=== PATIENT | female | born 1965 | race Caucasian/White ===

== ENCOUNTER 2022-08-14 14:26 | Inpatient (IN) | payer OTHER ==
[2022-08-14] MEDS ORDERED: IPRATROPIUM-ALBUTEROL 3 ML NEB INHALATION STA (15:05)
--- NOTE | 2022-08-14 15:07 | ED ---
General Adult HPI - General Chief complaint: Shortness of Breath Stated complaint: Dyspnea Time Seen by Provider: 08/14/22 14:54 Source: patient, family, RN notes reviewed Mode of arrival: wheelchair Limitations: no limitations - History of Present Illness Initial comments: Patient is a pleasant 57-year-old female presenting to the emergency department with concerns with shortness of breath. Onset of symptoms was a couple of days ago. Patient does have history of both COPD and CHF. Patient has mild cough. No fever. Dyspnea does worsen with exertion as well as lying flat. No leg pain or leg swelling. Patient has some mild discomfort of her chest and back. - Related Data Home Medications Medication Instructions Recorded Confirmed Acetaminophen-Codeine 300-30mg 1 tab PO TID PRN 08/14/22 08/14/22 [Tylenol w/codeine #3] Albuterol Sulfate [Ventolin HFA] 2 puff INHALATION RT-Q6H PRN 08/14/22 08/14/22 Apixaban [Eliquis] 2.5 mg PO BID 08/14/22 08/14/22 Ascorbic Acid [Vitamin C] 500 mg PO DAILY 08/14/22 08/14/22 Atorvastatin [Lipitor] 20 mg PO HS 08/14/22 08/14/22 Bumetanide [Bumex] 1 mg PO BID 08/14/22 08/14/22 Cholecalciferol (Vitamin D3) 125 mcg PO DAILY 08/14/22 08/14/22 [Vitamin D3 (125 MCG = 5,000 IU)] Citalopram Hydrobromide [CeleXA] 40 mg PO DAILY 08/14/22 08/14/22 Diclofenac Sodium Gel [Voltaren 2 - 4 gm TOPICAL TID PRN 08/14/22 08/14/22 Gel] Diltiazem Cd [Cardizem CD] 180 mg PO DAILY 08/14/22 08/14/22 Ferrous Sulfate [Feosol] 325 mg PO DAILY 08/14/22 08/14/22 Ipratropium-Albuterol Nebulize 3 ml INHALATION RT-QID PRN 08/14/22 08/14/22 [Duoneb 0.5 mg-3 mg/3 ml Soln] Montelukast [Singulair] 10 mg PO DAILY 08/14/22 08/14/22 Multivitamins, Thera [Multivitamin 1 tab PO DAILY 08/14/22 08/14/22 (formulary)] [place]-3/Dha/Epa/Fish Oil [Fish Oil 1 cap PO DAILY 08/14/22 08/14/22 1,000 mg Softgel] Pantoprazole [Protonix] 40 mg PO DAILY 08/14/22 08/14/22 Potassium Chloride ER [K-Dur 20] 20 meq PO DAILY 08/14/22 08/14/22 Sildenafil [Revatio] 20 mg PO TID 08/14/22 08/14/22 Spironolactone [Aldactone] 25 mg PO DAILY 08/14/22 08/14/22 Tiotropium Br/Olodaterol HCl 1 puff INHALATION RT-DAILY 08/14/22 08/14/22 [Stiolto Respimat Inhal [place]] carvediloL [Coreg] 12.5 mg PO BID 08/14/22 08/14/22 diphenhydrAMINE HCL [Benadryl] 50 mg PO HS 08/14/22 08/14/22 predniSONE [Deltasone] 20 mg PO DAILY 08/14/22 08/14/22 Allergies Allergy/AdvReac Type Severity Reaction Status Date / Time doxycycline Allergy Unknown Verified 08/14/22 16:41 lorazepam [From Ativan] AdvReac Hallucinati Verified 08/14/22 16:41 ons venlafaxine [From Effexor] AdvReac Hallucinati Verified 08/14/22 16:41 ons Review of Systems ROS Statement: Those systems with pertinent positive or pertinent negative responses have been documented in the HPI. ROS Other: All systems not noted in ROS Statement are negative. Constitutional: Denies: fever Eyes: Denies: eye pain ENT: Denies: ear pain Respiratory: Reports: as per HPI, dyspnea Cardiovascular: Reports: as per HPI Endocrine: Denies: fatigue Gastrointestinal: Denies: abdominal pain Genitourinary: Denies: dysuria Musculoskeletal: Denies: arthralgia Skin: Denies: rash Neurological: Denies: weakness Past Medical History Past Medical History: Atrial Fibrillation, Heart Failure, COPD, Hyperlipidemia, Hypertension History of Any Multi-Drug Resistant Organisms: None Reported Past Surgical History: Bowel Resection, Hysterectomy Additional Past Surgical History / Comment(s): gastric sleve. Smoking Status: Former smoker Past Alcohol Use History: None Reported Past Drug Use History: None Reported General Exam Limitations: no limitations General appearance: alert, in no apparent distress Head exam: Present: normocephalic Eye exam: Present: normal appearance Neck exam: Present: normal inspection Respiratory exam: Present: decreased breath sounds Cardiovascular Exam: Present: regular rate, irregular rhythm Expanded Peripheral pulses: 2+: Radial (R), Radial (L), Dorsalis Pedis (R), Dorsalis Pedis (L) GI/Abdominal exam: Present: soft. Absent: tenderness Extremities exam: Present: normal inspection. Absent: pedal edema, calf tenderness Neurological exam: Present: alert Psychiatric exam: Present: normal affect, normal mood Skin exam: Present: normal color Course Vital Signs 08/14/22 08/14/22 08/14/22 14:42 15:19 15:21 Temperature 98.9 F Pulse Rate 70 Respiratory 16 24 20 Rate Blood Pressure 128/64 101/67 O2 Sat by Pulse 90 L 90 L Oximetry 08/14/22 08/14/22 15:35 15:45 Temperature Pulse Rate 62 64 Respiratory Rate Blood Pressure O2 Sat by Pulse Oximetry EKG Findings - EKG Results: EKG: interpreted by ERMD (Right axis. Septal Q waves.), normal ST/T EKG shows: atrial fibrillation Medical Decision Making - Medical Decision Making Was pt. sent in by a medical professional or institution ([facility] Jimenez, ENVIRONMENTAL PROTECTION INSPECTOR, urgent care, hospital, or skilled nursing...) When possible be specific @ -[No] Did you speak to anyone other than the patient for history (EMS, parent, family, police, friend...)? What history was obtained from this source @ -[No] Did you review nursing and triage notes (agree or disagree)? Why? @ -[I reviewed and agree with nursing and triage notes] Were old charts reviewed (outside hosp., previous admission, EMS record, old EKG, old radiological studies, urgent care reports/EKG's, skilled nursing records)? Report findings @ -[No old charts were reviewed] Differential Diagnosis (chest pain, altered mental status, abdominal pain women, abdominal pain men, vaginal bleeding, weakness, fever, dyspnea, syncope, headache, dizziness, GI bleed, back pain, seizure, CVA, palpatations, mental health)? @ -[Differential Dyspnea: Coronary syndrome, arrhythmia, tamponade, asthma, COPD, pulmonary embolism, pneumonia, pneumothorax, pulmonary effusion, anaphylaxis, diabetic ketoacidosis, flailed chest, pulmonary contusion, diaphragmatic rupture, anemia, neuromuscular, this is not meant to be an all-inclusive list. ] EKG interpreted by me (3pts min.). @ -[As above] X-rays interpreted by me (1pt min.). @ -[Chest x-ray shows cardiomegaly and CHF] CT interpreted by me (1pt min.). @ -[None done] U/S interpreted by me (1pt. min.). @ -[None done] What testing was considered but not performed or refused? (CT, X-rays, U/S, labs)? Why? @ -[None] What meds were considered but not given or refused? Why? @ -[None] Did you discuss the management of the patient with other professionals (professionals i.e. DrDominick, PA, ENVIRONMENTAL PROTECTION INSPECTOR, lab, RT, psych nurse, sexual assault social worker, contract technical writer, teacher, youth officer, employment evaluator/case manager)? Give summary @ -[Case was discussed with practitioner Jen palacios, who will admit covering Dr. Carbone, who will admit for hospital call] Was smoking cessation discussed for >3mins.? @ -[No] Was critical care preformed (if so, how long)? @ -[No] Were there social determinants of health that impacted care today? How? (Homelessness, low income, unemployed, alcoholism, drug addiction, transportation, low edu. Level, literacy, decrease access to med. care, care home, rehab)? @ -[No] Was there de-escalation of care discussed even if they declined (Discuss DNR or withdrawal of care, Hospice)? DNR status @ -[No] What co-morbidities impacted this encounter? (DM, HTN, Smoking, COPD, CAD, Cancer, CVA, ARF, Chemo, Hep., AIDS, mental health diagnosis, sleep apnea, morbid obesity)? @ -[None] Was patient admitted / discharged? Hospital course, mention meds given and route, prescriptions, significant lab abnormalities, going to OR and other perti nent info. @ -[Patient reevaluated and updated. Patient likely has combined CHF and COPD.] Undiagnosed new problem with uncertain prognosis? @ -[No] Drug Therapy requiring intensive monitoring for toxicity (Heparin, Nitro, Insulin, Cardizem)? @ -[No] Were any procedures done? @ -[No] Diagnosis/symptom? @ -[CHF, COPD] Acute, or Chronic, or Acute on Chronic? @ -Acute on chronic, acute on chronic Uncomplicated (without systemic symptoms) or Complicated (systemic symptoms)? @ -[default] Side effects of treatment? @ -[No] Exacerbation, Progression, or Severe Exacerbation? @ -[No] Poses a threat to life or bodily function? How? (Chest pain, USA, MS, pneumonia, PE, COPD, DKA, ARF, appy, cholecystitis, CVA, Diverticulitis, Homicidal, Suicidal, threat to staff... and all critical care pts) @ -[No] - Lab Data Result diagrams: 08/14/22 15:24 08/14/22 15:24 Lab Results 08/14/22 08/14/22 08/14/22 Range/Units 15:24 15:24 15:24 WBC 7.2 (3.8-10.6) k/uL RBC 4.25 (3.80-5.40) m/uL Hgb 12.9 (11.4-16.0) gm/dL Hct 40.8 (34.0-46.0) % MCV 95.8 (80.0-100.0) fL MCH 30.3 (25.0-35.0) pg MCHC 31.6 (31.0-37.0) g/dL RDW 14.7 (11.5-15.5) % Plt Count 141 L (150-450) k/uL MPV 8.5 Neutrophils % 89 % Lymphocytes % 5 % Monocytes % 4 % Eosinophils % 1 % Basophils % 0 % Neutrophils # 6.4 (1.3-7.7) k/uL Lymphocytes # 0.4 L (1.0-4.8) k/uL Monocytes # 0.3 (0-1.0) k/uL Eosinophils # 0.1 (0-0.7) k/uL Basophils # 0.0 (0-0.2) k/uL PT 11.2 (9.0-12.0) sec INR 1.1 (<1.2) APTT 24.2 (22.0-30.0) sec D-Dimer 0.25 (<0.60) mg/L FEU Sodium 140 (137-145) mmol/L Potassium 4.5 (3.5-5.1) mmol/L Chloride 101 (98-107) mmol/L Carbon Dioxide 32 H (22-30) mmol/L Anion Gap 7 mmol/L BUN 35 H (7-17) mg/dL Creatinine 1.47 H (0.52-1.04) mg/dL Est GFR (CKD-EPI)AfAm 45 (>60 ml/min/1.73 sqM) Est GFR (CKD-EPI)NonAf 39 (>60 ml/min/1.73 sqM) Glucose 187 H (74-99) mg/dL Plasma Lactic Acid Leoncio (0.7-2.0) mmol/L Calcium 8.7 (8.4-10.2) mg/dL Magnesium 2.2 (1.6-2.3) mg/dL Total Bilirubin 0.7 (0.2-1.3) mg/dL AST 20 (14-36) U/L ALT 28 (4-34) U/L Alkaline Phosphatase 64 (38-126) U/L Troponin I (0.000-0.034) ng/mL NT-Pro-B Natriuret Pep pg/mL Total Protein 6.3 (6.3-8.2) g/dL Albumin 3.9 (3.5-5.0) g/dL Influenza Type A (PCR) (Not Detectd) Influenza Type B (PCR) (Not Detectd) RSV (PCR) (Not Detectd) SARS-CoV-2 (PCR) (Not Detectd) 08/14/22 08/14/22 08/14/22 Range/Units 15:24 15:24 15:24 WBC (3.8-10.6) k/uL RBC (3.80-5.40) m/uL Hgb (11.4-16.0) gm/dL Hct (34.0-46.0) % MCV (80.0-100.0) fL MCH (25.0-35.0) pg MCHC (31.0-37.0) g/dL RDW (11.5-15.5) % Plt Count (150-450) k/uL MPV Neutrophils % % Lymphocytes % % Monocytes % % Eosinophils % % Basophils % % Neutrophils # (1.3-7.7) k/uL Lymphocytes # (1.0-4.8) k/uL Monocytes # (0-1.0) k/uL Eosinophils # (0-0.7) k/uL Basophils # (0-0.2) k/uL PT (9.0-12.0) sec INR (<1.2) APTT (22.0-30.0) sec D-Dimer (<0.60) mg/L FEU Sodium (137-145) mmol/L Potassium (3.5-5.1) mmol/L Chloride (98-107) mmol/L Carbon Dioxide (22-30) mmol/L Anion Gap mmol/L BUN (7-17) mg/dL Creatinine (0.52-1.04) mg/dL Est GFR (CKD-EPI)AfAm (>60 ml/min/1.73 sqM) Est GFR (CKD-EPI)NonAf (>60 ml/min/1.73 sqM) Glucose (74-99) mg/dL Plasma Lactic Acid Leoncio 1.2 (0.7-2.0) mmol/L Calcium (8.4-10.2) mg/dL Magnesium (1.6-2.3) mg/dL Total Bilirubin (0.2-1.3) mg/dL AST (14-36) U/L ALT (4-34) U/L Alkaline Phosphatase (38-126) U/L Troponin I <0.012 (0.000-0.034) ng/mL NT-Pro-B Natriuret Pep 1970 pg/mL Total Protein (6.3-8.2) g/dL Albumin (3.5-5.0) g/dL Influenza Type A (PCR) (Not Detectd) Influenza Type B (PCR) (Not Detectd) RSV (PCR) (Not Detectd) SARS-CoV-2 (PCR) (Not Detectd) 08/14/22 Range/Units 15:24 WBC (3.8-10.6) k/uL RBC (3.80-5.40) m/uL Hgb (11.4-16.0) gm/dL Hct (34.0-46.0) % MCV (80.0-100.0) fL MCH (25.0-35.0) pg MCHC (31.0-37.0) g/dL RDW (11.5-15.5) % Plt Count (150-450) k/uL MPV Neutrophils % % Lymphocytes % % Monocytes % % Eosinophils % % Basophils % % Neutrophils # (1.3-7.7) k/uL Lymphocytes # (1.0-4.8) k/uL Monocytes # (0-1.0) k/uL Eosinophils # (0-0.7) k/uL Basophils # (0-0.2) k/uL PT (9.0-12.0) sec INR (<1.2) APTT (22.0-30.0) sec D-Dimer (<0.60) mg/L FEU Sodium (137-145) mmol/L Potassium (3.5-5.1) mmol/L Chloride (98-107) mmol/L Carbon Dioxide (22-30) mmol/L Anion Gap mmol/L BUN (7-17) mg/dL Creatinine (0.52-1.04) mg/dL Est GFR (CKD-EPI)AfAm (>60 ml/min/1.73 sqM) Est GFR (CKD-EPI)NonAf (>60 ml/min/1.73 sqM) Glucose (74-99) mg/dL Plasma Lactic Acid Leoncio (0.7-2.0) mmol/L Calcium (8.4-10.2) mg/dL Magnesium (1.6-2.3) mg/dL Total Bilirubin (0.2-1.3) mg/dL AST (14-36) U/L ALT (4-34) U/L Alkaline Phosphatase (38-126) U/L Troponin I (0.000-0.034) ng/mL NT-Pro-B Natriuret Pep pg/mL Total Protein (6.3-8.2) g/dL Albumin (3.5-5.0) g/dL Influenza Type A (PCR) Not Detected (Not Detectd) Influenza Type B (PCR) Not Detected (Not Detectd) RSV (PCR) Not Detected (Not Detectd) SARS-CoV-2 (PCR) Not Detected (Not Detectd) Disposition Clinical Impression: Congestive heart failure, Acute exacerbation of chronic obstructive pulmonary disease Disposition: ADMITTED IP TO THIS HOSP Is patient prescribed a controlled substance at d/c from ED?: No Referrals: Nonstaff,Physician [REFERRING] - 1-2 days Time of Disposition: 17:58
--- NOTE | 2022-08-14 15:46 | XR ---
EXAMINATION TYPE: XR chest 2V DATE OF EXAM: 08/14/2022 3:33 PM COMPARISON: None TECHNIQUE: XR chest 2V Frontal and lateral views of the chest. CLINICAL INDICATION:Female, 57 years old with history of difficulty breathing; FINDINGS: Lungs/Pleura: Trace right pleural effusion. No focal consolidation or pneumothorax. Pulmonary vascularity: Pulmonary vascular congestion. Heart/mediastinum: Cardiomediastinal silhouette is enlarged. Musculoskeletal: No acute osseous pathology. IMPRESSION: Cardiomegaly, pulmonary vascular congestion and trace right pleural effusion. Correlate with BNP for congestive heart failure.
[2022-08-14 15:49] LABS: Basophils % (A) 0 %; Eosinophils # (A) 0.1 k/uL (0-0.7); Eosinophils % (A) 1 %; HCT 40.8 % (34.0-46.0); HGB 12.9 gm/dL (11.4-16.0); Lymphocytes # (A) 0.4 k/uL (1.0-4.8); Lymphocytes % (A) 5 %; MCH 30.3 pg (25.0-35.0); MCHC 31.6 g/dL (31.0-37.0); MCV 95.8 fL (80.0-100.0); Mean Platelet Volume 8.5; Monocytes # (A) 0.3 k/uL (0-1.0); Monocytes % (A) 4 %; Neutrophils # (A) 6.4 k/uL (1.3-7.7); Neutrophils % (A) 89 %; Platelet Count 141 k/uL (150-450); RBC 4.25 m/uL (3.80-5.40); RDW 14.7 % (11.5-15.5); WBC 7.2 k/uL (3.8-10.6)
[2022-08-14 16:01] LABS: Albumin 3.9 g/dL (3.5-5.0); Calcium 8.7 mg/dL (8.4-10.2); Magnesium 2.2 mg/dL (1.6-2.3); Potassium 4.5 mmol/L (3.5-5.1); Total Bilirubin 0.7 mg/dL (0.2-1.3); Total Protein 6.3 g/dL (6.3-8.2)
[2022-08-14 16:06] LABS: INR 1.1 (<1.2); Partial Thromboplastin Time 24.2 sec (22.0-30.0); Prothrombin Time 11.2 sec (9.0-12.0)
[2022-08-14] MEDS ORDERED: ASPIRIN 325 MG TAB PO STA (17:58)
[2022-08-14] MEDS ORDERED: IPRATROPIUM-ALBUTEROL 3 ML NEB INHALATION PRN (17:58)
[2022-08-14] MEDS ORDERED: methylPREDNISolone SOD SUCCI 125 MG/2 ML VIAL IV STA (17:58)
[2022-08-14] MEDS ORDERED: NALOXONE 0.4 MG/ML 1 ML VIAL IVP PRN (17:58)
[2022-08-14] MEDS: methylPREDNISolone SOD SUCCI 125 MG/2 ML VIAL IV SCH ×2 (18:06→23:23)
[2022-08-14] MEDS ORDERED: HYDROcodone/APAP 5-325MG 1 EACH TAB PO STA ×2 (18:07→23:49)
[2022-08-14] MEDS: NITROGLYCERIN OINT 1 INCH/GM PACKET TOPICAL SCH ×2 (18:13→23:23)
[2022-08-14] MEDS ORDERED: ALBUTEROL HFA INHALER INHALATION PRN (18:15)
[2022-08-14] MEDS: FUROSEMIDE 10 MG/ML 4 ML VIAL IV SCH ×2 (19:54→23:23)
[2022-08-14] MEDS ORDERED: IPRATROPIUM-ALBUTEROL 3 ML NEB INHALATION SCH (20:00)
[2022-08-14] MEDS: ALBUTEROL HFA INHALER INHALATION SCH (21:41)
[2022-08-14] MEDS: DOCUSATE 100 MG CAP PO SCH (23:58)
[2022-08-15] MEDS: carvediloL 12.5 MG TAB PO SCH ×2 (06:11→17:19)
[2022-08-15] MEDS: methylPREDNISolone SOD SUCCI 125 MG/2 ML VIAL IV SCH ×3 (06:11→17:18)
[2022-08-15 07:15] LABS: Calcium 9.1 mg/dL (8.4-10.2)
[2022-08-15] MEDS: ALBUTEROL HFA INHALER INHALATION SCH ×4 (08:23→19:58)
[2022-08-15] MEDS: TIOTROPIUM 2.5 MCG INHALER INHALATION SCH (08:24)
[2022-08-15] MEDS ORDERED: APIXABAN 2.5 MG TABLET PO SCH (09:00)
[2022-08-15] MEDS ORDERED: ASPIRIN 325 MG TAB PO SCH (09:00)
[2022-08-15] MEDS ORDERED: DEXTROSE 50% SYRINGE 50 ML IVP PRN ×2 (09:43)
[2022-08-15] MEDS: MULTIVITAMINS, THERA 1 EACH TAB PO SCH (10:15)
[2022-08-15] MEDS: PANTOPRAZOLE 40 MG TABLET PO SCH (10:15)
[2022-08-15] MEDS: MONTELUKAST 10 MG TAB PO SCH (10:15)
[2022-08-15] MEDS: SILDENAFIL 20 MG TAB PO SCH ×3 (10:15→20:52)
[2022-08-15] MEDS: ASCORBIC ACID 500 MG TAB PO SCH (10:16)
[2022-08-15] MEDS: FERROUS SULFATE 325 MG TAB PO SCH (10:16)
[2022-08-15] MEDS: CITALOPRAM HYDROBROMIDE 20 MG TAB PO SCH (10:16)
[2022-08-15] MEDS: DOCUSATE 100 MG CAP PO SCH ×2 (10:16→20:47)
[2022-08-15] MEDS: CHOLECALCIFEROL 125 MCG (5000 IU) TABLET PO SCH (10:16)
[2022-08-15] MEDS: DILTIAZEM CD 180 MG CAP.ER.24H PO SCH (10:17)
[2022-08-15] MEDS: Acetaminophen-Codeine 300-30mg TAB PO PRN ×2 (10:17→18:26)
[2022-08-15] MEDS: NITROGLYCERIN OINT 1 INCH/GM PACKET TOPICAL SCH ×4 (10:18→20:52)
[2022-08-15] MEDS: POTASSIUM CHLORIDE ER 20 MEQ TAB.ER PO SCH (10:19)
[2022-08-15] MEDS: APIXABAN 5 MG TAB PO SCH ×2 (10:19→20:48)
[2022-08-15 10:46] VITALS: BMI 42.3
[2022-08-15] MEDS: FUROSEMIDE 10 MG/ML 4 ML VIAL IV SCH (11:14)
[2022-08-15 12:29] LABS: Glucose,Whole Blood 154 mg/dL (70-110)
[2022-08-15] MEDS: INSULIN ASPART (NovoLOG) 100 UNIT/ML VIAL SQ SCH ×3 (12:39→20:48)
--- NOTE | 2022-08-15 14:12 | P.CNPUL ---
History of Present Illness Consult date: 08/15/22 Requesting physician: Amira Carbone Reason for consult: dyspnea, COPD Chief complaint: Shortness of breath History of present illness: This is a 57-year-old female, known history of COPD, chronic hypoxic respiratory failure maintained on oxygen for many years, patient had at least a [id number] smoking history and she is to follow-up with a federal judicial law clerk in [facility]. Patient moved recently to the area, and for the last few days the patient has been complaining of increased shortness of breath, occasional mild cough, cough is productive with whitish phlegm, no fever no chills no hemoptysis no chest pain. Patient does describe symptoms of dyspnea upon lying flat. Hugo fragoso also describes some discomfort in the back. Chest x-ray on this admission showed evidence of interstitial edema patient is maintained on multiple medications for her lungs and for her history of congestive heart failure. Patient is also maintained on sildenafil, prescribed to her a while back by her pulp and paper tester in [place]. I assume the patient is known to have history of pulmonary hypertension. At any rate patient was admitted, and this consult was initiated. Labs on this admission showed relatively normal CBC , Normal basic metabolic profile except for elevated creatinine of 1.47, elevated BNP level of 1970, normal troponins and she had negative final screening for influ remington A and B and RSV as well as COVID-19 infection. Patient was placed on bronchodilators she was also placed on Lasix 40 mg twice a day, and on methylprednisolone.. Her usual home meds were also resumed. Review of Systems Constitutional: Generalized weakness, vague aches and pains in the back, no fever no chills. HEENT: Negative. Cardiac: As noted in HPI Pulmonary: As noted in HPI GI: Negative Genitourinary: Negative Musculoskeletal: Negative Hematologic: Negative Endocrine: Negative Neurologic: Negative Skin: Negative Psychiatric: Negative Past Medical History Past Medical History: Atrial Fibrillation, Heart Failure, COPD, Hyperlipidemia, Hypertension History of Any Multi-Drug Resistant Organisms: None Reported Past Surgical History: Bariatric Surgery, Bowel Resection, Hysterectomy Additional Past Surgical History / Comment(s): gastric sleve. Past Anesthesia/Blood Transfusion Reactions: No Reported Reaction Past Psychological History: No Psychological Hx Reported Smoking Status: Former smoker Past Alcohol Use History: None Reported Past Drug Use History: None Reported - Past Family History Mother Family Medical History: COPD, Coronary Artery Disease (CAD), CVA/TIA, Hypertension Father Family Medical History: COPD, CVA/TIA, Hypertension, Prostate Disorder Medications and Allergies Home Medications Medication Instructions Recorded Confirmed Type Acetaminophen-Codeine 300-30mg 1 tab PO TID PRN 08/14/22 08/14/22 History [Tylenol w/codeine #3] Albuterol Sulfate [Ventolin HFA] 2 puff INHALATION RT-Q6H PRN 08/14/22 08/14/22 History Apixaban [Eliquis] 2.5 mg PO BID 08/14/22 08/14/22 History Ascorbic Acid [Vitamin C] 500 mg PO DAILY 08/14/22 08/14/22 History Atorvastatin [Lipitor] 20 mg PO HS 08/14/22 08/14/22 History Bumetanide [Bumex] 1 mg PO BID 08/14/22 08/14/22 History Cholecalciferol (Vitamin D3) 125 mcg PO DAILY 08/14/22 08/14/22 History [Vitamin D3 (125 MCG = 5,000 IU)] Citalopram Hydrobromide [CeleXA] 40 mg PO DAILY 08/14/22 08/14/22 History Diclofenac Sodium Gel [Voltaren 2 - 4 gm TOPICAL TID PRN 08/14/22 08/14/22 History Gel] Diltiazem Cd [Cardizem CD] 180 mg PO DAILY 08/14/22 08/14/22 History Ferrous Sulfate [Feosol] 325 mg PO DAILY 08/14/22 08/14/22 History Ipratropium-Albuterol Nebulize 3 ml INHALATION RT-QID PRN 08/14/22 08/14/22 History [Duoneb 0.5 mg-3 mg/3 ml Soln] Montelukast [Singulair] 10 mg PO DAILY 08/14/22 08/14/22 History Multivitamins, Thera [Multivitamin 1 tab PO DAILY 08/14/22 08/14/22 History (formulary)] [place]-3/Dha/Epa/Fish Oil [Fish Oil 1 cap PO DAILY 08/14/22 08/14/22 History 1,000 mg Softgel] Pantoprazole [Protonix] 40 mg PO DAILY 08/14/22 08/14/22 History Potassium Chloride ER [K-Dur 20] 20 meq PO DAILY 08/14/22 08/14/22 History Sildenafil [Revatio] 20 mg PO TID 08/14/22 08/14/22 History Spironolactone [Aldactone] 25 mg PO DAILY 08/14/22 08/14/22 History Tiotropium Br/Olodaterol HCl 1 puff INHALATION RT-DAILY 08/14/22 08/14/22 History [Stiolto Respimat Inhal [place]] carvediloL [Coreg] 12.5 mg PO BID 08/14/22 08/14/22 History diphenhydrAMINE HCL [Benadryl] 50 mg PO HS 08/14/22 08/14/22 History predniSONE [Deltasone] 20 mg PO DAILY 08/14/22 08/14/22 History Allergies Allergy/AdvReac Type Severity Reaction Status Date / Time doxycycline Allergy Unknown Verified 08/14/22 16:41 lorazepam [From Ativan] AdvReac Hallucinati Verified 08/14/22 16:41 ons venlafaxine [From Effexor] AdvReac Hallucinati Verified 08/14/22 16:41 ons Physical Exam Vitals: Vital Signs Temp Pulse Pulse Resp BP BP BP 08/15/22 12:00 98.0 F 92 18 137/81 08/15/22 08:00 98.5 F 97 20 108/73 08/15/22 04:00 98.2 F 92 17 125/75 08/14/22 23:34 98.0 F 76 18 122/81 08/14/22 21:41 08/14/22 20:00 98.2 F 73 19 126/79 08/14/22 18:40 73 18 117/75 08/14/22 18:14 24 122/90 08/14/22 15:45 64 08/14/22 15:35 62 08/14/22 15:21 20 101/67 08/14/22 15:19 24 08/14/22 14:42 98.9 F 70 16 128/64 Pulse Ox 08/15/22 12:00 93 L 08/15/22 08:00 93 L 08/15/22 04:00 94 L 08/14/22 23:34 92 L 08/14/22 21:41 94 L 08/14/22 20:00 92 L 08/14/22 18:40 91 L 08/14/22 18:14 94 L 08/14/22 15:45 08/14/22 15:35 08/14/22 15:21 90 L 08/14/22 15:19 08/14/22 14:42 90 L Intake and Output 08/14/22 08/15/22 08/15/22 22:59 06:59 14:59 Intake Total 560 240 Output Total 1000 1999 450 Balance -1000 -1440 -210 Intake: Oral 560 240 Output: Urine 999 Other: Voiding Method Toilet Toilet Toilet # Voids 1 Weight 120.202 kg 118.8 kg 118.8 kg Physical Exam: Revealed a 57-year-old female pleasant in no distress, on 4 L nasal cannula with O2 sat shows 93% Head: Atraumatic, normocephalic. HEENT:[Neck is supple.] [No neck masses.] [No thyromegaly.] [No JVD.] Chest: [Symmetrical chest expansion, diminished breath sound bilaterally no rhonchi no wheezes Cardiac Exam: [Normal S1 and S2, no S3 gallop, no murmur.] Abdomen: [Soft, nontender, no megaly, no rebound, no guarding, normal bowel sounds.] Extremities: [No clubbing, no edema, no cyanosis.] Neurological Exam: [No focal neurologic deficit.] Alert and oriented 3. Psychiatric: Normal mood, affect and normal mental status examination. Skin: No rashes. Results - Laboratory Findings CBC and BMP: 08/14/22 15:24 08/15/22 06:26 PT/INR, D-dimer PT 11.2 sec (9.0-12.0) 08/14/22 15:24 INR 1.1 (<1.2) 08/14/22 15:24 D-Dimer 0.25 mg/L FEU (<0.60) 08/14/22 15:24 Abnormal lab findings: Abnormal Labs 08/14/22 08/14/22 08/15/22 15:24 15:24 06:26 Plt Count 141 L Lymphocytes # 0.4 L Carbon Dioxide 32 H 36 H BUN 35 H 32 H Creatinine 1.47 H 1.22 H Glucose 187 H 166 H POC Glucose (mg/dL) 08/15/22 12:27 Plt Count Lymphocytes # Carbon Dioxide BUN Creatinine Glucose POC Glucose (mg/dL) 154 H - Diagnostic Findings Chest x-ray: image reviewed (Chest x-ray is consistent with interstitial edema) Assessment and Plan Assessment: Impression: Acute congestive heart failure, unknown ejection fraction couldn't be systolic or diastolic in nature. Acute exacerbation of COPD Chronic hypoxic respiratory failure Chronic atrial fibrillation Secondary pulmonary hypertension Ex-smoker Recommendation: Continue diuretics Continue bronchodilators, albuterol, Pulmicort, Perforomist, Continue oxygen and titrate accordingly, patient has her own home O2. Repeat chest x-ray after good course of diuresis continue methylprednisolone however cut down the dose to 40 mg IV push every 8 hours, and eventually transition to prednisone burst and taper Resume her cardiac meds for atrial fibrillation/chronic We'll continue to follow. Time with Patient: Greater than 30
--- NOTE | 2022-08-15 14:49 | P.HPIM ---
History of Present Illness H&P Date: 08/15/22 This is a pleasant 57 year old female with medical history significant for COPD and chronic hypoxic respiratory failure maintained on 3L of oxygen outpatient, history of atrial fibrillation, heart failure, hypertension, hyperlipidemia, former smoker, prior history of bariatric surgery. Patient presents to the hospital with complaints with 2 day history of shortness of breath and mild cough. She denies fever/chills, no recent illness or sick contact. Shortness of breath is worth with exertion and unable to lay flat. Initial work up reveals negative serial troponins, proBNP of 1970, BUN of 35, creatinine 1.47. Viral panel is negative for influenza, RSV, or COVID. Unclear what baseline creatinine is. Patient had chest xray done showing pulmonary vascular congestion and trace right pleural effusion and received dose of IV lasix in the EC. Patient does admit to improved symptoms after lasix dose. Patient also received a 125 mg dose of IV solu-medrol. Pulmonary and cardiology services have been consulted for further evaluation. Echocardiogram is currently ordered and pending. Patient is resumed on anticoagulation and home medications. REVIEW OF SYSTEMS: CONSTITUTIONAL: No fever, no malaise, no fatigue. HEENT: No recent visual problems or hearing problems. Denied any sore throat. CARDIOVASCULAR: No chest pain, orthopnea, PND, no palpitations, no syncope. PULMONARY: Reports shortness of breath and productive cough, no hemoptysis. GASTROINTESTINAL: No diarrhea, no nausea, no vomiting, no abdominal pain. NEUROLOGICAL: No headaches, no weakness, no numbness. HEMATOLOGICAL: Denies any bleeding or petechiae. GENITOURINARY: Denies any burning micturition, frequency, or urgency. MUSCULOSKELETAL/RHEUMATOLOGICAL: Denies any joint pain, swelling, or any muscle pain. ENDOCRINE: Denies any polyuria or polydipsia. The rest of the 14-point review of systems is negative. PHYSICAL EXAMINATION: GENERAL: The patient is alert and oriented x3, not in any acute distress. Well d eveloped, well nourished. HEENT: Pupils are round and equally reacting to light. EOMI. No scleral icterus. No conjunctival pallor. Normocephalic, atraumatic. No pharyngeal erythema. No thyromegaly. CARDIOVASCULAR: S1 and S2 present. No murmurs, rubs, or gallops. PULMONARY: Lungs sounds are diminished no wheezing or crackles noted ABDOMEN: Soft, nontender, nondistended, normoactive bowel sounds. No palpable organomegaly. MUSCULOSKELETAL: No joint swelling or deformity. EXTREMITIES: No cyanosis, clubbing, or pedal edema. NEUROLOGICAL: Gross neurological examination did not reveal any focal deficits. SKIN: No rashes. Assessment and Plan Assessment Exertional dyspnea Acute congestive heart failure exacerbation unclear whether systolic or diastolic echocardiogram is pending Acute on chronic hypoxic respiratory failure maintained on 3L of oxygen outpatient currently on 4L of oxygen and likely from CHF exacerbation and mild acute COPD exacerbation Acute kidney injury improved with lasix Hyperglycemia check an A1C History of persisent atrial fibrillation anticoagulated with eliquis Hypertension Hyperlipidemia Former Smoker Obesity GI prophylaxis DVT prophylaxis patient is resumed on eliquis Plan Echocardiogram taken and pending Resume appopriate home medications Cardiology and pulmonary consultation Patient is continued on home inhalers and started on IV steroids Sliding scale insulin to continue and check an A1C The impression and plan of care has been dictated by Shantel Reveles, Nurse Practitioner as directed. Dr. Lyle MD I have performed a history and physical examination and medical decision making of this patient, discussed the same with the dictator, and agree with the dictators assessment and plan as written, documented as a scribe. Based on total visit time, I have performed more than 50% of this visit. Past Medical History Past Medical History: Atrial Fibrillation, Heart Failure, COPD, Hyperlipidemia, Hypertension History of Any Multi-Drug Resistant Organisms: None Reported Past Surgical History: Bariatric Surgery, Bowel Resection, Hysterectomy Additional Past Surgical History / Comment(s): gastric sleve. Past Anesthesia/Blood Transfusion Reactions: No Reported Reaction Past Psychological History: No Psychological Hx Reported Smoking Status: Former smoker Past Alcohol Use History: None Reported Past Drug Use History: None Reported - Past Family History Mother Family Medical History: COPD, Coronary Artery Disease (CAD), CVA/TIA, Hypertension Father Family Medical History: COPD, CVA/TIA, Hypertension, Prostate Disorder Medications and Allergies Home Medications Medication Instructions Recorded Confirmed Type Acetaminophen-Codeine 300-30mg 1 tab PO TID PRN 08/14/22 08/14/22 History [Tylenol w/codeine #3] Albuterol Sulfate [Ventolin HFA] 2 puff INHALATION RT-Q6H PRN 08/14/22 08/14/22 History Apixaban [Eliquis] 2.5 mg PO BID 08/14/22 08/14/22 History Ascorbic Acid [Vitamin C] 500 mg PO DAILY 08/14/22 08/14/22 History Atorvastatin [Lipitor] 20 mg PO HS 08/14/22 08/14/22 History Bumetanide [Bumex] 1 mg PO BID 08/14/22 08/14/22 History Cholecalciferol (Vitamin D3) 125 mcg PO DAILY 08/14/22 08/14/22 History [Vitamin D3 (125 MCG = 5,000 IU)] Citalopram Hydrobromide [CeleXA] 40 mg PO DAILY 08/14/22 08/14/22 History Diclofenac Sodium Gel [Voltaren 2 - 4 gm TOPICAL TID PRN 08/14/22 08/14/22 History Gel] Diltiazem Cd [Cardizem CD] 180 mg PO DAILY 08/14/22 08/14/22 History Ferrous Sulfate [Feosol] 325 mg PO DAILY 08/14/22 08/14/22 History Ipratropium-Albuterol Nebulize 3 ml INHALATION RT-QID PRN 08/14/22 08/14/22 History [Duoneb 0.5 mg-3 mg/3 ml Soln] Montelukast [Singulair] 10 mg PO DAILY 08/14/22 08/14/22 History Multivitamins, Thera [Multivitamin 1 tab PO DAILY 08/14/22 08/14/22 History (formulary)] [place]-3/Dha/Epa/Fish Oil [Fish Oil 1 cap PO DAILY 08/14/22 08/14/22 History 1,000 mg Softgel] Pantoprazole [Protonix] 40 mg PO DAILY 08/14/22 08/14/22 History Potassium Chloride ER [K-Dur 20] 20 meq PO DAILY 08/14/22 08/14/22 History Sildenafil [Revatio] 20 mg PO TID 08/14/22 08/14/22 History Spironolactone [Aldactone] 25 mg PO DAILY 08/14/22 08/14/22 History Tiotropium Br/Olodaterol HCl 1 puff INHALATION RT-DAILY 08/14/22 08/14/22 History [Stiolto Respimat Inhal [place]] carvediloL [Coreg] 12.5 mg PO BID 08/14/22 08/14/22 History diphenhydrAMINE HCL [Benadryl] 50 mg PO HS 08/14/22 08/14/22 History predniSONE [Deltasone] 20 mg PO DAILY 08/14/22 08/14/22 History Allergies Allergy/AdvReac Type Severity Reaction Status Date / Time doxycycline Allergy Unknown Verified 08/14/22 16:41 lorazepam [From Ativan] AdvReac Hallucinati Verified 08/14/22 16:41 ons venlafaxine [From Effexor] AdvReac Hallucinati Verified 08/14/22 16:41 ons Physical Exam Vitals: Vital Signs Temp Pulse Pulse Resp BP BP BP 08/15/22 08:00 98.5 F 97 20 108/73 08/15/22 04:00 98.2 F 92 17 125/75 08/14/22 23:34 98.0 F 76 18 122/81 08/14/22 21:41 08/14/22 20:00 98.2 F 73 19 126/79 08/14/22 18:40 73 18 117/75 08/14/22 18:14 24 122/90 08/14/22 15:45 64 08/14/22 15:35 62 08/14/22 15:21 20 101/67 08/14/22 15:19 24 08/14/22 14:42 98.9 F 70 16 128/64 Pulse Ox 08/15/22 08:00 93 L 08/15/22 04:00 94 L 08/14/22 23:34 92 L 08/14/22 21:41 94 L 08/14/22 20:00 92 L 08/14/22 18:40 91 L 08/14/22 18:14 94 L 08/14/22 15:45 08/14/22 15:35 08/14/22 15:21 90 L 08/14/22 15:19 08/14/22 14:42 90 L Intake and Output 08/14/22 08/15/22 08/15/22 22:59 06:59 14:59 Intake Total 560 240 Output Total 1000 2000 450 Balance -1000 -6620 -210 Intake: Oral 560 240 Output: Urine 1000 1999 450 Other: Voiding Method Toilet Toilet # Voids 1 Weight 120.202 kg 118.8 kg Results CBC & Chem 7: 08/14/22 15:24 08/15/22 06:26 Labs: Abnormal Lab Results - Last 24 Hours (Table) 08/14/22 08/14/22 08/15/22 Range/Units 15:24 15:24 06:26 Plt Count 141 L (150-450) k/uL Lymphocytes # 0.4 L (1.0-4.8) k/uL Carbon Dioxide 32 H 36 H (22-30) mmol/L BUN 35 H 32 H (7-17) mg/dL Creatinine 1.47 H 1.22 H (0.52-1.04) mg/dL Glucose 187 H 166 H (74-99) mg/dL Thrombosis Risk Factor Assmnt - Choose All That Apply Any of the Below Risk Factors Present?: Yes Each Factor Represents 1 point: Abnormal pulmonary function (COPD), Age 41-60 years, Obesity (BMI >25) Thrombosis Risk Factor Assessment Total Risk Factor Score: 3 Thrombosis Risk Factor Assessment Level: Moderate Risk Assessment and Plan Time with Patient: Less than 30
--- NOTE | 2022-08-15 15:33 | CONS ---
CONSULTATION HISTORY OF PRESENT ILLNESS: This is a lady with a history of COPD, past history of smoking, also carries a diagnosis of CHF and has persistent atrial fibrillation that has actually been quite chronic. She takes Eliquis 2.5 mg b.i.d. She used to take 5 mg, but 2 years ago had GI bleed, and the dose was decreased. She came in mostly with increasing shortness of breath. She is also found to have normal troponins. Her oxygen saturation usually runs about 95% or so on 3 L but started dropping down, and even with increased oxygen, her saturations were down. She was more short of breath. After arrival, she feels better. She is breathing easier. She did receive some IV Lasix. This morning, all 3 sets of troponins are normal. There is modest elevation of about 1900 of her BNP. She is resting comfortably without symptoms. PAST MEDICAL HISTORY: 1. Past history of smoking and COPD. 2. History of hypertension. 3. Obesity. 4. History of chronic atrial fibrillation with decent rate control. MEDICATIONS AT HOME: Include: 1. Aldactone 25 mg daily. 2. She takes Singulair 10 mg daily. 3. Diltiazem 180 mg daily. 4. She takes carvedilol 12.5 mg b.i.d. 5. Apixaban 2.5 mg b.i.d. 6. Vitamin supplements. ALLERGIES: She is allergic to doxycycline and lorazepam. PHYSICAL EXAMINATION: VITAL SIGNS: Blood pressure is 110/70. Pulse rate is about 70, irregular. HEENT: Unremarkable. Fundus was not examined by me. NECK: Supple. No JVD. I do not hear a carotid bruit. HEART: Reveals S1 and S2 with irregularity in rhythm. LUNGS: Reveal bilateral diminished air entry. ABDOMEN: Soft and nontender. EXTREMITIES: Lower extremities reveal diminished pulses. CENTRAL NERVOUS SYSTEM: Normal. LABORATORY DATA: EKG revealed atrial fibrillation with controlled ventricular rate, mild IVCD. IMPRESSION: 1. Exacerbation of chronic obstructive pulmonary disease. 2. Mild exacerbation of congestive heart failure. 3. History of chronic atrial fibrillation. 4. Obesity. 5. Past history of smoking. RECOMMENDATIONS: I am suggesting we will check echocardiogram, increase Eliquis to 5 mg b.i.d., discontinue aspirin, switch her from IV to p.o. Lasix, and based on clinical course, we will make further recommendations. Thank you very much for the consult. NITA / RITAN: [id number] /
[2022-08-15 16:29] LABS: Glucose,Whole Blood 212 mg/dL (70-110)
[2022-08-15] MEDS: FUROSEMIDE 40 MG TAB PO SCH (17:19)
[2022-08-15] MEDS: BUDESONIDE 1 MG/2 ML NEBU INHALATION SCH (19:58)
[2022-08-15 20:32] LABS: Glucose,Whole Blood 173 mg/dL (70-110)
[2022-08-15] MEDS: ATORVASTATIN 20 MG TAB PO SCH (20:47)
[2022-08-15] MEDS: diphenhydrAMINE 25 MG CAP PO SCH (20:47)
[2022-08-15] MEDS: DICLOFENAC SODIUM GEL 100 GM TUBE TOPICAL SCH (20:48)
[2022-08-16] MEDS: methylPREDNISolone SOD SUCCI 125 MG/2 ML VIAL IV SCH ×4 (00:39→23:11)
[2022-08-16 06:09] LABS: Glucose,Whole Blood 166 mg/dL (70-110)
[2022-08-16] MEDS: carvediloL 12.5 MG TAB PO SCH ×2 (06:40→16:52)
[2022-08-16] MEDS: DICLOFENAC SODIUM GEL 100 GM TUBE TOPICAL SCH ×4 (06:40→20:57)
[2022-08-16] MEDS: INSULIN ASPART (NovoLOG) 100 UNIT/ML VIAL SQ SCH ×4 (06:40→20:56)
[2022-08-16 07:39] LABS: Glucose,Whole Blood 179 mg/dL (70-110)
[2022-08-16] MEDS ORDERED: IPRATROPIUM 0.5 MG/2.5 ML NEBU INHALATION SCH (08:00)
[2022-08-16] MEDS: APIXABAN 5 MG TAB PO SCH ×2 (08:10→20:56)
[2022-08-16] MEDS: SPIRONOLACTONE 25 MG TAB PO SCH (08:10)
[2022-08-16] MEDS: CHOLECALCIFEROL 125 MCG (5000 IU) TABLET PO SCH (08:10)
[2022-08-16] MEDS: PANTOPRAZOLE 40 MG TABLET PO SCH (08:10)
[2022-08-16] MEDS: FUROSEMIDE 40 MG TAB PO SCH ×2 (08:10→16:52)
[2022-08-16] MEDS: NITROGLYCERIN OINT 1 INCH/GM PACKET TOPICAL SCH ×4 (08:10→20:56)
[2022-08-16] MEDS: FERROUS SULFATE 325 MG TAB PO SCH (08:11)
[2022-08-16] MEDS: Acetaminophen-Codeine 300-30mg TAB PO PRN ×2 (08:11→14:09)
[2022-08-16] MEDS: DOCUSATE 100 MG CAP PO SCH ×2 (08:11→20:56)
[2022-08-16] MEDS: DILTIAZEM CD 180 MG CAP.ER.24H PO SCH (08:11)
[2022-08-16] MEDS: MONTELUKAST 10 MG TAB PO SCH (08:11)
[2022-08-16] MEDS: CITALOPRAM HYDROBROMIDE 20 MG TAB PO SCH (08:11)
[2022-08-16] MEDS: POTASSIUM CHLORIDE ER 20 MEQ TAB.ER PO SCH (08:11)
[2022-08-16] MEDS: ASCORBIC ACID 500 MG TAB PO SCH (08:11)
[2022-08-16] MEDS: SILDENAFIL 20 MG TAB PO SCH ×3 (08:11→20:56)
[2022-08-16] MEDS: MULTIVITAMINS, THERA 1 EACH TAB PO SCH (08:11)
[2022-08-16] MEDS: TIOTROPIUM 2.5 MCG INHALER INHALATION SCH (08:39)
[2022-08-16] MEDS: ALBUTEROL HFA INHALER INHALATION SCH ×4 (08:39→20:16)
[2022-08-16] MEDS: BUDESONIDE 1 MG/2 ML NEBU INHALATION SCH ×2 (08:39→20:16)
[2022-08-16] MEDS: FORMOTEROL FUMARATE 20 MCG/2 ML NEBU INHALATION SCH ×2 (08:40→20:16)
[2022-08-16] MEDS ORDERED: EPA PO SCH (09:00)
[2022-08-16] MEDS ORDERED: FISH OIL PO SCH (09:00)
[2022-08-16] MEDS ORDERED: OMEGA PO SCH (09:00)
[2022-08-16] MEDS ORDERED: DHA PO SCH (09:00)
--- NOTE | 2022-08-16 10:15 | PN ---
PROGRESS NOTE SUBJECTIVE: Mrs. Castellano is in atrial fib, rate is controlled. She is doing better. Echo results are still pending. She has history of diabetes, hypertension, hyperlipidemia, probable pulmonary hypertension. She also has obstructive sleep apnea; wears a CPAP. She is in atrial fib, rate is controlled. Troponins are normal. COPD exacerbation seems to have improved. We will switch her to oral Lasix, increase activity and hopefully discharge her in the next 24 hours after we review the echocardiogram. OBJECTIVE: VITAL SIGNS: Stable. HEART: S1, S2 heard normally. Short systolic murmur. LUNGS: Revealed improved air entry. ABDOMEN: Unchanged. LOWER EXTREMITIES: Unchanged. MMODL / IJN: [id number] /
--- NOTE | 2022-08-16 10:23 | CA ---
Transthoracic Echo Report Name: Amy Castellano Age: 57 Gender: F : 1965 Exam Date: 08/15/2022 10:17 Exam Location: [facility] Ht (in): 66 Wt (lb): 261 Ordering Physician: Reta Cao MD ([id number]) Attending/Referring Phys: Lead Ingot Molder Izabel Perez RDCS Procedure CPT: Indications: chf Cardiac Hx: Technical Quality: Technically difficult study Contrast 1: Total Dose (mL): Contrast 2: Total Dose (mL): MEASUREMENTS (Male / Female) Normal Values DOPPLER AV Peak Velocity 156.3 cm/s AV Peak Gradient 9.8 mmHg LVOT Peak Velocity 109.1 cm/s LVOT Peak Gradient 4.8 mmHg MV Area PHT 4.2 cm??? MR Peak Velocity 554.9 cm/s MR Peak Gradient 123.2 mmHg Mitral E Point Velocity 175.4 cm/s Mitral A Point Velocity 45.9 cm/s Mitral E to A Ratio 3.8 MV Deceleration Time 107.3 ms TR Peak Velocity 345.2 cm/s TR Peak Gradient 47.7 mmHg Right Atrial Pressure 8.0 mmHg Pulmonary Artery Systolic Pressu 55.7 mmHg Right Ventricular Systolic Press 55.7 mmHg FINDINGS Left Ventricle Asymmetric left ventricular hypertrophy. Severe diastolic dysfunction. Left ventricular cavity size normal. Left ventricular ejection fraction is estimated at 65%. Right Ventricle Right ventricular dilatation. Reduced right ventricular global systolic function. Severe pulmonary hypertension. Right Atrium Severe right atrial dilatation. Left Atrium Severe left atrial dilatation. Mitral Valve Moderate mitral bilateral annular calcification. Aortic Valve Trileaflet aortic valve. No aortic regurgitation. No aortic stenosis. Tricuspid Valve Moderate to severe tricuspid regurgitation. Pulmonic Valve Mild pulmonic regurgitation. Pericardium Echo free space anterior to the right ventricle likely represents a fat pad. No pericardial or pleural effusion. Aorta Normal size aortic root and proximal ascending aorta. CONCLUSIONS Normal left ventricular systolic function was EF between 60-65% Severe mitral annular calcification with [id number] mitral regurgitation. An echo density was identified on the anterior mitral valve leaflet/LVOT junction Severe pulmonary hypertension Dilated right ventricle with decreased function Moderate to severe tricuspid regurgitation Severe biatrial enlargement Previewed by: Dr. Vel Saez MD (Electronically Signed) Final Date: 16 August 2022 10:22
[2022-08-16 11:17] LABS: Glucose,Whole Blood 149 mg/dL (70-110)
--- NOTE | 2022-08-16 11:48 | P.PN ---
Subjective Progress Note Date: 08/16/22 Hospital Course: 57 year old female with medical history significant for COPD and chronic hypoxic respiratory failure maintained on 3L of oxygen outpatient, history of atrial fibrillation, heart failure, hypertension, hyperlipidemia, former smoker, prior history of bariatric surgery presenting with acute on chronic dyspnea and mild cough. Initial work up reveals negative serial troponins, proBNP of 1970, BUN of 35, creatinine 1.47. Viral panel is negative for influenza, RSV, or COVID. Patient had chest xray done showing pulmonary vascular congestion and trace right pleural effusion. Patient admitted for CHF and COPD exacerbation. Cardiology and pulmonology following. Subjective: Patient seen and examined at bedside. No acute events overnight. She claims that her breathing has improved. She denies any significant cough, chest pain, abdominal pain, nausea, vomiting, diarrhea, constipation, or urinary complaints. Pertinent positives and negatives as discussed above, a complete review of systems was performed and all other systems are negative. Vitals Signs Reviewed. General: nontoxic, no distress, appears at stated age Derm: warm, dry Head: atraumatic, normocephalic, symmetric Eyes: EOMI, no lid lag, anicteric sclera Mouth: no lip lesion, mucus membranes moist Cardiovascular: S1S2 reg, no murmur Lungs: Bilateral rales up to mid lungs , no accessory muscle use Abdominal: soft, nontender to palpation, no guarding, no appreciable organomegaly Ext: no gross muscle atrophy, no edema, no contractures Neuro: CN II-XI grossly intact, no focal neuro deficits Psych: Alert, oriented, appropriate affect Data review today: Lab data: Glucose ranged between 149-179, A1c 6.1, BMP and magnesium pending Echocardiogram report reviewed: Normal LV systolic function, EF 60-65%, mild to moderate MR, and echodensity on the anterior mitral valve leaflet/LVOT junction, severe pulmonary hypertension, moderate to severe TR, severe biatrial enlargement Assessment and Plan: Active: Acute on chronic diastolic CHF exacerbation Acute COPD exacerbation Anterior mitral valve echodensity Severe pulmonary hypertension Moderate to severe TR Hyperglycemia, prediabetes A1c 6.1 -Cardiology note reviewed: Patient switched to oral Lasix 40 mg twice a day, possible discharge in the next 24 hours -Cardiology recommendations with regards to the echodensity seen on echocar diogram -BMP and magnesium ordered at this morning -Pulmonology following, patient on bronchodilators, Solu-Medrol 40 mg IV every 8 hours -Severe pulmonary hypertension likely in the setting of chronic's lung disease -Currently on low sliding scale insulin, no changes Chronic: Chronic atrial fibrillation Hypertension Dyslipidemia Former smoker Obesity -Home medications reviewed and reconciled DVT ppx: Eliquis Code status: Full code Anticipated discharge place: Home Anticipated discharge time: Likely tomorrow Objective - Vital Signs Vital signs: Vital Signs Temp 98.3 F 08/16/22 07:59 Pulse 76 08/16/22 08:54 Resp 18 08/16/22 07:59 BP 117/73 08/16/22 07:59 Pulse Ox 95 08/16/22 07:59 FiO2 Intake & Output 08/15/22 08/16/22 08/16/22 18:59 06:59 18:59 Intake Total 720 236 Output Total 850 850 275 Balance -130 -850 -39 Weight 118.8 kg 119.6 kg Intake: Oral 720 236 Output: Urine 850 850 275 Other: Voiding Method Toilet Toilet Toilet # Bowel Movements 1 - Labs CBC & Chem 7: 08/14/22 15:24 08/15/22 06:26 Labs: Abnormal Lab Results - Last 24 Hours (Table) 08/14/22 08/15/22 08/15/22 Range/Units 15:24 12:27 16:27 POC Glucose (mg/dL) 154 H 212 H (70-110) mg/dL Hemoglobin A1c 6.1 H (0.0-6.0) % 08/15/22 08/16/22 08/16/22 Range/Units 20:29 06:07 07:37 POC Glucose (mg/dL) 173 H 166 H 179 H (70-110) mg/dL Hemoglobin A1c (0.0-6.0) % 08/16/22 Range/Units 11:16 POC Glucose (mg/dL) 149 H (70-110) mg/dL Hemoglobin A1c (0.0-6.0) %
--- NOTE | 2022-08-16 13:54 | P.PN ---
Subjective Progress Note Date: 08/16/22 Principal diagnosis: Chronic hypoxic respiratory failure, multifactorial and severe pulmonary hypertension This is a 57-year-old female, known history of COPD, chronic hypoxic respiratory failure maintained on oxygen for many years, patient had at least a [id number] smoking history and she is to follow-up with a auto service instructor in [facility]. Patient moved recently to the area, and for the last few days the patient has been complaining of increased shortness of breath, occasional mild cough, cough is productive with whitish phlegm, no fever no chills no hemoptysis no chest pain. Patient does describe symptoms of dyspnea upon lying flat. Patient also describes some discomfort in the back. Chest x-ray on this admission showed evidence of interstitial edema patient is maintained on multiple medications for her lungs and for her history of congestive heart failure. Patient is also maintained on sildenafil, prescribed to her a while back by her coater hand in [place]. I assume the patient is known to have history of pulmonary hypertension. At any rate patient was admitted, and this consult was initiated. Labs on this admission showed relatively normal CBC , Normal basic metabolic profile except for elevated creatinine of 1.47, elevat ed BNP level of 1970, normal troponins and she had negative final screening for influenza A and B and RSV as well as COVID-19 infection. Patient was placed on bronchodilators she was also placed on Lasix 40 mg twice a day, and on methylprednisolone.. Her usual home meds were also resumed. Reevaluated today on 08/16/2022, patient is feeling better, breathing easier, less shortness of breath, hardly any cough, no wheezing, her echocardiogram shows significant abnormality showing severe pulmonary hypertension, significant valvular heart disease, involving the mitral valve, and tricuspid valve, it also showed a density on the anterior mitral valve leaflet, etiology is not clear, would like to have comments from cardiology regarding this abnormality and whether the patient would require BEBE for further evaluation of the density in that location. She was seen by cardiology today. However the echocardiogram has not been reviewed by the consulting coater hand yet. In the meantime clinically the patient is feeling better, breathing easier. She has been apparently evaluated in the past for her pulmonary hypertension and she was placed on sildenafil. Objective - Vital Signs Vital signs: Vital Signs Temp 97.6 F 08/16/22 12:00 Pulse 87 08/16/22 12:00 Resp 18 08/16/22 12:00 BP 122/77 08/16/22 12:00 Pulse Ox 96 08/16/22 12:00 FiO2 Intake & Output 08/15/22 08/16/22 08/16/22 18:59 06:59 18:59 Intake Total 720 236 Output Total 850 850 275 Balance -130 -850 -39 Weight 118.8 kg 119.6 kg Intake: Oral 720 236 Output: Urine 850 850 275 Other: Voiding Method Toilet Toilet Toilet # Bowel Movements 1 - Exam Physical Exam: Revealed a 57-year-old female pleasant in no distress, on 3 L nasal cannula with O2 saturation ranging between 92 up to 96% Head: Atraumatic, normocephalic. HEENT:[Neck is supple.] [No neck masses.] [No thyromegaly.] [No JVD.] Chest: [Symmetrical chest expansion, diminished breath sound bilaterally no rhonchi no wheezes Cardiac Exam: [Normal S1 and S2, no S3 gallop, no murmur.] Abdomen: [Soft, nontender, no megaly, no rebound, no guarding, normal bowel sounds.] Extremities: [No clubbing, no edema, no cyanosis.] Neurological Exam: [No focal neurologic deficit.] Alert and oriented 3. Psychiatric: Normal mood, affect and normal mental status examination. Skin: No rashes. - Labs CBC & Chem 7: 08/14/22 15:24 08/15/22 06:26 Labs: Abnormal Lab Results - Last 24 Hours (Table) 08/14/22 08/15/22 08/15/22 Range/Units 15:24 16:27 20:29 POC Glucose (mg/dL) 212 H 173 H (70-110) mg/dL Hemoglobin A1c 6.1 H (0.0-6.0) % 08/16/22 08/16/22 08/16/22 Range/Units 06:07 07:37 11:16 POC Glucose (mg/dL) 166 H 179 H 149 H (70-110) mg/dL Hemoglobin A1c (0.0-6.0) % Assessment and Plan Assessment: Impression: Acute congestive heart failure, unknown ejection fraction couldn't be systolic or diastolic in nature. Acute exacerbation of COPD Chronic hypoxic respiratory failure, multifactorial Chronic atrial fibrillation Secondary pulmonary hypertension Ex-smoker Abnormal echocardiogram showing a density on the mitral valve leaflets/anterior leaflet, being addressed by cardiology Recommendation: Continue diuretics Continue bronchodilators, albuterol, Pulmicort, Perforomist, Continue oxygen and titrate accordingly, patient has her own home O2. Repeat chest x-ray today. Cardiology to address her abnormal echocardiogram Continue sildenafil Resume her cardiac meds for atrial fibrillation/chronic We'll continue to follow. Time with Patient: Less than 30
--- NOTE | 2022-08-16 14:30 | XR ---
EXAMINATION TYPE: XR chest 1V portable DATE OF EXAM: 08/16/2022 COMPARISON: 08/14/2022 HISTORY: Shortness of breath TECHNIQUE: Single frontal view of the chest is obtained. FINDINGS: A cardiomegaly and persistent interstitial pattern and subsegmental changes at both lung b ases. Tiny pleural effusions with no pneumothorax. Appearance is stable. Atherosclerotic changes of a brandi. Hyperinflation of the lungs suggest COPD. IMPRESSION: 1. Suspect COPD and chronic interstitial lung disease. Superimposed venous congestion with tiny effus ions or pneumonitis in the differential diagnosis and stable.
[2022-08-16 16:38] LABS: Glucose,Whole Blood 189 mg/dL (70-110)
[2022-08-16 20:33] LABS: Glucose,Whole Blood 220 mg/dL (70-110)
[2022-08-16] MEDS: ATORVASTATIN 20 MG TAB PO SCH (20:56)
[2022-08-16] MEDS: diphenhydrAMINE 25 MG CAP PO SCH (20:56)
[2022-08-16] MEDS: HYDROcodone/APAP 5-325MG 1 EACH TAB PO PRN (20:58)
[2022-08-17 06:14] LABS: Glucose,Whole Blood 180 mg/dL (70-110)
[2022-08-17] MEDS: INSULIN ASPART (NovoLOG) 100 UNIT/ML VIAL SQ SCH ×2 (06:16→11:57)
[2022-08-17] MEDS: carvediloL 12.5 MG TAB PO SCH (06:16)
[2022-08-17] MEDS: BUDESONIDE 1 MG/2 ML NEBU INHALATION SCH (07:57)
[2022-08-17] MEDS: FORMOTEROL FUMARATE 20 MCG/2 ML NEBU INHALATION SCH (07:57)
[2022-08-17] MEDS: ALBUTEROL HFA INHALER INHALATION SCH ×2 (07:57→11:20)
[2022-08-17] MEDS: TIOTROPIUM 2.5 MCG INHALER INHALATION SCH (07:58)
[2022-08-17 08:04] VITALS: RESP 18
[2022-08-17] MEDS ORDERED: LIDOCAINE 5% PATCH TOPICAL SCH (09:00)
[2022-08-17] MEDS: SPIRONOLACTONE 25 MG TAB PO SCH (09:06)
[2022-08-17] MEDS: MULTIVITAMINS, THERA 1 EACH TAB PO SCH (09:06)
[2022-08-17] MEDS: APIXABAN 5 MG TAB PO SCH (09:06)
[2022-08-17] MEDS: DOCUSATE 100 MG CAP PO SCH (09:06)
[2022-08-17] MEDS: ASCORBIC ACID 500 MG TAB PO SCH (09:06)
[2022-08-17] MEDS: DILTIAZEM CD 180 MG CAP.ER.24H PO SCH (09:07)
[2022-08-17] MEDS: PANTOPRAZOLE 40 MG TABLET PO SCH (09:07)
[2022-08-17] MEDS: POTASSIUM CHLORIDE ER 20 MEQ TAB.ER PO SCH (09:07)
[2022-08-17] MEDS: MONTELUKAST 10 MG TAB PO SCH (09:07)
[2022-08-17] MEDS: FERROUS SULFATE 325 MG TAB PO SCH (09:07)
[2022-08-17] MEDS: methylPREDNISolone SOD SUCCI 125 MG/2 ML VIAL IV SCH (09:07)
[2022-08-17] MEDS: FUROSEMIDE 40 MG TAB PO SCH (09:08)
[2022-08-17] MEDS: CITALOPRAM HYDROBROMIDE 20 MG TAB PO SCH (09:08)
[2022-08-17] MEDS: NITROGLYCERIN OINT 1 INCH/GM PACKET TOPICAL SCH ×2 (09:08→12:21)
[2022-08-17] MEDS: CHOLECALCIFEROL 125 MCG (5000 IU) TABLET PO SCH (09:08)
[2022-08-17] MEDS: DICLOFENAC SODIUM GEL 100 GM TUBE TOPICAL SCH ×2 (09:10→12:40)
[2022-08-17] MEDS: SILDENAFIL 20 MG TAB PO SCH (09:20)
[2022-08-17] MEDS: HYDROcodone/APAP 5-325MG 1 EACH TAB PO PRN (09:25)
[2022-08-17 09:50] LABS: Calcium 9.5 mg/dL (8.4-10.2); Magnesium 2.4 mg/dL (1.6-2.3)
[2022-08-17 11:56] LABS: Glucose,Whole Blood 141 mg/dL (70-110)
[2022-08-17 12:30] VITALS: BP 117/66; PULSE 77; TEMP 98.2
--- NOTE | 2022-08-17 12:33 | P.PN ---
Subjective HISTORY OF PRESENTING ILLNESS Recent pleasant 57-year-old female with history of diastolic heart failure, persistent atrial fibrillation, COPD, prior history of tobacco abuse, obesity. She presented with increased shortness breath and was found to be in heart failure. She was started on IV Lasix. Echocardiogram performed which shows ejection fraction 60-65% with severe mitral calcification with an echo density noted of the anterior mitral leaflet as well as severe pulmonary hypertension and moderate to severe tricuspid regurgitation with severe biatrial enlargement. She does admit to uncontrolled high blood pressure in her 30s in the 200 range and her LVH may be related to uncontrolled hypertension. Other considerations such as infiltrative disease/amyloidosis 08/17 Overall she feels better. Still has some shortness breath however predominantly improved. Denies any lower extremity edema. Denies any chest pain or pressure. PHYSICAL EXAMINATION Vital signs reviewed. CONSTITUTIONAL: No apparent distress. HEENT: Head is normocephalic. Pupils are equal, round. Sclerae anicteric. Mucous membranes of the mouth are moist. No JVD. No carotid bruit. CHEST EXAMINATION: Lungs are clear to auscultation. No chest wall tenderness is noted on palpation or with deep breathing. HEART EXAMINATION: Regular rate and rhythm. S1, S2 heard. No murmurs, gallops or rub. ABDOMEN: Soft, nontender. Positive bowel sounds. EXTREMITIES: 2+ peripheral pulses, no lower extremity edema and no calf tenderness. NEUROLOGIC EXAMINATION: Patient is awake, alert and oriented x3. ASSESSMENT 1. Acute on chronic diastolic heart failure 2. Hypertension 3. Echo density of the anterior mitral leaflet, appears mainly related to mitral annular calcification and do not suspect mass 4. Persistent atrial fibrillation with controlled ventricular rates 5. Obesity 6. Acute on chronic respiratory failure PLAN Echocardiogram personally reviewed and does have severe biatrial enlargement with significant left ventricular hypertrophy. Additionally has moderate to severe mitral annular calcification and echo density appears mainly related to mitral leaflet calcifications. No history of any rheumatic fever and does not have any significant mitral stenosis. Continue medical therapy and patient appears stable for discharge home today. For completeness sake we will obtain lyte chains and consider further workup for amyloidosis as an outpatient. Objective - Vital Signs Vital signs: Vital Signs Temp 98.2 F 08/17/22 12:00 Pulse 77 08/17/22 12:00 Resp 18 08/17/22 12:00 BP 117/66 08/17/22 12:00 Pulse Ox 92 L 08/17/22 12:00 FiO2 Intake & Output 08/16/22 08/17/22 08/17/22 18:59 06:59 18:59 Intake Total 236 240 Output Total 275 1475 Balance -39 -1475 240 Weight 119.6 kg 119 kg Intake: Oral 236 240 Output: Urine 275 1475 Other: Voiding Method Toilet Toilet Toilet # Bowel Movements 1 - Labs CBC & Chem 7: 08/14/22 15:24 08/17/22 08:57 Labs: Abnormal Lab Results - Last 24 Hours (Table) 08/16/22 08/16/22 08/17/22 Range/Units 16:36 20:32 06:12 Chloride (98-107) mmol/L Carbon Dioxide (22-30) mmol/L BUN (7-17) mg/dL Creatinine (0.52-1.04) mg/dL Glucose (74-99) mg/dL POC Glucose (mg/dL) 189 H 220 H 180 H (70-110) mg/dL Magnesium (1.6-2.3) mg/dL 08/17/22 08/17/22 Range/Units 08:57 11:55 Chloride 97 L (98-107) mmol/L Carbon Dioxide 34 H (22-30) mmol/L BUN 51 H (7-17) mg/dL Creatinine 1.32 H (0.52-1.04) mg/dL Glucose 301 H (74-99) mg/dL POC Glucose (mg/dL) 141 H (70-110) mg/dL Magnesium 2.4 H (1.6-2.3) mg/dL
--- NOTE | 2022-08-17 13:41 | P.PN ---
Subjective Progress Note Date: 08/17/22 This is a 57-year-old female, known history of COPD, chronic hypoxic respiratory failure maintained on oxygen for many years, patient had at least a [id number] smoking history and she is to follow-up with a gospel singer in [facility]. Patient moved recently to the area, and for the last few days the patient has been complaining of increased shortness of breath, occasional mild cough, cough is productive with whitish phlegm, no fever no chills no hemoptysis no chest pain. Patient does describe symptoms of dyspnea upon lying flat. Patient also describes some discomfort in the back. Chest x-ray on this admission showed evidence of interstitial edema patient is maintained on multi ple medications for her lungs and for her history of congestive heart failure. Patient is also maintained on sildenafil, prescribed to her a while back by her technical translator in [place]. I assume the patient is known to have history of pulmonary hypertension. At any rate patient was admitted, and this consult was initiated. Labs on this admission showed relatively normal CBC , Normal basic metabolic profile except for elevated creatinine of 1.47, elevated BNP level of 1970, normal troponins and she had negative final screening for influenza A and B and RSV as well as COVID-19 infection. Patient was placed on bronchodilators she was also placed on Lasix 40 mg twice a day, and on met hylprednisolone.. Her usual home meds were also resumed. Reevaluated today on 08/16/2022, patient is feeling better, breathing easier, less shortness of breath, hardly any cough, no wheezing, her echocardiogram shows significant abnormality showing severe pulmonary hypertension, significant valvular heart disease, involving the mitral valve, and tricuspid valve, it also showed a density on the anterior mitral valve leaflet, etiology is not clear, would like to have comments from cardiology regarding this abnormality and whether the patient would require BEBE for further evaluation of the density in that location. She was seen by cardiology today. However the echocardiogram has not been reviewed by the consulting technical translator yet. In the meantime clinically the patient is feeling better, breathing easier. She has been apparently evaluated in the past for her pulmonary hypertension and she was placed on sildenafil. The patient is seen today 08/17/2022 in follow-up on the selective care unit. She is currently sitting up in a chair at the bedside. Awake and alert in no acute distress. Denies any worsening shortness of breath, cough or congestion. Maintaining good O2 saturations in the 90s on 3.5 L/m per nasal cannula. Afebrile. Hemodynamically stable. Chest x-ray reveals chronic obstructive pulmonary disease with chronic interstitial lung disease. Sodium 139. Potassiu m 4.0. Bicarb 34. BUN 51. Creatinine 1.32. Glucose 141. She is continued on Pulmicort and Perforomist inhalations, albuterol and Spiriva inhalations, IV Solu-Medrol. Oral diuretics. Anticoagulated with Eliquis. Objective - Vital Signs Vital signs: Vital Signs Temp 98.2 F 08/17/22 12:00 Pulse 77 08/17/22 12:00 Resp 18 08/17/22 12:00 BP 117/66 08/17/22 12:00 Pulse Ox 92 L 08/17/22 12:00 FiO2 Intake & Output 08/16/22 08/17/22 08/17/22 18:59 06:59 18:59 Intake Total 236 600 Output Total 275 1475 400 Balance -39 -1475 200 Weight 119.6 kg 119 kg Intake: Oral 236 600 Output: Urine 275 1475 400 Other: Voiding Method Toilet Toilet Toilet # Voids 4 # Bowel Movements 1 2 - Exam GENERAL EXAM: Alert, pleasant 57-year-old female, on 3-1/2 L nasal cannula comfortable in no apparent distress. HEAD: Normocephalic. EYES: Normal reaction of pupils, equal size. NOSE: Clear with pink turbinates. THROAT: No erythema or exudates. NECK: No masses, no JVD. CHEST: No chest wall deformity. LUNGS: Equal air entry with no crackles, wheeze, rhonchi or dullness. Diminished. CVS: S1 and S2 normal with no audible murmur, regular rhythm. ABDOMEN: No hepatosplenomegaly, normal bowel sounds, no guarding or rigidity. SPINE: No scoliosis or deformity SKIN: No rashes CENTRAL NERVOUS SYSTEM: No focal deficits, tone is normal in all 4 extremities. EXTREMITIES: There is no peripheral edema. No clubbing, no cyanosis. Pe ripheral pulses are intact. - Labs CBC & Chem 7: 08/14/22 15:24 08/17/22 08:57 Labs: Abnormal Lab Results - Last 24 Hours (Table) 08/16/22 08/16/22 08/17/22 Range/Units 16:36 20:32 06:12 Chloride (98-107) mmol/L Carbon Dioxide (22-30) mmol/L BUN (7-17) mg/dL Creatinine (0.52-1.04) mg/dL Glucose (74-99) mg/dL POC Glucose (mg/dL) 189 H 220 H 180 H (70-110) mg/dL Magnesium (1.6-2.3) mg/dL 08/17/22 08/17/22 Range/Units 08:57 11:55 Chloride 97 L (98-107) mmol/L Carbon Dioxide 34 H (22-30) mmol/L BUN 51 H (7-17) mg/dL Creatinine 1.32 H (0.52-1.04) mg/dL Glucose 301 H (74-99) mg/dL POC Glucose (mg/dL) 141 H (70-110) mg/dL Magnesium 2.4 H (1.6-2.3) mg/dL Assessment and Plan Assessment: Acute exacerbation of chronic diastolic congestive heart failure with secondary pulmonary hypertension Acute exacerbation of chronic obstructive pulmonary disease Acute on chronic hypoxemic respiratory failure secondary to COPD and diastolic congestive heart failure Atrial fibrillation, anticoagulated with Eliquis Hypertension Obesity Former smoker Plan: The patient was seen and evaluated Labs and medications reviewed Stable for discharge from the pulmonary standpoint Cleared for discharge by cardiology Echo density on the mitral leaflet suspected to be calcification versus mass Continue her home pulmonary medications, home oxygen Complete a redness on taper starting at 40 mg daily for 4 days Follow up in our office in 1 week I have personally seen and examined the patient, performed the documentation and the assessment and plan as written. Number of minutes spent on the visit: 10.
--- NOTE | 2022-08-17 14:49 | P.DS ---
Providers Date of admission: 08/14/22 18:00 Expected date of discharge: 08/17/22 Attending physician: Carrie Graham MD Consults: 08/14/22 17:58 Consult Physician Routine Consulting Provider: Lizzette Hitchcock Consult Reason/Comments: copd Do you want consulting provider notified?: Yes Consult Physician Routine Consulting Provider: Vel Saez Consult Reason/Comments: chf Do you want consulting provider notified?: Yes Primary care physician: Abimael Mcgregor MD Hospital Course: Discharge Diagnosis: Acute on chronic diastolic CHF exacerbation Acute COPD exacerbation Anterior mitral valve echodensity Severe pulmonary hypertension Moderate to severe TR Acute on chronic back pain Hyperglycemia, prediabetes A1c 6.1 Chronic atrial fibrillation Hypertension Dyslipidemia Former smoker Obesity Hospital Course: 57 year old female with medical history significant for COPD and chronic hypoxic respiratory failure maintained on 3L of oxygen outpatient, history of atrial fibrillation, heart failure, hypertension, hyperlipidemia, former smoker, prior history of bariatric surgery presenting with acute on chronic dyspnea and mild cough. Initial work up reveals negative serial troponins, proBNP of 1970, BUN of 35, creatinine 1.47. Viral panel is negative for influenza, RSV, or COVID. Patient had chest xray done showing pulmonary vascular congestion and trace right pleural effusion. Patient admitted for CHF and COPD exacerbation. Cardiology and pulmonology were consulted. Echocardiogram report reviewed: Normal LV systolic function, EF 60-65%, mild to moderate MR, and echodensity on the anterior mitral valve leaflet/LVOT junction, severe pulmonary hypertension, moderate to severe TR, severe biatrial enlargement. Echodensity likely related to mitral leaflet calcifications. Patient was initially on IV diuretics, switched to oral diuretics at discharge. She will follow up outpatient with cardiology and have amyloidosis workup as an outpatient. Patient will continue prednisone at discharge, taper per primary and follow up with pulmonology in one week. For back pain, being discharge with lidocaine patches, continue diclofenac gel. Patient seen and examined at bedside. Vital signs reviewed and stable. General: nontoxic, no distress, appears at stated age Derm: warm, dry Head: atraumatic, normocephalic, symmetric Eyes: EOMI, no lid lag, anicteric sclera Mouth: no lip lesion, mucus membranes moist Cardiovascular: S1S2 reg, no murmur Lungs: Bilateral rales up to mid lungs , no accessory muscle use Abdominal: soft, nontender to palpation, no guarding, no appreciable organomegaly Ext: no gross muscle atrophy, no edema, no contractures Neuro: CN II-XI grossly intact, no focal neuro deficits Psych: Alert, oriented, appropriate affect A total of 36 minutes of time were spent preparing this complex discharge summary. Patient was discharged on 08/17/22 at 13:24. Plan - Discharge Summary Discharge Rx Participant: No New Discharge Prescriptions: New Apixaban [Eliquis] 5 mg PO BID #90 tab Furosemide [Lasix] 40 mg PO BID@0900,1600 #60 tab Lidocaine 5% Patch [Lidoderm 5% Patch] 1 patch TOPICAL DAILY #30 patch Continue Sildenafil [Revatio] 20 mg PO TID Multivitamins, Thera [Multivitamin (formulary)] 1 tab PO DAILY Montelukast [Singulair] 10 mg PO DAILY carvediloL [Coreg] 12.5 mg PO BID Atorvastatin [Lipitor] 20 mg PO HS Ascorbic Acid [Vitamin C] 500 mg PO DAILY Acetaminophen-Codeine 300-30mg [Tylenol w/codeine #3] 1 tab PO TID PRN PRN Reason: Pain predniSONE [Deltasone] 20 mg PO DAILY Tiotropium Br/Olodaterol HCl [Stiolto Respimat Inhal [place]] 1 puff INHALATION RT-DAILY Spironolactone [Aldactone] 25 mg PO DAILY Potassium Chloride ER [K-Dur 20] 20 meq PO DAILY Pantoprazole [Protonix] 40 mg PO DAILY Ipratropium-Albuterol Nebulize [Duoneb 0.5 mg-3 mg/3 ml Soln] 3 ml INHALATION RT-QID PRN PRN Reason: Shortness Of Breath Ferrous Sulfate [Iron (65 MG Elemental)] 325 mg PO DAILY diphenhydrAMINE HCL [Benadryl] 50 mg PO HS Diltiazem Cd [Cardizem CD] 180 mg PO DAILY Diclofenac Sodium Gel [Voltaren Gel] 2 - 4 gm TOPICAL TID PRN PRN Reason: Pain Citalopram Hydrobromide [CeleXA] 40 mg PO DAILY Albuterol Sulfate [Ventolin HFA] 2 puff INHALATION RT-Q6H PRN PRN Reason: Shortness Of Breath Cholecalciferol (Vitamin D3) [Vitamin D3 (125 MCG = 5,000 IU)] 125 mcg PO DAILY [place]-3/Dha/Epa/Fish Oil [Fish Oil 1,000 mg Softgel] 1 cap PO DAILY Discontinued Bumetanide [Bumex] 1 mg PO BID Apixaban [Eliquis] 2.5 mg PO BID Discharge Medication List Acetaminophen-Codeine 300-30mg [Tylenol w/codeine #3] 1 tab PO TID PRN 08/14/22 [History] Albuterol Sulfate [Ventolin HFA] 2 puff INHALATION RT-Q6H PRN 08/14/22 [History] Ascorbic Acid [Vitamin C] 500 mg PO DAILY 08/14/22 [History] Atorvastatin [Lipitor] 20 mg PO HS 08/14/22 [History] Cholecalciferol (Vitamin D3) [Vitamin D3 (125 MCG = 5,000 IU)] 125 mcg PO DAILY 08/14/22 [History] Citalopram Hydrobromide [CeleXA] 40 mg PO DAILY 08/14/22 [History] Diclofenac Sodium Gel [Voltaren Gel] 2 - 4 gm TOPICAL TID PRN 08/14/22 [History] Diltiazem Cd [Cardizem CD] 180 mg PO DAILY 08/14/22 [History] Ferrous Sulfate [Iron (65 MG Elemental)] 325 mg PO DAILY 08/14/22 [History] Ipratropium-Albuterol Nebulize [Duoneb 0.5 mg-3 mg/3 ml Soln] 3 ml INHALATION RT-QID PRN 08/14/22 [History] Montelukast [Singulair] 10 mg PO DAILY 08/14/22 [History] Multivitamins, Thera [Multivitamin (formulary)] 1 tab PO DAILY 08/14/22 [History] [place]-3/Dha/Epa/Fish Oil [Fish Oil 1,000 mg Softgel] 1 cap PO DAILY 08/14/22 [History] Pantoprazole [Protonix] 40 mg PO DAILY 08/14/22 [History] Potassium Chloride ER [K-Dur 20] 20 meq PO DAILY 08/14/22 [History] Sildenafil [Revatio] 20 mg PO TID 08/14/22 [History] Spironolactone [Aldactone] 25 mg PO DAILY 08/14/22 [History] Tiotropium Br/Olodaterol HCl [Stiolto Respimat Inhal [place]] 1 puff INHALATION RT-DAILY 08/14/22 [History] carvediloL [Coreg] 12.5 mg PO BID 08/14/22 [History] diphenhydrAMINE HCL [Benadryl] 50 mg PO HS 08/14/22 [History] predniSONE [Deltasone] 20 mg PO DAILY 08/14/22 [History] Apixaban [Eliquis] 5 mg PO BID #90 tab 08/17/22 [Rx] Furosemide [Lasix] 40 mg PO BID@0900,1600 #60 tab 08/17/22 [Rx] Lidocaine 5% Patch [Lidoderm 5% Patch] 1 patch TOPICAL DAILY #30 patch 08/17/22 [Rx] Follow up Appointment(s)/Referral(s): Lizzette Hitchcock MD [STAFF PHYSICIAN] - 2 Weeks Nonstaff,Physician [REFERRING] - 1-2 days Patient Instructions/Handouts: Heart Failure (DC), COPD (Chronic Obstructive Pulmonary Disease) (DC), Low Back Strain (DC) Activity/Diet/Wound Care/Special Instructions: Please your PCP as soon as possible. Discharge Disposition: HOME SELF-CARE
[2022-08-18 12:27] LABS: Free Kappa Lt Chain Qnt, Serum 1.8 mg/dL (0.33-1.94); Free Lambda Lt Chain Qnt, Seru 1.32 mg/dL (0.57-2.63)
== END 2022-08-17 14:15 | disposition home or self-care (01) | DRG 291 ==
LOC: EC 14:26 → 3SCARD 18:00
PROVIDERS: ADMIT Internal Medicine; ATTEND Internal Medicine
DX: I11.0 Hypertensive heart disease with heart failure (principal); I50.33 Acute on chronic diastolic (congestive) heart failure; J96.21 Acute and chronic respiratory failure with hypoxia; J44.1 Chronic obstructive pulmonary disease with (acute) exacerbation; N17.9 Acute kidney failure, unspecified; J84.9 Interstitial pulmonary disease, unspecified; Z68.41 Body mass index [BMI] 40.0-44.9, adult; I48.19 Other persistent atrial fibrillation; R73.03 Prediabetes; Z20.822 Contact with and (suspected) exposure to COVID-19; E66.9 Obesity, unspecified; I27.29 Other secondary pulmonary hypertension; I08.1 Rheumatic disorders of both mitral and tricuspid valves; G89.29 Other chronic pain; R73.9 Hyperglycemia, unspecified; M54.9 Dorsalgia, unspecified; E78.5 Hyperlipidemia, unspecified; Z88.8 Allergy status to other drugs, medicaments and biological substances; Z88.1 Allergy status to other antibiotic agents; Z79.899 Other long term (current) drug therapy; Z98.84 Bariatric surgery status; Z79.01 Long term (current) use of anticoagulants; Z87.891 Personal history of nicotine dependence; Z99.81 Dependence on supplemental oxygen
CPT/HCPCS: 36415; 71045; 71046; 80048; 80053; 83036; 83605; 83735; 83880; 83883; 84484; 85025; 85379; 85610; 85730; 87636; 93005; 93306; 94640; 94760; 96374; 99285

== ENCOUNTER 2022-10-20 12:12 | Inpatient (IN) | payer OTHER ==
[2022-10-20] MEDS ORDERED: IPRATROPIUM 0.5 MG/2.5 ML NEBU INHALATION STA (13:13)
[2022-10-20] MEDS ORDERED: methylPREDNISolone SOD SUCCI 125 MG/2 ML VIAL IV STA (13:13)
[2022-10-20] MEDS ORDERED: ALBUTEROL NEBULIZED 2.5 MG/3 ML INHALATION STA (13:13)
[2022-10-20 13:32] LABS: Basophils % (A) 0 %; Eosinophils # (A) 0.1 k/uL (0-0.7); Eosinophils % (A) 1 %; HCT 41.3 % (34.0-46.0); HGB 13.7 gm/dL (11.4-16.0); Lymphocytes # (A) 0.6 k/uL (1.0-4.8); Lymphocytes % (A) 8 %; MCHC 33.1 g/dL (31.0-37.0); MCV 96.7 fL (80.0-100.0); Monocytes # (A) 0.3 k/uL (0-1.0); Monocytes % (A) 4 %; Neutrophils # (A) 6.2 k/uL (1.3-7.7); Neutrophils % (A) 86 %; Platelet Count 171 k/uL (150-450); RBC 4.27 m/uL (3.80-5.40); RDW 14.5 % (11.5-15.5); WBC 7.2 k/uL (3.8-10.6)
--- NOTE | 2022-10-20 13:36 | ED ---
General Adult HPI - General Chief complaint: Shortness of Breath Stated complaint: SOB/ right leg injury Time Seen by Provider: 10/20/22 12:30 Source: patient, family, RN notes reviewed, old records reviewed Mode of arrival: wheelchair Limitations: no limitations - History of Present Illness Initial comments: This is a 57-year-old female presents emergency Department with the complaint of difficulty breathing. Patient states she has a history of COPD and congestive heart failure. Patient states last few days been progressively worse especially with exertion. Patient states if she sits and states that her 3 L of oxygen her O2 sats in the lower 90s but she gets up and moves around at all it drops into the 80s. Patient denies chest pain or palpitations. Patient states she does have a cough but denies any fever or chills. Patient denies abdominal pain patient denies any back pain. - Related Data Home Medications Medication Instructions Recorded Confirmed Acetaminophen-Codeine 300-30mg 1 tab PO TID PRN 08/14/22 08/14/22 [Tylenol w/codeine #3] Albuterol Sulfate [Ventolin HFA] 2 puff INHALATION RT-Q6H PRN 08/14/22 08/14/22 Ascorbic Acid [Vitamin C] 500 mg PO DAILY 08/14/22 08/14/22 Atorvastatin [Lipitor] 20 mg PO HS 08/14/22 08/14/22 Cholecalciferol (Vitamin D3) 125 mcg PO DAILY 08/14/22 08/14/22 [Vitamin D3 (125 MCG = 5,000 IU)] Citalopram Hydrobromide [CeleXA] 40 mg PO DAILY 08/14/22 08/14/22 Diclofenac Sodium Gel [Voltaren 2 - 4 gm TOPICAL TID PRN 08/14/22 08/14/22 Gel] Diltiazem Cd [Cardizem CD] 180 mg PO DAILY 08/14/22 08/14/22 Ferrous Sulfate [Iron (65 MG 325 mg PO DAILY 08/14/22 08/14/22 Elemental)] Ipratropium-Albuterol Nebulize 3 ml INHALATION RT-QID PRN 08/14/22 08/14/22 [Duoneb 0.5 mg-3 mg/3 ml Soln] Montelukast [Singulair] 10 mg PO DAILY 08/14/22 08/14/22 Multivitamins, Thera [Multivitamin 1 tab PO DAILY 08/14/22 08/14/22 (formulary)] [place]-3/Dha/Epa/Fish Oil [Fish Oil 1 cap PO DAILY 08/14/22 08/14/22 1,000 mg Softgel] Pantoprazole [Protonix] 40 mg PO DAILY 08/14/22 08/14/22 Potassium Chloride ER [K-Dur 20] 20 meq PO DAILY 08/14/22 08/14/22 Sildenafil [Revatio] 20 mg PO TID 08/14/22 08/14/22 Spironolactone [Aldactone] 25 mg PO DAILY 08/14/22 08/14/22 Tiotropium Br/Olodaterol HCl 1 puff INHALATION RT-DAILY 08/14/22 08/14/22 [Stiolto Respimat Inhal [place]] carvediloL [Coreg] 12.5 mg PO BID 08/14/22 08/14/22 diphenhydrAMINE HCL [Benadryl] 50 mg PO HS 08/14/22 08/14/22 predniSONE [Deltasone] 20 mg PO DAILY 08/14/22 08/14/22 Previous Rx's Medication Instructions Recorded Apixaban [Eliquis] 5 mg PO BID #90 tab 08/17/22 Furosemide [Lasix] 40 mg PO BID@0900,1600 #60 tab 08/17/22 Lidocaine 5% Patch [Lidoderm 5% 1 patch TOPICAL DAILY #30 patch 08/17/22 Patch] Allergies Allergy/AdvReac Type Severity Reaction Status Date / Time doxycycline Allergy Unknown Verified 10/20/22 12:18 lorazepam [From Ativan] AdvReac Hallucinati Verified 10/20/22 12:18 ons venlafaxine [From Effexor] AdvReac Hallucinati Verified 10/20/22 12:18 ons Review of Systems ROS Statement: Those systems with pertinent positive or pertinent negative responses have been documented in the HPI. ROS Other: All systems not noted in ROS Statement are negative. Past Medical History Past Medical History: Atrial Fibrillation, Heart Failure, COPD, Hyperlipidemia, Hypertension History of Any Multi-Drug Resistant Organisms: None Reported Past Surgical History: Bariatric Surgery, Bowel Resection, Hysterectomy Additional Past Surgical History / Comment(s): gastric sleve. Past Anesthesia/Blood Transfusion Reactions: No Reported Reaction Past Psychological History: No Psychological Hx Reported Smoking Status: Former smoker Past Alcohol Use History: None Reported Past Drug Use History: None Reported - Past Family History Mother Family Medical History: COPD, Coronary Artery Disease (CAD), CVA/TIA, Hypertension Father Family Medical History: COPD, CVA/TIA, Hypertension, Prostate Disorder General Exam - General Exam Comments Initial Comments: GENERAL: Patient is well-developed and well-nourished. Patient is nontoxic and well- hydrated and is in mild distress. ENT: Neck is soft and supple. No significant lymphadenopathy is noted. Oropharynx is clear. Moist mucous membranes. Neck has full range of motion without eliciting any pain. EYES: The sclera were anicteric and conjunctiva were pink and moist. Extraocular movements were intact and pupils were equal round and reactive to light. Eyelids were unremarkable. PULMONARY: Patient is having respiratory wheezing. CARDIOVASCULAR: Patient is tachycardic in the 110 beats a minute is a regular rate and rhythm without any murmurs gallops or rubs. ABDOMEN: Soft and nontender with normal bowel sounds. SKIN: Skin is clear with no lesions or rashes and otherwise unremarkable. NEUROLOGIC: Patient is alert and oriented x3. Cranial nerves II through XII are grossly intact. Motor and sensory are also intact. Normal speech, volume and content. Symmetrical smile. MUSCULOSKELETAL: Normal extremities with adequate strength and full range of motion. LYMPHATICS: No significant lymphadenopathy is noted PSYCHIATRIC: Normal psychiatric evaluation. Limitations: no limitations Course Vital Signs 10/20/22 10/20/22 12:14 13:35 Temperature 98.5 F Pulse Rate 99 120 H Respiratory 26 H 24 Rate Blood Pressure 135/60 135/75 O2 Sat by Pulse 92 L 93 L Oximetry Medical Decision Making - Medical Decision Making EKG shows atrial fibrillation at 82 bpm QRS is 97 QT interval 418 QTC is 458. Patient's EKG shows no ST segment elevation or depression patient has Q waves in leads II, III, and F aVF Was pt. sent in by a medical professional or institution (, PA, SENIOR RD ENGINEER, urgent care, hospital, or usp...) When possible be specific @ -[No] Did you speak to anyone other than the patient for history (EMS, parent, family, police, friend...)? What history was obtained from this source @ -[No] Did you review nursing and triage notes (agree or disagree)? Why? @ -[I reviewed and agree with nursing and triage notes] Were old charts reviewed (outside hosp., previous admission, EMS record, old EKG, old radiological studies, urgent care reports/EKG's, usp records)? Report findings @ -I reviewed patient's prior lab work prior x-rays Differential Diagnosis (chest pain, altered mental status, abdominal pain women, abdominal pain men, vaginal bleeding, weakness, fever, dyspnea, syncope, headache, dizziness, GI bleed, back pain, seizure, CVA, palpatations, mental health, musculoskeletal)? @ -Differential Dyspnea: Coronary syndrome, arrhythmia, tamponade, asthma, COPD, pulmonary embolism, pneumonia, pneumothorax, pulmonary effusion, anaphylaxis, diabetic ketoacidosis, flailed chest, pulmonary contusion, diaphragmatic rupture, anemia, neuromuscu lar, this is not meant to be an all-inclusive list. EKG interpreted by me (3pts min.). @ -[As above] X-rays interpreted by me (1pt min.). @ -Chest x-ray was interpreted by myself there is an early infiltrate CT interpreted by me (1pt min.). @ -[None done] U/S interpreted by me (1pt. min.). @ -[None done] What testing was considered but not performed or refused? (CT, X-rays, U/S, labs)? Why? @ -[None] What meds were considered but not given or refused? Why? @ -[None] Did you discuss the management of the patient with other professionals (professionals i.e. , PA, SENIOR RD ENGINEER, lab, RT, psych nurse, social work lecturer, archival studies professor, teacher, mortgage loan officer, case fitter)? Give summary @ -I spoke with sounds physician's and they agreed to admit the patient Was smoking cessation discussed for >3mins.? @ -[No] Was critical care preformed (if so, how long)? @ -[No] Were there social determinants of health that impacted care today? How? (Homelessness, low income, unemployed, alcoholism, drug addiction, transportation, low edu. Level, literacy, decrease access to med. care, skilled nursing, rehab)? @ -[No] Was there de-escalation of care discussed even if they declined (Discuss DNR or withdrawal of care, Hospice)? DNR status @ -[No] What co-morbidities impacted this encounter? (DM, HTN, Smoking, COPD, CAD, Cancer, CVA, ARF, Chemo, Hep., AIDS, mental health diagnosis, sleep apnea, morbid obesity)? @ -[None] Was patient admitted / discharged? Hospital course, mention meds given and route, prescriptions, significant lab abnormalities, going to OR and other pertinent info. @ -Patient received a breathing treatment 2 and steroids and a chest x-ray done which showed pneumonia and patient was given 2 g of Rocephin. Undiagnosed new problem with uncertain prognosis? @ -[No] Drug Therapy requiring intensive monitoring for toxicity (Heparin, Nitro, Insulin, Cardizem)? @ -[No] Were any procedures done? @ -[No] Diagnosis/symptom? @ -Pneumonia Acute, or Chronic, or Acute on Chronic? @ -Acute Uncomplicated (without systemic symptoms) or Complicated (systemic symptoms)? @ -Uncomplicated Side effects of treatment? @ -[No] Exacerbation, Progression, or Severe Exacerbation? @ -[No] Poses a threat to life or bodily function? How? (Chest pain, [place], [place], pneumonia, PE, COPD, DKA, ARF, appy, cholecystitis, CVA, Diverticulitis, Homicidal, Suicidal, threat to staff... and all critical care pts) @ -[No] Diagnosis/symptom? @ -COPD exacerbation Acute, or Chronic, or Acute on Chronic? @ -Acute Uncomplicated (without systemic symptoms) or Complicated (systemic symptoms)? @ -Complicated Side effects of treatment? @ -[none] Exacerbation, Progression, or Severe Exacerbation] @ -Severe exacerbation Poses a threat to life or bodily function? @ -Yes this could lead to hypoxia and then end organ dysfunction - Lab Data Result diagrams: 10/20/22 13:17 10/20/22 13:17 Lab Results 10/20/22 10/20/22 10/20/22 Range/Units 13:17 13:17 13:17 WBC 7.2 (3.8-10.6) k/uL RBC 4.27 (3.80-5.40) m/uL Hgb 13.7 (11.4-16.0) gm/dL Hct 41.3 (34.0-46.0) % MCV 96.7 (80.0-100.0) fL MCH 32.0 (25.0-35.0) pg MCHC 33.1 (31.0-37.0) g/dL RDW 14.5 (11.5-15.5) % Plt Count 171 (150-450) k/uL MPV 8.0 Neutrophils % 86 % Lymphocytes % 8 % Monocytes % 4 % Eosinophils % 1 % Basophils % 0 % Neutrophils # 6.2 (1.3-7.7) k/uL Lymphocytes # 0.6 L (1.0-4.8) k/uL Monocytes # 0.3 (0-1.0) k/uL Eosinophils # 0.1 (0-0.7) k/uL Basophils # 0.0 (0-0.2) k/uL Sodium 139 (137-145) mmol/L Potassium 4.0 (3.5-5.1) mmol/L Chloride 98 (98-107) mmol/L Carbon Dioxide 37 H (22-30) mmol/L Anion Gap 4 mmol/L BUN 20 H (7-17) mg/dL Creatinine 0.90 (0.52-1.04) mg/dL Est GFR (CKD-EPI)AfAm 82 (>60 ml/min/1.73 sqM) Est GFR (CKD-EPI)NonAf 71 (>60 ml/min/1.73 sqM) Glucose 151 H (74-99) mg/dL Plasma Lactic Acid Leoncio 1.4 (0.7-2.0) mmol/L Calcium 8.7 (8.4-10.2) mg/dL Magnesium 2.0 (1.6-2.3) mg/dL Total Bilirubin 0.6 (0.2-1.3) mg/dL AST 19 (14-36) U/L ALT 24 (4-34) U/L Alkaline Phosphatase 70 (38-126) U/L Troponin I (0.000-0.034) ng/mL NT-Pro-B Natriuret Pep pg/mL Total Protein 6.2 L (6.3-8.2) g/dL Albumin 3.7 (3.5-5.0) g/dL 10/20/22 10/20/22 Range/Units 13:17 13:17 WBC (3.8-10.6) k/uL RBC (3.80-5.40) m/uL Hgb (11.4-16.0) gm/dL Hct (34.0-46.0) % MCV (80.0-100.0) fL MCH (25.0-35.0) pg MCHC (31.0-37.0) g/dL RDW (11.5-15.5) % Plt Count (150-450) k/uL MPV Neutrophils % % Lymphocytes % % Monocytes % % Eosinophils % % Basophils % % Neutrophils # (1.3-7.7) k/uL Lymphocytes # (1.0-4.8) k/uL Monocytes # (0-1.0) k/uL Eosinophils # (0-0.7) k/uL Basophils # (0-0.2) k/uL Sodium (137-145) mmol/L Potassium (3.5-5.1) mmol/L Chloride (98-107) mmol/L Carbon Dioxide (22-30) mmol/L Anion Gap mmol/L BUN (7-17) mg/dL Creatinine (0.52-1.04) mg/dL Est GFR (CKD-EPI)AfAm (>60 ml/min/1.73 sqM) Est GFR (CKD-EPI)NonAf (>60 ml/min/1.73 sqM) Glucose (74-99) mg/dL Plasma Lactic Acid Leoncio (0.7-2.0) mmol/L Calcium (8.4-10.2) mg/dL Magnesium (1.6-2.3) mg/dL Total Bilirubin (0.2-1.3) mg/dL AST (14-36) U/L ALT (4-34) U/L Alkaline Phosphatase (38-126) U/L Troponin I <0.012 (0.000-0.034) ng/mL NT-Pro-B Natriuret Pep 1580 pg/mL Total Protein (6.3-8.2) g/dL Albumin (3.5-5.0) g/dL Disposition Clinical Impression: Acute exacerbation of chronic obstructive pulmonary disease, Pneumonia Disposition: ADMITTED IP TO THIS HOSP Referrals: Abimael Mcgregor MD [Primary Care Provider] - 1-2 days Time of Disposition: 14:22
[2022-10-20 13:42] LABS: Albumin 3.7 g/dL (3.5-5.0); Calcium 8.7 mg/dL (8.4-10.2); Total Bilirubin 0.6 mg/dL (0.2-1.3); Total Protein 6.2 g/dL (6.3-8.2)
--- NOTE | 2022-10-20 14:12 | XR ---
EXAMINATION TYPE: XR chest 2V DATE OF EXAM: 10/20/2022 COMPARISON: 08/16/2022 TECHNIQUE: PA and lateral views submitted. HISTORY: Shortness of breath FINDINGS: The heart is enlarged as atherosclerotic change aorta. Coarsened interstitium with prominent pulmonar y arteries. Hypertrophic and degenerative change of the spine. There is a metallic clip seen posterio rly overlying the heart border on the frontal view stable from prior. Correlate for prior procedure. Coarsened interstitium stable. Hyperinflation suggests COPD. IMPRESSION: 1. Cardiomegaly correlate for chronic interstitial lung disease such as pulmonary fibrosis. Right per ihilar area consolidation is suspected correlate for early infiltrate.
[2022-10-20] MEDS ORDERED: cefTRIAXone IN SWFI 1,000 MG/10 ML SYRINGE IVP STA (14:16)
[2022-10-20] MEDS ORDERED: NALOXONE 0.4 MG/ML 1 ML VIAL IVP PRN (14:23)
[2022-10-20] MEDS ORDERED: AZITHROMYCIN 500 MG in SODIUM CHLORIDE 0.9% 250 ML IVPB STA (14:25)
[2022-10-20] MEDS ORDERED: PNEUMONIA PROTOCOL UTILIZED 1 EACH MISC PO PRN (14:25)
[2022-10-20 14:35] LABS: Prothrombin Time 10.6 sec (9.0-12.0)
[2022-10-20] MEDS ORDERED: ALBUTEROL NEBULIZED 2.5 MG/3 ML INHALATION PRN (15:31)
--- NOTE | 2022-10-20 15:35 | P.HPIM ---
History of Present Illness H&P Date: 10/20/22 Patient is a 57-year-old female with history of COPD, chronic hypoxic respiratory failure on 3 L, atrial fibrillation, diastolic heart failure, hypertension, dyslipidemia, former smoker, prior history of bariatric surgery presenting with acute on chronic dyspnea. She claims that she felt ill last Sunday, and since then has been having increased shortness of breath and cough. Minimal sputum production. She denies any fevers or chills. She has been using her rescue inhaler more frequently. She denies any chest pain, palpitations, lower extremity edema, orthopnea, PND. She also has dyspnea with exertion. She denies any recent travel history or sick contacts. She denies any smoking, alcohol use, or illicit drug use. Few months ago she had her right leg, and since then she has had a scab that she picked at and finally came off. She denies any purulence from her right leg, but did notice an ulcer formation. She denies any worsening erythema her pain. In the ED, temperature was 98.5, pulse up to 120, respiratory rate 26, blood pressure 135/60, saturating at 92% on 4 L. WBC 7.2, hemoglobin 13.7, bicarb 37, BUN 20, creatinine 0.9, glucose 151, troponin negative, proBNP 1500. Chest x- ray independently reviewed, shows likely new right-sided consolidation, also interstitial disease. EKG independently reviewed and shows atrial fibrillation. Patient being admitted for acute on chronic hypoxic respiratory failure likely secondary to pneumonia as well as COPD exacerbation. Pertinent positives and negatives as discussed in HPI, a complete review of systems was performed and all other systems are negative. Patient seen and examined at bedside. [] Vital signs reviewed General: nontoxic, no distress, appears at stated age, morbidly Pees Derm: warm, dry, right lower extremity ulcer, slight erythema, no purulence Head: atraumatic, normocephalic, symmetric Eyes: EOMI, no lid lag, anicteric sclera, pupils equal round reactive to light ENT: Nose and ears atraumatic Neck: No thyromegaly, supple Mouth: no lip lesion, mucus membranes moist Cardiovascular: S1S2 reg, no murmur, no edema Lungs: Bilateral crackles at the bases, scattered wheezing no accessory muscle use, supplemental oxygen Abdominal: soft, nontender to palpation, no guarding, no appreciable organomegaly Ext: no gross muscle atrophy, muscle strength muscle strength 5 out of 5 in all 4 extremities, no contractures Neuro: CN II-XII grossly intact Psych: Alert, oriented, appropriate affect Assessment/Plan: [Active:] Acute on chronic hypoxic respiratory failure COPD exacerbation Community-acquired pneumonia Possible right lower extremity cellulitis -Chest x-ray independently interpreted, shows new right-sided consolidation, and interstitial disease -EKG independently interpreted, shows atrial fibrillation -Continue to wean oxygen -Started on bronchodilators, IV steroids, ceftriaxone, azithromycin -Sputum cultures and blood cultures, urine Legionella -Pro calcitonin pending -Wound care consult [Chronic:] Diastolic heart failure Atrial fibrillation Hypertension Dyslipidemia Former smoker History of bariatric surgery The patient is admitted with an anticipated [greater] than 2 midnight stay as inpatient status for evaluation of hypoxic respiratory failure. Surrogate decision-maker: spouse CODE STATUS: full code DVT prophylaxis: Eliquis Anticipated discharge date: Pending clinical course Anticipated discharge place: Pending clinical course A total of 55 minutes was spent on the care of this complex patient more than 50% of the time was spent in counseling and care coordination. Past Medical History Past Medical History: Atrial Fibrillation, Heart Failure, COPD, Hyperlipidemia, Hypertension History of Any Multi-Drug Resistant Organisms: None Reported Past Surgical History: Bariatric Surgery, Bowel Resection, Hysterectomy Additional Past Surgical History / Comment(s): gastric sleve. Past Anesthesia/Blood Transfusion Reactions: No Reported Reaction Past Psychological History: No Psychological Hx Reported Smoking Status: Former smoker Past Alcohol Use History: None Reported Past Drug Use History: None Reported - Past Family History Mother Family Medical History: COPD, Coronary Artery Disease (CAD), CVA/TIA, Hypertension Father Family Medical History: COPD, CVA/TIA, Hypertension, Prostate Disorder Medications and Allergies Home Medications Medication Instructions Recorded Confirmed Type Albuterol Sulfate [Ventolin HFA] 2 puff INHALATION RT-Q4H PRN 08/14/22 10/20/22 History Ascorbic Acid [Vitamin C] 500 mg PO DAILY 08/14/22 10/20/22 History Cholecalciferol (Vitamin D3) 125 mcg PO DAILY 08/14/22 10/20/22 History [Vitamin D3 (125 MCG = 5,000 IU)] Citalopram Hydrobromide [CeleXA] 40 mg PO DAILY 08/14/22 10/20/22 History Ferrous Sulfate [Iron (65 MG 325 mg PO DAILY 08/14/22 10/20/22 History Elemental)] Montelukast [Singulair] 10 mg PO DAILY 08/14/22 10/20/22 History [place]-3/Dha/Epa/Fish Oil [Fish Oil 1 cap PO DAILY 08/14/22 10/20/22 History 1,000 mg Softgel] Pantoprazole [Protonix] 40 mg PO DAILY 08/14/22 10/20/22 History Spironolactone [Aldactone] 25 mg PO DAILY 08/14/22 10/20/22 History Tiotropium Br/Olodaterol HCl 2 puff INHALATION RT-DAILY 08/14/22 10/20/22 History [Stiolto Respimat Inhal [place]] carvediloL [Coreg] 12.5 mg PO BID 08/14/22 10/20/22 History diphenhydrAMINE HCL [Benadryl] 50 mg PO HS 08/14/22 10/20/22 History predniSONE [Deltasone] 20 mg PO DAILY 08/14/22 10/20/22 History Apixaban [Eliquis] 5 mg PO BID #90 tab 08/17/22 10/20/22 Rx Furosemide [Lasix] 40 mg PO BID@0900,1600 #60 tab 08/17/22 10/20/22 Rx Atorvastatin [Lipitor] 40 mg PO HS 10/20/22 10/20/22 History Calcium Carbonate [Calcium] 1,200 mg PO DAILY 10/20/22 10/20/22 History Famotidine [Pepcid] 40 mg PO DAILY 10/20/22 10/20/22 History Potassium Chloride [Klor-Con 10 ER] 20 meq PO DAILY 10/20/22 10/20/22 History Sildenafil Citrate 50 mg PO TID 10/20/22 10/20/22 History Super B-Complex 1 tab PO DAILY 10/20/22 10/20/22 History Allergies Allergy/AdvReac Type Severity Reaction Status Date / Time doxycycline Allergy Unknown Verified 10/20/22 14:51 lorazepam [From Ativan] AdvReac Hallucinati Verified 10/20/22 14:51 ons venlafaxine [From Effexor] AdvReac Hallucinati Verified 10/20/22 14:51 ons Physical Exam Vitals: Vital Signs Temp Pulse Resp BP Pulse Ox 10/20/22 14:32 85 20 10/20/22 14:19 101 H 20 10/20/22 13:35 120 H 24 135/75 93 L 10/20/22 12:14 98.5 F 99 26 H 135/60 92 L Intake and Output 10/20/22 10/20/22 10/20/22 06:59 14:59 22:59 Other: Weight 120.202 kg Results CBC & Chem 7: 10/20/22 13:17 10/20/22 13:17 Labs: Abnormal Lab Results - Last 24 Hours (Table) 10/20/22 10/20/22 Range/Units 13:17 13:17 Lymphocytes # 0.6 L (1.0-4.8) k/uL Carbon Dioxide 37 H (22-30) mmol/L BUN 20 H (7-17) mg/dL Glucose 151 H (74-99) mg/dL Total Protein 6.2 L (6.3-8.2) g/dL
[2022-10-20] MEDS: FUROSEMIDE 40 MG TAB PO SCH (16:05)
[2022-10-20 16:12] LABS: VBG PH 7.41 (7.31-7.41)
[2022-10-20] MEDS: SILDENAFIL 20 MG TAB PO SCH ×2 (16:36→20:54)
[2022-10-20] MEDS: carvediloL 12.5 MG TAB PO SCH (16:36)
[2022-10-20] MEDS: IPRATROPIUM-ALBUTEROL 3 ML NEB INHALATION SCH ×3 (17:07→21:31)
[2022-10-20] MEDS: methylPREDNISolone SOD SUCCI 125 MG/2 ML VIAL IV SCH ×2 (18:53→23:25)
[2022-10-20] MEDS: FORMOTEROL FUMARATE 20 MCG/2 ML NEBU INHALATION SCH (19:42)
[2022-10-20] MEDS ORDERED: SODIUM CHLORIDE 0.65% NASAL SPRAY 44 ML BTL NASAL PRN (19:45)
[2022-10-20] MEDS: APIXABAN 5 MG TAB PO SCH (20:54)
[2022-10-20] MEDS: ATORVASTATIN 40 MG TAB PO SCH (20:54)
[2022-10-20] MEDS ORDERED: diphenhydrAMINE 50 MG CAP PO SCH (21:00)
[2022-10-21] MEDS: methylPREDNISolone SOD SUCCI 125 MG/2 ML VIAL IV SCH ×3 (05:30→17:21)
[2022-10-21] MEDS: carvediloL 12.5 MG TAB PO SCH ×2 (05:30→17:19)
[2022-10-21] MEDS ORDERED: NON FORMULARY DRUG (Tiotropium Br/Olodaterol Hcl [Stiolto Respimat Inhal Spray] 4 GM Each) INHALATION SCH (08:00)
[2022-10-21] MEDS: CITALOPRAM HYDROBROMIDE 20 MG TAB PO SCH (08:29)
[2022-10-21] MEDS: CHOLECALCIFEROL 125 MCG (5000 IU) TABLET PO SCH (08:29)
[2022-10-21] MEDS: APIXABAN 5 MG TAB PO SCH ×2 (08:29→21:26)
[2022-10-21] MEDS: FERROUS SULFATE 325 MG TAB PO SCH (08:30)
[2022-10-21] MEDS: FUROSEMIDE 40 MG TAB PO SCH ×2 (08:30→17:19)
[2022-10-21] MEDS: FAMOTIDINE 20 MG TAB PO SCH (08:30)
[2022-10-21] MEDS: MONTELUKAST 10 MG TAB PO SCH (08:30)
[2022-10-21] MEDS: ASCORBIC ACID 500 MG TAB PO SCH (08:30)
[2022-10-21] MEDS: SPIRONOLACTONE 25 MG TAB PO SCH (08:30)
[2022-10-21] MEDS: PANTOPRAZOLE 40 MG TABLET PO SCH (08:30)
[2022-10-21] MEDS: CALCIUM CARBONATE 500 MG CHEWABLE PO SCH (08:30)
[2022-10-21] MEDS: SILDENAFIL 20 MG TAB PO SCH ×3 (08:31→21:27)
[2022-10-21] MEDS: FORMOTEROL FUMARATE 20 MCG/2 ML NEBU INHALATION SCH ×2 (08:34→19:28)
[2022-10-21] MEDS: IPRATROPIUM-ALBUTEROL 3 ML NEB INHALATION SCH ×4 (08:34→19:28)
[2022-10-21] MEDS ORDERED: NON FORMULARY DRUG (Omega-3/Dha/Epa/Fish Oil [Fish Oil 1,000 Mg Softgel] 1 EACH Capsule) PO SCH (09:00)
[2022-10-21] MEDS ORDERED: SUPER B COMPLEX PO SCH (09:00)
[2022-10-21] MEDS: AZITHROMYCIN 500 MG TAB PO SCH (09:58)
[2022-10-21] MEDS ORDERED: guaiFENesin 600 MG TABLET.ER PO PRN (11:34)
--- NOTE | 2022-10-21 11:34 | P.PN ---
Subjective Progress Note Date: 10/21/22 Hospital Course: 57-year-old female with history of COPD, chronic hypoxic respiratory failure on 3 L, atrial fibrillation, diastolic heart failure, hypertension, dyslipidemia, former smoker, prior history of bariatric surgery presenting with acute on chronic dyspnea. In the ED, temperature was 98.5, pulse up to 120, respiratory rate 26, blood pressure 135/60, saturating at 92% on 4 L. WBC 7.2, hemoglobin 13.7, bicarb 37, BUN 20, creatinine 0.9, glucose 151, troponin negative, proBNP 1500. Chest x-ray independently reviewed, shows likely new right-sided consolidation, also interstitial disease. EKG independently reviewed and shows atrial fibrillation. Patient being admitted for acute on chronic hypoxic respiratory failure likely secondary to pneumonia as well as COPD exacerbation. Subjective: Seen and examined at bedside. No acute events overnight. Claims that her br eathing is better. Still continues to have cough with minimal sputum production. Able to ambulate, but dyspneic with exertion. Pertinent positives and negatives as discussed above, a complete review of systems was performed and all other systems are negative. Vitals Signs Reviewed. General: nontoxic, no distress, appears at stated age, morbidly Pees Derm: warm, dry, right lower extremity ulcer, slight erythema, no purulence Head: atraumatic, normocephalic, symmetric Eyes: EOMI, no lid lag, anicteric sclera, pupils equal round reactive to light ENT: Nose and ears atraumatic Neck: No thyromegaly, supple Mouth: no lip lesion, mucus membranes moist Cardiovascular: S1S2 reg, no murmur, no edema Lungs: Bilateral crackles at the bases, scattered wheezing no accessory muscle use, supplemental oxygen Abdominal: soft, nontender to palpation, no guarding, no appreciable organomegaly Ext: no gross muscle atrophy, muscle strength muscle strength 5 out of 5 in all 4 extremities, no contractures Neuro: CN II-XII grossly intact Psych: Alert, oriented, appropriate affect Data Reviewed Today: Pertinent Labs: CBC and BMP pending from this morning, will be reviewed when available, pro-calcitonin 0.13 Imaging: No new imaging today Assessment and Plan: Acute on chronic hypoxic respiratory failure COPD exacerbation Community-acquired pneumonia Possible right lower extremity cellulitis -Continue to wean oxygen -on bronchodilators, IV steroids, ceftriaxone, azithromycin -Sputum cultures and blood cultures, urine Legionella -Pro calcitonin slightly elevated -Mucinex -Wound care consult Chronic: Diastolic heart failure Atrial fibrillation Hypertension Dyslipidemia Former smoker History of bariatric surgery DVT ppx: Eliquis Code status: Full code Anticipated discharge place: Pending clinical course Anticipated discharge time: Pending clinical course Objective - Vital Signs Vital signs: Vital Signs Temp 98.5 F 10/21/22 08:00 Pulse 92 10/21/22 08:56 Resp 18 10/21/22 08:00 BP 118/71 10/21/22 08:00 Pulse Ox 92 L 10/21/22 08:00 FiO2 Intake & Output 10/20/22 10/21/22 10/21/22 18:59 06:59 18:59 Weight 120.202 kg Other: # Voids 1 4 # Bowel Movements 1 - Labs CBC & Chem 7: 10/20/22 13:17 10/20/22 13:17 Labs: Abnormal Lab Results - Last 24 Hours (Table) 10/20/22 10/20/22 10/20/22 Range/Units 13:17 13:17 13:17 Lymphocytes # 0.6 L (1.0-4.8) k/uL VBG pCO2 (37-51) mmHg VBG HCO3 (24-28) mmol/L Carbon Dioxide 37 H (22-30) mmol/L BUN 20 H (7-17) mg/dL Glucose 151 H (74-99) mg/dL Total Protein 6.2 L (6.3-8.2) g/dL Procalcitonin 0.13 H (0.02-0.09) ng/mL 10/20/22 Range/Units 16:08 Lymphocytes # (1.0-4.8) k/uL VBG pCO2 55 H (37-51) mmHg VBG HCO3 34 H (24-28) mmol/L Carbon Dioxide (22-30) mmol/L BUN (7-17) mg/dL Glucose (74-99) mg/dL Total Protein (6.3-8.2) g/dL Procalcitonin (0.02-0.09) ng/mL
[2022-10-21 13:16] LABS: Basophils # (A) 0.1 k/uL (0-0.2); Basophils % (A) 1 %; Eosinophils % (A) 0 %; HGB 14.2 gm/dL (11.4-16.0); Lymphocytes # (A) 0.4 k/uL (1.0-4.8); Lymphocytes % (A) 5 %; MCH 32.2 pg (25.0-35.0); MCV 97.5 fL (80.0-100.0); Monocytes # (A) 0.2 k/uL (0-1.0); Monocytes % (A) 2 %; Neutrophils # (A) 7.8 k/uL (1.3-7.7); Neutrophils % (A) 91 %; Platelet Count 167 k/uL (150-450); RBC 4.41 m/uL (3.80-5.40); RDW 14.3 % (11.5-15.5); WBC 8.6 k/uL (3.8-10.6)
[2022-10-21 13:32] LABS: ALT 24 U/L (4-34); AST 19 U/L (14-36); African American GFR (CKD) 75 (>60 ml/min/1.73 sqM); Albumin 3.9 g/dL (3.5-5.0); Albumin/Globulin Ratio 1.5; Alkaline Phosphatase 75 U/L (38-126); Anion Gap 5 mmol/L; Blood Urea Nitrogen 24 mg/dL (7-17); Calcium 9.4 mg/dL (8.4-10.2); Carbon Dioxide 36 mmol/L (22-30); Chloride 98 mmol/L (98-107); Globulin 2.6 g/dL; Glucose 190 mg/dL (74-99); Non-African American GFR(CKD) 65 (>60 ml/min/1.73 sqM); Potassium 3.9 mmol/L (3.5-5.1); Sodium 139 mmol/L (137-145); Total Bilirubin 0.5 mg/dL (0.2-1.3); Total Protein 6.5 g/dL (6.3-8.2)
[2022-10-21] MEDS: ATORVASTATIN 40 MG TAB PO SCH (21:26)
[2022-10-21] MEDS ORDERED: diphenhydrAMINE 25 MG CAP PO SCH (21:30)
[2022-10-22] MEDS: methylPREDNISolone SOD SUCCI 125 MG/2 ML VIAL IV SCH ×2 (00:13→06:06)
[2022-10-22] MEDS: carvediloL 12.5 MG TAB PO SCH (06:06)
[2022-10-22 07:23] VITALS: BP 132/84; RESP 20; TEMP 98.1
[2022-10-22] MEDS: IPRATROPIUM-ALBUTEROL 3 ML NEB INHALATION SCH (07:28)
[2022-10-22] MEDS: FORMOTEROL FUMARATE 20 MCG/2 ML NEBU INHALATION SCH (07:28)
[2022-10-22 07:52] VITALS: PULSE 100
[2022-10-22] MEDS: CALCIUM CARBONATE 500 MG CHEWABLE PO SCH (08:13)
[2022-10-22] MEDS: FUROSEMIDE 40 MG TAB PO SCH (08:13)
[2022-10-22] MEDS: ASCORBIC ACID 500 MG TAB PO SCH (08:13)
[2022-10-22] MEDS: MONTELUKAST 10 MG TAB PO SCH (08:14)
[2022-10-22] MEDS: CHOLECALCIFEROL 125 MCG (5000 IU) TABLET PO SCH (08:14)
[2022-10-22] MEDS: FERROUS SULFATE 325 MG TAB PO SCH (08:14)
[2022-10-22] MEDS: FAMOTIDINE 20 MG TAB PO SCH (08:14)
[2022-10-22] MEDS: APIXABAN 5 MG TAB PO SCH (08:14)
[2022-10-22] MEDS: SPIRONOLACTONE 25 MG TAB PO SCH (08:14)
[2022-10-22] MEDS: CITALOPRAM HYDROBROMIDE 20 MG TAB PO SCH (08:14)
[2022-10-22] MEDS: PANTOPRAZOLE 40 MG TABLET PO SCH (08:14)
[2022-10-22] MEDS: SILDENAFIL 20 MG TAB PO SCH (08:15)
[2022-10-22] MEDS: AZITHROMYCIN 500 MG TAB PO SCH (08:15)
--- NOTE | 2022-10-22 10:51 | P.DS ---
Providers Date of admission: 10/20/22 14:23 Expected date of discharge: 10/22/22 Attending physician: Pricila White DO Primary care physician: Abimael Mcgregor MD Hospital Course: Discharge Diagnosis: Acute on chronic hypoxic respiratory failure COPD exacerbation Community-acquired pneumonia Right lower extremity cellulitis Hospital Course: 57-year-old female with history of COPD, chronic hypoxic respiratory failure on 3 L, atrial fibrillation, diastolic heart failure, hypertension, dyslipidemia, former smoker, prior history of bariatric surgery presenting with acute on chronic dyspnea. In the ED, temperature was 98.5, pulse up to 120, respiratory rate 26, blood pressure 135/60, saturating at 92% on 4 L. WBC 7.2, hemoglobin 13.7, bicarb 37, BUN 20, creatinine 0.9, glucose 151, troponin negative, proBNP 1500. Chest x-ray independently reviewed, shows likely new right-sided consolidation, also interstitial disease. EKG independently reviewed and shows atrial fibrillation. Patient being admitted for acute on chronic hypoxic respiratory failure likely secondary to pneumonia as well as COPD exacerbation. Patient was started on bronchodilators, steroids, IV antibiotics. Respiratory function improved. She is back to her baseline respiratory status. Patient being discharged on oral antibiotics for community-acquired pneumonia and oral steroids, and oral antibiotics for cellulitis. Follow-up with pulmonology. Patient seen and examined at bedside. Vital signs reviewed and stable. General: nontoxic, no distress, appears at stated age, morbidly Pees Derm: warm, dry, right lower extremity ulcer, slight erythema, no purulence Head: atraumatic, normocephalic, symmetric Eyes: EOMI, no lid lag, anicteric sclera, pupils equal round reactive to light ENT: Nose and ears atraumatic Neck: No thyromegaly, supple Mouth: no lip lesion, mucus membranes moist Cardiovascular: S1S2 reg, no murmur, no edema Lungs: Bilateral crackles at the bases, scattered wheezing no accessory muscle use, supplemental oxygen Abdominal: soft, nontender to palpation, no guarding, no appreciable organomegaly Ext: no gross muscle atrophy, muscle strength muscle strength 5 out of 5 in all 4 extremities, no contractures Neuro: CN II-XII grossly intact Psych: Alert, oriented, appropriate affect A total of 33 minutes of time were spent preparing this complex discharge summary. Patient was discharged on 5/21/23 at 10:07. Patient Condition at Discharge: Stable Plan - Discharge Summary Discharge Rx Participant: No New Discharge Prescriptions: New Clindamycin [Cleocin] 300 mg PO Q12H #14 cap predniSONE 40 mg PO DAILY #2 tab Fluconazole [Diflucan] 150 mg PO ONCE #1 tab Cefdinir 300 mg PO Q12HR #4 cap Continue Montelukast [Singulair] 10 mg PO DAILY carvediloL [Coreg] 12.5 mg PO BID Ascorbic Acid [Vitamin C] 500 mg PO DAILY Apixaban [Eliquis] 5 mg PO BID #90 tab Furosemide [Lasix] 40 mg PO BID@0900,1600 #60 tab Super B-Complex 1 tab PO DAILY Potassium Chloride [Klor-Con 10 ER] 20 meq PO DAILY Famotidine [Pepcid] 40 mg PO DAILY Tiotropium Br/Olodaterol HCl [Stiolto Respimat Inhal [place]] 2 puff INHALATION RT-DAILY Spironolactone [Aldactone] 25 mg PO DAILY Pantoprazole [Protonix] 40 mg PO DAILY Ferrous Sulfate [Iron (65 MG Elemental)] 325 mg PO DAILY diphenhydrAMINE HCL [Benadryl] 50 mg PO HS Citalopram Hydrobromide [CeleXA] 40 mg PO DAILY Albuterol Sulfate [Ventolin HFA] 2 puff INHALATION RT-Q4H PRN PRN Reason: Shortness Of Breath Cholecalciferol (Vitamin D3) [Vitamin D3 (125 MCG = 5,000 IU)] 125 mcg PO DAILY [place]-3/Dha/Epa/Fish Oil [Fish Oil 1,000 mg Softgel] 1 cap PO DAILY Sildenafil Citrate 50 mg PO TID Atorvastatin [Lipitor] 40 mg PO HS Calcium Carbonate [Calcium] 1,200 mg PO DAILY Discontinued predniSONE [Deltasone] 20 mg PO DAILY Discharge Medication List Albuterol Sulfate [Ventolin HFA] 2 puff INHALATION RT-Q4H PRN 08/14/22 [History] Ascorbic Acid [Vitamin C] 500 mg PO DAILY 08/14/22 [History] Cholecalciferol (Vitamin D3) [Vitamin D3 (125 MCG = 5,000 IU)] 125 mcg PO DAILY 08/14/22 [History] Citalopram Hydrobromide [CeleXA] 40 mg PO DAILY 08/14/22 [History] Ferrous Sulfate [Iron (65 MG Elemental)] 325 mg PO DAILY 08/14/22 [History] Montelukast [Singulair] 10 mg PO DAILY 08/14/22 [History] [place]-3/Dha/Epa/Fish Oil [Fish Oil 1,000 mg Softgel] 1 cap PO DAILY 08/14/22 [History] Pantoprazole [Protonix] 40 mg PO DAILY 08/14/22 [History] Spironolactone [Aldactone] 25 mg PO DAILY 08/14/22 [History] Tiotropium Br/Olodaterol HCl [Stiolto Respimat Inhal [place]] 2 puff INHALATION RT-DAILY 08/14/22 [History] carvediloL [Coreg] 12.5 mg PO BID 08/14/22 [History] diphenhydrAMINE HCL [Benadryl] 50 mg PO HS 08/14/22 [History] Apixaban [Eliquis] 5 mg PO BID #90 tab 08/17/22 [Rx] Furosemide [Lasix] 40 mg PO BID@0900,1600 #60 tab 08/17/22 [Rx] Atorvastatin [Lipitor] 40 mg PO HS 10/20/22 [History] Calcium Carbonate [Calcium] 1,200 mg PO DAILY 10/20/22 [History] Famotidine [Pepcid] 40 mg PO DAILY 10/20/22 [History] Potassium Chloride [Klor-Con 10 ER] 20 meq PO DAILY 10/20/22 [History] Sildenafil Citrate 50 mg PO TID 10/20/22 [History] Super B-Complex 1 tab PO DAILY 10/20/22 [History] Cefdinir 300 mg PO Q12HR #4 cap 10/22/22 [Rx] Clindamycin [Cleocin] 300 mg PO Q12H #14 cap 10/22/22 [Rx] Fluconazole [Diflucan] 150 mg PO ONCE #1 tab 10/22/22 [Rx] predniSONE 40 mg PO DAILY #2 tab 10/22/22 [Rx] Follow up Appointment(s)/Referral(s): Abimael Mcgregor MD [Primary Care Provider] - 1-2 days (Office is closed at time of discharge. Please call for appointment.) Patient Instructions/Handouts: COPD (Chronic Obstructive Pulmonary Disease) (DC), Bacterial Pneumonia (DC) Activity/Diet/Wound Care/Special Instructions: Please see your PCP and pulmonology. Discharge Disposition: HOME SELF-CARE
== END 2022-10-22 11:15 | disposition home or self-care (01) | DRG 193 ==
LOC: EC 12:12 → SUPCPDRO 12:12 → 4SSUR 14:23
PROVIDERS: ADMIT Internal Medicine; ATTEND Internal Medicine
DX: J18.9 Pneumonia, unspecified organism (principal); J96.21 Acute and chronic respiratory failure with hypoxia; J44.0 Chronic obstructive pulmonary disease with (acute) lower respiratory infection; J44.1 Chronic obstructive pulmonary disease with (acute) exacerbation; I50.32 Chronic diastolic (congestive) heart failure; L03.115 Cellulitis of right lower limb; L97.919 Non-pressure chronic ulcer of unspecified part of right lower leg with unspecified severity; I48.91 Unspecified atrial fibrillation; E78.5 Hyperlipidemia, unspecified; Z87.891 Personal history of nicotine dependence; Z98.84 Bariatric surgery status; Z99.81 Dependence on supplemental oxygen; Z88.1 Allergy status to other antibiotic agents; Z88.8 Allergy status to other drugs, medicaments and biological substances; Z79.01 Long term (current) use of anticoagulants; Z79.899 Other long term (current) drug therapy; Z82.49 Family history of ischemic heart disease and other diseases of the circulatory system; Z82.5 Family history of asthma and other chronic lower respiratory diseases
CPT/HCPCS: 36415; 71046; 80053; 82803; 83605; 83735; 83880; 84145; 84484; 85025; 85610; 85730; 87040; 87449; 93005; 94640; 94760; 96365; 96375; 99285

== ENCOUNTER → 2022-11-17 | Outpatient (CLI) | payer OTHER ==
--- NOTE | 2022-11-17 13:34 | CT ---
EXAMINATION TYPE: CT chest w con DATE OF EXAM: 11/17/2022 COMPARISON: None HISTORY: 57-year-old female I27.20, pulmonary HTN TECHNIQUE: Contiguous axial scanning of the chest after the administration of 100 mL of Isovue 300. Coronal/sagittal reconstructions performed. CT DLP: 574.1mGycm. Automatic exposure control utilized for a dose reduction. FINDINGS: Heart is mild to moderately enlarged. Dense mitral annular calcifications. Extensive three-vessel cor onary artery calcifications are present. Small pericardial effusion along the right lateral aspect. Aorta normal caliber with mild atherosclerotic arch calcifications and conventional arch vessel branc natali anatomy. Large caliber to the main right and left pulmonary arteries measuring up to 2.0 cm suggesting underly ing pulmonary arterial hypertension. No thoracic lymphadenopathy by CT size criteria. Mild emphysematous changes noted. Strandy atelectasis in the mid and lower lungs. Focal patchy subple ural opacity posterior left base and medial right middle lobe. 6 mm right lower lobe pulmonary nodule, axial image 34. Some additional strandy atelectasis in the lower lungs. There is a small hiatal hernia. Postsurgical change of sleeve gastrectomy noted. There is low-density nodular thickening of the left adrenal gland measuring up to 3.8 cm.. Possible severe atherosclerotic narrowing at the origin of left renal artery. Bones: [facility] throughout the mid and lower thoracic spine. Mild inferior endplate deformity of T5 and superior endplate deformity of T8. Both likely chronic given the lack of any significant paravertebra l soft tissue swelling. IMPRESSION: 1. COPD with mild emphysema. Pulmonary arterial hypertension. 2. Cardiomegaly. CAD with extensive three-vessel coronary artery calcifications. 3. Focal subpleural patchy opacity at the posterior left base could represent confluent scarring or a n area of pneumonia. Reassess with a 3 month follow-up. 4. A 6 mm right lower lobe pulmonary nodule can also be reassessed at that time. 5. Probable 3.8 cm left adrenal adenoma 6. DISH mid and lower thoracic spine. Mild inferior endplate deformity of T5 and mild superior endpla te deformity of T8 both have a somewhat chronic appearance but further clinical correlation is recomm ended to fully determine chronicity.
== END | disposition home or self-care (01) ==
LOC: RADCTMAIN 11:58
PROVIDERS: ATTEND Internal Medicine
DX: J43.9 Emphysema, unspecified (principal); I27.21 Secondary pulmonary arterial hypertension; I25.10 Atherosclerotic heart disease of native coronary artery without angina pectoris; R91.1 Solitary pulmonary nodule; I51.7 Cardiomegaly; M48.14 Ankylosing hyperostosis [Forestier], thoracic region; M43.8X4 Other specified deforming dorsopathies, thoracic region; J94.8 Other specified pleural conditions
CPT/HCPCS: 71260; Q9967

== ENCOUNTER 2022-12-27 12:00 | Inpatient (IN) | payer OTHER ==
--- NOTE | 2022-12-27 12:55 | ED ---
General Adult HPI - General Chief complaint: Shortness of Breath Stated complaint: SOB Time Seen by Provider: 12/27/22 12:15 Source: patient, EMS, RN notes reviewed, old records reviewed Mode of arrival: EMS Limitations: no limitations - History of Present Illness Initial comments: This is a 57-year-old female who presents emergency Department complaining of difficulty breathing and particularly with exertion. Patient states she was just discharged home after she was admitted to the hospital for congestive heart. Patient states at home her pulse ox would drop down into the 70s any temperature and light. Patient states she believes her legs are a little more edematous than normal. Patient denies any recent fever chills or cough per patient denies any chest pain palpitations difficulty breathing first breath per patient's abdominal pain patient denies nausea vomiting diarrhea. Patient denies any recent fever chills or cough. - Related Data Home Medications Medication Instructions Recorded Confirmed Ascorbic Acid [Vitamin C] 500 mg PO DAILY@79908/14/22 12/27/22 Cholecalciferol (Vitamin D3) 125 mcg PO DAILY@79908/14/22 12/27/22 [Vitamin D3 (125 MCG = 5,000 IU)] Citalopram Hydrobromide [CeleXA] 40 mg PO DAILY@79908/14/22 12/27/22 Ferrous Sulfate [Iron (65 MG 325 mg PO DAILY@79908/14/22 12/27/22 Elemental)] Montelukast [Singulair] 10 mg PO DAILY@79908/14/22 12/27/22 [place]-3/Dha/Epa/Fish Oil [Fish Oil 1 cap PO DAILY@79908/14/22 12/27/22 1,000 mg Softgel] Pantoprazole [Protonix] 40 mg PO DAILY@79908/14/22 12/27/22 Spironolactone [Aldactone] 25 mg PO DAILY@79908/14/22 12/27/22 Tiotropium Br/Olodaterol HCl 2 puff INHALATION RT-DAILY@79908/14/22 12/27/22 [Stiolto Respimat Inhal [place]] diphenhydrAMINE HCL [Benadryl] 50 mg PO HS@199908/14/22 12/27/22 Atorvastatin [Lipitor] 40 mg PO HS@199910/20/22 12/27/22 Calcium Carbonate [Calcium] 1,200 mg PO DAILY@0800 10/20/22 12/27/22 Famotidine [Pepcid] 40 mg PO DAILY@0800 10/20/22 12/27/22 Sildenafil Citrate 50 mg PO TID@0800,1700,199910/20/22 12/27/22 Super B-Complex 1 tab PO DAILY@0800 10/20/22 12/27/22 Acetaminophen-Codeine 300-30mg 1 tab PO TID PRN 12/21/22 12/27/22 [Tylenol w/codeine #3] Apixaban [Eliquis] 5 mg PO BID@0800,199912/21/22 12/27/22 Diclofenac Sodium Gel [Voltaren 2 - 4 gm TOPICAL TID@0800,1400,199912/21/22 12/27/22 Gel] Furosemide [Lasix] 40 mg PO BID@0800,1700 12/21/22 12/27/22 Ipratropium-Albuterol Nebulize 3 ml INHALATION RT-QID 12/21/22 12/27/22 [Duoneb 0.5 mg-3 mg/3 ml Soln] Medihoney Gel 1 applic TOPICAL MOWEFR@0800 12/21/22 12/27/22 Multivitamins, Thera [Multivitamin 1 tab PO DAILY@0800 12/21/22 12/27/22 (formulary)] Semaglutide [Wegovy] 0.25 mg SQ DIRECTED 12/21/22 12/27/22 predniSONE [Deltasone] 20 mg PO DAILY@0812/21/22 12/27/22 Lidocaine 5% Cream 1 applic TOPICAL BID@0800,199912/27/22 12/27/22 Previous Rx's Medication Instructions Recorded Metoprolol Tartrate [Lopressor] 25 mg PO BID #60 tab 12/24/22 Potassium Chloride 10 meq PO DAILY@0800 #0 12/24/22 Allergies Allergy/AdvReac Type Severity Reaction Status Date / Time doxycycline Allergy Unknown Verified 12/27/22 13:14 lorazepam [From Ativan] AdvReac Hallucinati Verified 12/27/22 13:14 ons venlafaxine [From Effexor] AdvReac Hallucinati Verified 12/27/22 13:14 ons Review of Systems ROS Statement: Those systems with pertinent positive or pertinent negative responses have been documented in the HPI. ROS Other: All systems not noted in ROS Statement are negative. Past Medical History Past Medical History: Atrial Fibrillation, Heart Failure, COPD, Hyperlipidemia, Hypertension Additional Past Medical History / Comment(s): pulmonary HTN History of Any Multi-Drug Resistant Organisms: None Reported Past Surgical History: Bariatric Surgery, Bowel Resection, Hysterectomy Additional Past Surgical History / Comment(s): gastric sleeve Past Anesthesia/Blood Transfusion Reactions: No Reported Reaction Past Psychological History: Depression Smoking Status: Former smoker Past Alcohol Use History: None Reported Past Drug Use History: None Reported - Past Family History Mother Family Medical History: COPD, Coronary Artery Disease (CAD), CVA/TIA, Hypertension Father Family Medical History: COPD, CVA/TIA, Hypertension, Prostate Disorder General Exam - General Exam Comments Initial Comments: GENERAL: Patient is well-developed and well-nourished. Patient is nontoxic and well- hydrated and is in mild distress. ENT: Neck is soft and supple. No significant lymphadenopathy is noted. Oropharynx is clear. Moist mucous membranes. Neck has full range of motion without eliciting any pain. EYES: The sclera were anicteric and conjunctiva were pink and moist. Extraocular movements were intact and pupils were equal round and reactive to light. Eyelids were unremarkable. PULMONARY: Diminished breath sounds in the bases CARDIOVASCULAR: There is a regular rate and rhythm without any murmurs gallops or rubs. ABDOMEN: Soft and nontender with normal bowel sounds. SKIN: Skin is clear with no lesions or rashes and otherwise unremarkable. NEUROLOGIC: Patient is alert and oriented x3. Cranial nerves II through XII are grossly intact. Motor and sensory are also intact. Normal speech, volume and content. Symmetrical smile. MUSCULOSKELETAL: Normal extremities with adequate strength and full range of motion. LYMPHATICS: No significant lymphadenopathy is noted PSYCHIATRIC: Normal psychiatric evaluation. Limitations: no limitations Course Vital Signs 12/27/22 12/27/22 12/27/22 12:13 12:18 15:24 Temperature 99.0 F Pulse Rate 97 102 H Respiratory 18 20 Rate Blood Pressure 140/85 O2 Sat by Pulse 32 L 97 Oximetry Medical Decision Making - Medical Decision Making EKG is interpreted by myself shows atrial fibrillation at 93 bpm QRS is 97 Q-T intervals 375 QTC is 426 per patient's EKG shows no ST segment elevation or depression Was pt. sent in by a medical professional or institution ([facility], [facility], urgent care, hospital, or snf...) When possible be specific @ -[No] Did you speak to anyone other than the patient for history (EMS, parent, family, police, friend...)? What history was obtained from this source @ -[No] Did you review nursing and triage notes (agree or disagree)? Why? @ -[I reviewed and agree with nursing and triage notes] Were old charts reviewed (outside hosp., previous admission, EMS record, old EKG, old radiological studies, urgent care reports/EKG's, snf records)? Report findings @ -I reviewed prior charts in prior laboratory per x-rays on this patient. Differential Diagnosis (chest pain, altered mental status, abdominal pain women, abdominal pain men, vaginal bleeding, weakness, fever, dyspnea, syncope, headache, dizziness, GI bleed, back pain, seizure, CVA, palpatations, mental health, musculoskeletal)? @ -Differential Dyspnea: Coronary syndrome, arrhythmia, tamponade, asthma, COPD, pulmonary embolism, pneumonia, pneumothorax, pulmonary effusion, anaphylaxis, diabetic ketoacidosis, flailed chest, pulmonary contusion, diaphragmatic rupture, anemia, neuromuscular, this is not meant to be an all-inclusive list. EKG interpreted by me (3pts min.). @ -[As above] X-rays interpreted by me (1pt min.). @ -The chest x-ray showed pulmonary edema CT interpreted by me (1pt min.). @ -I considered a CAT scan of this patient however with the lab work in the x- ray I think at this point time was unnecessary U/S interpreted by me (1pt. min.). @ -[None done] What testing was considered but not performed or refused? (CT, X-rays, U/S, labs)? Why? @ -[None] What meds were considered but not given or refused? Why? @ -[None] Did you discuss the management of the patient with other professionals (professionals i.e. [facility], [facility], lab, RT, psych nurse, licensed clinical social worker, return to service inspector, teacher, information officer, case management coordinator)? Give summary @ -I spoke with some physicians and they agreed to admit the patient admitted the patient I wrote admitting orders Was smoking cessation discussed for >3mins.? @ -[No] Was critical care preformed (if so, how long)? @ -[No] Were there social determinants of health that impacted care today? How? (Homelessness, low income, unemployed, alcoholism, drug addiction, transportation, low edu. Level, literacy, decrease access to med. care, intermediate, rehab)? @ -[No] Was there de-escalation of care discussed even if they declined (Discuss DNR or withdrawal of care, Hospice)? DNR status @ -[No] What co-morbidities impacted this encounter? (DM, HTN, Smoking, COPD, CAD, Cancer, CVA, ARF, Chemo, Hep., AIDS, mental health diagnosis, sleep apnea, morbid obesity)? @ -[None] Was patient admitted / discharged? Hospital course, mention meds given and ro karly, prescriptions, significant lab abnormalities, going to OR and other pertinent info. @ -Patient had pulmonary edema on x-ray was confirmed by a BNP. I spoke with some physicians he agreed to admit the patient to the patient remaining orders I gave the patient Gisselle in the emergency department I will continue her on the floor. Undiagnosed new problem with uncertain prognosis? @ -[No] Drug Therapy requiring intensive monitoring for toxicity (Heparin, Nitro, Insulin, Cardizem)? @ -[No] Were any procedures done? @ -[No] Diagnosis/symptom? @ -Pulmonary edema Acute, or Chronic, or Acute on Chronic? @ -Acute Uncomplicated (without systemic symptoms) or Complicated (systemic symptoms)? @ -Complicated Side effects of treatment? @ -[No] Exacerbation, Progression, or Severe Exacerbation? @ -[No] Poses a threat to life or bodily function? How? (Chest pain, [place], NC, pneumonia, PE, COPD, DKA, ARF, appy, cholecystitis, CVA, Diverticulitis, Homicidal, Day icidal, threat to staff... and all critical care pts) @ -Yes this can lead to hypoxia and end organ dysfunction - Lab Data Result diagrams: 12/27/22 12:46 12/27/22 12:46 Lab Results 12/27/22 12/27/22 12/27/22 Range/Units 12:46 12:46 12:46 WBC 7.0 (3.8-10.6) k/uL RBC 3.65 L (3.80-5.40) m/uL Hgb 11.8 (11.4-16.0) gm/dL Hct 37.3 (34.0-46.0) % MCV 102.1 H (80.0-100.0) fL MCH 32.3 (25.0-35.0) pg MCHC 31.6 (31.0-37.0) g/dL RDW 16.4 H (11.5-15.5) % Plt Count 142 L (150-450) k/uL MPV 8.9 Neutrophils % 74 % Lymphocytes % 12 % Monocytes % 8 % Eosinophils % 3 % Basophils % 0 % Neutrophils # 5.2 (1.3-7.7) k/uL Lymphocytes # 0.8 L (1.0-4.8) k/uL Monocytes # 0.6 (0-1.0) k/uL Eosinophils # 0.2 (0-0.7) k/uL Basophils # 0.0 (0-0.2) k/uL Hypochromasia Slight Poikilocytosis Slight Anisocytosis Slight Macrocytosis Moderate PT 11.3 (9.0-12.0) sec INR 1.1 (<1.2) APTT 25.2 (22.0-30.0) sec Sodium 140 (137-145) mmol/L Potassium 3.6 (3.5-5.1) mmol/L Chloride 95 L (98-107) mmol/L Carbon Dioxide 35 H (22-30) mmol/L Anion Gap 10 mmol/L BUN 18 H (7-17) mg/dL Creatinine 1.20 H (0.52-1.04) mg/dL Est GFR (CKD-EPI)AfAm 58 (>60 ml/min/1.73 sqM) Est GFR (CKD-EPI)NonAf 50 (>60 ml/min/1.73 sqM) Glucose 152 H (74-99) mg/dL Plasma Lactic Acid Leoncio (0.7-2.0) mmol/L Calcium 9.6 (8.4-10.2) mg/dL Magnesium 1.7 (1.6-2.3) mg/dL Total Bilirubin 0.6 (0.2-1.3) mg/dL AST 23 (14-36) U/L ALT 28 (4-34) U/L Alkaline Phosphatase 72 (38-126) U/L Troponin I (0.000-0.034) ng/mL NT-Pro-B Natriuret Pep 3210 pg/mL Total Protein 6.0 L (6.3-8.2) g/dL Albumin 3.6 (3.5-5.0) g/dL 12/27/22 12/27/22 Range/Units 12:46 12:46 WBC (3.8-10.6) k/uL RBC (3.80-5.40) m/uL Hgb (11.4-16.0) gm/dL Hct (34.0-46.0) % MCV (80.0-100.0) fL MCH (25.0-35.0) pg MCHC (31.0-37.0) g/dL RDW (11.5-15.5) % Plt Count (150-450) k/uL MPV Neutrophils % % Lymphocytes % % Monocytes % % Eosinophils % % Basophils % % Neutrophils # (1.3-7.7) k/uL Lymphocytes # (1.0-4.8) k/uL Monocytes # (0-1.0) k/uL Eosinophils # (0-0.7) k/uL Basophils # (0-0.2) k/uL Hypochromasia Poikilocytosis Anisocytosis Macrocytosis PT (9.0-12.0) sec INR (<1.2) APTT (22.0-30.0) sec Sodium (137-145) mmol/L Potassium (3.5-5.1) mmol/L Chloride (98-107) mmol/L Carbon Dioxide (22-30) mmol/L Anion Gap mmol/L BUN (7-17) mg/dL Creatinine (0.52-1.04) mg/dL Est GFR (CKD-EPI)AfAm (>60 ml/min/1.73 sqM) Est GFR (CKD-EPI)NonAf (>60 ml/min/1.73 sqM) Glucose (74-99) mg/dL Plasma Lactic Acid Leoncio 0.9 (0.7-2.0) mmol/L Calcium (8.4-10.2) mg/dL Magnesium (1.6-2.3) mg/dL Total Bilirubin (0.2-1.3) mg/dL AST (14-36) U/L ALT (4-34) U/L Alkaline Phosphatase (38-126) U/L Troponin I 0.025 (0.000-0.034) ng/mL NT-Pro-B Natriuret Pep pg/mL Total Protein (6.3-8.2) g/dL Albumin (3.5-5.0) g/dL Disposition Clinical Impression: Acute pulmonary edema Disposition: ADMITTED IP TO THIS HOSP Referrals: Abimael Mcgregor MD [Primary Care Provider] - 1-2 days Time of Disposition: 15:50
[2022-12-27 13:15] LABS: Anisocytosis Slight; Basophils % (A) 0 %; Eosinophils # (A) 0.2 k/uL (0-0.7); Eosinophils % (A) 3 %; HCT 37.3 % (34.0-46.0); HGB 11.8 gm/dL (11.4-16.0); Hypochromasia Slight; Lymphocytes # (A) 0.8 k/uL (1.0-4.8); Lymphocytes % (A) 12 %; MCH 32.3 pg (25.0-35.0); MCHC 31.6 g/dL (31.0-37.0); MCV 102.1 fL (80.0-100.0); Macrocytosis Moderate; Mean Platelet Volume 8.9; Monocytes # (A) 0.6 k/uL (0-1.0); Monocytes % (A) 8 %; Neutrophils # (A) 5.2 k/uL (1.3-7.7); Neutrophils % (A) 74 %; Platelet Count 142 k/uL (150-450); Poikilocytosis Slight; RBC 3.65 m/uL (3.80-5.40); RDW 16.4 % (11.5-15.5)
[2022-12-27 13:25] LABS: INR 1.1 (<1.2); Partial Thromboplastin Time 25.2 sec (22.0-30.0); Prothrombin Time 11.3 sec (9.0-12.0)
--- NOTE | 2022-12-27 13:34 | XR ---
EXAMINATION TYPE: XR chest 2V DATE OF EXAM: 12/27/2022 1:19 PM COMPARISON: Chest radiographs from 12/21/2022, CT chest 11/17/2022 TECHNIQUE: XR chest 2V Frontal and lateral views of the chest. CLINICAL INDICATION:Female, 57 years old with history of difficulty breathing; FINDINGS: Lungs/Pleura: There is no evidence of pleural effusion, focal consolidation, or pneumothorax. Pulmonary vascularity: Pulmonary vascular congestion. Heart/mediastinum: Cardiomediastinal silhouette is enlarged and stable. Atherosclerotic calcificatio ns are seen in the aorta. Musculoskeletal: No acute osseous pathology. IMPRESSION: Cardiomegaly and mild pulmonary vascular congestion. Correlate with BNP for congestive heart failure. Superimposed infectious process not excluded.
[2022-12-27 13:42] LABS: NT-Pro-B-Type Natriuretic Pept 3210 pg/mL
[2022-12-27 13:45] LABS: ALT 28 U/L (4-34); AST 23 U/L (14-36); African American GFR (CKD) 58 (>60 ml/min/1.73 sqM); Albumin 3.6 g/dL (3.5-5.0); Alkaline Phosphatase 72 U/L (38-126); Blood Urea Nitrogen 18 mg/dL (7-17); Calcium 9.6 mg/dL (8.4-10.2); Chloride 95 mmol/L (98-107); Glucose 152 mg/dL (74-99); Magnesium 1.7 mg/dL (1.6-2.3); Non-African American GFR(CKD) 50 (>60 ml/min/1.73 sqM); Potassium 3.6 mmol/L (3.5-5.1); Sodium 140 mmol/L (137-145); Total Bilirubin 0.6 mg/dL (0.2-1.3)
[2022-12-27 14:18] LABS: Anion Gap 10 mmol/L
[2022-12-27 14:19] LABS: Carbon Dioxide 35 mmol/L (22-30)
[2022-12-27] MEDS: FUROSEMIDE 10 MG/ML 4 ML VIAL IV SCH (16:29)
[2022-12-27] MEDS ORDERED: DEXTROSE 50% SYRINGE 50 ML IVP PRN ×2 (16:36)
--- NOTE | 2022-12-27 16:39 | P.HPIM ---
History of Present Illness H&P Date: 12/27/22 Patient is a 57-year-old female with history of diastolic CHF, COPD on 3 L, atrial fibrillation, dyslipidemia presenting with worsening shortness of breath. She claims that she was just discharged from the hospital, and started to develop worsening shortness of breath with exertion. She has orthopnea, denies any PND. Denies any significant cough or sputum production, denies any fevers, chills, wheezing. Has been compliant with her medications. She is able to ambulate only a few steps before getting short of breath. Denies any smoking, alcohol use, illicit drug use. In the ED, temperature was 99, pulse 97, respiratory rate 18, blood pressure 140/85, saturating well on 5 L. WBC 7, hemoglobin 11.8, sodium 140, bicarb 35, creatinine 1.2, on baseline, proBNP 3000 up from previous, troponin 0.025. EKG independently interpreted shows atrial fibrillation , Q waves in anterolateral leads. Chest x-ray independently interpreted shows pulmonary vascular congestion or prominent on the right Patient being admitted for CHF exacerbation. Pertinent positives and negatives as discussed in HPI, a complete review of systems was performed and all other systems are negative. Patient seen and examined at bedside. Vital signs reviewed General: nontoxic, no distress, appears at stated age Derm: warm, dry Head: atraumatic, normocephalic, symmetric Eyes: EOMI, no lid lag, anicteric sclera, pupils equal round reactive to light ENT: Nose and ears atraumatic Neck: No thyromegaly, supple Mouth: no lip lesion, mucus membranes moist Cardiovascular: S1S2 reg, no murmur, no edema Lungs: clear to auscultation bilateral, no rhonchi, no rales, no wheeze, no accessory muscle use Abdominal: soft, nontender to palpation, no guarding, no appreciable organomegaly Ext: no gross muscle atrophy, muscle strength muscle strength 5 out of 5 in all 4 extremities, no contractures Neuro: CN II-XII grossly intact Psych: Alert, oriented, appropriate affect Assessment/Plan: Active: Acute diastolic CHF exacerbation Diabetes mellitus -Lasix 40 mg IV every 8 hours, also nitroglycerin topical -Monitor renal function and electrolytes, BMP tomorrow -Monitor I's and O's -Telemetry -Echocardiogram done 1 week ago shows pulmonary hypertension, LVEF 55% -Cardiology consulted -Hold home antidiabetic medications, started on sliding scale insulin Chronic: COPD not in exacerbation, on chronic steroids Dyslipidemia Atrial fibrillation Depression Iron deficiency anemia GERD The patient is admitted with an anticipated greater than 2 midnight stay as inpatient status for evaluation of CHF exacerbation. Surrogate decision-maker: Spouse CODE STATUS: Full code DVT prophylaxis: Yoselinbrenden Anticipated discharge date: Pending clinical course Anticipated discharge place: Pending clinical course A total of 55 minutes was spent on the care of this complex patient more than 50% of the time was spent in counseling and care coordination. Past Medical History Past Medical History: Atrial Fibrillation, Heart Failure, COPD, Hyperlipidemia, Hypertension Additional Past Medical History / Comment(s): pulmonary HTN History of Any Multi-Drug Resistant Organisms: None Reported Past Surgical History: Bariatric Surgery, Bowel Resection, Hysterectomy Additional Past Surgical History / Comment(s): gastric sleeve Past Anesthesia/Blood Transfusion Reactions: No Reported Reaction Past Psychological History: Depression Smoking Status: Former smoker Past Alcohol Use History: None Reported Past Drug Use History: None Reported - Past Family History Mother Family Medical History: COPD, Coronary Artery Disease (CAD), CVA/TIA, Hypertension Father Family Medical History: COPD, CVA/TIA, Hypertension, Prostate Disorder Medications and Allergies Home Medications Medication Instructions Recorded Confirmed Type Ascorbic Acid [Vitamin C] 500 mg PO DAILY@79908/14/22 12/27/22 History Cholecalciferol (Vitamin D3) 125 mcg PO DAILY@79908/14/22 12/27/22 History [Vitamin D3 (125 MCG = 5,000 IU)] Citalopram Hydrobromide [CeleXA] 40 mg PO DAILY@79908/14/22 12/27/22 History Ferrous Sulfate [Iron (65 MG 325 mg PO DAILY@79908/14/22 12/27/22 History Elemental)] Montelukast [Singulair] 10 mg PO DAILY@79908/14/22 12/27/22 History [place]-3/Dha/Epa/Fish Oil [Fish Oil 1 cap PO DAILY@79908/14/22 12/27/22 History 1,000 mg Softgel] Pantoprazole [Protonix] 40 mg PO DAILY@79908/14/22 12/27/22 History Spironolactone [Aldactone] 25 mg PO DAILY@79908/14/2223 History Tiotropium Br/Olodaterol HCl 2 puff INHALATION RT-DAILY@0808/14/22 12/27/22 History [Stiolto Respimat Inhal [place]] diphenhydrAMINE HCL [Benadryl] 50 mg PO HS@199908/14/22 12/27/22 History Atorvastatin [Lipitor] 40 mg PO HS@199910/20/22 12/27/22 History Calcium Carbonate [Calcium] 1,200 mg PO DAILY@0810/20/22 12/27/22 History Famotidine [Pepcid] 40 mg PO DAILY@0800 10/20/22 12/27/22 History Sildenafil Citrate 50 mg PO TID@0800,170,199910/20/22 12/27/22 History Super B-Complex 1 tab PO DAILY@0800 10/20/22 12/27/22 History Acetaminophen-Codeine 300-30mg 1 tab PO TID PRN 12/21/22 12/27/22 History [Tylenol w/codeine #3] Apixaban [Eliquis] 5 mg PO BID@0800,199912/21/22 12/27/22 History Diclofenac Sodium Gel [Voltaren 2 - 4 gm TOPICAL TID@0800,1400,199912/21/22 12/27/22 History Gel] Furosemide [Lasix] 40 mg PO BID@0800,1700 12/21/22 12/27/22 History Ipratropium-Albuterol Nebulize 3 ml INHALATION RT-QID 12/21/22 12/27/22 History [Duoneb 0.5 mg-3 mg/3 ml Soln] Medihoney Gel 1 applic TOPICAL MOWEFR@0812/21/22 12/27/22 History Multivitamins, Thera [Multivitamin 1 tab PO DAILY@0812/21/22 12/27/22 History (formulary)] Semaglutide [Wegovy] 0.25 mg SQ DIRECTED 12/21/22 12/27/22 History predniSONE [Deltasone] 20 mg PO DAILY@0800 12/21/22 12/27/22 History Metoprolol Tartrate [Lopressor] 25 mg PO BID #60 tab 12/24/22 12/27/22 Rx Potassium Chloride 10 meq PO DAILY@0800 #0 12/24/22 12/27/22 Rx Lidocaine 5% Cream 1 applic TOPICAL BID@799,199912/27/22 12/27/22 History Allergies Allergy/AdvReac Type Severity Reaction Status Date / Time doxycycline Allergy Unknown Verified 12/27/22 13:14 lorazepam [From Ativan] AdvReac Hallucinati Verified 12/27/22 13:14 ons venlafaxine [From Effexor] AdvReac Hallucinati Verified 12/27/22 13:14 ons Physical Exam Vitals: Vital Signs Temp Pulse Resp BP Pulse Ox 12/27/22 15:24 97 12/27/22 12:18 102 H 20 32 L 12/27/22 12:13 99.0 F 97 18 140/85 Intake and Output 12/27/22 12/27/22 12/27/22 06:59 14:59 22:59 Other: Weight 117.934 kg Results CBC & Chem 7: 12/27/22 12:46 12/27/22 12:46 Labs: Abnormal Lab Results - Last 24 Hours (Table) 12/27/22 12/27/22 Range/Units 12:46 12:46 RBC 3.65 L (3.80-5.40) m/uL MCV 102.1 H (80.0-100.0) fL RDW 16.4 H (11.5-15.5) % Plt Count 142 L (150-450) k/uL Lymphocytes # 0.8 L (1.0-4.8) k/uL Chloride 95 L (98-107) mmol/L Carbon Dioxide 35 H (22-30) mmol/L BUN 18 H (7-17) mg/dL Creatinine 1.20 H (0.52-1.04) mg/dL Glucose 152 H (74-99) mg/dL Total Protein 6.0 L (6.3-8.2) g/dL
[2022-12-27] MEDS: SILDENAFIL 20 MG TAB PO SCH ×2 (18:31→20:31)
[2022-12-27 18:37] LABS: Glucose,Whole Blood 126 mg/dL (70-110)
[2022-12-27] MEDS: INSULIN ASPART (NovoLOG) 100 UNIT/ML VIAL SQ SCH ×2 (18:37→21:32)
[2022-12-27] MEDS: APIXABAN 5 MG TAB PO SCH (19:52)
[2022-12-27] MEDS: ATORVASTATIN 40 MG TAB PO SCH (19:52)
[2022-12-27] MEDS: NITROGLYCERIN OINT 1 INCH/GM PACKET TOPICAL SCH (19:53)
[2022-12-27] MEDS: IPRATROPIUM-ALBUTEROL 3 ML NEB INHALATION SCH (20:19)
[2022-12-27] MEDS: diphenhydrAMINE 25 MG CAP PO SCH (20:31)
[2022-12-27] MEDS: METOPROLOL TARTRATE 25 MG TAB PO SCH (21:32)
[2022-12-27 21:33] LABS: Glucose,Whole Blood 109 mg/dL (70-110)
[2022-12-27] MEDS: LIDOCAINE 5% OINTMENT 50 GM JAR TOPICAL SCH (22:04)
[2022-12-28] MEDS: NITROGLYCERIN OINT 1 INCH/GM PACKET TOPICAL SCH ×2 (00:16→05:36)
[2022-12-28] MEDS: FUROSEMIDE 10 MG/ML 4 ML VIAL IV SCH ×3 (01:29→17:27)
[2022-12-28] MEDS: Acetaminophen-Codeine 300-30mg TAB PO PRN ×2 (02:19→08:41)
[2022-12-28] MEDS ORDERED: MORPHINE SULFATE 4 MG/ML SYRINGE IVP STA (05:31)
[2022-12-28 05:51] LABS: Glucose,Whole Blood 124 mg/dL (70-110)
[2022-12-28] MEDS: INSULIN ASPART (NovoLOG) 100 UNIT/ML VIAL SQ SCH ×4 (06:09→20:29)
[2022-12-28] MEDS ORDERED: NON FORMULARY DRUG (Omega-3/Dha/Epa/Fish Oil [Fish Oil 1,000 Mg Softgel] 1 EACH Capsule) PO SCH (08:00)
[2022-12-28] MEDS ORDERED: IPRATROPIUM 0.5 MG/2.5 ML NEBU INHALATION SCH (08:00)
[2022-12-28] MEDS ORDERED: SUPER B COMPLEX PO SCH (08:00)
[2022-12-28] MEDS: FORMOTEROL FUMARATE 20 MCG/2 ML NEBU INHALATION SCH ×2 (08:12→20:03)
[2022-12-28] MEDS: IPRATROPIUM-ALBUTEROL 3 ML NEB INHALATION SCH ×4 (08:12→20:03)
[2022-12-28 09:02] LABS: BUN/Creat Ratio 11.77 Ratio (12.00-20.00); Blood Urea Nitrogen 15.3 mg/dL (9.0-27.0); Calcium 9.9 mg/dL (8.7-10.3); Carbon Dioxide 38.3 mmol/L (21.6-31.8); Chloride 98 mmol/L (96-109); Glucose 98 mg/dL (70-110); Magnesium 1.7 mg/dL (1.5-2.4); Potassium 3.6 mmol/L (3.5-5.5); Sodium 146 mmol/L (135-145)
[2022-12-28] MEDS: SILDENAFIL 20 MG TAB PO SCH ×3 (09:10→20:03)
[2022-12-28] MEDS: CALCIUM CARBONATE 500 MG CHEWABLE PO SCH (09:10)
[2022-12-28] MEDS: FAMOTIDINE 20 MG TAB PO SCH (09:11)
[2022-12-28] MEDS: ASCORBIC ACID 500 MG TAB PO SCH (09:12)
[2022-12-28] MEDS: POTASSIUM CHLORIDE ER 10 MEQ TAB.ER.PRT PO SCH (09:12)
[2022-12-28] MEDS: MULTIVITAMINS, THERA 1 EACH TAB PO SCH (09:12)
[2022-12-28] MEDS: SPIRONOLACTONE 25 MG TAB PO SCH (09:12)
[2022-12-28] MEDS: CITALOPRAM HYDROBROMIDE 20 MG TAB PO SCH (09:12)
[2022-12-28] MEDS: PANTOPRAZOLE 40 MG TABLET PO SCH (09:12)
[2022-12-28] MEDS: MONTELUKAST 10 MG TAB PO SCH (09:12)
[2022-12-28] MEDS: APIXABAN 5 MG TAB PO SCH ×2 (09:13→20:03)
[2022-12-28] MEDS: CHOLECALCIFEROL 125 MCG (5000 IU) TABLET PO SCH (09:13)
[2022-12-28] MEDS: predniSONE 20 MG TAB PO SCH (09:13)
[2022-12-28] MEDS: METOPROLOL TARTRATE 25 MG TAB PO SCH ×2 (09:13→20:03)
[2022-12-28] MEDS: FERROUS SULFATE 325 MG TAB PO SCH (09:13)
[2022-12-28] MEDS: LIDOCAINE 5% OINTMENT 50 GM JAR TOPICAL SCH ×2 (09:14→20:04)
--- NOTE | 2022-12-28 10:22 | P.CRDCN ---
History of Present Illness Consult date: 12/28/22 Requesting physician: Don Hobbs Reason for Consult (text): Pulmonary Edema Chief complaint: shortness of breath History of present illness: This is a pleasant 57-year-old female who follows in the office with Dr. Cao. She has a past medical history of COPD, smoking for which she quit 10 years ago, heart failure with preserved ejection fraction, chronic persistent atrial fibrillation, chronic hypoxic respiratory failure and home O2, morbid obesity, pulmonary hypertension. Was recently admitted to the hospital on the of this month with acute pulmonary edema. She was diuresed but says she never felt quite back to her baseline. She presented this admission with continued w orsening shortness of breath and lower extremity edema. NT proBNP is elevated at 3210 was previously 2900 on last admission. Prior to previous admission she had been consuming a lot of soups but since last admission has cut back on her sodium intake. She is currently on Aldactone, metoprolol. Chest x-ray showed cardiomegaly and mild pulmonary vascular congestion, correlate with BMP for congestive heart failure, superimposed infectious process is not excluded. She has been initiated on Lasix 40 mg IV push every 8 hours. EKG shows atrial fibrillation with controlled ventricular response. Blood pressure stable this morning but somewhat on the low side last night. She continues to complain of shortness of breath. She uses a CPAP at home which she has not been using because she is having an issue with the seal. She follows regularly with Dr. Mathew. Most recent echocardiogram done last admission showed normal LV systolic function with mild MR, moderate TR and a PA pressure of 58 mmHg. He complains of lower extremity edema she has significant discomfort in her left foot and has not been able to ambulate well. She has a wound to her right lower leg from a scratch from a dog and this is being treated with medical honey. She's had no complaints of chest discomfort. She denies any palpitations, syncope or near syncope. Past Medical History Past Medical History: Atrial Fibrillation, Heart Failure, COPD, Hyperlipidemia, Hypertension Additional Past Medical History / Comment(s): pulmonary HTN History of Any Multi-Drug Resistant Organisms: None Reported Past Surgical History: Bariatric Surgery, Bowel Resection, Hysterectomy Additional Past Surgical History / Comment(s): gastric sleeve Past Anesthesia/Blood Transfusion Reactions: No Reported Reaction Past Psychological History: Depression Smoking Status: Former smoker Past Alcohol Use History: None Reported Past Drug Use History: None Reported - Past Family History Mother Family Medical History: COPD, Coronary Artery Disease (CAD), CVA/TIA, Hypertension Father Family Medical History: COPD, CVA/TIA, Hypertension, Prostate Disorder Medications and Allergies Home Medications Medication Instructions Recorded Confirmed Type Ascorbic Acid [Vitamin C] 500 mg PO DAILY@0800 08/14/22 12/27/22 History Cholecalciferol (Vitamin D3) 125 mcg PO DAILY@79908/14/22 12/27/22 History [Vitamin D3 (125 MCG = 5,000 IU)] Citalopram Hydrobromide [CeleXA] 40 mg PO DAILY@79908/14/22 12/27/22 History Ferrous Sulfate [Iron (65 MG 325 mg PO DAILY@79908/14/22 12/27/22 History Elemental)] Montelukast [Singulair] 10 mg PO DAILY@79908/14/22 12/27/22 History [place]-3/Dha/Epa/Fish Oil [Fish Oil 1 cap PO DAILY@79908/14/22 12/27/22 History 1,000 mg Softgel] Pantoprazole [Protonix] 40 mg PO DAILY@79908/14/22 12/27/22 History Spironolactone [Aldactone] 25 mg PO DAILY@79908/14/22 12/27/22 History Tiotropium Br/Olodaterol HCl 2 puff INHALATION RT-DAILY@79908/14/22 12/27/22 History [Stiolto Respimat Inhal [place]] diphenhydrAMINE HCL [Benadryl] 50 mg PO HS@199908/14/22 12/27/22 History Atorvastatin [Lipitor] 40 mg PO HS@199910/20/22 12/27/22 History Calcium Carbonate [Calcium] 1,200 mg PO DAILY@79910/20/22 12/27/22 History Famotidine [Pepcid] 40 mg PO DAILY@79910/20/22 12/27/22 History Sildenafil Citrate 50 mg PO TID@0800,1700,199910/20/22 12/27/22 History Super B-Complex 1 tab PO DAILY@79910/20/22 12/27/22 History Acetaminophen-Codeine 300-30mg 1 tab PO TID PRN 12/21/22 12/27/22 History [Tylenol w/codeine #3] Apixaban [Eliquis] 5 mg PO BID@0800,199912/21/22 12/27/22 History Diclofenac Sodium Gel [Voltaren 2 - 4 gm TOPICAL TID@0800,1400,199912/21/22 12/27/22 History Gel] Furosemide [Lasix] 40 mg PO BID@0800,1700 12/21/22 12/27/22 History Ipratropium-Albuterol Nebulize 3 ml INHALATION RT-QID 12/21/22 12/27/22 History [Duoneb 0.5 mg-3 mg/3 ml Soln] Medihoney Gel 1 applic TOPICAL MOWEFR@0800 12/21/22 12/27/22 History Multivitamins, Thera [Multivitamin 1 tab PO DAILY@0800 12/21/22 12/27/22 History (formulary)] Semaglutide [Wegovy] 0.25 mg SQ DIRECTED 12/21/22 12/27/22 History predniSONE [Deltasone] 20 mg PO DAILY@0800 12/21/22 12/27/22 History Metoprolol Tartrate [Lopressor] 25 mg PO BID #60 tab 12/24/22 12/27/22 Rx Potassium Chloride 10 meq PO DAILY@0800 #0 12/24/22 12/27/22 Rx Lidocaine 5% Cream 1 applic TOPICAL BID@0800,199912/27/22 12/27/22 History Allergies Allergy/AdvReac Type Severity Reaction Status Date / Time doxycycline Allergy Unknown Verified 12/27/22 13:14 lorazepam [From Ativan] AdvReac Hallucinati Verified 12/27/22 13:14 ons venlafaxine [From Effexor] AdvReac Hallucinati Verified 12/27/22 13:14 ons Physical Exam Vitals: Vital Signs Temp Pulse Pulse Resp BP BP Pulse Ox 12/28/22 08:33 90 12/28/22 08:23 88 12/28/22 08:22 88 12/28/22 08:12 88 93 L 12/28/22 08:00 108 H 19 12/28/22 07:00 98.7 F 108 H 19 109/67 91 L 12/28/22 05:40 126/81 12/28/22 02:13 19 12/28/22 01:26 99.1 F 99 19 85/51 92 L 12/27/22 21:16 98.7 F 89 16 100/46 94 L 12/27/22 20:27 95 93 L 12/27/22 20:20 95 12/27/22 20:00 100 19 110/61 92 L 12/27/22 18:30 98.9 F 90 19 106/90 90 L 12/27/22 16:00 19 98 12/27/22 15:24 97 12/27/22 12:30 22 12/27/22 12:18 102 H 20 92 L 12/27/22 12:13 99.0 F 97 18 140/85 Intake and Output 12/27/22 12/28/22 12/28/22 22:59 06:59 14:59 Other: Voiding Method Toilet Toilet # Voids 0 1 Weight 117.934 kg PHYSICAL EXAMINATION: This is a 57-year-old female in no apparent distress at the time of my examination. HEENT: Head is atraumatic, normocephalic. Pupils are equal, round. Sclerae anicteric. Conjunctivae are clear. Mucous membranes of the mouth are moist. Neck is supple. There is no elevated jugular venous pressure. No carotid bruit is heard. CHEST EXAMINATION: Lungs reveal diminished air entry bilaterally. No wheezes rales or rhonchi. Respirations even and nonlabored. HEART EXAMINATION: Heart irregular rate and rhythm, positive S1 and S2. No S3. No S4. No clicks, rubs or murmurs. ABDOMEN: Soft, nontender. Bowel sounds are heard. No organomegaly noted. EXTREMITIES: 2+ peripheral pulses with evidence of mild peripheral edema and no calf tenderness noted. Dressing noted to right lower leg. NEUROLOGIC EXAMINATION: Patient is awake, alert and oriented x3. Results 12/27/22 12:46 12/28/22 04:18 Cardiac Enzymes 12/27/22 12/27/22 Range/Units 12:46 12:46 AST 23 (14-36) U/L Troponin I 0.025 (0.000-0.034) ng/mL Coagulation 12/27/22 Range/Units 12:46 PT 11.3 (9.0-12.0) sec APTT 25.2 (22.0-30.0) sec CBC 12/27/22 Range/Units 12:46 WBC 7.0 (3.8-10.6) k/uL RBC 3.65 L (3.80-5.40) m/uL Hgb 11.8 (11.4-16.0) gm/dL Hct 37.3 (34.0-46.0) % Plt Count 142 L (150-450) k/uL Comprehensive Metabolic Panel 12/27/22 12/28/22 Range/Units 12:46 04:18 Sodium 140 146 H (137-145) mmol/L Potassium 3.6 3.6 (3.5-5.1) mmol/L Chloride 95 L 98 (98-107) mmol/L Carbon Dioxide 35 H 38.3 H (22-30) mmol/L BUN 18 H 15.3 (7-17) mg/dL Creatinine 1.20 H 1.3 (0.52-1.04) mg/dL Glucose 152 H 98 (74-99) mg/dL Calcium 9.6 9.9 (8.4-10.2) mg/dL AST 23 (14-36) U/L ALT 28 (4-34) U/L Alkaline Phosphatase 72 (38-126) U/L Total Protein 6.0 L (6.3-8.2) g/dL Albumin 3.6 (3.5-5.0) g/dL Current Medications Generic Name Dose Route Start Last Admin Trade Name Freq PRN Reason Stop Dose Admin Acetaminophen/Codeine Phosphate 1 each 12/27/22 16:33 12/28/22 08:41 Acetaminophen-Codeine 300-30mg Tab PO 1 each TID PRN Administration Pain Albuterol/Ipratropium 3 ml 12/27/22 20:00 12/28/22 08:12 Ipratropium-Albuterol 3 Ml Neb INHALATION 3 ml RT-QID EHSAN Administration Apixaban 5 mg 12/27/22 20:00 12/28/22 09:13 Apixaban 5 Mg Tab PO 5 mg BID@0800,2000 EHSAN Administration Protocol Ascorbic Acid 500 mg 12/28/22 08:00 12/28/22 09:12 Ascorbic Acid 500 Mg Tab PO 500 mg DAILY@0800 EHSAN Administration Atorvastatin Calcium 40 mg 12/27/22 20:00 12/27/22 19:52 Atorvastatin 40 Mg Tab PO 40 mg HS@1999 EHSAN Administration Calcium Carbonate/Glycine 1,000 mg 12/28/22 08:00 12/28/22 09:10 Calcium Carbonate 500 Mg Chewable PO 1,000 mg DAILY@799 EHSAN Administration Cholecalciferol 125 mcg 12/28/22 08:00 12/28/22 09:13 Cholecalciferol 125 Mcg (5000 Iu) Tablet PO 125 mcg DAILY@799 EHSAN Administration Citalopram Hydrobromide 40 mg 12/28/22 08:00 12/28/22 09:12 Citalopram Hydrobromide 20 Mg Tab PO 40 mg DAILY@799 EHSAN Administration Dapagliflozin 10 mg 12/28/22 09:00 Dapagliflozin Propanediol 10 Mg Tablet PO DAILY [facility] Dextrose/Water 25 ml 12/27/22 16:36 Dextrose 50% Syringe 50 Ml IVP PER PROTOCOL PRN Hypoglycemia Protocol Dextrose/Water 50 ml 12/27/22 16:36 Dextrose 50% Syringe 50 Ml IVP PER PROTOCOL PRN Hypoglycemia Protocol Diphenhydramine HCl 50 mg 12/27/22 20:00 12/27/22 20:31 Diphenhydramine 25 Mg Cap PO 50 mg HS@1999 EHSAN Administration Famotidine 40 mg 12/28/22 08:00 12/28/22 09:11 Famotidine 20 Mg Tab PO 40 mg DAILY@799 [facility] Administration Ferrous Sulfate 325 mg 12/28/22 08:00 12/28/22 09:13 Ferrous Sulfate 325 Mg Tab PO 325 mg DAILY@799 [facility] Administration Formoterol Fumarate 20 mcg 12/28/22 08:00 12/28/22 08:12 Formoterol Fumarate 20 Mcg/2 Ml Nebu INHALATION 20 mcg RT-BID EHSAN Administration Furosemide 40 mg 12/27/22 16:00 12/28/22 09:36 Furosemide 10 Mg/Ml 4 Ml Vial IV 40 mg Q8H EHSAN Administration Insulin Aspart 0 unit 12/27/22 17:30 12/28/22 06:09 Insulin Aspart (Novolog) 100 Unit/Ml Vial SQ Not Given ACHS EHSAN Protocol Lidocaine 1 applic 12/27/22 20:00 12/28/22 09:14 Lidocaine 5% Ointment 50 Gm Jar TOPICAL 1 applic BID@ [facility] Administration Metoprolol Tartrate 25 mg 12/27/22 21:00 12/28/22 09:13 Metoprolol Tartrate 25 Mg Tab PO 25 mg BID EHSAN Administration Montelukast Sodium 10 mg 12/28/22 08:00 12/28/22 09:12 Montelukast 10 Mg Tab PO 10 mg DAILY@0800 EHSAN Administration Multivitamins 1 each 12/28/22 08:00 12/28/22 09:12 Multivitamins, Thera 1 Each Tab PO 1 each DAILY@0800 [facility] Administration Nystatin 1 applic 12/28/22 21:00 Nystatin 100,000 Unit/Gm Powd 15 Gm TOPICAL BID [facility] Protocol Pantoprazole Sodium 40 mg 12/28/22 08:00 12/28/22 09:12 Pantoprazole 40 Mg Tablet PO 40 mg DAILY@0800 [facility] Administration Potassium Chloride 10 meq 12/28/22 08:00 12/28/22 09:12 Potassium Chloride Er 10 Meq Tab.Er.Prt PO 10 meq DAILY@0800 [facility] Administration Prednisone 20 mg 12/28/22 08:00 12/28/22 09:13 Prednisone 20 Mg Tab PO 20 mg DAILY@0800 [facility] Administration Sildenafil Citrate 50 mg 12/27/22 17:30 12/28/22 09:10 Sildenafil 20 Mg Tab PO 50 mg TID@0800, [facility] Administration Spironolactone 25 mg 12/28/22 08:00 12/28/22 09:12 Spironolactone 25 Mg Tab PO 25 mg DAILY@0800 [facility] Administration Intake and Output 12/27/22 12/28/22 12/28/22 22:59 06:59 14:59 Other: Voiding Method Toilet Toilet # Voids 0 1 Weight 117.934 kg 12/27/22 12:46 12/28/22 04:18 Assessment and Plan Assessment: #1 acute on chronic heart failure with preserved ejection fraction #2 COPD exacerbation #3 chronic persistent atrial fibrillation #4 pulmonary hypertension Plan: From Cardiology's perspective continue IV Lasix. We will add Farxiga. Discussed importance of following a low sodium diet. Continue to monitor renal function and electrolytes. Continue to follow the patient provide further recommendations accordingly. MERCHANDISER note has been reviewed, I agree with a documented findings and plan of care. Patient was seen and examined.
[2022-12-28] MEDS: DAPAGLIFLOZIN PROPANEDIOL 10 MG TABLET PO SCH (10:26)
[2022-12-28 11:58] LABS: Glucose,Whole Blood 179 mg/dL (70-110)
[2022-12-28 12:12] VITALS: BMI 41.9
--- NOTE | 2022-12-28 15:56 | P.PN ---
Subjective Progress Note Date: 12/28/22 Hospital Course: 57-year-old female with history of diastolic CHF, COPD on 3 L, atrial fibrillation, dyslipidemia presenting with worsening shortness of breath. In the ED, temperature was 99, pulse 97, respiratory rate 18, blood pressure 140/85, saturating well on 5 L. WBC 7, hemoglobin 11.8, sodium 140, bicarb 35, creatinine 1.2, on baseline, proBNP 3000 up from previous, troponin 0.025. EKG independently interpreted shows atrial fibrillation , Q waves in anterolateral leads. Chest x-ray independently interpreted shows pulmonary vascular congestion or prominent on the right. Patient admitted for CHF exacerbation. Currently on IV Lasix. Subjective: Chest seen and examined at bedside. No acute events overnight. Claims that breathing is improving. Pertinent positives and negatives as discussed above, a complete review of systems was performed and all other systems are negative. Vitals Signs Reviewed. General: nontoxic, no distress, appears at stated age Derm: warm, dry, erythema in bilateral breast folds Head: atraumatic, normocephalic, symmetric Eyes: EOMI, no lid lag, anicteric sclera, pupils equal round reactive to light ENT: Nose and ears atraumatic Neck: No thyromegaly, supple Mouth: no lip lesion, mucus membranes moist Cardiovascular: S1S2 reg, no murmur, no edema Lungs: clear to auscultation bilateral, no rhonchi, no rales, no wheeze, no accessory muscle use Abdominal: soft, nontender to palpation, no guarding, no appreciable organomegaly Ext: no gross muscle atrophy, muscle strength muscle strength 5 out of 5 in all 4 extremities, no contractures Neuro: CN II-XII grossly intact Psych: Alert, oriented, appropriate affect Data Reviewed Today: Pertinent Labs: Sodium 146, bicarbonate 38, creatinine 1.3, magnesium 1.7, glucose range between 98-179 Imaging: No new imaging Assessment and Plan: Active: Acute diastolic CHF exacerbation Diabetes mellitus Intertrigo -Lasix 40 mg IV every 8 hours -Monitor renal function and electrolytes, BMP tomorrow -Monitor I's and O's -Telemetry -Echocardiogram done 1 week ago shows pulmonary hypertension, LVEF 55% -Cardiology note reviewed, added farxiga -Hold home antidiabetic medications, started on sliding scale insulin -Topical nystatin powder for intertrigo Chronic: COPD not in exacerbation, on chronic steroids Dyslipidemia Atrial fibrillation Depression Iron deficiency anemia GERD DVT ppx: Eliquis Code status: Full code Anticipated discharge place: Home Anticipated discharge time: Likely tomorrow Objective - Vital Signs Vital signs: Vital Signs Temp 99.3 F 12/28/22 14:08 Pulse 75 12/28/22 14:08 Resp 18 12/28/22 14:08 BP 105/55 12/28/22 14:08 Pulse Ox 93 L 12/28/22 08:12 FiO2 Intake & Output 12/27/22 12/28/22 12/28/22 18:59 06:59 18:59 Weight 117.934 kg 117.934 kg 117.934 kg Other: Voiding Method Toilet Toilet # Voids 1 1 - Labs CBC & Chem 7: 12/27/22 12:46 12/28/22 04:18 Labs: Abnormal Lab Results - Last 24 Hours (Table) 12/27/22 12/28/22 12/28/22 Range/Units 18:35 04:18 05:49 Sodium 146 H (135-145) mmol/L Carbon Dioxide 38.3 H (21.6-31.8) mmol/L Est GFR (CKD-EPI) 48 L (>=60) BUN/Creatinine Ratio 11.77 L (12.00-20.00) Ratio POC Glucose (mg/dL) 126 H 124 H (70-110) mg/dL 12/28/22 Range/Units 11:56 Sodium (135-145) mmol/L Carbon Dioxide (21.6-31.8) mmol/L Est GFR (CKD-EPI) (>=60) BUN/Creatinine Ratio (12.00-20.00) Ratio POC Glucose (mg/dL) 179 H (70-110) mg/dL
[2022-12-28 17:02] LABS: Glucose,Whole Blood 156 mg/dL (70-110)
[2022-12-28] MEDS: ATORVASTATIN 40 MG TAB PO SCH (20:03)
[2022-12-28] MEDS: diphenhydrAMINE 25 MG CAP PO SCH (20:03)
[2022-12-28] MEDS: NYSTATIN 100,000 UNIT/GM POWD 15 GM TOPICAL SCH (20:04)
[2022-12-28 20:10] LABS: Glucose,Whole Blood 165 mg/dL (70-110)
[2022-12-29] MEDS: FUROSEMIDE 10 MG/ML 4 ML VIAL IV SCH ×2 (00:43→08:06)
[2022-12-29] MEDS: Acetaminophen-Codeine 300-30mg TAB PO PRN (04:58)
[2022-12-29 06:09] LABS: Glucose,Whole Blood 111 mg/dL (70-110)
[2022-12-29] MEDS: INSULIN ASPART (NovoLOG) 100 UNIT/ML VIAL SQ SCH (06:11)
[2022-12-29 06:34] LABS: African American GFR (CKD) 51 (>60 ml/min/1.73 sqM); Blood Urea Nitrogen 24 mg/dL (7-17); Chloride 95 mmol/L (98-107); Glucose 90 mg/dL (74-99); Magnesium 1.9 mg/dL (1.6-2.3); Non-African American GFR(CKD) 45 (>60 ml/min/1.73 sqM); Potassium 3.4 mmol/L (3.5-5.1); Sodium 140 mmol/L (137-145)
[2022-12-29 06:40] LABS: Anion Gap 7 mmol/L; Carbon Dioxide 38 mmol/L (22-30)
[2022-12-29] MEDS ORDERED: POTASSIUM CHLORIDE ER 20 MEQ TAB.ER PO STA (08:00)
[2022-12-29] MEDS ORDERED: MEDIHONEY TOPICAL SCH (08:00)
[2022-12-29] MEDS: CALCIUM CARBONATE 500 MG CHEWABLE PO SCH (08:03)
[2022-12-29] MEDS: METOPROLOL TARTRATE 25 MG TAB PO SCH (08:04)
[2022-12-29] MEDS: SILDENAFIL 20 MG TAB PO SCH (08:04)
[2022-12-29] MEDS: DAPAGLIFLOZIN PROPANEDIOL 10 MG TABLET PO SCH (08:04)
[2022-12-29] MEDS: CITALOPRAM HYDROBROMIDE 20 MG TAB PO SCH (08:04)
[2022-12-29] MEDS: PANTOPRAZOLE 40 MG TABLET PO SCH (08:04)
[2022-12-29] MEDS: POTASSIUM CHLORIDE ER 10 MEQ TAB.ER.PRT PO SCH (08:04)
[2022-12-29] MEDS: FAMOTIDINE 20 MG TAB PO SCH (08:04)
[2022-12-29] MEDS: ASCORBIC ACID 500 MG TAB PO SCH (08:05)
[2022-12-29] MEDS: SPIRONOLACTONE 25 MG TAB PO SCH (08:05)
[2022-12-29] MEDS: predniSONE 20 MG TAB PO SCH (08:05)
[2022-12-29] MEDS: MONTELUKAST 10 MG TAB PO SCH (08:05)
[2022-12-29] MEDS: CHOLECALCIFEROL 125 MCG (5000 IU) TABLET PO SCH (08:05)
[2022-12-29] MEDS: APIXABAN 5 MG TAB PO SCH (08:05)
[2022-12-29] MEDS: MULTIVITAMINS, THERA 1 EACH TAB PO SCH (08:06)
[2022-12-29] MEDS: NYSTATIN 100,000 UNIT/GM POWD 15 GM TOPICAL SCH (08:06)
[2022-12-29] MEDS: LIDOCAINE 5% OINTMENT 50 GM JAR TOPICAL SCH (08:07)
[2022-12-29 08:13] VITALS: BP 99/60; RESP 18; TEMP 98.4
[2022-12-29] MEDS: FERROUS SULFATE 325 MG TAB PO SCH (08:24)
[2022-12-29] MEDS: IPRATROPIUM-ALBUTEROL 3 ML NEB INHALATION SCH ×2 (09:05→12:10)
[2022-12-29] MEDS: FORMOTEROL FUMARATE 20 MCG/2 ML NEBU INHALATION SCH (09:05)
--- NOTE | 2022-12-29 11:04 | P.PN ---
Subjective Progress Note Date: 12/29/22 History of present illness: This is a pleasant 57-year-old female who follows in the office with Dr. Cao. She has a past medical history of COPD, smoking for which she quit 10 years ago, heart failure with preserved ejection fraction, chronic persistent atrial fibrillation, chronic hypoxic respiratory failure and home O2, morbid obesity, pulmonary hypertension. Was recently admitted to the hospital on the of this month with acute pulmonary edema. She was diuresed but says she never felt quite back to her baseline. She presented this admission with continued worse andrez shortness of breath and lower extremity edema. NT proBNP is elevated at 3210 was previously 2900 on last admission. Prior to previous admission she had been consuming a lot of soups but since last admission has cut back on her sodium intake. She is currently on Aldactone, metoprolol. Chest x-ray showed cardiomegaly and mild pulmonary vascular congestion, correlate with BMP for congestive heart failure, superimposed infectious process is not excluded. She has been initiated on Lasix 40 mg IV push every 8 hours. EKG shows atrial fibrillation with controlled ventricular response. Blood pressure stable this morning but somewhat on the low side last night. She continues to complain of shortness of breath. She uses a CPAP at home which she has not been using because she is having an issue with the seal. She follows regularly with Dr. Mathew. Most recent echocardiogram done last admission showed normal LV systolic function with mild MR, moderate TR and a PA pressure of 58 mmHg. He complains of lower extremity edema she has significant discomfort in her left foot and has not been able to ambulate well. She has a wound to her right lower leg from a scratch from a dog and this is being treated with medical honey. She's had no complaints of chest discomfort. She denies any palpitations, syncope or near syncope. 12/29 Patient is seen today in follow-up. She states her breathing is about the same. She complains of left foot edema which seems to be very localized. She is currently on IV Lasix 40 mg every 8 hours. Weight and INR was not obtained. Repeat blood work reveals sodium 140, potassium 3.4, BUN 24 creatinine 1.32. Magnesium 1.9. Farxiga was added yesterday to patient's medication regime PHYSICAL EXAMINATION: This is a 57-year-old female in no apparent distress at the time of my examination. HEENT: Head is atraumatic, normocephalic. Pupils are equal, round. Sclerae anicteric. Conjunctivae are clear. Mucous membranes of the mouth are moist. Neck is supple. There is no elevated jugular venous pressure. No carotid bruit is heard. CHEST EXAMINATION: Lungs reveal diminished air entry bilaterally. No wheezes rales or rhonchi. Respirations even and nonlabored. HEART EXAMINATION: Heart irregular rate and rhythm, positive S1 and S2. No S3. No S4. No clicks, rubs or murmurs. ABDOMEN: Soft, nontender. Bowel sounds are heard. No organomegaly noted. EXTREMITIES: 2+ peripheral pulses with evidence of mild peripheral edema and no calf tenderness noted. Dressing noted to right lower leg. NEUROLOGIC EXAMINATION: Patient is awake, alert and oriented x3. Assessment: #1 acute on chronic heart failure with preserved ejection fraction #2 COPD exacerbation #3 chronic persistent atrial fibrillation #4 pulmonary hypertension Plan: From Cardiology's perspective continue IV Lasix for another day. Continue the addition of Farxiga. The patient will be continued on IV Lasix since last attending plans for discharge and patient can be transitioned to oral. Otherwise the patient spends another night, repeat BMP in the morning to monitor renal function. At the time of discharge, patient will follow-up with Dr. Cao in the office. SETTER HELPER note has been reviewed, I agree with a documented findings and plan of care. Patient was seen and examined. Objective - Vital Signs Vital signs: Vital Signs Temp 98.6 F 12/29/22 00:38 Pulse 86 12/29/22 00:38 Resp 15 12/29/22 00:38 BP 97/61 12/29/22 00:38 Pulse Ox 94 L 12/29/22 00:38 FiO2 Intake & Output 12/28/22 12/29/22 12/29/22 18:59 06:59 18:59 Intake Total 118 Balance 118 Weight 117.934 kg Intake: Oral 118 Other: Voiding Method Toilet Toilet # Voids 1 4 - Labs CBC & Chem 7: 12/27/22 12:46 12/29/22 05:25 Labs: Abnormal Lab Results - Last 24 Hours (Table) 12/28/22 12/28/22 12/28/22 Range/Units 04:18 11:56 17:00 Sodium 146 H (135-145) mmol/L Potassium (3.5-5.1) mmol/L Chloride (98-107) mmol/L Carbon Dioxide 38.3 H (21.6-31.8) mmol/L BUN (7-17) mg/dL Creatinine (0.52-1.04) mg/dL Est GFR (CKD-EPI) 48 L (>=60) BUN/Creatinine Ratio 11.77 L (12.00-20.00) Ratio POC Glucose (mg/dL) 179 H 156 H (70-110) mg/dL 12/28/22 12/29/22 12/29/22 Range/Units 20:09 05:25 06:08 Sodium (135-145) mmol/L Potassium 3.4 L (3.5-5.1) mmol/L Chloride 95 L (98-107) mmol/L Carbon Dioxide 38 H (21.6-31.8) mmol/L BUN 24 H (7-17) mg/dL Creatinine 1.32 H (0.52-1.04) mg/dL Est GFR (CKD-EPI) (>=60) BUN/Creatinine Ratio (12.00-20.00) Ratio POC Glucose (mg/dL) 165 H 111 H (70-110) mg/dL
[2022-12-29 12:25] VITALS: PULSE 80
[2022-12-29 12:41] LABS: Glucose,Whole Blood 165 mg/dL (70-110)
--- NOTE | 2022-12-29 16:05 | P.DS ---
Providers Date of admission: 12/27/22 16:11 Expected date of discharge: 12/29/22 Attending physician: Don Hobbs MD Consults: 12/27/22 15:52 Consult Physician Routine Consulting Provider: [facility] Consult Reason/Comments: Pulmonary edema Do you want consulting provider notified?: Yes Primary care physician: Abimael Mcgregor MD Hospital Course: Discharge Diagnosis: Acute diastolic CHF exacerbation Severe pulmonary hypertension Diabetes mellitus Intertrigo COPD not in exacerbation, on chronic steroids Dyslipidemia Atrial fibrillation Depression Iron deficiency anemia GERD Hospital Course: 57-year-old female with history of diastolic CHF, COPD on 3 L, atrial fibrillation, dyslipidemia presenting with worsening shortness of breath. In the ED, temperature was 99, pulse 97, respiratory rate 18, blood pressure 140/85, saturating well on 5 L. WBC 7, hemoglobin 11.8, sodium 140, bicarb 35, creatinine 1.2, on baseline, proBNP 3000 up from previous, troponin 0.025. EKG independently interpreted shows atrial fibrillation , Q waves in anterolateral leads. Chest x-ray independently interpreted shows pulmonary vascular congestion or prominent on the right. Patient admitted for CHF exacerbation. Patient was started on IV Lasix. Cardiology consulted. Farxiga added. Discussed plan with PCP. Patient seen and examined at bedside. Vital signs reviewed and stable. General: nontoxic, no distress, appears at stated age Derm: warm, dry, erythema in bilateral breast folds Head: atraumatic, normocephalic, symmetric Eyes: EOMI, no lid lag, anicteric sclera, pupils equal round reactive to light ENT: Nose and ears atraumatic Neck: No thyromegaly, supple Mouth: no lip lesion, mucus membranes moist Cardiovascular: S1S2 reg, no murmur, no edema Lungs: clear to auscultation bilateral, no rhonchi, no rales, no wheeze, no accessory muscle use Abdominal: soft, nontender to palpation, no guarding, no appreciable organomegaly Ext: no gross muscle atrophy, muscle strength muscle strength 5 out of 5 in all 4 extremities, no contractures Neuro: CN II-XII grossly intact Psych: Alert, oriented, appropriate affect A total of 36 minutes of time were spent preparing this complex discharge summary. Patient was discharged on 12/29/22 1057. Patient Condition at Discharge: Stable Plan - Discharge Summary New Discharge Prescriptions: New Dapagliflozin Propanediol [Farxiga] 10 mg PO DAILY tab Nystatin 100,000 Unit/gm Powd [Mycostatin Powder] 1 applic TOPICAL BID each Continue Montelukast [Singulair] 10 mg PO DAILY@0800 Ascorbic Acid [Vitamin C] 500 mg PO DAILY@0800 Super B-Complex 1 tab PO DAILY@0800 Famotidine [Pepcid] 40 mg PO DAILY@0800 predniSONE [Deltasone] 20 mg PO DAILY@0800 Medihoney Gel 1 applic TOPICAL MOWEFR@0800 Furosemide [Lasix] 40 mg PO BID@0800,1700 Apixaban [Eliquis] 5 mg PO BID@0800,1999 Acetaminophen-Codeine 300-30mg [Tylenol w/codeine #3] 1 tab PO TID PRN PRN Reason: Pain Tiotropium Br/Olodaterol HCl [Stiolto Respimat Inhal [place]] 2 puff INHALATION RT-DAILY@0800 Spironolactone [Aldactone] 25 mg PO DAILY@0800 Pantoprazole [Protonix] 40 mg PO DAILY@0800 Ferrous Sulfate [Iron (65 MG Elemental)] 325 mg PO DAILY@0800 diphenhydrAMINE HCL [Benadryl] 50 mg PO HS@1999 Citalopram Hydrobromide [CeleXA] 40 mg PO DAILY@0800 Cholecalciferol (Vitamin D3) [Vitamin D3 (125 MCG = 5,000 IU)] 125 mcg PO DAILY@0800 Schaller-3/Dha/Epa/Fish Oil [Fish Oil 1,000 mg Softgel] 1 cap PO DAILY@0800 Sildenafil Citrate 50 mg PO TID@0800,1700,1999 Atorvastatin [Lipitor] 40 mg PO HS@2000 Calcium Carbonate [Calcium] 1,200 mg PO DAILY@0800 Diclofenac Sodium Gel [Voltaren Gel] 2 - 4 gm TOPICAL TID@0800,1400,1999 Ipratropium-Albuterol Nebulize [Duoneb 0.5 mg-3 mg/3 ml Soln] 3 ml INHALATION RT-QID Multivitamins, Thera [Multivitamin (formulary)] 1 tab PO DAILY@0800 Semaglutide [Wegovy] 0.25 mg SQ DIRECTED Metoprolol Tartrate [Lopressor] 25 mg PO BID #60 tab Potassium Chloride 10 meq PO DAILY@0800 #0 Lidocaine 5% Cream 1 applic TOPICAL BID@08,1999 Discharge Medication List Ascorbic Acid [Vitamin C] 500 mg PO DAILY@79908/14/22 [History] Cholecalciferol (Vitamin D3) [Vitamin D3 (125 MCG = 5,000 IU)] 125 mcg PO DA DIANE@79908/14/22 [History] Citalopram Hydrobromide [CeleXA] 40 mg PO DAILY@79908/14/22 [History] Ferrous Sulfate [Iron (65 MG Elemental)] 325 mg PO DAILY@79908/14/22 [History] Montelukast [Singulair] 10 mg PO DAILY@79908/14/22 [History] Schaller-3/Dha/Epa/Fish Oil [Fish Oil 1,000 mg Softgel] 1 cap PO DAILY@79908/14/22 [History] Pantoprazole [Protonix] 40 mg PO DAILY@79908/14/22 [History] Spironolactone [Aldactone] 25 mg PO DAILY@79908/14/22 [History] Tiotropium Br/Olodaterol HCl [Stiolto Respimat Inhal [place]] 2 puff INHALATION RT-DAILY@79908/14/22 [History] diphenhydrAMINE HCL [Benadryl] 50 mg PO HS@199908/14/22 [History] Atorvastatin [Lipitor] 40 mg PO HS@199910/20/22 [History] Calcium Carbonate [Calcium] 1,200 mg PO DAILY@0810/20/22 [History] Famotidine [Pepcid] 40 mg PO DAILY@79910/20/22 [History] Sildenafil Citrate 50 mg PO TID@0800,1700,199910/20/22 [History] Super B-Complex 1 tab PO DAILY@79910/20/22 [History] Acetaminophen-Codeine 300-30mg [Tylenol w/codeine #3] 1 tab PO TID PRN 12/21/22 [History] Apixaban [Eliquis] 5 mg PO BID@0800,199912/21/22 [History] Diclofenac Sodium Gel [Voltaren Gel] 2 - 4 gm TOPICAL TID@0800,1400,199912/21/22 [History] Furosemide [Lasix] 40 mg PO BID@0800,1700 12/21/22 [History] Ipratropium-Albuterol Nebulize [Duoneb 0.5 mg-3 mg/3 ml Soln] 3 ml INHALATION RT-QID 12/21/22 [History] Medihoney Gel 1 applic TOPICAL MOWEFR@0800 12/21/22 [History] Multivitamins, Thera [Multivitamin (formulary)] 1 tab PO DAILY@0812/21/22 [History] Semaglutide [Wegovy] 0.25 mg SQ DIRECTED 12/21/22 [History] predniSONE [Deltasone] 20 mg PO DAILY@0812/21/22 [History] Metoprolol Tartrate [Lopressor] 25 mg PO BID #60 tab 12/24/22 [Rx] Potassium Chloride 10 meq PO DAILY@0800 #0 12/24/22 [Rx] Lidocaine 5% Cream 1 applic TOPICAL BID@0800,199912/27/22 [History] Dapagliflozin Propanediol [Farxiga] 10 mg PO DAILY tab 12/29/22 [Rx] Nystatin 100,000 Unit/gm Powd [Mycostatin Powder] 1 applic TOPICAL BID each 12/29/22 [Rx] Follow up Appointment(s)/Referral(s): Reta Cao MD [STAFF PHYSICIAN] - 01/10/23 2:00 pm (january 10 ) Abimael Mcgregor MD [Primary Care Provider] - 1-2 days (please call for an monique ointment ) Patient Instructions/Handouts: Pulmonary Edema (GEN), Pulmonary Arterial Hypertension (DC) Activity/Diet/Wound Care/Special Instructions: Please see your PCP. Discharge Disposition: HOME SELF-CARE
[2022-12-30] MEDS ORDERED: FAMOTIDINE 20 MG TAB PO SCH (08:00)
== END 2022-12-29 14:33 | disposition home or self-care (01) | DRG 291 ==
LOC: EC 12:00 → OBSVTOIN 16:11 → 6NMEDSUR 16:11
PROVIDERS: ADMIT Student in an Organized Health Care Education/Training Program; ATTEND Student in an Organized Health Care Education/Training Program
DX: I11.0 Hypertensive heart disease with heart failure (principal); I50.33 Acute on chronic diastolic (congestive) heart failure; I48.19 Other persistent atrial fibrillation; J96.11 Chronic respiratory failure with hypoxia; I27.20 Pulmonary hypertension, unspecified; K21.9 Gastro-esophageal reflux disease without esophagitis; L30.4 Erythema intertrigo; F32.A Depression, unspecified; D50.9 Iron deficiency anemia, unspecified; E78.5 Hyperlipidemia, unspecified; J44.9 Chronic obstructive pulmonary disease, unspecified; E66.01 Morbid (severe) obesity due to excess calories; Z79.01 Long term (current) use of anticoagulants; Z79.899 Other long term (current) drug therapy; Z82.49 Family history of ischemic heart disease and other diseases of the circulatory system; Z82.5 Family history of asthma and other chronic lower respiratory diseases; Z90.710 Acquired absence of both cervix and uterus; Z87.891 Personal history of nicotine dependence; Z98.84 Bariatric surgery status; Z88.8 Allergy status to other drugs, medicaments and biological substances
CPT/HCPCS: 36415; 71046; 80048; 80053; 83605; 83735; 83880; 84484; 85025; 85610; 85730; 93005; 94640; 94760; 96374; 99285

== ENCOUNTER → 2023-01-26 | Outpatient (CLI) | payer OTHER ==
--- NOTE | 2023-01-26 21:42 | BD ---
EXAMINATION TYPE: Axial Bone Density DATE OF EXAM: 01/26/2023 CLINICAL HISTORY: 57 years old Female. ICD-10 CODE: Z78.0 Height: 64" Weight: 251.8 FRAX RISK QUESTIONS: Alcohol (3 or more units per day): No Family History (Parent hip fracture): No Glucocorticoids (More than 3mos): Yes (Ex: prednisone, prednisolone, methylprednisolone, dexamethasone, and hydrocortisone). History of Fracture in Adulthood: Secondary Osteoporosis: 1. Type 1 Diabetes: No 2. Hyperthyroidism: No 3. Menopause before 45: No 4. Malnutrition: No 5. Chronic liver disease: No Rheumatoid Arthritis: No Current Tobacco Use: No RISK FACTORS HISTORY OF: Hip Fracture (Right/Left): No Spine Fracture: No History of Wrist Fracture: No Surgery to Spine/Hip(right/left)/Wrist (right/left): No Family History of Osteoporosis: No Active: No Diet low in dairy products/other sources of calcium: Yes Postmenopausal woman: Yes Lost more than 2 inches in height since high school: Yes, 66" Frequent falls: No Poor Health: Fair health Hyperparathyroidism: No Adrenal Insufficiency: Stage 3 kidney disease MEDICATIONS: Prednisone or other steroids: No Thyroid Medications: No Osteoporosis Medications: No Additional Medications: blood pressure/heart meds, cholesterol meds, reflux meds, celexa, blood thinn er, vitamin D, calcium Additional History: None EXAM MEASUREMENTS: Bone mineral densitometry was performed using the Inotrem System. Bone mineral density as measured about the Lumbar spine is: ----- L1-L4(G/cm2): 1.185 T Score Values are as follows: ----- L1: 0.4 ----- L2: 0.2 ----- L3: -0.1 ----- L4: -0.4 ----- L1-L4: 0.0 Z Score Values are as follows: ----- L1: 0.3 ----- L2: 0.1 ----- L3: -0.2 ----- L4: -0.5 ----- L1-L4: -0.1 Baseline @[facility] Bone mineral density about the R hip (g/cm2): 0.764 Bone mineral density about the L hip (g/cm2): 0.664 T Score values are as follows: -----R Neck: -1.9 -----L Neck: -2.8 -----R Total: -1.9 -----L Total: -2.7 Z Score values are as follows: -----R Neck: -1.4 -----L Neck: -2.4 -----R Total: -1.9 -----L Total: -2.7 Baseline @[facility] FRAX%s: The graph provided illustrates a 10.9% chance for a major osteoporotic fx and a 2.4% chance f or the hips probability for fx in 10 years time. IMPRESSION: Osteoporosis (T Score less than -2.5). There is increased fracture risk and therapy is usually indicated based on age. Re-Screen 1-2 years. NOTE: T-SCORE=SD OF THE YOUNG ADULT MEAN.
--- NOTE | 2023-01-29 11:39 | MM ---
Reason for Exam: Screening (asymptomatic). Patient History: Menarche at age 12. First Full-Term at age 20. Postmenopausal. Patient has history of breast feeding. Maternal cousin had breast cancer, age 50. Maternal grandmother had breast cancer, age 80. Risk Values: Talia 5 year model risk: 1.2%. NCI Lifetime model risk: 6.9%. Prior Study Comparison: No prior studies available for comparison. Tissue Density: The breast tissue is heterogeneously dense. This may lower the sensitivity of mammography. Findings: Analyzed By CAD. Benign appearing consultations bilaterally. There is no suspicious group of microcalcifications or new suspicious mass in either breast. Overall Assessment: Benign, BI-RAD 2 Management: Screening Mammogram of both breasts in [address] [facility] will attempt to contact patient to return for supplemental views and ultrasound if indicated. Patient should continue monthly self-breast exams. A clinical breast exam by your physician is recommended on an annual basis. This exam should not preclude additional follow-up of suspicious palpable abnormalities. Note on Talia scores and lifetime risk: 1. A Talia score greater than 3% is considered moderate risk. If this is the case, consider specialist referral to assess eligibility for a risk reducing agent. 2. If overall lifetime risk for the development of breast cancer is 20% or higher, the patient may qualify for future screening with alternating mammogram and breast MRI. Electronically signed and approved by: Lincoln Huerta DO
== END | disposition home or self-care (01) ==
LOC: RADBDWWP 10:40
PROVIDERS: ATTEND Emergency Medicine
DX: Z12.31 Encounter for screening mammogram for malignant neoplasm of breast (principal); M81.0 Age-related osteoporosis without current pathological fracture; M85.89 Other specified disorders of bone density and structure, multiple sites; Z78.0 Asymptomatic menopausal state; Z80.3 Family history of malignant neoplasm of breast
CPT/HCPCS: 77063; 77067; 77080

== ENCOUNTER 2023-02-12 12:33 | Inpatient (IN) | payer OTHER ==
[2023-02-12 13:28] LABS: Basophils % (A) 0 %; Eosinophils # (A) 0.3 k/uL (0-0.7); Eosinophils % (A) 5 %; HCT 36.6 % (34.0-46.0); HGB 11.3 gm/dL (11.4-16.0); Hypochromasia Moderate; Lymphocytes # (A) 0.7 k/uL (1.0-4.8); Lymphocytes % (A) 12 %; MCH 30.2 pg (25.0-35.0); MCHC 30.9 g/dL (31.0-37.0); MCV 97.6 fL (80.0-100.0); Mean Platelet Volume 8.6; Monocytes # (A) 0.4 k/uL (0-1.0); Monocytes % (A) 7 %; Neutrophils # (A) 4.2 k/uL (1.3-7.7); Neutrophils % (A) 74 %; Platelet Count 170 k/uL (150-450); RBC 3.75 m/uL (3.80-5.40); RDW 15.7 % (11.5-15.5); WBC 5.7 k/uL (3.8-10.6)
[2023-02-12 13:40] LABS: ALT 13 U/L (4-34); AST 20 U/L (14-36); African American GFR (CKD) 59 (>60 ml/min/1.73 sqM); Albumin 3.7 g/dL (3.5-5.0); Alkaline Phosphatase 98 U/L (38-126); Anion Gap 5 mmol/L; Blood Urea Nitrogen 15 mg/dL (7-17); Calcium 9.2 mg/dL (8.4-10.2); Carbon Dioxide 34 mmol/L (22-30); Chloride 102 mmol/L (98-107); Glucose 107 mg/dL (74-99); Non-African American GFR(CKD) 51 (>60 ml/min/1.73 sqM); Potassium 4.5 mmol/L (3.5-5.1); Sodium 141 mmol/L (137-145); Total Bilirubin 0.5 mg/dL (0.2-1.3); Total Protein 6.5 g/dL (6.3-8.2)
--- NOTE | 2023-02-12 13:57 | XR ---
EXAMINATION TYPE: XR chest 2V DATE OF EXAM: 02/12/2023 COMPARISON: 12/27/2022 HISTORY: Shortness of breath TECHNIQUE: Frontal and lateral views of the chest are obtained. FINDINGS: Scattered senescent parenchymal changes noted. Hyperinflation compatible with COPD. No evidence for infiltrate. No evidence for atelectasis. Increased parenchymal changes right mid and right lower lung zone appear to be chronic in nature. Continued cardiomegaly with chronic pulmonary venous decompensation. Small right effusion versus pleu ral thickening. Mediastinal structures are stable and grossly unremarkable. No evidence for hilar prominence. Degenerative changes dorsal spine. IMPRESSION: 1. Continued cardiomegaly with chronic pulmonary venous decompensation. Small right effusion versus p leural thickening. Chronic parenchymal density right lung.
[2023-02-12] MEDS ORDERED: AZITHROMYCIN 500 MG in SODIUM CHLORIDE 0.9% 250 ML IVPB STA (14:17)
[2023-02-12] MEDS ORDERED: FUROSEMIDE 10 MG/ML 4 ML VIAL IV STA (14:17)
[2023-02-12] MEDS ORDERED: methylPREDNISolone SOD SUCCI 125 MG/2 ML VIAL IV STA (14:17)
[2023-02-12] MEDS ORDERED: ALBUTEROL NEBULIZED 2.5 MG/3 ML INHALATION STA (14:17)
[2023-02-12] MEDS ORDERED: IPRATROPIUM 0.5 MG/2.5 ML NEBU INHALATION STA (14:17)
[2023-02-12 14:48] LABS: VBG PH 7.34 (7.31-7.41)
[2023-02-12] MEDS ORDERED: NALOXONE 0.4 MG/ML 1 ML VIAL IVP PRN (16:04)
[2023-02-12] MEDS ORDERED: IPRATROPIUM-ALBUTEROL 3 ML NEB INHALATION PRN (16:04)
--- NOTE | 2023-02-12 16:19 | ED ---
General Adult HPI - General Chief complaint: Shortness of Breath Stated complaint: ROBERTO/O2 70 Time Seen by Provider: 02/12/23 14:11 Source: patient, RN notes reviewed, old records reviewed Mode of arrival: wheelchair Limitations: no limitations - History of Present Illness Initial comments: 87-year-old female history of CHF, oxygen dependent COPD presenting with worsening dyspnea. Patient is in respiratory distress, limiting history. She reports increased cough which is nonproductive. No central chest pain. She reports bilateral lower extremity edema. - Related Data Home Medications Medication Instructions Recorded Confirmed Ascorbic Acid [Vitamin C] 500 mg PO DAILY@0800 08/14/22 12/27/22 Cholecalciferol (Vitamin D3) 125 mcg PO DAILY@79908/14/22 12/27/22 [Vitamin D3 (125 MCG = 5,000 IU)] Citalopram Hydrobromide [CeleXA] 40 mg PO DAILY@0800 08/14/22 12/27/22 Ferrous Sulfate [Iron (65 MG 325 mg PO DAILY@79908/14/22 12/27/22 Elemental)] Montelukast [Singulair] 10 mg PO DAILY@0808/14/22 12/27/22 Randall-3/Dha/Epa/Fish Oil [Fish Oil 1 cap PO DAILY@79908/14/22 12/27/22 1,000 mg Softgel] Pantoprazole [Protonix] 40 mg PO DAILY@0800 08/14/22 12/27/22 Spironolactone [Aldactone] 25 mg PO DAILY@0808/14/22 12/27/22 Tiotropium Br/Olodaterol HCl 2 puff INHALATION RT-DAILY@79908/14/22 12/27/22 [Stiolto Respimat Inhal [place]] diphenhydrAMINE HCL [Benadryl] 50 mg PO HS@199908/14/22 12/27/22 Atorvastatin [Lipitor] 40 mg PO HS@199910/20/22 12/27/22 Calcium Carbonate [Calcium] 1,200 mg PO DAILY@0800 10/20/22 12/27/22 Famotidine [Pepcid] 40 mg PO DAILY@0810/20/22 12/27/22 Sildenafil Citrate 50 mg PO TID@0800,1700,199910/20/22 12/27/22 Super B-Complex 1 tab PO DAILY@0800 10/20/22 12/27/22 Acetaminophen-Codeine 300-30mg 1 tab PO TID PRN 12/21/22 12/27/22 [Tylenol w/codeine #3] Apixaban [Eliquis] 5 mg PO BID@0800,199912/21/22 12/27/22 Diclofenac Sodium Gel [Voltaren 2 - 4 gm TOPICAL TID@0800,1400,199912/21/22 12/27/22 Gel] Furosemide [Lasix] 40 mg PO BID@0800,1700 12/21/22 12/27/22 Ipratropium-Albuterol Nebulize 3 ml INHALATION RT-QID 12/21/22 12/27/22 [Duoneb 0.5 mg-3 mg/3 ml Soln] Medihoney Gel 1 applic TOPICAL MOWEFR@0800 12/21/22 12/27/22 Multivitamins, Thera [Multivitamin 1 tab PO DAILY@0800 12/21/22 12/27/22 (formulary)] Semaglutide [Wegovy] 0.25 mg SQ DIRECTED 12/21/22 12/27/22 predniSONE [Deltasone] 20 mg PO DAILY@0800 12/21/22 12/27/22 Lidocaine 5% Cream 1 applic TOPICAL BID@0800,199912/27/22 12/27/22 Previous Rx's Medication Instructions Recorded Metoprolol Tartrate [Lopressor] 25 mg PO BID #60 tab 12/24/22 Potassium Chloride 10 meq PO DAILY@0800 #0 12/24/22 Dapagliflozin Propanediol [Farxiga] 10 mg PO DAILY tab 12/29/22 Nystatin 100,000 Unit/gm Powd 1 applic TOPICAL BID each 12/29/22 [Mycostatin Powder] Allergies Allergy/AdvReac Type Severity Reaction Status Date / Time doxycycline Allergy Unknown Verified 02/12/23 12:50 lorazepam [From Ativan] AdvReac Hallucinati Verified 02/12/23 12:50 ons venlafaxine [From Effexor] AdvReac Hallucinati Verified 02/12/23 12:50 ons Review of Systems ROS Statement: Those systems with pertinent positive or pertinent negative responses have been documented in the HPI. ROS Other: All systems not noted in ROS Statement are negative. Past Medical History Past Medical History: Atrial Fibrillation, Heart Failure, COPD, Hyperlipidemia, Hypertension Additional Past Medical History / Comment(s): pulmonary HTN History of Any Multi-Drug Resistant Organisms: None Reported Past Surgical History: Bariatric Surgery, Bowel Resection, Hysterectomy Additional Past Surgical History / Comment(s): gastric sleeve Past Anesthesia/Blood Transfusion Reactions: No Reported Reaction Past Psychological History: Depression Smoking Status: Former smoker Past Alcohol Use History: None Reported Past Drug Use History: None Reported - Past Family History Mother Family Medical History: COPD, Coronary Artery Disease (CAD), CVA/TIA, Hypertension Father Family Medical History: COPD, CVA/TIA, Hypertension, Prostate Disorder General Exam Limitations: no limitations General appearance: alert, in no apparent distress Head exam: Present: atraumatic, normocephalic Eye exam: Present: normal appearance, PERRL ENT exam: Present: normal exam Neck exam: Present: normal inspection. Absent: tenderness, meningismus Respiratory exam: Present: respiratory distress, wheezes, rales, accessory muscle use, decreased breath sounds, prolonged expiratory Cardiovascular Exam: Present: regular rate, irregular rhythm GI/Abdominal exam: Present: soft. Absent: distended, tenderness, guarding Extremities exam: Present: pedal edema Neurological exam: Present: alert, oriented X3, CN II-XII intact. Absent: motor sensory deficit Psychiatric exam: Present: normal affect, normal mood Skin exam: Present: warm, dry, intact, pallor. Absent: diaphoretic Course Vital Signs 02/12/23 02/12/23 02/12/23 12:50 14:14 14:30 Temperature 97.6 F Pulse Rate 92 85 Respiratory 16 18 Rate Blood Pressure 98/57 116/68 O2 Sat by Pulse 87 L 83 L 99 Oximetry Fraction of Inspired Oxygen (FIO2) 02/12/23 02/12/23 02/12/23 14:35 14:37 14:38 Temperature Pulse Rate 80 Respiratory 24 Rate Blood Pressure O2 Sat by Pulse Oximetry Fraction of 50 50 Inspired Oxygen (FIO2) 02/12/23 02/12/23 02/12/23 14:44 14:45 15:00 Temperature Pulse Rate 88 87 Respiratory 18 Rate Blood Pressure 112/79 O2 Sat by Pulse Oximetry Fraction of 40 Inspired Oxygen (FIO2) Medical Decision Making - Medical Decision Making Was pt. sent in by a medical professional or institution ([facility]enez, BABY [employer]A WORKER, urgent care, hospital, or correction...) When possible be specific @ -No Did you speak to anyone other than the patient for history (EMS, parent, family, police, friend...)? What history was obtained from this source @ -No Did you review nursing and triage notes (agree or disagree)? Why? @ -I reviewed and agree with nursing and triage notes Were old charts reviewed (outside hosp., previous admission, EMS record, old EKG, old radiological studies, urgent care reports/EKG's, correction records)? Report findings @ -No old charts were reviewed Differential Diagnosis (chest pain, altered mental status, abdominal pain women, abdominal pain men, vaginal bleeding, weakness, fever, dyspnea, syncope, headache, dizziness, GI bleed, back pain, seizure, CVA, palpatations, mental health, musculoskeletal)? @ -[Differential Dyspnea: Coronary syndrome, arrhythmia, tamponade, asthma, COPD, pulmonary embolism, pneumonia, pneumothorax, pulmonary effusion, anaphylaxis, diabetic ketoacidosis, flailed chest, pulmonary contusion, diaphragmatic rupture, anemia, neuromuscular, this is not meant to be an all-inclusive list. EKG interpreted by me (3pts min.). @A-fibrillation rate controlled at 91, QRS duration 110, QTC [address] segment elevation. X-rays interpreted by me (1pt min.). @ -Chest x-ray concerning for pulmonary edema with bilateral pleural effusions, cardiomegaly CT interpreted by me (1pt min.). @ -None done U/S interpreted by me (1pt. min.). @ -None done What testing was considered but not performed or refused? (CT, X-rays, U/S, labs)? Why? @ -None What meds were considered but not given or refused? Why? @ -None Did you discuss the management of the patient with other professionals (professionals i.e. [facility] Jimenez, B[employer] WORKER, lab, RT, psych nurse, social media sr strategy manager, communications engineering technician, teacher, training officer, pillowcase folder)? Give summary @ -Yes, sound physician Was smoking cessation discussed for >3mins.? @ -No Was critical care preformed (if so, how long)? @ -yes, 35 min Were there social determinants of health that impacted care today? How? (Homelessness, low income, unemployed, alcoholism, drug addiction, transportation, low edu. Level, literacy, decrease access to med. care, fpc, rehab)? @ -No Was there de-escalation of care discussed even if they declined (Discuss DNR or withdrawal of care, Hospice)? DNR status @ -No What co-morbidities impacted this encounter? (DM, HTN, Smoking, COPD, CAD, Cancer, CVA, ARF, Chemo, Hep., AIDS, mental health diagnosis, sleep apnea, mo rbid obesity)? @ COPD, CHF Was patient admitted / discharged? Hospital course, mention meds given and route, prescriptions, significant lab abnormalities, going to OR and other pertinent info. @ -Patient admitted for multifactorial dyspnea, CHF, COPD, respiratory failure on BiPAP. Given IV antibiotics, IV steroids, albuterol, Atrovent, and IV Lasix. She will be admitted with pulmonary on consult. Undiagnosed new problem with uncertain prognosis? @ -No Drug Therapy requiring intensive monitoring for toxicity (Heparin, Nitro, Insulin, Cardizem)? @ -No Were any procedures done? @ -No Diagnosis/symptom? @ Respiratory failure secondary to CHF and COPD Acute, or Chronic, or Acute on Chronic? @ Acute on chronic Uncomplicated (without systemic symptoms) or Complicated (systemic symptoms)? @ -default Side effects of treatment? @ -No Exacerbation, Progression, or Severe Exacerbation? @ -No Poses a threat to life or bodily function? How? (Chest pain, [place], [place], pneumonia, PE, COPD, DKA, ARF, appy, cholecystitis, CVA, Diverticulitis, Homicidal, Suicidal, threat to staff... and all critical care pts) @ -[Yes, respiratory failure - Lab Data Result diagrams: 02/12/23 13:14 02/12/23 13:14 Lab Results 02/12/23 02/12/23 02/12/23 Range/Units 13:14 13:14 13:14 WBC 5.7 (3.8-10.6) k/uL RBC 3.75 L (3.80-5.40) m/uL Hgb 11.3 L (11.4-16.0) gm/dL Hct 36.6 (34.0-46.0) % MCV 97.6 (80.0-100.0) fL MCH 30.2 (25.0-35.0) pg MCHC 30.9 L (31.0-37.0) g/dL RDW 15.7 H (11.5-15.5) % Plt Count 170 (150-450) k/uL MPV 8.6 Neutrophils % 74 % Lymphocytes % 12 % Monocytes % 7 % Eosinophils % 5 % Basophils % 0 % Neutrophils # 4.2 (1.3-7.7) k/uL Lymphocytes # 0.7 L (1.0-4.8) k/uL Monocytes # 0.4 (0-1.0) k/uL Eosinophils # 0.3 (0-0.7) k/uL Basophils # 0.0 (0-0.2) k/uL Hypochromasia Moderate VBG pH (7.31-7.41) VBG pCO2 (37-51) mmHg VBG HCO3 (24-28) mmol/L Sodium 141 (137-145) mmol/L Potassium 4.5 (3.5-5.1) mmol/L Chloride 102 (98-107) mmol/L Carbon Dioxide 34 H (22-30) mmol/L Anion Gap 5 mmol/L BUN 15 (7-17) mg/dL Creatinine 1.18 H (0.52-1.04) mg/dL Est GFR (CKD-EPI)AfAm 59 (>60 ml/min/1.73 sqM) Est GFR (CKD-EPI)NonAf 51 (>60 ml/min/1.73 sqM) Glucose 107 H (74-99) mg/dL Calcium 9.2 (8.4-10.2) mg/dL Total Bilirubin 0.5 (0.2-1.3) mg/dL AST 20 (14-36) U/L ALT 13 (4-34) U/L Alkaline Phosphatase 98 (38-126) U/L Troponin I <0.012 (0.000-0.034) ng/mL NT-Pro-B Natriuret Pep pg/mL Total Protein 6.5 (6.3-8.2) g/dL Albumin 3.7 (3.5-5.0) g/dL 02/12/23 02/12/23 Range/Units 14:22 14:22 WBC (3.8-10.6) k/uL RBC (3.80-5.40) m/uL Hgb (11.4-16.0) gm/dL Hct (34.0-46.0) % MCV (80.0-100.0) fL MCH (25.0-35.0) pg MCHC (31.0-37.0) g/dL RDW (11.5-15.5) % Plt Count (150-450) k/uL MPV Neutrophils % % Lymphocytes % % Monocytes % % Eosinophils % % Basophils % % Neutrophils # (1.3-7.7) k/uL Lymphocytes # (1.0-4.8) k/uL Monocytes # (0-1.0) k/uL Eosinophils # (0-0.7) k/uL Basophils # (0-0.2) k/uL Hypochromasia VBG pH 7.34 (7.31-7.41) VBG pCO2 69 H (37-51) mmHg VBG HCO3 37 H (24-28) mmol/L Sodium (137-145) mmol/L Potassium (3.5-5.1) mmol/L Chloride (98-107) mmol/L Carbon Dioxide (22-30) mmol/L Anion Gap mmol/L BUN (7-17) mg/dL Creatinine (0.52-1.04) mg/dL Est GFR (CKD-EPI)AfAm (>60 ml/min/1.73 sqM) Est GFR (CKD-EPI)NonAf (>60 ml/min/1.73 sqM) Glucose (74-99) mg/dL Calcium (8.4-10.2) mg/dL Total Bilirubin (0.2-1.3) mg/dL AST (14-36) U/L ALT (4-34) U/L Alkaline Phosphatase (38-126) U/L Troponin I (0.000-0.034) ng/mL NT-Pro-B Natriuret Pep 5620 pg/mL Total Protein (6.3-8.2) g/dL Albumin (3.5-5.0) g/dL Critical Care Time Critical Care Time: Yes Total Critical Care Time: 35 Disposition Clinical Impression: Acute exacerbation of chronic obstructive pulmonary disease, Congestive heart failure Disposition: ADMITTED IP TO THIS HOSP Condition: Stable Is patient prescribed a controlled substance at d/c from ED?: No Referrals: Nonstaff,Physician [Primary Care Provider] - 1-2 days Time of Disposition: 16:22
--- NOTE | 2023-02-12 17:04 | P.HPIM ---
History of Present Illness H&P Date: 02/12/23 Chief Complaint: dyspnea 57 year old woman with history of class III pulmonary HTN secondary to AMADEO and COPD GOLD D with chronic respiratory failure requiring 3L NC, CKD IIIb, paroxysmal atrial fibrillation, HLD, HTN presented for dyspnea. Pt says that she was noticing 5lb weight gain at home and increasing dyspnea. She discussed this with her outpatient physician and was advised to increase her home dose lasix which she did, however, this AM, she noted saturations in the mid 70s and significantly worse dyspnea, prompting her evaluation in the ER. She denies f, c, n/v/c/d, abd pain, cough, dysuria, dyschezia, numbness/weakness of extremities. In the ER, patient was afebrile, 98/57, 87% on 5L NC. CBC showed anemia to 11.3. BMP showed elevated CO2 to 34. LFTs unremarkable. Troponin negative. BNP 5620. VBG showed pco2 69, ph 7.34. CXR demonstrates cardiomegaly with diffuse airspace opacities and interstitial infiltrates, vascular prominence and small left pleural effusion c/w volume overload. Case discussed with ER physician and decision was made to admit the patient for further evaluation of volume overload. All Systems reviewed and pertinent positives and negatives noted in HPI, all other symptoms are negative Gen: in no apparent distress, resting comfortably in bed Eyes: PERRL, no scleral injection or icterus HENT: normocephalic, atraumatic, good hearing acuity, moist mucous membranes Neck: no tracheal deviation, full range of motion Resp: good air exchange, breathing comfortably with no accessory muscle use, no tactile fremitus, diffuse crackles to the mid chest in both lung wren, diffuse end expiratory wheezing CVS: good distal perfusion x 4, bilateral 1+ pitting edema, regular rate and rhythm without murmurs GI: soft, NTTP, ND, no hepatosplenomegaly : no suprapubic tenderness, no CVAT, dodd catheter not present MSK: no clubbing, no cyanosis, no noted contractures of extremities Skin: no noted rashes, petechiae; temperature of skin is appropriate Neuro: moving all extremities without signs of weakness, CN II-XII intact Psych: cooperative, euthymic mood, insight and judgment intact Labs and imaging as above Assessment: Acute on chronic hypoxemic respiratory failure with hypercarbia Acute on chronic diastolic heart failure exacerbation COPD with mild exacerbation AMADEO Paroxysmal atrial fibrillation Hypertension Hyperlipidemia Chronic kidney disease, stage IIIB Plan: Vital signs reviewed and noted in the HPI Lab work reviewed and noted in the HPI CXR is personally interpreted and noted in the HPI Case was discussed with the Emergency Room provider and decision was made to admit the patient for volume overload, respiratory failure Lasix 40 mg IV every 12 hours Solu-Medrol 60 mg IV every 6 hours DuoNeb's 4 times a day Patient is full code Past Medical History Past Medical History: Atrial Fibrillation, Heart Failure, COPD, Hyperlipidemia, Hypertension Additional Past Medical History / Comment(s): pulmonary HTN History of Any Multi-Drug Resistant Organisms: None Reported Past Surgical History: Bariatric Surgery, Bowel Resection, Hysterectomy Additional Past Surgical History / Comment(s): gastric sleeve Past Anesthesia/Blood Transfusion Reactions: No Reported Reaction Past Psychological History: Depression Smoking Status: Former smoker Past Alcohol Use History: None Reported Past Drug Use History: None Reported - Past Family History Mother Family Medical History: COPD, Coronary Artery Disease (CAD), CVA/TIA, Hypertension Father Family Medical History: COPD, CVA/TIA, Hypertension, Prostate Disorder Medications and Allergies Home Medications Medication Instructions Recorded Confirmed Type Ascorbic Acid [Vitamin C] 500 mg PO DAILY@79908/14/22 12/27/22 History Cholecalciferol (Vitamin D3) 125 mcg PO DAILY@79908/14/22 12/27/22 History [Vitamin D3 (125 MCG = 5,000 IU)] Citalopram Hydrobromide [CeleXA] 40 mg PO DAILY@79908/14/22 12/27/22 History Ferrous Sulfate [Iron (65 MG 325 mg PO DAILY@79908/14/22 12/27/22 History Elemental)] Montelukast [Singulair] 10 mg PO DAILY@79908/14/22 12/27/22 History Caret-3/Dha/Epa/Fish Oil [Fish Oil 1 cap PO DAILY@79908/14/22 12/27/22 History 1,000 mg Softgel] Pantoprazole [Protonix] 40 mg PO DAILY@79908/14/22 12/27/22 History Spironolactone [Aldactone] 25 mg PO DAILY@0800 08/14/22 12/27/22 History Tiotropium Br/Olodaterol HCl 2 puff INHALATION RT-DAILY@0808/14/22 12/27/22 History [Stiolto Respimat Inhal [place]] diphenhydrAMINE HCL [Benadryl] 50 mg PO HS@199908/14/22 12/27/22 History Atorvastatin [Lipitor] 40 mg PO HS@199910/20/22 12/27/22 History Calcium Carbonate [Calcium] 1,200 mg PO DAILY@0810/20/22 12/27/22 History Famotidine [Pepcid] 40 mg PO DAILY@0800 10/20/22 12/27/22 History Sildenafil Citrate 50 mg PO TID@0800,170,199910/20/22 12/27/22 History Super B-Complex 1 tab PO DAILY@0800 10/20/22 12/27/22 History Acetaminophen-Codeine 300-30mg 1 tab PO TID PRN 12/21/22 12/27/22 History [Tylenol w/codeine #3] Apixaban [Eliquis] 5 mg PO BID@0800,199912/21/22 12/27/22 History Diclofenac Sodium Gel [Voltaren 2 - 4 gm TOPICAL TID@0800,1400,199912/21/22 12/27/22 History Gel] Furosemide [Lasix] 40 mg PO BID@0800,1700 12/21/22 12/27/22 History Ipratropium-Albuterol Nebulize 3 ml INHALATION RT-QID 12/21/22 12/27/22 History [Duoneb 0.5 mg-3 mg/3 ml Soln] Medihoney Gel 1 applic TOPICAL MOWEFR@79912/21/22 12/27/22 History Multivitamins, Thera [Multivitamin 1 tab PO DAILY@0812/21/22 12/27/22 History (formulary)] Semaglutide [Wegovy] 0.25 mg SQ DIRECTED 12/21/22 12/27/22 History predniSONE [Deltasone] 20 mg PO DAILY@0800 12/21/22 12/27/22 History Metoprolol Tartrate [Lopressor] 25 mg PO BID #60 tab 12/24/22 12/27/22 Rx Potassium Chloride 10 meq PO DAILY@0800 #0 12/24/22 12/27/22 Rx Lidocaine 5% Cream 1 applic TOPICAL BID@0800,199912/27/22 12/27/22 History Dapagliflozin Propanediol [Farxiga] 10 mg PO DAILY tab 12/29/22 Rx Nystatin 100,000 Unit/gm Powd 1 applic TOPICAL BID each 12/29/22 Rx [Mycostatin Powder] Allergies Allergy/AdvReac Type Severity Reaction Status Date / Time doxycycline Allergy Unknown Verified 02/12/23 12:50 lorazepam [From Ativan] AdvReac Hallucinati Verified 02/12/23 12:50 ons venlafaxine [From Effexor] AdvReac Hallucinati Verified 02/12/23 12:50 ons Physical Exam Osteopathic Statement: *. No significant issues noted on an osteopathic structural exam other than those noted in the History and Physical/Consult. Vitals: Vital Signs Temp Pulse Resp BP Pulse Ox FiO2 02/12/23 15:00 87 18 112/79 02/12/23 14:45 40 02/12/23 14:44 88 02/12/23 14:38 50 02/12/23 14:37 24 50 02/12/23 14:35 80 02/12/23 14:30 85 18 116/68 99 02/12/23 14:14 83 L 02/12/23 12:50 97.6 F 92 16 98/57 87 L Intake and Output 02/12/23 02/12/23 02/12/23 06:59 14:59 22:59 Other: Weight 117.934 kg Results CBC & Chem 7: 02/12/23 13:14 02/12/23 13:14 Labs: Abnormal Lab Results - Last 24 Hours (Table) 02/12/23 02/12/23 02/12/23 Range/Units 13:14 13:14 14:22 RBC 3.75 L (3.80-5.40) m/uL Hgb 11.3 L (11.4-16.0) gm/dL MCHC 30.9 L (31.0-37.0) g/dL RDW 15.7 H (11.5-15.5) % Lymphocytes # 0.7 L (1.0-4.8) k/uL VBG pCO2 69 H (37-51) mmHg VBG HCO3 37 H (24-28) mmol/L Carbon Dioxide 34 H (22-30) mmol/L Creatinine 1.18 H (0.52-1.04) mg/dL Glucose 107 H (74-99) mg/dL
[2023-02-12] MEDS: methylPREDNISolone SOD SUCCI 125 MG/2 ML VIAL IV SCH (19:32)
[2023-02-12] MEDS: FUROSEMIDE 10 MG/ML 4 ML VIAL IV SCH (19:46)
[2023-02-12] MEDS: IPRATROPIUM-ALBUTEROL 3 ML NEB INHALATION SCH (19:52)
[2023-02-13] MEDS: methylPREDNISolone SOD SUCCI 125 MG/2 ML VIAL IV SCH ×4 (00:30→16:24)
[2023-02-13] MEDS ORDERED: ALBUTEROL NEBULIZED 2.5 MG/3 ML INHALATION PRN (01:08)
[2023-02-13] MEDS: METOPROLOL TARTRATE 25 MG TAB PO SCH ×3 (01:36→20:19)
[2023-02-13] MEDS: diphenhydrAMINE 25 MG CAP PO SCH ×2 (01:36→20:19)
[2023-02-13] MEDS: APIXABAN 5 MG TAB PO SCH ×3 (01:36→20:19)
[2023-02-13 06:13] LABS: Glucose,Whole Blood 156 mg/dL (70-110)
[2023-02-13] MEDS ORDERED: FLUTICASONE 110 MCG INHALER INHALATION SCH (08:00)
[2023-02-13] MEDS ORDERED: FORMOTEROL FUMARATE 20 MCG/2 ML NEBU INHALATION SCH (08:00)
[2023-02-13] MEDS: DILTIAZEM CD 120 MG CAP.ER.24H PO SCH (08:46)
[2023-02-13] MEDS: CITALOPRAM HYDROBROMIDE 20 MG TAB PO SCH (08:46)
[2023-02-13] MEDS: MONTELUKAST 10 MG TAB PO SCH (08:46)
[2023-02-13] MEDS: allopurinoL 100 MG TAB PO SCH (08:47)
[2023-02-13] MEDS: FUROSEMIDE 10 MG/ML 4 ML VIAL IV SCH ×2 (08:47→20:19)
[2023-02-13] MEDS: PANTOPRAZOLE 40 MG TABLET PO SCH (08:47)
[2023-02-13] MEDS: SYMBICORT 160-4.5 MCG INHALER INHALATION SCH ×2 (08:53→21:10)
[2023-02-13] MEDS: IPRATROPIUM-ALBUTEROL 3 ML NEB INHALATION SCH ×4 (08:53→21:10)
[2023-02-13] MEDS: NYSTATIN 100,000 UNIT/GM POWD 15 GM TOPICAL SCH ×2 (08:54→20:20)
--- NOTE | 2023-02-13 09:15 | P.CNPUL ---
History of Present Illness Consult date: 02/13/23 Requesting physician: Lincoln Coreas Reason for consult: dyspnea Chief complaint: Shortness of breath History of present illness: I am seeing this patient in consultation today 02/13/2023 for suspected CHF exacerbation. Patient is a 57-year-old white female with past medical history significant for heart failure, paroxysmal atrial fibrillation, COPD, pulmonary hypertension, chronic oxygen dependence on 3 L/m home O2, obstructive sleep apnea technically noncompliant with CPAP, ex-smoker. She has recently moved to the area, and started following with Dr. Hitchcock in the office. Patient presented to the emergency room yesterday afternoon complaining of progressively worsening shortness of breath since earlier that morning. She does check her pulse oximeter at home, which was reading around 70% prior to coming in. There is associated mild weight gain and increased lower extremity swelling over the last couple days. She has been taking diuretics. She does have history of conges tive heart failure. Patient was initially placed on BiPAP on arrival. Currently, she is sitting at the edge of the bed, on 4 L/m nasal cannula, in no acute distress. She has been started on Lasix twice a day, and states that she is already feeling better. Echocardiogram from previous admission in December, showed a preserved left ventricular ejection fraction of 55%. There was also evidence of pulmonary hypertension with RVSP of 58. She does take sildenafil at home. She denies denies any heart palpitations, lightheadedness, syncope. Denies any coughing, fevers, chills, chest pain, hemoptysis. Chest x-ray on arrival showed cardiomegaly with pulmonary vascular congestion. There was also a small right pleural effusion. Chronic parenchymal density in the right lower lung. No focal consolidation or evidence of pneumonia. NT proBNP was elevated at 5620. CBC on arrival was unremarkable. BMP shows sodium 141, potassium 4.5, chloride 102, serum bicarbonate 34, BUN 15, creatinine 1.18, glucose 107. Afebrile. Hemodynamically the patient appears stable. Review of Systems REVIEW OF SYSTEMS: CONSTITUTIONAL: Admits mild weight gain over the last couple days EYES: Denies change in vision. EARS, NOSE, MOUTH, THROAT: Denies headaches, denies sore throat. CARDIOVASCULAR: Denies chest pain, palpitations or syncopal episodes. Admits lower extremity swelling RESPIRATORY: See HPI GASTROINTESTINAL: Denies change in appetite, abdominal pain, nausea and vomiting, or diarrhea GENITOURINARY: Denies hematuria, denies infections. MUSKULOSKELETAL: Denies pain, denies swelling. INTEGUMENTARY: Denies rash, denies eczema. NEUROLOGICAL: Denies recent memory loss, no recent seizure activity. PSYCHIATRIC: Denies anxiety, denies depression. HEMATOLOGIC/LYMPHATIC: Denies anemia, denies enlarged lymph node Past Medical History Past Medical History: Atrial Fibrillation, Heart Failure, COPD, Hyperlipidemia, Hypertension Additional Past Medical History / Comment(s): pulmonary HTN History of Any Multi-Drug Resistant Organisms: None Reported Past Surgical History: Bariatric Surgery, Bowel Resection, Hysterectomy Additional Past Surgical History / Comment(s): gastric sleeve Past Anesthesia/Blood Transfusion Reactions: No Reported Reaction Past Psychological History: Depression Smoking Status: Former smoker Past Alcohol Use History: None Reported Past Drug Use History: None Reported - Past Family History Mother Family Medical History: COPD, Coronary Artery Disease (CAD), CVA/TIA, Hypertension Father Family Medical History: COPD, CVA/TIA, Hypertension, Prostate Disorder Medications and Allergies Home Medications Medication Instructions Recorded Confirmed Type Ascorbic Acid [Vitamin C] 500 mg PO DAILY@79908/14/22 02/12/23 History Cholecalciferol (Vitamin D3) 125 mcg PO DAILY@79908/14/22 02/12/23 History [Vitamin D3 (125 MCG = 5,000 IU)] Citalopram Hydrobromide [CeleXA] 40 mg PO DAILY@79908/14/22 02/12/23 History Ferrous Sulfate [Iron (65 MG 325 mg PO DAILY@79908/14/22 02/12/23 History Elemental)] Montelukast [Singulair] 10 mg PO DAILY@79908/14/22 02/12/23 History [place]-3/Dha/Epa/Fish Oil [Fish Oil 1 cap PO DAILY@79908/14/22 02/12/23 History 1,000 mg Softgel] Pantoprazole [Protonix] 40 mg PO DAILY@79908/14/22 02/12/23 History Spironolactone [Aldactone] 25 mg PO DAILY@79908/14/22 02/12/23 History Tiotropium Br/Olodaterol HCl 2 puff INHALATION RT-DAILY@00 08/14/22 02/12/23 History [Stiolto Respimat Inhal [place]] diphenhydrAMINE HCL [Benadryl] 50 mg PO HS@199908/14/22 02/12/23 History Atorvastatin [Lipitor] 40 mg PO HS@199910/20/22 02/12/23 History Calcium Carbonate [Calcium] 1,200 mg PO DAILY@0800 10/20/22 02/12/23 History Famotidine [Pepcid] 40 mg PO DAILY@0800 10/20/22 02/12/23 History Sildenafil Citrate 50 mg PO TID@0800,1700,199910/20/22 02/12/23 History Super B-Complex 1 tab PO DAILY@0800 10/20/22 02/12/23 History Acetaminophen-Codeine 300-30mg 1 tab PO TID PRN 12/21/22 02/12/23 History [Tylenol w/codeine #3] Apixaban [Eliquis] 5 mg PO BID@0800,199912/21/22 02/12/23 History Diclofenac Sodium Gel [Voltaren 2 - 4 gm TOPICAL TID@0800,1400,199912/21/22 02/12/23 History Gel] Furosemide [Lasix] 40 mg PO BID@0800,1700 12/21/22 02/12/23 History Ipratropium-Albuterol Nebulize 3 ml INHALATION RT-QID 12/21/22 02/12/23 History [Duoneb 0.5 mg-3 mg/3 ml Soln] Medihoney Gel 1 applic TOPICAL MOWEFR@0812/21/22 02/12/23 History Multivitamins, Thera [Multivitamin 1 tab PO DAILY@0800 12/21/22 02/12/23 History (formulary)] Semaglutide [Wegovy] 0.5 mg SQ WE 12/21/22 02/12/23 History Metoprolol Tartrate [Lopressor] 25 mg PO BID #60 tab 12/24/22 02/12/23 Rx Lidocaine 5% Cream 1 applic TOPICAL BID@799,199912/27/22 02/12/23 History Dapagliflozin Propanediol [Farxiga] 10 mg PO DAILY tab 12/29/22 02/12/23 Rx Nystatin 100,000 Unit/gm Powd 1 applic TOPICAL BID each 12/29/22 02/12/23 Rx [Mycostatin Powder] Albuterol Sulfate [Albuterol 2 puff PO RT-BID PRN 02/12/23 02/12/23 History Sulfate Hfa] Biotene Mouth Wash 15 ml PO 5XD 02/12/23 02/12/23 History Fluticasone Propionate 1 puff INHALATION RT-BID 02/12/23 02/12/23 History [Fluticasone Propionate Hfa 110 MCG (Inhaler)] Naphazoline-Phenira 0.025-0.3% 1 drop BOTH EYES QID PRN 02/12/23 02/12/23 His tory [Visine-A Ophth Soln] Naproxen [Naprosyn] 500 mg PO BID PRN 02/12/23 02/12/23 History Potassium Chloride 20 meq PO DAILY@0800 02/12/23 02/12/23 History allopurinoL [Zyloprim] 100 mg PO DAILY 02/12/23 02/12/23 History dilTIAZem HCL [Cardizem CD] 120 mg PO DAILY 02/12/23 02/12/23 History Allergies Allergy/AdvReac Type Severity Reaction Status Date / Time doxycycline Allergy Unknown Verified 02/12/23 18:22 lorazepam [From Ativan] AdvReac Hallucinati Verified 02/12/23 18:22 ons venlafaxine [From Effexor] AdvReac Hallucinati Verified 02/12/23 18:22 ons Physical Exam Vitals: Vital Signs Temp Pulse Pulse Resp BP BP Pulse Ox 02/13/23 04:00 98.2 F 82 20 112/67 92 L 02/13/23 03:20 02/13/23 01:50 02/13/23 01:43 77 18 02/13/23 00:49 98.4 F 77 18 127/78 92 L 02/13/23 00:40 97.8 F 89 20 114/67 92 L 02/12/23 20:05 80 02/12/23 19:54 82 02/12/23 17:30 78 18 115/69 02/12/23 15:00 87 18 112/79 02/12/23 14:45 02/12/23 14:44 88 02/12/23 14:38 02/12/23 14:37 24 02/12/23 14:35 80 02/12/23 14:30 85 18 116/68 99 02/12/23 14:14 83 L 02/12/23 12:50 97.6 F 92 16 98/57 87 L FiO2 02/13/23 04:00 40 02/13/23 03:20 40 02/13/23 01:50 40 02/13/23 01:43 02/13/23 00:49 02/13/23 00:40 02/12/23 20:05 02/12/23 19:54 02/12/23 17:30 02/12/23 15:00 02/12/23 14:45 40 02/12/23 14:44 02/12/23 14:38 50 02/12/23 14:37 50 02/12/23 14:35 02/12/23 14:30 02/12/23 14:14 02/12/23 12:50 Intake and Output 02/12/23 02/13/23 02/13/23 22:59 06:59 14:59 Output Total 450 Balance -450 Output: Urine 450 Other: Voiding Method Toilet # Voids 1 Weight 115.9 kg GENERAL EXAM: Alert, 57-year-old morbidly obese white female, comfortable in no apparent distress. HEAD: Normocephalic and atraumatic EYES: Normal reaction of pupils, equal size. NOSE: Clear with pink turbinates. THROAT: No erythema or exudates. Mallampati class III. NECK: No masses, no JVD. CHEST: No chest wall deformity. LUNGS: Equal air entry with left lower lobe inspiratory crackles. Mild expiratory wheezes heard throughout. On 4 L/m nasal cannula. No conversational dyspnea or accessory muscle use.. CVS: S1 and S2 normal with no audible murmur, irregular rhythm. No extra heart sounds ABDOMEN: Obese abdomen, no hepatosplenomegaly, active bowel sounds, no guarding or rigidity. SPINE: No scoliosis or deformity SKIN: No rashes CENTRAL NERVOUS SYSTEM: No focal deficits, tone is normal in all 4 extremities. EXTREMITIES: There is bilateral lower extremity mild nonpitting edema. No clubbing, or cyanosis. Peripheral pulses are intact. Results - Laboratory Findings CBC and BMP: 02/12/23 13:14 02/12/23 13:14 Abnormal lab findings: Abnormal Labs 02/12/23 02/12/23 02/12/23 13:14 13:14 14:22 RBC 3.75 L Hgb 11.3 L MCHC 30.9 L RDW 15.7 H Lymphocytes # 0.7 L VBG pCO2 69 H VBG HCO3 37 H Carbon Dioxide 34 H Creatinine 1.18 H Glucose 107 H POC Glucose (mg/dL) 02/13/23 06:12 RBC Hgb MCHC RDW Lymphocytes # VBG pCO2 VBG HCO3 Carbon Dioxide Creatinine Glucose POC Glucose (mg/dL) 156 H - Diagnostic Findings Chest x-ray: image reviewed Assessment and Plan Assessment: Acute on chronic hypoxemic respiratory failure, currently on 4 liters per minute nasal cannula, possibly multifactorial related to a combination of exacerbation of diastolic congestive heart failure and COPD. Severe pulmonary hypertension, Echocardiogram from previous admission in December, showed a preserved left ventricular ejection fraction of 55%. There was also evidence of pulmonary hypertension with RVSP of 58. She does take sildenafil regularly. Paroxysmal atrial fibrillation, anticoagulated on Eliquis, rate currently controlled Benign essential hypertension Chronic obstructive pulmonary disease Obstructive sleep apnea, currently noncompliant with CPAP. Chronic kidney disease stage III Ex-smoker Plan: Patient's medications, labs, chest x-ray reviewed Continue supplemental oxygen Agree with dilshad; Lasix 40 mg twice a day Also started on a combination of bronchodilators, Symbicort inhaler, and IV Solu-Medrol. Continue empiric antibiotics, and check procalcitonin level rule out COVID 19 Scheduled to be reevaluated by Dr. Whitmore in the office in regard to her AMADEO. States current CPAP settings make her feel suffocated at night Anticoagulation has been restarted Protonix for GI prophylaxis We will continue to follow make recommendations I have personally seen and examined the patient, performed the documentation and the assessment and plan as written. Number of minutes spent on the visit:20 . This is a joint evaluation that was done along with the nurse practitioner. I'm seeing this patient for the first time. Apparently she has seen Dr. Rocha in our office. She is coming in with an acute on chronic hypoxic respiratory failure. She has COPD, diastolic heart failure, severe pulmonary hypertension and paroxysmal A. fib. She also has obstructive sleep apnea and she has a CPAP machine at home with needs to be further checked and evaluated. I agree on the current treatment. She is on diuretics. She is on steroids and antibiotics. She is improving for now. I asked her to bring in the CPAP machine for me to check and evaluate and make adjustments if needed as this going to be very impor tant for her long-term treatment. We'll continue to follow. Time with Patient: Greater than 30
[2023-02-13] MEDS: AZITHROMYCIN 500 MG in SODIUM CHLORIDE 0.9% 250 ML IVPB SCH (09:54)
--- NOTE | 2023-02-13 09:55 | P.PN ---
Subjective Progress Note Date: 02/13/23 57 year old woman with history of class III pulmonary HTN secondary to AMADEO and COPD GOLD D with chronic respiratory failure requiring 3L NC, CKD IIIb, paroxysmal atrial fibrillation, HLD, HTN presented for dyspnea. Pt says that she was noticing 5lb weight gain at home and increasing dyspnea. She discussed this with her outpatient physician and was advised to increase her home dose lasix which she did, however, this AM, she noted saturations in the mid 70s and significantly worse dyspnea, prompting her evaluation in the ER. In the ER, patient was afebrile, 98/57, 87% on 5L NC. CBC showed anemia to 11.3. BMP showed elevated CO2 to 34. LFTs unremarkable. Troponin negative. BNP 5620. VBG showed pco2 69, ph 7.34. CXR demonstrates cardiomegaly with diffuse airspace opacities and interstitial infiltrates, vascular prominence and small left pleural effusion c/w volume overload. Case discussed with ER physician and decision was made to admit the patient for further evaluation of volume overload. Patient was empirically started on Azithromycin. Currently on Lasix 40 mg IV BID. Currently on DuoNeb scheduled and PRN, Solumedrol. 02/13 Patient was seen and examined. No acute events overnight. BP 110/68 P 98 RR 20 93% on 3L NC. COVID 19 test negative. BMP shows Cl 97, bicab 37, BUN 21, Cr 1.16, glucose 127. Procal 0.11. Pulmonology on board. Currently being diuresed with Lasix 40 mg IV twice a day. Most recent echocardiogram 12/22/22 shows EF 55% with findings of pulmonary hypertension and severe MR. General: non toxic, no distress, appears at stated age Derm: warm, dry Head: atraumatic, normocephalic, symmetric Eyes: EOMI, no lid lag, anicteric sclera Mouth: no lip lesion, mucus membranes moist Cardiovascular: S1S2 reg, no murmur Lungs: Decreased BS bilateral, no rhonchi, no rales , no accessory muscle use Ext: no gross muscle atrophy, 2+ LE edema, no contractures Neuro: no focal neuro deficits Psych: Alert, oriented, appropriate affect Acute on chronic hypoxemic respiratory failure with hypercarbia Acute on chronic diastolic heart failure exacerbation COPD with mild exacerbation AMADEO Paroxysmal atrial fibrillation Hypertension Hyperlipidemia Chronic kidney disease, stage IIIB Based on my assessment of this patient, this patient meets a high complexity level of care. Patient has an acute diagnosis of acute on chronic hypoxemic respiratory failure with hypercarbia secondary to diastolic CHF exacernation and COPD exacerbation with severe exacerbation or progression of disease which poses a threat to life or bodily function. Acute on chronic hypoxemic respiratory failure with hypercarbia: Multifactorial. Likely more related to pulmonary HTN and COPD. Acute on chronic diastolic heart failure exacerbation: Lasix 40 mg IV BID. Negative 450 cc fluid balance so far. Weight on admission 117.934 - 115.9 kg. Daily monitoring of renal function as Lasix is nephrotoxic. COPD with mild exacerbation: DuoNeb scheduled and as needed for SOB/wheezing. Symbicort inhaler. Solumedrol 60 mg IV Q6H. Singulair 10 mg PO QD. Empirically started on Azithromycin awaiting procalcitonin. Pulmonology on board. AMADEO: BiPAP PRN. Sildenafil 50 mg PO TID for pulmonary HTN. Paroxysmal atrial fibrillation Eliquis 5 mg PO BID for AC. Metoprolol 25 mg PO BID. Cardizem 120 mg PO QD. Hypertension Hyperlipidemia Chronic kidney disease, stage IIIB Protonix 40 mg PO QD for GI prophylaxis. Eliquis for DVT prophylaxis. FULL CODE. I have reviewed the following [employer] consultant notes: Pulmonology note. I have reviewed the results of the following tests: BMP. COVID. Procal I have ordered the following tests: BMP as Lasix is nephrotoxic. I have discussed the care of this patient with the following independent historian: I have independently interpreted the following test below: I have discussed the management of this patient with the following physician: Objective - Vital Signs Vital signs: Vital Signs Temp 98.4 F 02/13/23 08:00 Pulse 98 02/13/23 08:00 Resp 20 02/13/23 08:00 BP 110/68 02/13/23 08:00 Pulse Ox 93 L 02/13/23 08:00 FiO2 40 02/13/23 04:00 Intake & Output 02/12/23 02/13/23 02/13/23 18:59 06:59 18:59 Intake Total 180 Output Total 450 250 Balance -450 -70 Weight 117.934 kg 115.9 kg Intake: Oral 180 Output: Urine 450 250 Other: Voiding Method Toilet # Voids 1 - Labs CBC & Chem 7: 02/12/23 13:14 02/13/23 11:34 Labs: Abnormal Lab Results - Last 24 Hours (Table) 02/12/23 02/12/23 02/12/23 Range/Units 13:14 13:14 14:22 RBC 3.75 L (3.80-5.40) m/uL Hgb 11.3 L (11.4-16.0) gm/dL MCHC 30.9 L (31.0-37.0) g/dL RDW 15.7 H (11.5-15.5) % Lymphocytes # 0.7 L (1.0-4.8) k/uL VBG pCO2 69 H (37-51) mmHg VBG HCO3 37 H (24-28) mmol/L Carbon Dioxide 34 H (22-30) mmol/L Creatinine 1.18 H (0.52-1.04) mg/dL Glucose 107 H (74-99) mg/dL POC Glucose (mg/dL) (70-110) mg/dL 02/13/23 Range/Units 06:12 RBC (3.80-5.40) m/uL Hgb (11.4-16.0) gm/dL MCHC (31.0-37.0) g/dL RDW (11.5-15.5) % Lymphocytes # (1.0-4.8) k/uL VBG pCO2 (37-51) mmHg VBG HCO3 (24-28) mmol/L Carbon Dioxide (22-30) mmol/L Creatinine (0.52-1.04) mg/dL Glucose (74-99) mg/dL POC Glucose (mg/dL) 156 H (70-110) mg/dL
[2023-02-13 11:42] LABS: Glucose,Whole Blood 136 mg/dL (70-110)
[2023-02-13 12:07] LABS: African American GFR (CKD) 60 (>60 ml/min/1.73 sqM); Anion Gap 5 mmol/L; Blood Urea Nitrogen 21 mg/dL (7-17); Calcium 9.3 mg/dL (8.4-10.2); Carbon Dioxide 37 mmol/L (22-30); Chloride 97 mmol/L (98-107); Glucose 127 mg/dL (74-99); Non-African American GFR(CKD) 52 (>60 ml/min/1.73 sqM); Potassium 4.1 mmol/L (3.5-5.1); Sodium 139 mmol/L (137-145)
[2023-02-13] MEDS: SILDENAFIL 20 MG TAB PO SCH ×2 (16:23→20:19)
[2023-02-13 16:31] LABS: Glucose,Whole Blood 159 mg/dL (70-110)
[2023-02-13 20:13] LABS: Glucose,Whole Blood 180 mg/dL (70-110)
[2023-02-13] MEDS: ATORVASTATIN 40 MG TAB PO SCH (20:19)
[2023-02-13] MEDS: INSULIN ASPART (NovoLOG) 100 UNIT/ML VIAL SQ SCH (20:59)
[2023-02-14] MEDS: methylPREDNISolone SOD SUCCI 125 MG/2 ML VIAL IV SCH ×2 (00:41→06:28)
[2023-02-14 06:18] LABS: Glucose,Whole Blood 168 mg/dL (70-110)
[2023-02-14] MEDS: INSULIN ASPART (NovoLOG) 100 UNIT/ML VIAL SQ SCH ×4 (06:28→20:43)
[2023-02-14] MEDS: MONTELUKAST 10 MG TAB PO SCH (08:49)
[2023-02-14] MEDS: FUROSEMIDE 10 MG/ML 4 ML VIAL IV SCH ×2 (08:49→20:44)
[2023-02-14] MEDS: PANTOPRAZOLE 40 MG TABLET PO SCH (08:49)
[2023-02-14] MEDS: APIXABAN 5 MG TAB PO SCH ×2 (08:49→20:44)
[2023-02-14] MEDS: allopurinoL 100 MG TAB PO SCH (08:49)
[2023-02-14] MEDS: CITALOPRAM HYDROBROMIDE 20 MG TAB PO SCH (08:49)
[2023-02-14] MEDS: DILTIAZEM CD 120 MG CAP.ER.24H PO SCH (08:49)
[2023-02-14] MEDS: METOPROLOL TARTRATE 25 MG TAB PO SCH ×2 (08:49→20:44)
[2023-02-14] MEDS: AZITHROMYCIN 500 MG in SODIUM CHLORIDE 0.9% 250 ML IVPB SCH (08:50)
[2023-02-14] MEDS: SYMBICORT 160-4.5 MCG INHALER INHALATION SCH ×2 (08:58→20:00)
[2023-02-14] MEDS: IPRATROPIUM-ALBUTEROL 3 ML NEB INHALATION SCH ×4 (08:59→20:00)
[2023-02-14] MEDS: NYSTATIN 100,000 UNIT/GM POWD 15 GM TOPICAL SCH ×2 (09:02→20:45)
[2023-02-14 09:32] LABS: African American GFR (CKD) 57 (>60 ml/min/1.73 sqM); Anion Gap 10 mmol/L; Blood Urea Nitrogen 29 mg/dL (7-17); Calcium 9.5 mg/dL (8.4-10.2); Carbon Dioxide 30 mmol/L (22-30); Chloride 98 mmol/L (98-107); Glucose 294 mg/dL (74-99); Non-African American GFR(CKD) 50 (>60 ml/min/1.73 sqM); Potassium 3.8 mmol/L (3.5-5.1); Sodium 138 mmol/L (137-145)
[2023-02-14 11:31] LABS: Glucose,Whole Blood 163 mg/dL (70-110)
--- NOTE | 2023-02-14 12:13 | P.PN ---
Subjective Progress Note Date: 02/14/23 I am seeing this patient in consultation today 02/13/2023 for suspected CHF exa cerbation. Patient is a 57-year-old white female with past medical history significant for heart failure, paroxysmal atrial fibrillation, COPD, pulmonary hypertension, chronic oxygen dependence on 3 L/m home O2, obstructive sleep apnea technically noncompliant with CPAP, ex-smoker. She has recently moved to the area, and started following with Dr. Hitchcock in the office. Patient presented to the emergency room yesterday afternoon complaining of progressively worsening shortness of breath since earlier that morning. She does check her pulse oximeter at home, which was reading around 70% prior to coming in. There is associated mild weight gain and increased lower extremity swelling over the last couple days. She has been taking diuretics. She does have history of congestive heart failure. Patient was initially placed on BiPAP on arrival. Currently, she is sitting at the edge of the bed, on 4 L/m nasal cannula, in no acute distress. She has been started on Lasix twice a day, and states that she is already feeling better. Echocardiogram from previous admission in December, showed a preserved left ventricular ejection fraction of 55%. There was also evidence of pulmonary hypertension with RVSP of 58. She does take sildenafil at home. She denies denies any heart palpitations, lightheadedness, syncope. Denies any coughing, fevers, chills, chest pain, hemoptysis. Chest x-ray on arrival showed cardiomegaly with pulmonary vascular congestion. There was also a small right pleural effusion. Chronic parenchymal density in the right lower lung. No focal consolidation or evidence of pneumonia. NT proBNP was elevated at 5620. CBC on arrival was unremarkable. BMP shows sodium 141, potassium 4.5, chloride 102, serum bicarbonate 34, BUN 15, creatinine 1.18, glucose 107. Afebrile. Hemodynamically the patient appears stable. On today's evaluation of 02/14/2023, the patient is doing well. She is down to 3 L of oxygen by nasal cannula. She is on Lasix 40 mg IV every 12 hours. No new complaints. No chest pain. Shortness of breath is gradually improving. The enzymes at 29 with a creatinine of 1.2. She is in negative fluid balance. No fever. No chills. No other significant events overnight. Objective - Vital Signs Vital signs: Vital Signs Temp 97.8 F 02/14/23 00:23 Pulse 91 02/14/23 09:11 Resp 20 02/14/23 04:29 BP 106/68 02/14/23 04:29 Pulse Ox 93 L 02/14/23 04:29 FiO2 40 02/14/23 04:29 Intake & Output 02/13/23 02/14/23 02/14/23 18:59 06:59 18:59 Intake Total 540 Output Total 250 950 Balance 290 -950 Weight 116.5 kg Intake: Oral 540 Output: Urine 250 950 Other: Voiding Method Toilet # Voids 1 - Exam GENERAL EXAM: Alert, 57-year-old morbidly obese white female, comfortable in no apparent distress. HEAD: Normocephalic and atraumatic EYES: Normal reaction of pupils, equal size. NOSE: Clear with pink turbinates. THROAT: No erythema or exudates. Mallampati class III. NECK: No masses, no JVD. CHEST: No chest wall deformity. LUNGS: Equal air entry with left lower lobe inspiratory crackles. Mild expiratory wheezes heard throughout. On 4 L/m nasal cannula. No conversational dyspnea or accessory muscle use.. CVS: S1 and S2 normal with no audible murmur, irregular rhythm. No extra heart sounds ABDOMEN: Obese abdomen, no hepatosplenomegaly, active bowel sounds, no guarding or rigidity. SPINE: No scoliosis or deformity SKIN: No rashes CENTRAL NERVOUS SYSTEM: No focal deficits, tone is normal in all 4 extremities. EXTREMITIES: There is bilateral lower extremity mild nonpitting edema. No clubbing, or cyanosis. Peripheral pulses are intact. - Labs CBC & Chem 7: 02/12/23 13:14 02/14/23 08:49 Labs: Abnormal Lab Results - Last 24 Hours (Table) 02/13/23 02/13/23 02/13/23 Range/Units 11:34 11:41 16:29 Chloride 97 L (98-107) mmol/L Carbon Dioxide 37 H (22-30) mmol/L BUN 21 H (7-17) mg/dL Creatinine 1.16 H (0.52-1.04) mg/dL Glucose 127 H (74-99) mg/dL POC Glucose (mg/dL) 136 H 159 H (70-110) mg/dL 02/13/23 02/14/23 02/14/23 Range/Units 20:12 06:16 08:49 Chloride (98-107) mmol/L Carbon Dioxide (22-30) mmol/L BUN 29 H (7-17) mg/dL Creatinine 1.21 H (0.52-1.04) mg/dL Glucose 294 H (74-99) mg/dL POC Glucose (mg/dL) 180 H 168 H (70-110) mg/dL Assessment and Plan Assessment: Acute on chronic hypoxemic respiratory failure, currently on 4 liters per minute nasal cannula, possibly multifactorial related to a combination of exacerbation of diastolic congestive heart failure and COPD. Severe pulmonary hypertension, Echocardiogram from previous admission in December, showed a preserved left ventricular ejection fraction of 55%. There was also evidence of pulmonary hypertension with RVSP of 58. She does take sildenafil regularly. Paroxysmal atrial fibrillation, anticoagulated on Eliquis, rate currently controlled Benign essential hypertension Chronic obstructive pulmonary disease Obstructive sleep apnea, currently noncompliant with CPAP. Chronic kidney disease stage III Ex-smoker Plan: Oxygenation is improved and the patient is currently on 3 L of O2 nasal cannula Repeat chest x-ray in the morning Continue IV Lasix 40 mg twice a day Continue bronchodilators, Symbicort inhaler Discontinue the IV Solu-Medrol The pro calcitonin level is 0.11 She is improving for now. I asked her to bring in the CPAP machine for me to check and evaluate and make adjustments if needed as this going to be very imp ortant for her long-term treatment. We'll continue to follow.
[2023-02-14] MEDS: SILDENAFIL 20 MG TAB PO SCH ×3 (12:52→20:44)
--- NOTE | 2023-02-14 14:01 | P.PN ---
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 Pt says that she was noticing 5lb weight gain at home and increasing dyspnea. She discussed this with her outpatient physician and was advised to increase her home dose lasix which she did, however, this AM, she noted saturations in the mid 70s and significantly worse dyspnea, prompting her evaluation in the ER. In the ER, patient was afebrile, 98/57, 87% on 5L NC. CBC showed anemia to 11.3. BMP showed elevated CO2 to 34. LFTs unremarkable. Troponin negative. BNP 5620. VBG showed pco2 69, ph 7.34. CXR demonstrates cardiomegaly with diffuse airspace opacities and interstitial infiltrates, vascular prominence and small left pleural effusion c/w volume overload. Case discussed with ER physician and decision was made to admit the patient for further evaluation of volume overload. Patient was empirically started on Azithromycin. Currently on Lasix 40 mg IV BID. Currently on DuoNeb scheduled and PRN, Solumedrol. 02/13 Patient was seen and examined. No acute events overnight. BP 110/68 P 98 RR 20 93% on 3L NC. COVID 19 test negative. BMP shows Cl 97, bicab 37, BUN 21, Cr 1.16, glucose 127. Procal 0.11. Pulmonology on board. Currently being diuresed with Lasix 40 mg IV twice a day. Most recent echocardiogram 12/22/22 shows EF 55% with findings of pulmonary hypertension and severe MR. 02/14 Patient was seen and examined. No acute events overnight. Patient reports slight improvement in her breathing but continues to feel very short of breath with ambulation of short distances. Discussed with Dr. Mcgregor, her PCP. Patient has been waiting for follow up with [facility] for possible lung transplant. She follows Dr. Hitchcock in the outpatient setting. Dr. Mcgregor has done a 100 feet walk test and patient desaturates into the 70s on 3L NC. Solumedrol discontinued by Pulmonology. Plans for repeat CXR tomorrow. BMP shows BUN 29 and Cr 1.21, glucose 294. General: non toxic, no distress, appears at stated age Derm: warm, dry Head: atraumatic, normocephalic, symmetric Eyes: EOMI, no lid lag, anicteric sclera Mouth: no lip lesion, mucus membranes moist Cardiovascular: S1S2 reg, no murmur Lungs: Decreased BS bilateral, no rhonchi, no rales , no accessory muscle use Ext: no gross muscle atrophy, 2+ LE edema, no contractures Neuro: no focal neuro deficits Psych: Alert, oriented, appropriate affect Acute on chronic hypoxemic respiratory failure with hypercarbia Acute on chronic diastolic heart failure exacerbation COPD with mild exacerbation AMADEO Paroxysmal atrial fibrillation Hypertension Hyperlipidemia Chronic kidney disease, stage IIIB Based on my assessment of this patient, this patient meets a high complexity level of care. Patient has an acute diagnosis of acute on chronic hypoxemic respiratory failure with hypercarbia secondary to diastolic CHF exacernation and COPD exacerbation with severe exacerbation or progression of disease which poses a threat to life or bodily function. Acute on chronic hypoxemic respiratory failure with hypercarbia: Multifactorial. Likely more related to pulmonary HTN and COPD. Acute on chronic diastolic heart failure exacerbation: Lasix 40 mg IV BID. Negative 660 cc fluid balance so far. Weight on admission 117.934 - 115.9 - 116.5 kg. Daily monitoring of renal function as Lasix is nephrotoxic. COPD with mild exacerbation: DuoNeb scheduled and as needed for SOB/wheezing. Symbicort inhaler. Solumedrol stopped. Singulair 10 mg PO QD. Empirically started on Azithromycin awaiting procalcitonin. Pulmonology on board. AMADEO: BiPAP PRN. Sildenafil 50 mg PO TID for pulmonary HTN. Paroxysmal atrial fibrillation Eliquis 5 mg PO BID for AC. Metoprolol 25 mg PO BID. Cardizem 120 mg PO QD. Hypertension Hyperlipidemia Chronic kidney disease, stage IIIB Protonix 40 mg PO QD for GI prophylaxis. Eliquis for DVT prophylaxis. FULL CODE. I have reviewed the following telecom sales consultant notes: Pulmonology note. I have reviewed the results of the following tests: BMP. I have ordered the following tests: BMP as Lasix is nephrotoxic. I have discussed the care of this patient with the following independent historian: I have independently interpreted the following test below: I have discussed the management of this patient with the following physician: Objective - Vital Signs Vital signs: Vital Signs Temp 98.4 F 02/14/23 08:00 Pulse 93 02/14/23 11:56 Resp 16 02/14/23 08:00 BP 97/68 02/14/23 08:00 Pulse Ox 90 L 02/14/23 08:00 FiO2 40 02/14/23 04:29 Intake & Output 02/13/23 02/14/23 02/14/23 18:59 06:59 18:59 Intake Total 540 Output Total 250 950 Balance 290 -950 Weight 116.5 kg Intake: Oral 540 Output: Urine 250 950 Other: Voiding Method Toilet Toilet # Voids 1 - Labs CBC & Chem 7: 02/12/23 13:14 02/14/23 08:49 Labs: Abnormal Lab Results - Last 24 Hours (Table) 02/13/23 02/13/23 02/14/23 Range/Units 16:29 20:12 06:16 BUN (7-17) mg/dL Creatinine (0.52-1.04) mg/dL Glucose (74-99) mg/dL POC Glucose (mg/dL) 159 H 180 H 168 H (70-110) mg/dL 02/14/23 02/14/23 Range/Units 08:49 11:30 BUN 29 H (7-17) mg/dL Creatinine 1.21 H (0.52-1.04) mg/dL Glucose 294 H (74-99) mg/dL POC Glucose (mg/dL) 163 H (70-110) mg/dL
[2023-02-14 16:13] LABS: Glucose,Whole Blood 150 mg/dL (70-110)
[2023-02-14 20:30] LABS: Glucose,Whole Blood 266 mg/dL (70-110)
[2023-02-14] MEDS: diphenhydrAMINE 25 MG CAP PO SCH (20:44)
[2023-02-14] MEDS: ATORVASTATIN 40 MG TAB PO SCH (20:44)
[2023-02-15 05:46] LABS: Glucose,Whole Blood 132 mg/dL (70-110)
[2023-02-15] MEDS: INSULIN ASPART (NovoLOG) 100 UNIT/ML VIAL SQ SCH ×2 (05:50→11:33)
[2023-02-15] MEDS: SYMBICORT 160-4.5 MCG INHALER INHALATION SCH (08:15)
[2023-02-15] MEDS: IPRATROPIUM-ALBUTEROL 3 ML NEB INHALATION SCH ×2 (08:15→11:31)
[2023-02-15] MEDS: SILDENAFIL 20 MG TAB PO SCH (08:50)
[2023-02-15] MEDS: FUROSEMIDE 10 MG/ML 4 ML VIAL IV SCH (08:51)
[2023-02-15] MEDS: DILTIAZEM CD 120 MG CAP.ER.24H PO SCH (08:51)
[2023-02-15] MEDS: PANTOPRAZOLE 40 MG TABLET PO SCH (08:51)
[2023-02-15] MEDS: allopurinoL 100 MG TAB PO SCH (08:51)
[2023-02-15] MEDS: APIXABAN 5 MG TAB PO SCH (08:51)
[2023-02-15] MEDS: CITALOPRAM HYDROBROMIDE 20 MG TAB PO SCH (08:51)
[2023-02-15] MEDS: METOPROLOL TARTRATE 25 MG TAB PO SCH (08:52)
[2023-02-15] MEDS: NYSTATIN 100,000 UNIT/GM POWD 15 GM TOPICAL SCH (08:52)
[2023-02-15] MEDS: MONTELUKAST 10 MG TAB PO SCH (08:52)
[2023-02-15] MEDS: AZITHROMYCIN 500 MG in SODIUM CHLORIDE 0.9% 250 ML IVPB SCH (08:52)
--- NOTE | 2023-02-15 08:54 | XR ---
EXAMINATION TYPE: XR chest 1V portable DATE OF EXAM: 02/15/2023 Comparison: 02/12/2023 Clinical History: 57 year-old female shortness of breath Findings: Heart mild to moderately enlarged. Interstitial prominence persists. Fairly similar similar to minima lly improved from prior. Mild patchy bibasilar densities are similar. No sizable pleural effusion. Impression: Correlate for CHF with fairly similar to minimally improved pulmonary vascular congestion. Mild patch y bibasilar densities are similar.
[2023-02-15 09:07] LABS: African American GFR (CKD) 55 (>60 ml/min/1.73 sqM); Anion Gap 7 mmol/L; Blood Urea Nitrogen 29 mg/dL (7-17); Calcium 9.4 mg/dL (8.4-10.2); Carbon Dioxide 37 mmol/L (22-30); Chloride 98 mmol/L (98-107); Glucose 140 mg/dL (74-99); Non-African American GFR(CKD) 48 (>60 ml/min/1.73 sqM); Potassium 3.6 mmol/L (3.5-5.1); Sodium 142 mmol/L (137-145)
--- NOTE | 2023-02-15 10:58 | P.PN ---
Subjective Progress Note Date: 02/15/23 I am seeing this patient in consultation today 02/13/2023 for suspected CHF exa cerbation. Patient is a 57-year-old white female with past medical history significant for heart failure, paroxysmal atrial fibrillation, COPD, pulmonary hypertension, chronic oxygen dependence on 3 L/m home O2, obstructive sleep apnea technically noncompliant with CPAP, ex-smoker. She has recently moved to the area, and started following with Dr. Hitchcock in the office. Patient presented to the emergency room yesterday afternoon complaining of progressively worsening shortness of breath since earlier that morning. She does check her pulse oximeter at home, which was reading around 70% prior to coming in. There is associated mild weight gain and increased lower extremity swelling over the last couple days. She has been taking diuretics. She does have history of congestive heart failure. Patient was initially placed on BiPAP on arrival. Currently, she is sitting at the edge of the bed, on 4 L/m nasal cannula, in no acute distress. She has been started on Lasix twice a day, and states that she is already feeling better. Echocardiogram from previous admission in December, showed a preserved left ventricular ejection fraction of 55%. There was also evidence of pulmonary hypertension with RVSP of 58. She does take sildenafil at home. She denies denies any heart palpitations, lightheadedness, syncope. Denies any coughing, fevers, chills, chest pain, hemoptysis. Chest x-ray on arrival showed cardiomegaly with pulmonary vascular congestion. There was also a small right pleural effusion. Chronic parenchymal density in the right lower lung. No focal consolidation or evidence of pneumonia. NT proBNP was elevated at 5620. CBC on arrival was unremarkable. BMP shows sodium 141, potassium 4.5, chloride 102, serum bicarbonate 34, BUN 15, creatinine 1.18, glucose 107. Afebrile. Hemodynamically the patient appears stable. On today's evaluation of 02/14/2023, the patient is doing well. She is down to 3 L of oxygen by nasal cannula. She is on Lasix 40 mg IV every 12 hours. No new complaints. No chest pain. Shortness of breath is gradually improving. The enzymes at 29 with a creatinine of 1.2. She is in negative fluid balance. No fever. No chills. No other significant events overnight. On 02/15/2023, the patient is stable. She is breathing better. She is short of breath. A repeat chest x-ray was done and there is improvement in the pulmonary vascular congestion. There is still some underlying cardiomegaly. The patient remains on Lasix 40 mg IV every 12 hours and the patient is a negative fluid balance. She is utilizing our on BiPAP at a pressure of 12/5 cm of water overnight. No chest pain. She remains on oxygen and she is currently on oxygen at 3 L with a pulse ox of 96%. Rest of the blood work shows a BUN of 29 and a creatinine of 1.24 and a sodium level is at 142 with a potassium level of 3.6. The patient has no other specific complaints otherwise for now. Cardiology is on the case. She has a CPAP machine at home which she was unable to bring into the hospital for us to check. Objective - Vital Signs Vital signs: Vital Signs Temp 98.5 F 02/14/23 20:45 Pulse 102 H 02/15/23 08:29 Resp 18 02/15/23 05:21 BP 110/76 02/15/23 05:21 Pulse Ox 96 02/15/23 08:18 FiO2 40 02/15/23 05:21 Intake & Output 02/14/23 02/15/23 02/15/23 18:59 06:59 18:59 Intake Total 540 Output Total 1125 Balance 540 -1125 Weight 116.9 kg Intake: Oral 540 Output: Urine 1125 Other: Voiding Method Toilet Toilet # Voids 2 1 - Exam GENERAL EXAM: Alert, 57-year-old morbidly obese white female, comfortable in no apparent distress. HEAD: Normocephalic and atraumatic EYES: Normal reaction of pupils, equal size. NOSE: Clear with pink turbinates. THROAT: No erythema or exudates. Mallampati class III. NECK: No masses, no JVD. CHEST: No chest wall deformity. LUNGS: Equal air entry with left lower lobe inspiratory crackles. Mild expiratory wheezes heard throughout. On 4 L/m nasal cannula. No conversational dyspnea or accessory muscle use.. CVS: S1 and S2 normal with no audible murmur, irregular rhythm. No extra heart sounds ABDOMEN: Obese abdomen, no hepatosplenomegaly, active bowel sounds, no guarding or rigidity. SPINE: No scoliosis or deformity SKIN: No rashes CENTRAL NERVOUS SYSTEM: No focal deficits, tone is normal in all 4 extremities. EXTREMITIES: There is bilateral lower extremity mild nonpitting edema. No clubbing, or cyanosis. Peripheral pulses are intact. - Labs CBC & Chem 7: 02/12/23 13:14 02/15/23 08:23 Labs: Abnormal Lab Results - Last 24 Hours (Table) 02/14/23 02/14/23 02/14/23 Range/Units 08:49 11:30 16:12 Carbon Dioxide (22-30) mmol/L BUN 29 H (7-17) mg/dL Creatinine 1.21 H (0.52-1.04) mg/dL Glucose 294 H (74-99) mg/dL POC Glucose (mg/dL) 163 H 150 H (70-110) mg/dL 02/14/23 02/15/23 02/15/23 Range/Units 20:29 05:44 08:23 Carbon Dioxide 37 H (22-30) mmol/L BUN 29 H (7-17) mg/dL Creatinine 1.24 H (0.52-1.04) mg/dL Glucose 140 H (74-99) mg/dL POC Glucose (mg/dL) 266 H 132 H (70-110) mg/dL Assessment and Plan Assessment: Acute on chronic hypoxemic respiratory failure, currently on 3 liters per minute nasal cannula, possibly multifactorial related to a combination of exacerbation of diastolic congestive heart failure and COPD. the patient is clinically improving Severe pulmonary hypertension, Echocardiogram from previous admission in December, showed a preserved left ventricular ejection fraction of 55%. There was also evidence of pulmonary hypertension with RVSP of 58. She does take sildenafil regularly. Paroxysmal atrial fibrillation, anticoagulated on Eliquis, rate currently controlled Benign essential hypertension Chronic obstructive pulmonary disease Obstructive sleep apnea, currently noncompliant with CPAP. Chronic kidney disease stage III Ex-smoker Plan: The patient is clinically improving Chest x-ray showed improvement in volume status Oxygenation is improved and the patient is currently on 3 L of O2 nasal cannula Continue IV Lasix 40 mg twice a day and I will suggest continuing this for another 24 hours Continue bronchodilators, Symbicort inhaler Continue BiPAP to be used overnight during sleep The pro calcitonin level is 0.11 She is improving for now. I asked her to bring in the CPAP machine for me to check and evaluate and make adjustments if needed as this going to be very important for her long-term treatment. We'll continue to follow.
[2023-02-15 11:30] LABS: Glucose,Whole Blood 113 mg/dL (70-110)
--- NOTE | 2023-02-15 13:33 | P.DS ---
Providers Date of admission: 02/12/23 16:05 Expected date of discharge: 02/15/23 Attending physician: aCrrie Graham MD Consults: 02/12/23 16:04 Consult Physician Routine Consulting Provider: Lizzette Hitchcock Consult Reason/Comments: COPD Do you want consulting provider notified?: Yes Primary care physician: Physician Nonstaff Hospital Course: 57 year old woman with history of class III pulmonary HTN secondary to AMADEO and COPD GOLD D with chronic respiratory failure requiring 3L NC, CKD IIIb, paroxysmal atrial fibrillation, HLD, HTN presented for dyspnea. Pt says that she was noticing 5lb weight gain at home and increasing dyspnea. She discussed this with her outpatient physician and was advised to increase her home dose lasix which she did, however, this AM, she noted saturations in the mid 70s and significantly worse dyspnea, prompting her evaluation in the ER. In the ER, patient was afebrile, 98/57, 87% on 5L NC. CBC showed anemia to 11.3. BMP showed elevated CO2 to 34. LFTs unremarkable. Troponin negative. BNP 5620. VBG showed pco2 69, ph 7.34. CXR demonstrates cardiomegaly with diffuse airspace opacities and interstitial infiltrates, vascular prominence and small left pleural effusion c/w volume overload. Case discussed with ER physician and decision was made to admit the patient for further evaluation of volume overload. Patient was empirically started on Azithromycin. Currently on Lasix 40 mg IV BID. Currently on DuoNeb scheduled and PRN, Solumedrol. 02/13 Patient was seen and examined. No acute events overnight. BP 110/68 P 98 RR 20 93% on 3L NC. COVID 19 test negative. BMP shows Cl 97, bicab 37, BUN 21, Cr 1.16, glucose 127. Procal 0.11. Pulmonology on board. Currently being diuresed with Lasix 40 mg IV twice a day. Most recent echocardiogram 12/22/22 shows EF 55% with findings of pulmonary hypertension and severe MR. 02/14 Patient was seen and examined. No acute events overnight. Patient reports slight improvement in her breathing but continues to feel very short of breath with ambulation of short distances. Discussed with Dr. Mcgregor, her PCP. Patient has been waiting for follow up with [facility] for possible lung transplant. She follows Dr. Hitchcock in the outpatient setting. Dr. Mcgregor has done a 100 feet walk test and patient desaturates into the 70s on 3L NC. Solumedrol discontinued by Pulmonology. Plans for repeat CXR tomorrow. BMP shows BUN 29 and Cr 1.21, glucose 294. 02/15 Patient was seen and examined. She reports feeling better and is requesting discharge home today. CXR shows improved pulmonary vascular congestion. BMP shows bicarb 37, BUN 29, Cr 1.24. Unfortunately, she was unable to bring in her CPAP for titration with Dr. Whitmore. Case was discussed with PCP Dr. Mcgregor in detail. She'll be advised to continue Lasix 40 mg by mouth twice a day. Follow up with pulmonology within 1 week and PCP within 2-3 days of discharge. Patient verbalized understanding of the plan. Pertinent studies include chest x-ray. General: non toxic, no distress, appears at stated age Derm: warm, dry Head: atraumatic, normocephalic, symmetric Eyes: EOMI, no lid lag, anicteric sclera Mouth: no lip lesion, mucus membranes moist Cardiovascular: S1S2 reg, no murmur Lungs: Decreased BS bilateral, no rhonchi, no rales , no accessory muscle use Ext: no gross muscle atrophy, 1+ LE edema, no contractures Neuro: no focal neuro deficits Psych: Alert, oriented, appropriate affect Discharge diagnosis: Acute on chronic hypoxemic respiratory failure with hypercarbia Acute on chronic diastolic heart failure exacerbation COPD with mild exacerbation AMADEO Paroxysmal atrial fibrillation Hypertension Hyperlipidemia Chronic kidney disease, stage IIIB This complex discharge took 35 minutes to complete. Patient Condition at Discharge: Stable Plan - Discharge Summary Discharge Rx Participant: Yes New Discharge Prescriptions: Continue Montelukast [Singulair] 10 mg PO DAILY@0800 Ascorbic Acid [Vitamin C] 500 mg PO DAILY@0800 Super B-Complex 1 tab PO DAILY@0800 Famotidine [Pepcid] 40 mg PO DAILY@0800 Medihoney Gel 1 applic TOPICAL MOWEFR@0800 Furosemide [Lasix] 40 mg PO BID@0800,1700 Apixaban [Eliquis] 5 mg PO BID@0800,2000 Acetaminophen-Codeine 300-30mg [Tylenol w/codeine #3] 1 tab PO TID PRN PRN Reason: Pain Dapagliflozin Propanediol [Farxiga] 10 mg PO DAILY tab Nystatin 100,000 Unit/gm Powd [Mycostatin Powder] 1 applic TOPICAL BID each allopurinoL [Zyloprim] 100 mg PO DAILY Naphazoline-Phenira 0.025-0.3% [Visine-A Ophth Soln] 1 drop BOTH EYES QID PRN PRN Reason: Dry Eye(S) dilTIAZem HCL [Cardizem CD] 120 mg PO DAILY Tiotropium Br/Olodaterol HCl [Stiolto Respimat Inhal Sobieski] 2 puff INHALATION RT-DAILY@0800 Spironolactone [Aldactone] 25 mg PO DAILY@0800 Pantoprazole [Protonix] 40 mg PO DAILY@0800 Ferrous Sulfate [Iron (65 MG Elemental)] 325 mg PO DAILY@0800 diphenhydrAMINE HCL [Benadryl] 50 mg PO HS@1999 Citalopram Hydrobromide [CeleXA] 40 mg PO DAILY@0800 Cholecalciferol (Vitamin D3) [Vitamin D3 (125 MCG = 5,000 IU)] 125 mcg PO DAILY@0800 [place]-3/Dha/Epa/Fish Oil [Fish Oil 1,000 mg Softgel] 1 cap PO DAILY@0800 Sildenafil Citrate 50 mg PO TID@0800,1700,1999 Atorvastatin [Lipitor] 40 mg PO HS@1999 Calcium Carbonate [Calcium] 1,200 mg PO DAILY@0800 Diclofenac Sodium Gel [Voltaren Gel] 2 - 4 gm TOPICAL TID@0800,1400,1999 Ipratropium-Albuterol Nebulize [Duoneb 0.5 mg-3 mg/3 ml Soln] 3 ml INHALATION RT-QID Multivitamins, Thera [Multivitamin (formulary)] 1 tab PO DAILY@0800 Semaglutide [Wegovy] 0.5 mg SQ WE Metoprolol Tartrate [Lopressor] 25 mg PO BID #60 tab Lidocaine 5% Cream 1 applic TOPICAL BID@0800,1999 Biotene Mouth Wash 15 ml PO 5XD Potassium Chloride 20 meq PO DAILY@0800 Naproxen [Naprosyn] 500 mg PO BID PRN PRN Reason: Pain Fluticasone Propionate [Fluticasone Propionate Hfa 110 MCG (Inhaler)] 1 puff INHALATION RT-BID Albuterol Sulfate [Albuterol Sulfate Hfa] 2 puff PO RT-BID PRN PRN Reason: Shortness Of Breath Discharge Medication List Ascorbic Acid [Vitamin C] 500 mg PO DAILY@79908/14/22 [History] Cholecalciferol (Vitamin D3) [Vitamin D3 (125 MCG = 5,000 IU)] 125 mcg PO DAILY@0808/14/22 [History] Citalopram Hydrobromide [CeleXA] 40 mg PO DAILY@79908/14/22 [History] Ferrous Sulfate [Iron (65 MG Elemental)] 325 mg PO DAILY@79908/14/22 [History] Montelukast [Singulair] 10 mg PO DAILY@79908/14/22 [History] [place]-3/Dha/Epa/Fish Oil [Fish Oil 1,000 mg Softgel] 1 cap PO DAILY@79908/14/22 [History] Pantoprazole [Protonix] 40 mg PO DAILY@79908/14/22 [History] Spironolactone [Aldactone] 25 mg PO DAILY@79908/14/22 [History] Tiotropium Br/Olodaterol HCl [Stiolto Respimat Inhal Sobieski] 2 puff INHALATION RT-DAILY@79908/14/22 [History] diphenhydrAMINE HCL [Benadryl] 50 mg PO HS@199908/14/22 [History] Atorvastatin [Lipitor] 40 mg PO HS@199910/20/22 [History] Calcium Carbonate [Calcium] 1,200 mg PO DAILY@0810/20/22 [History] Famotidine [Pepcid] 40 mg PO DAILY@79910/20/22 [History] Sildenafil Citrate 50 mg PO TID@0800,1700,199910/20/22 [History] Super B-Complex 1 tab PO DAILY@0810/20/22 [History] Acetaminophen-Codeine 300-30mg [Tylenol w/codeine #3] 1 tab PO TID PRN 12/21/22 [History] Apixaban [Eliquis] 5 mg PO BID@0800,199912/21/22 [History] Diclofenac Sodium Gel [Voltaren Gel] 2 - 4 gm TOPICAL TID@0800,1400,199912/21/22 [History] Furosemide [Lasix] 40 mg PO BID@0800,1700 12/21/22 [History] Ipratropium-Albuterol Nebulize [Duoneb 0.5 mg-3 mg/3 ml Soln] 3 ml INHALATION RT-QID 12/21/22 [History] Medihoney Gel 1 applic TOPICAL MOWEFR@0800 12/21/22 [History] Multivitamins, Thera [Multivitamin (formulary)] 1 tab PO DAILY@0812/21/22 [History] Semaglutide [Wegovy] 0.5 mg SQ WE 12/21/22 [History] Metoprolol Tartrate [Lopressor] 25 mg PO BID #60 tab 12/24/22 [Rx] Lidocaine 5% Cream 1 applic TOPICAL BID@799,199912/27/22 [History] Dapagliflozin Propanediol [Farxiga] 10 mg PO DAILY tab 12/29/22 [Rx] Nystatin 100,000 Unit/gm Powd [Mycostatin Powder] 1 applic TOPICAL BID each 12/29/22 [Rx] Albuterol Sulfate [Albuterol Sulfate Hfa] 2 puff PO RT-BID PRN 02/12/23 [History] Biotene Mouth Wash 15 ml PO 5XD 02/12/23 [History] Fluticasone Propionate [Fluticasone Propionate Hfa 110 MCG (Inhaler)] 1 puff INHALATION RT-BID 02/12/23 [History] Naphazoline-Phenira 0.025-0.3% [Visine-A Ophth Soln] 1 drop BOTH EYES QID PRN 02/12/23 [History] Naproxen [Naprosyn] 500 mg PO BID PRN 02/12/23 [History] Potassium Chloride 20 meq PO DAILY@0800 02/12/23 [History] allopurinoL [Zyloprim] 100 mg PO DAILY 02/12/23 [History] dilTIAZem HCL [Cardizem CD] 120 mg PO DAILY 02/12/23 [History] Follow up Appointment(s)/Referral(s): Lizzette Hitchcock MD [STAFF PHYSICIAN] - 1 Week (Unable to get through to office to verify your appointment. Please make sure you get or have an appointment in the next week or two. Don't forget to bring your medications and c-pap to your appointment!) Abimael Mcgregor MD [REFERRING] - 1-2 Days Nonstaff,Physician [Primary Care Provider] - 1-2 days Patient Instructions/Handouts: Heart Failure (DC), COPD (Chronic Obstructive Pulmonary Disease) (DC) Discharge Disposition: HOME SELF-CARE
[2023-02-15 15:43] VITALS: PULSE 101
[2023-02-15 15:46] VITALS: BP 136/60
[2023-02-15 15:49] VITALS: TEMP 96.6
[2023-02-15 16:01] VITALS: RESP 20
== END 2023-02-15 13:25 | disposition home or self-care (01) | DRG 291 ==
LOC: EC 12:33 → 3SCARD 16:05
PROVIDERS: ADMIT Internal Medicine; ATTEND Internal Medicine
PROC: 5A09357 Assistance with Respiratory Ventilation, Less than 24 Consecutive Hours, Continuous Positive Airway Pressure (ICD-10-PCS; principal; 2023-02-12)
DX: I13.0 Hypertensive heart and chronic kidney disease with heart failure and stage 1 through stage 4 chronic kidney disease, or unspecified chronic kidney disease (principal); I50.33 Acute on chronic diastolic (congestive) heart failure; J96.21 Acute and chronic respiratory failure with hypoxia; J44.1 Chronic obstructive pulmonary disease with (acute) exacerbation; Z68.41 Body mass index [BMI] 40.0-44.9, adult; G47.33 Obstructive sleep apnea (adult) (pediatric); F32.A Depression, unspecified; Z20.822 Contact with and (suspected) exposure to COVID-19; I25.10 Atherosclerotic heart disease of native coronary artery without angina pectoris; I27.20 Pulmonary hypertension, unspecified; I48.0 Paroxysmal atrial fibrillation; J98.4 Other disorders of lung; N18.32 Chronic kidney disease, stage 3b; Z79.01 Long term (current) use of anticoagulants; Z79.84 Long term (current) use of oral hypoglycemic drugs; Z79.899 Other long term (current) drug therapy; Z91.199 Patient's noncompliance with other medical treatment and regimen due to unspecified reason; Z90.710 Acquired absence of both cervix and uterus; Z98.84 Bariatric surgery status; Z87.19 Personal history of other diseases of the digestive system; Z99.81 Dependence on supplemental oxygen; Z82.49 Family history of ischemic heart disease and other diseases of the circulatory system; Z88.1 Allergy status to other antibiotic agents; Z88.8 Allergy status to other drugs, medicaments and biological substances; E66.01 Morbid (severe) obesity due to excess calories
CPT/HCPCS: 36415; 71045; 71046; 80048; 80053; 82803; 83880; 84145; 84484; 85025; 87635; 93005; 94640; 94660; 94760; 96365; 96366; 96375; 96376; 99291

== ENCOUNTER 2023-03-17 14:20 | Inpatient (IN) | payer OTHER ==
[2023-03-17] MEDS ORDERED: FUROSEMIDE 10 MG/ML 4 ML VIAL IV STA (14:27)
--- NOTE | 2023-03-17 14:47 | XR ---
EXAMINATION TYPE: XR chest 1V portable DATE OF EXAM: 03/17/2023 2:36 PM CLINICAL INDICATION:Female, 57 years old with history of Dyspnea; [facility] COMPARISON: Chest radiographs from TECHNIQUE: XR chest 1V portable Frontal view of the chest. FINDINGS: Lungs/Pleura: Bilateral hazy airspace opacities are identified, right greater than left. There are tr corey bilateral pleural effusions. Pulmonary vascularity: Prominent. Heart/mediastinum: Cardiomediastinal silhouette is prominent in size. Musculoskeletal: No acute osseous pathology. IMPRESSION: Findings most consistent with congestive heart failure.
[2023-03-17] MEDS ORDERED: DILTIAZEM 125 MG in SODIUM CHLORIDE 0.9% 100 ML IV SCH (15:00)
--- NOTE | 2023-03-17 15:05 | ED ---
SOB HPI - General Chief Complaint: Shortness of Breath Stated Complaint: SOB Time Seen by Provider: 03/17/23 14:20 Source: EMS, RN notes reviewed Mode of arrival: EMS Limitations: no limitations - History of Present Illness Initial Comments: 49-year-old female history of CHF history of atrial fibrillation and history of COPD who presented I EMS from [facility] where she initially presented with complaints of shortness of breath this started last evening at worse today. He apparently had a pulse ox is on her 3 L of home oxygen as well as the high 60s and low 70s. She was initially treated in the emergency department there and transferred here for higher level care. She presents by EMS with a BiPAP on with oxygenation 90% range. She states she does feel much better she denied any fevers chills or sweats she had been given IV steroids IV Lasix. Complaint: shortness of breath - Related Data Home Medications Medication Instructions Recorded Confirmed Ascorbic Acid [Vitamin C] 500 mg PO DAILY@79908/14/22 02/12/23 Cholecalciferol (Vitamin D3) 125 mcg PO DAILY@79908/14/22 02/12/23 [Vitamin D3 (125 MCG = 5,000 IU)] Citalopram Hydrobromide [CeleXA] 40 mg PO DAILY@79908/14/22 02/12/23 Ferrous Sulfate [Iron (65 MG 325 mg PO DAILY@79908/14/22 02/12/23 Elemental)] Montelukast [Singulair] 10 mg PO DAILY@79908/14/22 02/12/23 [place]-3/Dha/Epa/Fish Oil [Fish Oil 1 cap PO DAILY@79908/14/22 02/12/23 1,000 mg Softgel] Pantoprazole [Protonix] 40 mg PO DAILY@79908/14/22 02/12/23 Spironolactone [Aldactone] 25 mg PO DAILY@79908/14/22 02/12/23 Tiotropium Br/Olodaterol HCl 2 puff INHALATION RT-DAILY@79908/14/22 02/12/23 [Stiolto Respimat Inhal [place]] diphenhydrAMINE HCL [Benadryl] 50 mg PO HS@199908/14/22 02/12/23 Atorvastatin [Lipitor] 40 mg PO HS@199910/20/22 02/12/23 Calcium Carbonate [Calcium] 1,200 mg PO DAILY@0800 10/20/22 02/12/23 Famotidine [Pepcid] 40 mg PO DAILY@0800 10/20/22 02/12/23 Sildenafil Citrate 50 mg PO TID@0800,1700,199910/20/22 02/12/23 Super B-Complex 1 tab PO DAILY@0800 10/20/22 02/12/23 Acetaminophen-Codeine 300-30mg 1 tab PO TID PRN 12/21/22 02/12/23 [Tylenol w/codeine #3] Apixaban [Eliquis] 5 mg PO BID@0800,199912/21/22 02/12/23 Diclofenac Sodium Gel [Voltaren 1% 2 - 4 gm TOPICAL TID@0800,1400,199912/21/22 02/12/23 Gel] Furosemide [Lasix] 40 mg PO BID@0800,1700 12/21/22 02/12/23 Ipratropium-Albuterol Nebulize 3 ml INHALATION RT-QID 12/21/22 02/12/23 [Duoneb 0.5 mg-3 mg/3 ml Soln] Medihoney Gel 1 applic TOPICAL MOWEFR@79912/21/22 02/12/23 Multivitamins, Thera [Multivitamin 1 tab PO DAILY@0812/21/22 02/12/23 (formulary)] Semaglutide [Wegovy] 0.5 mg SQ WE 12/21/22 02/12/23 Lidocaine 5% Cream 1 applic TOPICAL BID@08,199912/27/22 02/12/23 Albuterol Sulfate [Albuterol 2 puff PO RT-BID PRN 02/12/23 02/12/23 Sulfate Hfa] Biotene Mouth Wash 15 ml PO 5XD 02/12/23 02/12/23 Fluticasone Propionate 1 puff INHALATION RT-BID 02/12/23 02/12/23 [Fluticasone Propionate Hfa 110 MCG (Inhaler)] Naphazoline-Phenira 0.025-0.3% 1 drop BOTH EYES QID PRN 02/12/23 02/12/23 [Visine-A Ophth Soln] Naproxen [Naprosyn] 500 mg PO BID PRN 02/12/23 02/12/23 Potassium Chloride 20 meq PO DAILY@0800 02/12/23 02/12/23 allopurinoL [Zyloprim] 100 mg PO DAILY 02/12/23 02/12/23 dilTIAZem HCL [Cardizem CD] 120 mg PO DAILY 02/12/23 02/12/23 Previous Rx's Medication Instructions Recorded Metoprolol Tartrate [Lopressor] 25 mg PO BID #60 tab 12/24/22 Dapagliflozin Propanediol [Farxiga] 10 mg PO DAILY tab 12/29/22 Nystatin 100,000 Unit/gm Powd 1 applic TOPICAL BID each 12/29/22 [Mycostatin Powder] Allergies Allergy/AdvReac Type Severity Reaction Status Date / Time doxycycline Allergy Unknown Verified 02/12/23 18:22 lorazepam [From Ativan] AdvReac Hallucinati Verified 02/12/23 18:22 ons venlafaxine [From Effexor] AdvReac Hallucinati Verified 02/12/23 18:22 ons Review of Systems ROS Statement: Those systems with pertinent positive or pertinent negative responses have been documented in the HPI. ROS Other: All systems not noted in ROS Statement are negative. Past Medical History Past Medical History: Atrial Fibrillation, Heart Failure, COPD, Hyperlipidemia, Hypertension Additional Past Medical History / Comment(s): pulmonary HTN History of Any Multi-Drug Resistant Organisms: None Reported Past Surgical History: Bariatric Surgery, Bowel Resection, Hysterectomy Additional Past Surgical History / Comment(s): gastric sleeve Past Anesthesia/Blood Transfusion Reactions: No Reported Reaction Past Psychological History: Depression Smoking Status: Former smoker Past Alcohol Use History: None Reported Past Drug Use History: None Reported - Past Family History Mother Family Medical History: COPD, Coronary Artery Disease (CAD), CVA/TIA, Hypertension Father Family Medical History: COPD, CVA/TIA, Hypertension, Prostate Disorder General Exam - General Exam Comments Initial Comments: This is a well-developed well-nourished awake alert oriented 4 female she is on BiPAP and so demonstrating some dyspnea. Limitations: no limitations General appearance: alert, anxious Head exam: Present: atraumatic, normocephalic, normal inspection Eye exam: Present: normal appearance, PERRL, EOMI. Absent: scleral icterus, conjunctival injection, periorbital swelling ENT exam: Present: normal exam, mucous membranes moist Neck exam: Present: normal inspection, full ROM, other (given or bruits). Absent: tenderness, meningismus, lymphadenopathy Respiratory exam: Present: normal lung sounds bilaterally, rales (Basilar rales on the left), decreased breath sounds. Absent: respiratory distress, wheezes, rhonchi, stridor Cardiovascular Exam: Present: tachycardia, irregular rhythm. Absent: systolic murmur, diastolic murmur, rubs, gallop, clicks GI/Abdominal exam: Present: soft, normal bowel sounds. Absent: distended, tenderness, guarding, rebound, rigid Extremities exam: Present: full ROM, normal capillary refill, pedal edema. Absent: tenderness, joint swelling, calf tenderness Back exam: Present: normal inspection Neurological exam: Present: alert, oriented X3, CN II-XII intact Psychiatric exam: Present: normal affect, normal mood Skin exam: Present: warm, dry, intact, normal color. Absent: rash Course Vital Signs 03/17/23 03/17/23 03/17/23 14:20 14:22 14:27 Pulse Rate 104 H Respiratory 18 Rate Blood Pressure 146/72 O2 Sat by Pulse 100 Oximetry Fraction of 80 80 Inspired Oxygen (FIO2) 03/17/23 03/17/23 03/17/23 15:00 15:32 15:56 Pulse Rate 62 106 H Respiratory 20 20 Rate Blood Pressure 105/74 117/46 O2 Sat by Pulse 98 98 Oximetry Fraction of 60 Inspired Oxygen (FIO2) - Reevaluation(s) Reevaluation #1: 03/17/23 16:32 The patient was tried without BiPAP she desaturated to the low 80s. It was reapplied. Medical Decision Making - Medical Decision Making I did discuss findings with the patient also with the [facility] who is agreed to keep the patient in transfer and he had previously discuss the case with Dr. Burns from [facility]. Patient will be admitted with consultation to cardiology. Also pulmonary medicine.Was pt. sent in by a medical professional or institution (, PA, [place], urgent care, hospital, or penitentiary...) When possible be specific @ -No Did you speak to anyone other than the patient for history (EMS, parent, family, police, friend...)? What history was obtained from this source @ -Dr. Burns from [facility] in addition to paramedics upon arrival Did you review nursing and triage notes (agree or disagree)? Why? @ -I reviewed and agree with nursing and triage notes Were old charts reviewed (outside hosp., previous admission, EMS record, old EKG, old radiological studies, urgent care reports/EKG's, penitentiary records)? Report findings @ -[facility] old charts were reviewed Differential Diagnosis (chest pain, altered mental status, abdominal pain women, abdominal pain men, vaginal bleeding, weakness, fever, dyspnea, syncope, headache, dizziness, GI bleed, back pain, seizure, CVA, palpatations, mental health, musculoskeletal)? @ -CHF, COPD exacerbation EKG interpreted by me (3pts min.). @ -As above EKG interpreted by me for for ablation rate 114 QRS 104 QT since QTC 361/428 ventricular hypertrophy pattern as well as anteroseptal MO pattern does appear to be old is consistent with EKG sent from today from [facility] as well as early one from February 26 of this year.] X-rays interpreted by me (1pt min.). @ -Chest x-ray interpreted by me evidence of bilateral pleural effusions and consistent findings with CHF/pulmonary edema CT interpreted by me (1pt min.). @ -None done U/S interpreted by me (1pt. min.). @ -None done What testing was considered but not performed or refused? (CT, X-rays, U/S, labs)? Why? @ -None What meds were considered but not given or refused? Why? @ -None Did you discuss the management of the patient with other professionals (professionals i.e. , PA, [place], lab, RT, psych nurse, child welfare social worker, bead maker, teacher, special officer, case operator)? Give summary @ -Ignacio from the sound group covering for Dr. Hinkle Was smoking cessation discussed for >3mins.? @ -No Was critical care preformed (if so, how long)? @ -31 minutes Were there social determinants of health that impacted care today? How? (Homelessness, low income, unemployed, alcoholism, drug addiction, transportation, low edu. Level, literacy, decrease access to med. care, residential, rehab)? @ -No Was there de-escalation of care discussed even if they declined (Discuss DNR or withdrawal of care, Hospice)? DNR status @ -No What co-morbidities impacted this encounter? (DM, HTN, Smoking, COPD, CAD, Cancer, CVA, ARF, Chemo, Hep., AIDS, mental health diagnosis, sleep apnea, morbid obesity)? @ -CHF, COPD, atrial fibrillation Was patient admitted / discharged? Hospital course, mention meds given and route, prescriptions, significant lab abnormalities, going to OR and other pertinent info. @ -hospital course he was admitted to this facility for inpatient evaluation and treatment she'll be seen by cardiology and pulmonary medicine. Undiagnosed new problem with uncertain prognosis? @ -Acute respiratory failure Drug Therapy requiring intensive monitoring for toxicity (Heparin, Nitro, Insulin, Cardizem)? @ -Initially Cardizem drip was to be started and she demonstrates some rapid ventricular response but his improved and will be held at this time Were any procedures done? @ -No Diagnosis/symptom? @ -Acute respiratory distress, CHF, COPD exacerbation, atrial fibrillation Acute, or Chronic, or Acute on Chronic? @ -Acute on chronic Uncomplicated (without systemic symptoms) or Complicated (systemic symptoms)? @ -Complicated Side effects of treatment? @ -No Exacerbation, Progression, or Severe Exacerbation? @ -Tomasa Mckeonhan Poses a threat to life or bodily function? How? (Chest pain, [place], [place], pneumonia, PE, COPD, DKA, ARF, appy, cholecystitis, CVA, Diverticulitis, Homicidal, Suicidal, threat to staff... and all critical care pts) @ -CHF, COPD, atrial fibrillation - EKG Data -: EKG Interpreted by Me EKG Comments: Atrial fibrillation rate of 114 this is interpreted by me QRS duration 104 QT since QTC 361/428 evidence of RVH and nonspecific anteroseptal changes - Radiology Data Interpreted by me: I did interpret the x-ray of the chest evidence of small pleural effusions bi laterally with evidence of CHF Critical Care Time Critical Care Time: Yes Total Critical Care Time: 31 Disposition Clinical Impression: Systolic congestive heart failure, Acute respiratory distress syndrome in adult, Acute exacerbation of chronic obstructive pulmonary disease, Atrial fibrillation with rapid ventricular response Disposition: ADMITTED IP TO THIS HOSP Condition: Fair Referrals: Abimael Mcgregor MD [Primary Care Provider] - 1-2 days Decision Date: 03/17/23 Decision Time: 16:00
[2023-03-17] MEDS ORDERED: ALPRAZolam 0.25 MG TAB PO STA (15:53)
--- NOTE | 2023-03-17 16:54 | P.HPIM ---
History of Present Illness H&P Date: 03/17/23 History of Presenting Illness: Patient is a very pleasant 57-year-old female with a past medical history of hypertension, hyperlipidemia, COPD with chronic hypoxic respiratory failure home oxygen dependent on 3 L at all times and CPAP nightly. She reports that she received shingles/varicilla vaccination last week and shortly after began feeling fatigued and tired and just under the weather, she reports she then developed some soreness and a mild rash to her right arm where she received the vaccination. Patient reports rash and soreness to right arm dissipated and has fully resolved but reports she then began developing shortness of breath and cough progressively and then rapidly worsening over the past few days. She denies having any known fevers, chills, diaphoresis, chest pain, palpitations, abdominal pain, nausea, vomiting, or experiencing any numbness/tingling/weakness/swelling in her extremities. She reports she felt as though she was going to stop breathing and checked her oxygen levels at home and they were extremely low so she called EMS and was taken to the hospital for evaluation. Patient underwent full evaluation at [facility]. Patient was reportedly found to be in acute hypoxic respiratory failure with pulse ox in low 80s requiring placement on BiPAP. She was also found to be in atrial fibrillation with RVR and started on Cardizem infusion. Labs were completed and reviewed. Lactic acid normal findings is 0.8, bicarbonate elevated at 33, BUN 20, creatinine 1.37, sodium 141, potassium 4.5, chloride 98, anion gap 10, proBNP 3878, troponin less than 0.03, PTT 42.4, INR 1.58, PT 19.2. Hemoglobin stable at 11.8 with platelet count of 160. WBC count normal findings at 7.65. Patient was transferred to our facility as she required a higher level of care, admission under our services with need for evaluation by both the director e learning and interventional pain physician. Upon arrival to our facility repeat EKG completed showing atrial fibrillation with RVR at 114 bpm. Vital signs upon arrival show blood pressure 146/72, heart rate 104, respiratory rate 18, and SpO2 of 100% on BiPAP with FiO2 of 80%. Per ED physician and RN attempts were made at weaning patient off of BiPAP but patient quickly desatur ated down to 82% and BiPAP was placed back on. Chest x-ray was completed consistent with congestive heart failure with bilateral pleural effusions. Discussed in detail with the ED physician, patient being admitted to cardiac stepdown unit under our services with consultation to director e learning and interventional pain physician. Review of systems: Pertinent positives and negatives as discussed in HPI, a complete review of systems was performed and all other systems are negative. Physical exam: Vital signs reviewed and stable. General: Nontoxic, no distress and appears stated age. Derm: Skin warm and dry, normal coloration for ethnicity. Head: Atraumatic, normocephalic and symmetric. Eyes: EOMs intact, no lid lag, and anicteric sclera Mouth: no lip lesions, mucus membranes moist Cardiovascular: Irregularly irregular, systolic murmur, positive posterior tibial pulses bilaterally, and cap refill < 2 seconds. Lungs: Respirations tachypneic with increased respiratory effort, patient requiring BiPAP with FiO2 of 80%. Lungs diminished with bibasilar crackles. Abdominal: soft, nontender to palpation, no guarding, no appreciable organomegaly Ext: ROM intact. No gross muscle atrophy, bilateral lower extremity edema, no contractures Neuro: Speech clear, face symmetrical and CN II-XII grossly intact with no noted focal neuro deficits Psych: Alert and oriented to person, place, time, and situation. Appropriate and pleasant affect. Assessment and Plan of Care: Acute on chronic respiratory failure with hypoxia secondary to CHF exacerbation and COPD exacerbation Acute on chronic diastolic heart failure with previously known EF of 55% Acute COPD exacerbation Atrial fibrillation with RVR Hypertension Hyperlipidemia -Continuation of BiPAP, titrate down FiO2 as patient tolerates. -Pulmonology consulted, called pulmonology to discuss concerns of acute on chronic respiratory failure. Patient baseline home oxygen 3 L at all time and currently requiring continuous BiPAP with FiO2 of 80%. -Rule out varicilla pneumonia -Order placed for Covid PCR, influenza A, influenza B, -Continue Cardizem infusion and titrate for goal ventricular rate 80-100 -Telemetry monitoring -ProBNP was 3878 -Daily weights -Close monitoring of I's and O's -Cardiac diet -Lasix 40 mg IVP every 8 hours -Solu-Medrol 125 mg IVP 1 dose followed by 60 mg IV every 12 hours -Continuation of daily medications including: Eliquis 5 mg twice daily, atorvastatin 40 mg nightly, metoprolol 25 mg twice daily, and Aldactone 25 mg daily. -Patient placed on scheduled nebulizer treatments with duo nebs 4 times daily as well as as needed for wheezing/shortness of breath. -Patient to continue with bronchodilators formoterol 20 g twice daily (Performist) and Singulair 10 mg daily. Data and Imaging reviewed: -Labs were completed and reviewed. Lactic acid normal findings is 0.8, bicarbonate elevated at 33, BUN 20, creatinine 1.37, sodium 141, potassium 4.5, chloride 98, anion gap 10, proBNP 3878, troponin less than 0.03, PTT 42.4, INR 1.58, PT 19.2. Hemoglobin stable at 11.8 with platelet count of 160. WBC count normal findings at 7.65. -EKG completed showing atrial fibrillation with RVR at 114 bpm. -Vital signs upon arrival show blood pressure 146/72, heart rate 104, respiratory rate 18, and SpO2 of 100% on BiPAP with FiO2 of 80%. -Chest x-ray was completed consistent with congestive heart failure with bilateral pleural effusions.. Reviewed echocardiogram completed showing normal EF of 55% with signs of pulmonary hypertension with RVSP estimated at 58 mmHg and severe biatrial dilation. Discussed in detail with the ED physician, patient being admitted to cardiac stepdown unit under our services with consultation to director e learning and interventional pain physician with an anticipated greater than 2 midnight stay for evaluation of acute on chronic respiratory failure CODE STATUS: Full code DVT prophylaxis: Yoselinquis Discussed with: Pt, ED physician, RN, and pulmonary Anticipated discharge date: Clinical course to determine Anticipated discharge place: Home Patient was seen independently by Nurse Practitioner. This document was prepared using [employer] dictation software. Please allow for errors in internet application developer while rare they do occur. Past Medical History Past Medical History: Atrial Fibrillation, Heart Failure, COPD, Hyperlipidemia, Hypertension Additional Past Medical History / Comment(s): pulmonary HTN History of Any Multi-Drug Resistant Organisms: None Reported Past Surgical History: Bariatric Surgery, Bowel Resection, Hysterectomy Additional Past Surgical History / Comment(s): gastric sleeve Past Anesthesia/Blood Transfusion Reactions: No Reported Reaction Past Psychological History: Depression Smoking Status: Former smoker Past Alcohol Use History: None Reported Past Drug Use History: None Reported - Past Family History Mother Family Medical History: COPD, Coronary Artery Disease (CAD), CVA/TIA, Hypertension Father Family Medical History: COPD, CVA/TIA, Hypertension, Prostate Disorder Medications and Allergies Home Medications Medication Instructions Recorded Confirmed Type Ascorbic Acid [Vitamin C] 500 mg PO DAILY@0800 08/14/22 03/17/23 History Cholecalciferol (Vitamin D3) 125 mcg PO DAILY@0800 08/14/22 03/17/23 History [Vitamin D3 (125 MCG = 5,000 IU)] Citalopram Hydrobromide [CeleXA] 40 mg PO DAILY@0800 08/14/22 03/17/23 History Ferrous Sulfate [Iron (65 MG 325 mg PO DAILY@0808/14/22 03/17/23 History Elemental)] Montelukast [Singulair] 10 mg PO DAILY@0800 08/14/22 03/17/23 History [place]-3/Dha/Epa/Fish Oil [Fish Oil 1 cap PO DAILY@0808/14/22 03/17/23 History 1,000 mg Softgel] Pantoprazole [Protonix] 40 mg PO DAILY@0800 08/14/22 03/17/23 History Spironolactone [Aldactone] 25 mg PO DAILY@0808/14/22 03/17/23 History Tiotropium Br/Olodaterol HCl 2 puff INHALATION RT-DAILY@79908/14/22 03/17/23 History [Stiolto Respimat Inhal [place]] Atorvastatin [Lipitor] 40 mg PO HS@199910/20/22 03/17/23 History Calcium Carbonate [Calcium] 1,200 mg PO DAILY@0810/20/22 03/17/23 History Famotidine [Pepcid] 40 mg PO DAILY@0810/20/22 03/17/23 History Super B-Complex 1 tab PO DAILY@0800 10/20/22 03/17/23 History Apixaban [Eliquis] 5 mg PO BID@0800,199912/21/22 03/17/23 History Furosemide [Lasix] 40 mg PO BID@0800,1700 12/21/22 03/17/23 History Ipratropium-Albuterol Nebulize 3 ml INHALATION RT-QID 12/21/22 03/17/23 History [Duoneb 0.5 mg-3 mg/3 ml Soln] Multivitamins, Thera [Multivitamin 1 tab PO DAILY@0800 12/21/22 03/17/23 History (formulary)] Semaglutide [Wegovy] 1 mg SQ FR 12/21/22 03/17/23 History Metoprolol Tartrate [Lopressor] 25 mg PO BID #60 tab 12/24/22 03/17/23 Rx Dapagliflozin Propanediol [Farxiga] 10 mg PO DAILY tab 12/29/22 03/17/23 Rx Albuterol Sulfate [Albuterol 2 puff PO RT-BID PRN 02/12/23 03/17/23 History Sulfate Hfa] Potassium Chloride 20 meq PO DAILY@0800 02/12/23 03/17/23 History allopurinoL [Zyloprim] 100 mg PO DAILY 02/12/23 03/17/23 History dilTIAZem HCL [Cardizem CD] 120 mg PO DAILY 02/12/23 03/17/23 History Allergies Allergy/AdvReac Type Severity Reaction Status Date / Time doxycycline Allergy Unknown Verified 03/17/23 16:35 lorazepam [From Ativan] AdvReac Hallucinati Verified 03/17/23 16:35 ons venlafaxine [From Effexor] AdvReac Hallucinati Verified 03/17/23 16:35 ons Physical Exam Vitals: Vital Signs Pulse Resp BP Pulse Ox FiO2 03/17/23 15:56 60 03/17/23 15:32 106 H 20 117/46 98 03/17/23 15:00 62 20 105/74 98 03/17/23 14:27 80 03/17/23 14:22 104 H 18 146/72 100 03/17/23 14:20 80 Intake and Output 03/17/23 03/17/23 03/17/23 06:59 14:59 22:59 Intake Total 1.25 Balance 1.25 Intake: Intake, IV Titration 1.25 Amount Diltiazem 125 mg In 1.25 Sodium Chloride 0.9% 100 ml @ 5 MG/HR 5 mls/hr IV .Q24H E[facility]AN Rx#:[id number] Other: Weight 104.326 kg
[2023-03-17] MEDS ORDERED: methylPREDNISolone SOD SUCCI 125 MG/2 ML VIAL IV STA (18:33)
[2023-03-17] MEDS: IPRATROPIUM-ALBUTEROL 3 ML NEB INHALATION SCH (19:21)
[2023-03-17] MEDS: ATORVASTATIN 40 MG TAB PO SCH (21:57)
[2023-03-17] MEDS: METOPROLOL TARTRATE 25 MG TAB PO SCH (21:57)
[2023-03-17] MEDS: APIXABAN 5 MG TAB PO SCH (21:57)
[2023-03-17] MEDS: FUROSEMIDE 40 MG TAB PO SCH (23:55)
[2023-03-18] MEDS: IPRATROPIUM-ALBUTEROL 3 ML NEB INHALATION PRN ×2 (00:55→04:42)
[2023-03-18 06:20] LABS: Glucose,Whole Blood 151 mg/dL (70-110)
[2023-03-18] MEDS ORDERED: DILTIAZEM CD 120 MG CAP.ER.24H PO SCH (09:00)
--- NOTE | 2023-03-18 09:07 | XR ---
EXAMINATION TYPE: XR chest 1V portable DATE OF EXAM: 03/18/2023 CLINICAL HISTORY: Difficulty breathing and CHF progress study. TECHNIQUE: Single AP portable upright view of the chest is obtained. COMPARISON: Chest x-ray from one day earlier FINDINGS: Persistent cardiomegaly. Reticular increased markings bilaterally with mild to moderate ri ght mid lung linear scarring and/or atelectasis is seen. No large pleural effusion or pneumothorax is noted. Osseous structures are intact. IMPRESSION: Cardiomegaly and trace bilateral pleural effusions redemonstrated. Chronic changes are fe lt present. No significant change from one day earlier.
[2023-03-18] MEDS: IPRATROPIUM-ALBUTEROL 3 ML NEB INHALATION SCH ×4 (09:26→22:14)
[2023-03-18] MEDS: FORMOTEROL FUMARATE 20 MCG/2 ML NEBU INHALATION SCH ×2 (09:26→22:14)
[2023-03-18 09:28] LABS: HCT 38.5 % (34.0-46.0); HGB 11.7 gm/dL (11.4-16.0); Hypochromasia Marked; MCH 28.5 pg (25.0-35.0); MCHC 30.4 g/dL (31.0-37.0); MCV 93.6 fL (80.0-100.0); Mean Platelet Volume 9.9; Platelet Count 152 k/uL (150-450); RBC 4.11 m/uL (3.80-5.40); RDW 15.6 % (11.5-15.5); WBC 6.3 k/uL (3.8-10.6)
[2023-03-18 09:31] LABS: VBG PH 7.34 (7.31-7.41)
[2023-03-18] MEDS: methylPREDNISolone SOD SUCCI 125 MG/2 ML VIAL IV SCH ×2 (09:41→20:38)
[2023-03-18] MEDS: FERROUS SULFATE 325 MG TAB PO SCH (09:41)
[2023-03-18] MEDS: allopurinoL 100 MG TAB PO SCH (09:41)
[2023-03-18] MEDS: CITALOPRAM HYDROBROMIDE 20 MG TAB PO SCH (09:41)
[2023-03-18] MEDS: APIXABAN 5 MG TAB PO SCH ×2 (09:41→20:38)
[2023-03-18] MEDS: FUROSEMIDE 40 MG TAB PO SCH ×3 (09:41→23:46)
[2023-03-18] MEDS: METOPROLOL TARTRATE 25 MG TAB PO SCH ×2 (09:41→20:39)
[2023-03-18] MEDS: MONTELUKAST 10 MG TAB PO SCH (09:41)
[2023-03-18] MEDS: SPIRONOLACTONE 25 MG TAB PO SCH (09:41)
[2023-03-18 09:53] LABS: ALT 17 U/L (4-34); AST 20 U/L (14-36); African American GFR (CKD) 54 (>60 ml/min/1.73 sqM); Alkaline Phosphatase 94 U/L (38-126); Anion Gap 8 mmol/L; Blood Urea Nitrogen 37 mg/dL (7-17); Calcium 9.5 mg/dL (8.4-10.2); Carbon Dioxide 34 mmol/L (22-30); Chloride 97 mmol/L (98-107); Glucose 155 mg/dL (74-99); Magnesium 2.1 mg/dL (1.6-2.3); Non-African American GFR(CKD) 47 (>60 ml/min/1.73 sqM); Potassium 4.4 mmol/L (3.5-5.1); Sodium 139 mmol/L (137-145); Total Bilirubin 0.7 mg/dL (0.2-1.3); Total Protein 6.9 g/dL (6.3-8.2)
[2023-03-18 11:45] LABS: Glucose,Whole Blood 135 mg/dL (70-110)
--- NOTE | 2023-03-18 12:20 | P.CRDCN ---
History of Present Illness Consult date: 03/18/23 History of present illness: HISTORY OF PRESENTING ILLNESS 57-year-old with PMH of asked him, dyslipidemia, COPD, chronic hypoxia on home oxygen, AMADEO with sleep apnea, COPD, HFpEF. She received shingles vaccine and since then she's been feeling fatigued and tired. She denies any chest pain chest pressure palpitations. Due to significant fat igue she was taken to [facility] where she was found to have acute hypoxic respiratory failure and was requiring BiPAP. She was also found to be in A. fib RVR and was started on Cardizem drip. Lab showed BUN 20, creatinine of 1.3, BNP 3800, troponin was not elevated hemoglobin 11, This morning her ECG shows atrial fibrillation which is rate controlled with incomplete right bundle branch block and Q waves in anteroseptal leads suggestive of old [place] Chest x-ray showed poor inspiratory effort with mild increased interstitial marking REVIEW OF SYSTEMS 14 point review of system is negative except what is mentioned above in HPI. PHYSICAL EXAMINATION Vital signs reviewed. Head: Normocephalic. Eyes: Sclerae nonicteric. Neck: Brisk carotid upstroke, no jugular venous distention. Lungs: Crackles audible in bilateral lung wren, reduced air entry bilateral lower lungs. Heart: Irregularly irregular pulse with no murmurs. Abdomen: Soft nontender, positive bowel sounds no organomegaly. Extremities: 1-2+ pitting edema in bilateral lower extremity. Neuro: Alert, oritented, no focal deficits ASSESSMENT Acute on chronic hypoxic and hypercapnic respiratory failure Acute on chronic HFpEF exacerbation Acute COPD exacerbation Chronic persistent atrial fibrillation, A. fib with RVR on admission. Currently rate controlled Pulmonary hypertension Hypertension Hyperlipidemia PLAN Continue atorvastatin, Cardizem 120, Eliquis 5 mg, Farxiga 10 mg, metoprolol 25 mg twice a day, Aldactone 25 mg daily Continue Lasix 40 mg IV 3 times a day. At the time of transitioning instead of discharging him on Lasix she should be discharged on Bumex 1 mg twice a day Recent echo from December 2022 shows EF of 55%, biatrial dilatation, moderate MR, calcific mitral valve. No need to repeat an echocardiogram Past Medical History Past Medical History: Atrial Fibrillation, Heart Failure, COPD, Hyperlipidemia, Hypertension Additional Past Medical History / Comment(s): pulmonary HTN History of Any Multi-Drug Resistant Organisms: None Reported Past Surgical History: Bariatric Surgery, Bowel Resection, Hysterectomy Additional Past Surgical History / Comment(s): gastric sleeve Past Anesthesia/Blood Transfusion Reactions: No Reported Reaction Past Psychological History: Depression Smoking Status: Former smoker Past Alcohol Use History: None Reported Past Drug Use History: None Reported - Past Family History Mother Family Medical History: COPD, Coronary Artery Disease (CAD), CVA/TIA, Hypertension Father Family Medical History: COPD, CVA/TIA, Hypertension, Prostate Disorder Medications and Allergies Home Medications Medication Instructions Recorded Confirmed Type Ascorbic Acid [Vitamin C] 500 mg PO DAILY@0800 08/14/22 03/17/23 History Cholecalciferol (Vitamin D3) 125 mcg PO DAILY@79908/14/22 03/17/23 History [Vitamin D3 (125 MCG = 5,000 IU)] Citalopram Hydrobromide [CeleXA] 40 mg PO DAILY@0808/14/22 03/17/23 History Ferrous Sulfate [Iron (65 MG 325 mg PO DAILY@79908/14/22 03/17/23 History Elemental)] Montelukast [Singulair] 10 mg PO DAILY@0808/14/22 03/17/23 History [place]-3/Dha/Epa/Fish Oil [Fish Oil 1 cap PO DAILY@79908/14/22 03/17/23 History 1,000 mg Softgel] Pantoprazole [Protonix] 40 mg PO DAILY@0808/14/22 03/17/23 History Spironolactone [Aldactone] 25 mg PO DAILY@0808/14/22 03/17/23 History Tiotropium Br/Olodaterol HCl 2 puff INHALATION RT-DAILY@79908/14/22 03/17/23 History [Stiolto Respimat Inhal [place]] Atorvastatin [Lipitor] 40 mg PO HS@199910/20/22 03/17/23 History Calcium Carbonate [Calcium] 1,200 mg PO DAILY@79910/20/22 03/17/23 History Famotidine [Pepcid] 40 mg PO DAILY@0810/20/22 03/17/23 History Super B-Complex 1 tab PO DAILY@0810/20/22 03/17/23 History Apixaban [Eliquis] 5 mg PO BID@08,2000 12/21/22 03/17/23 History Furosemide [Lasix] 40 mg PO BID@0800,1700 12/21/22 03/17/23 History Ipratropium-Albuterol Nebulize 3 ml INHALATION RT-QID 12/21/22 03/17/23 History [Duoneb 0.5 mg-3 mg/3 ml Soln] Multivitamins, Thera [Multivitamin 1 tab PO DAILY@0800 12/21/22 03/17/23 History (formulary)] Semaglutide [Wegovy] 1 mg SQ FR 12/21/22 03/17/23 History Metoprolol Tartrate [Lopressor] 25 mg PO BID #60 tab 12/24/22 03/17/23 Rx Dapagliflozin Propanediol [Farxiga] 10 mg PO DAILY tab 12/29/22 03/17/23 Rx Albuterol Sulfate [Albuterol 2 puff PO RT-BID PRN 02/12/23 03/17/23 History Sulfate Hfa] Potassium Chloride 20 meq PO DAILY@0800 02/12/23 03/17/23 History allopurinoL [Zyloprim] 100 mg PO DAILY 02/12/23 03/17/23 History dilTIAZem HCL [Cardizem CD] 120 mg PO DAILY 02/12/23 03/17/23 History Allergies Allergy/AdvReac Type Severity Reaction Status Date / Time doxycycline Allergy Unknown Verified 03/17/23 16:35 lorazepam [From Ativan] AdvReac Hallucinati Verified 03/17/23 16:35 ons venlafaxine [From Effexor] AdvReac Hallucinati Verified 03/17/23 16:35 ons Physical Exam Vitals: Vital Signs Temp Pulse Pulse Resp BP BP Pulse Ox 03/18/23 09:46 94 L 03/18/23 09:45 90 03/18/23 09:27 90 95 18 112/64 98 03/18/23 04:53 85 03/18/23 04:43 88 03/18/23 04:00 97.8 F 85 17 95/61 99 03/18/23 01:07 74 03/18/23 00:56 88 03/17/23 23:51 96.6 F L 98 17 98/63 98 03/17/23 20:35 18 88 L 10/14/23 20:30 97.8 F 95 18 124/72 96 03/17/23 19:32 91 03/17/23 19:21 90 03/17/23 19:00 94 20 100/63 97 03/17/23 18:00 88 20 102/63 95 03/17/23 17:00 92 20 102/75 95 03/17/23 16:00 92 20 117/50 95 03/17/23 15:56 03/17/23 15:32 106 H 20 117/46 98 03/17/23 15:00 62 20 105/74 98 03/17/23 14:27 03/17/23 14:22 104 H 18 146/72 100 03/17/23 14:20 FiO2 03/18/23 09:46 03/18/23 09:45 03/18/23 09:27 40 03/18/23 04:53 03/18/23 04:43 60 03/18/23 04:00 60 03/18/23 01:07 03/18/23 00:56 60 03/17/23 23:51 60 03/17/23 20:35 03/17/23 20:30 60 03/17/23 19:32 03/17/23 19:21 60 03/17/23 19:00 03/17/23 18:00 03/17/23 17:00 03/17/23 16:00 03/17/23 15:56 60 03/17/23 15:32 03/17/23 15:00 03/17/23 14:27 80 03/17/23 14:22 03/17/23 14:20 80 Intake and Output 03/17/23 03/18/23 03/18/23 22:59 06:59 14:59 Intake Total 1.25 118 Output Total 800 Balance -798.75 118 Intake: Intake, IV Titration 1.25 Amount Diltiazem 125 mg In 1.25 Sodium Chloride 0.9% 100 ml @ 5 MG/HR 5 mls/hr IV .Q24H [facility] Rx#:[id number] Oral 118 Output: Urine 800 Other: Voiding Method Toilet Toilet Weight 104.326 kg 116.7 kg Results 03/18/23 09:12 03/18/23 09:12 Cardiac Enzymes 03/18/23 Range/Units 09:12 AST 20 (14-36) U/L CBC 03/18/23 Range/Units 09:12 WBC 6.3 (3.8-10.6) k/uL RBC 4.11 (3.80-5.40) m/uL Hgb 11.7 (11.4-16.0) gm/dL Hct 38.5 (34.0-46.0) % Plt Count 152 (150-450) k/uL Comprehensive Metabolic Panel 03/18/23 Range/Units 09:12 Sodium 139 (137-145) mmol/L Potassium 4.4 (3.5-5.1) mmol/L Chloride 97 L (98-107) mmol/L Carbon Dioxide 34 H (22-30) mmol/L BUN 37 H (7-17) mg/dL Creatinine 1.27 H (0.52-1.04) mg/dL Glucose 155 H (74-99) mg/dL Calcium 9.5 (8.4-10.2) mg/dL AST 20 (14-36) U/L ALT 17 (4-34) U/L Alkaline Phosphatase 94 (38-126) U/L Total Protein 6.9 (6.3-8.2) g/dL Albumin 4.0 (3.5-5.0) g/dL Current Medications Generic Name Dose Route Start Last Admin Trade Name Freq PRN Reason Stop Dose Admin Albuterol/Ipratropium 3 ml 03/17/23 16:56 03/18/23 04:42 Ipratropium-Albuterol 3 Ml Neb INHALATION 3 ml RT-Q2H PRN Administration Shortness Of Breath Or Wheezing Albuterol/Ipratropium 3 ml 03/17/23 20:00 03/18/23 09:26 Ipratropium-Albuterol 3 Ml Neb INHALATION 3 ml RT-QID EHSAN Administration Allopurinol 100 mg 03/18/23 09:00 03/18/23 09:41 Allopurinol 100 Mg Tab PO 100 mg DAILY EHSAN Administration Apixaban 5 mg 03/17/23 20:00 03/18/23 09:41 Apixaban 5 Mg Tab PO 5 mg BID@0800,2000 EHSAN Administration Protocol Atorvastatin Calcium 40 mg 03/17/23 20:00 03/17/23 21:57 Atorvastatin 40 Mg Tab PO 40 mg HS@2000 [facility] Administration Citalopram Hydrobromide 40 mg 03/18/23 08:00 03/18/23 09:41 Citalopram Hydrobromide 20 Mg Tab PO 40 mg DAILY@0800 [facility] Administration Dapagliflozin 10 mg 03/18/23 12:30 Dapagliflozin Propanediol 10 Mg Tablet PO DAILY [facility] Diltiazem HCl 120 mg 03/18/23 12:30 Diltiazem Cd 120 Mg Cap.Er.24h PO DAILY [facility] Ferrous Sulfate 325 mg 03/18/23 08:00 03/18/23 09:41 Ferrous Sulfate 325 Mg Tab PO 325 mg DAILY@0800 [facility] Administration Formoterol Fumarate 20 mcg 03/18/23 08:00 03/18/23 09:26 Formoterol Fumarate 20 Mcg/2 Ml Nebu INHALATION 20 mcg RT-BID [facility] Administration Furosemide 40 mg 03/18/23 00:00 03/18/23 09:41 Furosemide 40 Mg Tab PO 40 mg Q8HR [facility] Administration Methylprednisolone Sodium Succinate 60 mg 03/18/23 09:00 03/18/23 09:41 Methylprednisolone Sod Succi 125 Mg/2 Ml Vial IV 60 mg Q12HR [facility] Administration Metoprolol Tartrate 25 mg 03/17/23 21:00 03/18/23 09:41 Metoprolol Tartrate 25 Mg Tab PO 25 mg BID [facility] Administration Montelukast Sodium 10 mg 03/18/23 08:00 03/18/23 09:41 Montelukast 10 Mg Tab PO 10 mg DAILY@0800 [facility] Administration Spironolactone 25 mg 03/18/23 08:00 03/18/23 09:41 Spironolactone 25 Mg Tab PO 25 mg DAILY@0800 [facility] Administration Intake and Output 03/17/23 03/18/23 03/18/23 22:59 06:59 14:59 Intake Total 1.25 118 Output Total 800 Balance -798.75 118 Intake: Intake, IV Titration 1.25 Amount Diltiazem 125 mg In 1.25 Sodium Chloride 0.9% 100 ml @ 5 MG/HR 5 mls/hr IV .Q24H [facility] Rx#:[id number] Oral 118 Output: Urine 800 Other: Voiding Method Toilet Toilet Weight 104.326 kg 116.7 kg 03/18/23 09:12 03/18/23 09:12
[2023-03-18] MEDS: DILTIAZEM CD 120 MG CAP.ER.24H PO SCH (13:08)
[2023-03-18] MEDS: DAPAGLIFLOZIN PROPANEDIOL 10 MG TABLET PO SCH (13:14)
--- NOTE | 2023-03-18 14:19 | P.PN ---
Subjective Progress Note Date: 03/18/23 Hospital course: Patient is a very pleasant 57-year-old female with a past medical history of hypertension, hyperlipidemia, COPD with chronic hypoxic respiratory failure home oxygen dependent on 3 L at all times and CPAP nightly. She reports that she received shingles/varicella vaccination last week and shortly after began feeling fatigued and tired and just under the weather, she reports she then developed some soreness and a mild rash to her right arm where she received the vaccination. Patient reports rash and soreness to right arm dissipated and has fully resolved but reports she then began developing shortness of breath and cough progressively and then rapidly worsening over the past few days. She denies having any known fevers, chills, diaphoresis, chest pain, palpitations, abdominal pain, nausea, vomiting, or experiencing any numbness/tingli ng/weakness/swelling in her extremities. She reports she felt as though she was going to stop breathing and checked her oxygen levels at home and they were extremely low so she called EMS and was taken to the hospital for evaluation. Patient underwent full evaluation at [facility]. Patient was reportedly found to be in acute hypoxic respiratory failure with pulse ox in low 80s requiring placement on BiPAP. She was also found to be in atrial fibrillation with RVR and started on Cardizem infusion. Labs were completed and reviewed. Lactic acid normal findings is 0.8, bicarbonate elevated at 33, BUN 20, creatinine 1.37, sodium 141, potassium 4.5, chloride 98, anion gap 10, proBNP 3878, troponin less than 0.03, PTT 42.4, INR 1.58, PT 19.2. Hemoglobin stable at 11.8 with platelet count of 160. WBC count normal findings at 7.65. Patient was transferred to our facility as she required a higher level of care, admission under our services with need for evaluation by both the insulation sprayer and revenue coordinator. Upon arrival to our facility repeat EKG completed showing atrial fibrillation with RVR at 114 bpm. Vital signs upon arrival show blood pressure 146/72, heart rate 104, respiratory rate 18, and SpO2 of 100% on BiPAP with FiO2 of 80%. Per ED physician and RN attempts were made at weaning patient off of BiPAP but patient quickly desaturated down to 82% and BiPAP was placed back on. Chest x-ray was completed consistent with congestive heart failure with bilateral pleural effusions. Discussed in detail with the ED physician, patient being admitted to cardiac stepdown unit under our services with consultation to insulation sprayer and revenue coordinator. Physical exam: Patient seen and fully evaluated at bedside this morning. She was sitting up in chair she is currently weaned off of BiPAP and on 10 L high flow nasal cannula with SpO2 of 94%. Patient's work of breathing has improved and overall she reports feeling much better than she did upon presentation yesterday. Vital signs reviewed and stable. General: Nontoxic, no distress and appears stated age. Derm: Skin warm and dry, normal coloration for ethnicity. Head: Atraumatic, normocephalic and symmetric. Eyes: EOMs intact, no lid lag, and anicteric sclera Mouth: no lip lesions, mucus membranes moist Cardiovascular: Irregularly irregular, systolic murmur, positive posterior tibial pulses bilaterally, and cap refill < 2 seconds. Lungs: Respirations currently even, regular, and unlabored on 10 L high flow nasal cannula. Lungs diminished with bibasilar crackles. Abdominal: soft, nontender to palpation, no guarding, no appreciable organomegaly Ext: ROM intact. No gross muscle atrophy, 1-2+ pitting bilateral lower extremity edema, no contractures Neuro: Speech clear, face symmetrical and CN II-XII grossly intact with no noted focal neuro deficits Psych: Alert and oriented to person, place, time, and situation. Appropriate and pleasant affect. Assessment and Plan of Care: Acute on chronic respiratory failure with hypoxia secondary to CHF exacerbation and COPD exacerbation Acute on chronic diastolic heart failure with previously known EF of 55% Acute COPD exacerbation Atrial fibrillation with RVR Pulmonary hypertension Hypertension Hyperlipidemia -Patient was weaned off of BiPAP this morning and currently on 10 L high flow nasal cannula maintaining SpO2 of 94%. -Pulmonology following, appreciate recommendations. -Rule out varicella pneumonia as patient reports symptoms began shortly after receiving varicella vaccination -RSV, Covid PCR, influenza A, and influenza B were negative. -Patient placed on scheduled nebulizer treatments with duo nebs 4 times daily as well as as needed for wheezing/shortness of breath. -Patient to continue with bronchodilators formoterol 20 g twice daily (Performist) and Singulair 10 mg daily. -Continue Solu-Medrol 60 mg IVP every 12 hours -Cardiology following and recommending continuation of IV diuresis with Lasix, however reports planning to transition to Bumex once patient able to tolerate oral diuretics. -Patient remains in atrial fibrillation however she is currently with a controlled ventricular rate fluctuating between 70s and 90s, Cardizem infusion was discontinued. -Continue with continuous telemetry monitoring, Daily weights, and Close monitoring of I's and O's. Patient's documented urinary output over the past 24 hours was 800 mL's. -Continue Lasix 40 mg IVP every 8 hours -Patient to continue daily medications including: Eliquis 5 mg twice daily, diltiazem 120 mg daily, atorvastatin 40 mg nightly, metoprolol 25 mg twice daily, and Aldactone 25 mg daily. Data and Imaging reviewed: -Labs were completed and reviewed. Influenza A, influenza B, RSV, and Covid PCR were all negative. -Repeat chest x-ray completed this morning reviewed and upon personal review, it appears to be unchanged from previous x-ray completed yesterday. Radiology report also reviewed stating showing cardiomegaly with trace bilateral pleural effusions CODE STATUS: Full code DVT prophylaxis: Eliquis Discussed with: Pt, RN, and pulmonary EMPLOYMENT SERVICE SPECIALIST Anticipated discharge date: Clinical course to determine Anticipated discharge place: Home Patient was seen independently by Nurse Practitioner. This document was prepared using [employer] dictation software. Please allow for errors in pharmacy consultant while rare they do occur. Objective - Vital Signs Vital signs: Vital Signs Temp 97.8 F 03/18/23 04:00 Pulse 85 03/18/23 04:53 Resp 17 03/18/23 04:00 BP 95/61 03/18/23 04:00 Pulse Ox 99 03/18/23 04:00 FiO2 60 03/18/23 04:43 Intake & Output 03/17/23 03/18/23 03/18/23 18:59 06:59 18:59 Intake Total 1.25 Output Total 700 100 Balance -698.75 -100 Weight 104.326 kg 116.7 kg Intake: Intake, IV Titration 1.25 Amount Diltiazem 125 mg In 1.25 Sodium Chloride 0.9% 100 ml @ 5 MG/HR 5 mls/hr IV .Q24H [facility] Rx#:[id number] Output: Urine 700 100 Other: Voiding Method Toilet - Labs CBC & Chem 7: 03/18/23 09:12 03/18/23 09:12 Labs: Abnormal Lab Results - Last 24 Hours (Table) 03/18/23 Range/Units 06:18 POC Glucose (mg/dL) 151 H (70-110) mg/dL
--- NOTE | 2023-03-18 14:51 | P.CNPUL ---
History of Present Illness Consult date: 03/18/23 Requesting physician: Angie Hinkle Reason for consult: dyspnea, cough, abnormal CXR/CT Chief complaint: Shortness of breath, hypoxemia History of present illness: This is a very pleasant 57-year-old female patient with a known history of chronic atrial fibrillation anticoagulated with Eliquis, congestive heart failure, hyperlipidemia, hypertension, severe pulmonary hypertension following at the [facility], previous bariatric surgery as gastric sleeve, former smoker, and dependent chronic obstructive pulmonary disease normally on 3 L, obstructive sleep apnea noncompliant with CPAP. She was transferred to here from [facility] yesterday after having a 4 to five-day history of increasing shortness of breath, cough congestion low O2 saturations in the 60s and 70s. Chest x-ray reveals cardiomegaly and trace bilateral pleural effusions. White count 6.3. Hemoglobin 11.7. Platelets 152. Sodium 139. Potassium 4.4. Bicarb 34. BUN 37. Creatinine 1.27. Glucose 155. She is seen today in consultation on the selective care unit. She is currently laying prone in bed. Awake and alert in no acute distress. Breathing a bit easier today compared to yesterday. He is requiring 10 L high flow nasal cannula to maintain O2 saturation in the low 90s. She's afebrile. Hemodynamically stable. Review of Systems REVIEW OF SYSTEMS: CONSTITUTIONAL: Denies any recent significant weight loss or weight gain. EYES: Denies change in vision. EARS, NOSE, MOUTH, THROAT: Denies headaches, denies sore throat. CARDIOVASCULAR: Denies chest pain, palpitations or syncopal episodes. RESPIRATORY: Positive for shortness of breath, cough, congestion no hemoptysis. GASTROINTESTINAL: Denies change in appetite, denies abdominal pain GENITOURINARY: Denies hematuria, denies infections. MUSKULOSKELETAL: Denies pain, denies swelling. INTEGUMENTARY: Denies rash, denies eczema. NEUROLOGICAL: Denies recent memory loss, no recent seizure activity. PSYCHIATRIC: Denies anxiety, denies depression. HEMATOLOGIC/LYMPHATIC: Denies anemia, denies enlarged lymph nodes. Past Medical History Past Medical History: Atrial Fibrillation, Heart Failure, COPD, Hyperlipidemia, Hypertension Additional Past Medical History / Comment(s): pulmonary HTN History of Any Multi-Drug Resistant Organisms: None Reported Past Surgical History: Bariatric Surgery, Bowel Resection, Hysterectomy Additional Past Surgical History / Comment(s): gastric sleeve Past Anesthesia/Blood Transfusion Reactions: No Reported Reaction Past Psychological History: Depression Smoking Status: Former smoker Past Alcohol Use History: None Reported Past Drug Use History: None Reported - Past Family History Mother Family Medical History: COPD, Coronary Artery Disease (CAD), CVA/TIA, Hypertension Father Family Medical History: COPD, CVA/TIA, Hypertension, Prostate Disorder Medications and Allergies Home Medications Medication Instructions Recorded Confirmed Type Ascorbic Acid [Vitamin C] 500 mg PO DAILY@0808/14/22 03/17/23 History Cholecalciferol (Vitamin D3) 125 mcg PO DAILY@79908/14/22 03/17/23 History [Vitamin D3 (125 MCG = 5,000 IU)] Citalopram Hydrobromide [CeleXA] 40 mg PO DAILY@0808/14/22 03/17/23 History Ferrous Sulfate [Iron (65 MG 325 mg PO DAILY@79908/14/22 03/17/23 History Elemental)] Montelukast [Singulair] 10 mg PO DAILY@0808/14/22 03/17/23 History [place]-3/Dha/Epa/Fish Oil [Fish Oil 1 cap PO DAILY@79908/14/22 03/17/23 History 1,000 mg Softgel] Pantoprazole [Protonix] 40 mg PO DAILY@79908/14/22 03/17/23 History Spironolactone [Aldactone] 25 mg PO DAILY@0808/14/22 03/17/23 History Tiotropium Br/Olodaterol HCl 2 puff INHALATION RT-DAILY@79908/14/22 03/17/23 History [Stiolto Respimat Inhal [place]] Atorvastatin [Lipitor] 40 mg PO HS@199910/20/22 03/17/23 History Calcium Carbonate [Calcium] 1,200 mg PO DAILY@79910/20/22 03/17/23 History Famotidine [Pepcid] 40 mg PO DAILY@0800 10/20/22 03/17/23 History Super B-Complex 1 tab PO DAILY@0810/20/22 03/17/23 History Apixaban [Eliquis] 5 mg PO BID@0812/21/22 03/17/23 History Furosemide [Lasix] 40 mg PO BID@0800,1700 12/21/22 03/17/23 History Ipratropium-Albuterol Nebulize 3 ml INHALATION RT-QID 12/21/22 03/17/23 History [Duoneb 0.5 mg-3 mg/3 ml Soln] Multivitamins, Thera [Multivitamin 1 tab PO DAILY@0800 12/21/22 03/17/23 History (formulary)] Semaglutide [Wegovy] 1 mg SQ FR 12/21/22 03/17/23 History Metoprolol Tartrate [Lopressor] 25 mg PO BID #60 tab 12/24/22 03/17/23 Rx Dapagliflozin Propanediol [Farxiga] 10 mg PO DAILY tab 12/29/22 03/17/23 Rx Albuterol Sulfate [Albuterol 2 puff PO RT-BID PRN 02/12/23 03/17/23 History Sulfate Hfa] Potassium Chloride 20 meq PO DAILY@0800 02/12/23 03/17/23 History allopurinoL [Zyloprim] 100 mg PO DAILY 02/12/23 03/17/23 History dilTIAZem HCL [Cardizem CD] 120 mg PO DAILY 02/12/23 03/17/23 History Allergies Allergy/AdvReac Type Severity Reaction Status Date / Time doxycycline Allergy Unknown Verified 03/17/23 16:35 lorazepam [From Ativan] AdvReac Hallucinati Verified 03/17/23 16:35 ons venlafaxine [From Effexor] AdvReac Hallucinati Verified 03/17/23 16:35 ons Physical Exam Vitals: Vital Signs Temp Pulse Pulse Resp BP BP Pulse Ox 03/18/23 12:54 88 18 03/18/23 12:52 88 18 101/60 94 L 03/18/23 09:46 94 L 03/18/23 09:45 90 03/18/23 09:27 90 95 18 112/64 98 03/18/23 04:53 85 03/18/23 04:43 88 03/18/23 04:00 97.8 F 85 17 95/61 99 03/18/23 01:07 74 03/18/23 00:56 88 03/17/23 23:51 96.6 F L 98 17 98/63 98 03/17/23 20:35 18 88 L 03/17/23 20:30 97.8 F 95 18 124/72 96 03/17/23 19:32 91 03/17/23 19:21 90 03/17/23 19:00 94 20 100/63 97 03/17/23 18:00 88 20 102/63 95 03/17/23 17:00 92 20 102/75 95 03/17/23 16:00 92 20 117/50 95 03/17/23 15:56 03/17/23 15:32 106 H 20 117/46 98 03/17/23 15:00 62 20 105/74 98 FiO2 03/18/23 12:54 03/18/23 12:52 03/18/23 09:46 03/18/23 09:45 03/18/23 09:27 40 03/18/23 04:53 03/18/23 04:43 60 03/18/23 04:00 60 03/18/23 01:07 03/18/23 00:56 60 03/17/23 23:51 60 03/17/23 20:35 03/17/23 20:30 60 03/17/23 19:32 03/17/23 19:21 60 03/17/23 19:00 03/17/23 18:00 03/17/23 17:00 03/17/23 16:00 03/17/23 15:56 60 03/17/23 15:32 03/17/23 15:00 Intake and Output 03/17/23 03/18/23 03/18/23 22:59 06:59 14:59 Intake Total 1.25 118 Output Total 800 Balance -798.75 118 Intake: Intake, IV Titration 1.25 Amount Diltiazem 125 mg In 1.25 Sodium Chloride 0.9% 100 ml @ 5 MG/HR 5 mls/hr IV .Q24H [facility] Rx#:[id number] Oral 118 Output: Urine 800 Other: Voiding Method Toilet Toilet Toilet # Voids 3 Weight 104.326 kg 116.7 kg GENERAL EXAM: Alert, very pleasant 57-year-old female, on 10 L high flow nasal cannula, fairly comfortable in no apparent distress. HEAD: Normocephalic. EYES: Normal reaction of pupils, equal size. NOSE: Clear with pink turbinates. THROAT: No erythema or exudates. NECK: No masses, no JVD. CHEST: No chest wall deformity. LUNGS: Equal air entry with crackles in the bilateral bases. CVS: S1 and S2 normal with an audible murmur, regular rhythm. ABDOMEN: No hepatosplenomegaly, normal bowel sounds, no guarding or rigidity. SPINE: No scoliosis or deformity SKIN: No rashes CENTRAL NERVOUS SYSTEM: No focal deficits, tone is normal in all 4 extremities. EXTREMITIES: There is 1+ peripheral edema. No clubbing, no cyanosis. Peripheral pulses are intact. Results - Laboratory Findings CBC and BMP: 03/18/23 09:12 03/18/23 09:12 Abnormal lab findings: Abnormal Labs 03/18/23 03/18/23 03/18/23 06:18 09:12 09:12 MCHC 30.4 L RDW 15.6 H VBG pCO2 VBG HCO3 Chloride 97 L Carbon Dioxide 34 H BUN 37 H Creatinine 1.27 H Glucose 155 H POC Glucose (mg/dL) 151 H 03/18/23 03/18/23 09:12 11:43 MCHC RDW VBG pCO2 66 H VBG HCO3 35 H Chloride Carbon Dioxide BUN Creatinine Glucose POC Glucose (mg/dL) 135 H - Diagnostic Findings Chest x-ray: image reviewed Assessment and Plan Assessment: Acute on chronic hypoxemic respiratory failure secondary to an acute exacerbation of diastolic congestive heart failure History of severe pulmonary hypertension being followed at the [facility] Chronic hypoxemic respiratory failure Chronic obstructive pulmonary disease with an FEV1 value 35% of predicted Chronic atrial fibrillation, anticoagulated with Eliquis Former smoker Obesity with a BMI of 44.2 kg/m History of previous gastric sleeve placement History of obstructive sleep apnea, not tolerant of CPAP Hypertension Chronic kidney disease, stage III Plan: The patient was seen and evaluated Chest x-rays, labs and medications reviewed Continue diuretics Continue bronchodilators Anticoagulated with Eliquis Titrate down the FiO2 as tolerated Encouraged to continue her close follow-ups at the [facility] We will continue to follow and make further recommendations based on her clinical status I have personally seen and examined the patient, performed the documentation and the assessment and plan as written. Number of minutes spent on the visit: 20.
[2023-03-18 16:46] LABS: Glucose,Whole Blood 131 mg/dL (70-110)
[2023-03-18 20:20] LABS: Glucose,Whole Blood 221 mg/dL (70-110)
[2023-03-18] MEDS: ATORVASTATIN 40 MG TAB PO SCH (20:39)
[2023-03-19] MEDS: IPRATROPIUM-ALBUTEROL 3 ML NEB INHALATION PRN ×2 (00:58→05:36)
[2023-03-19 06:08] LABS: Glucose,Whole Blood 148 mg/dL (70-110)
[2023-03-19] MEDS: IPRATROPIUM-ALBUTEROL 3 ML NEB INHALATION SCH ×4 (08:56→20:33)
[2023-03-19] MEDS: FORMOTEROL FUMARATE 20 MCG/2 ML NEBU INHALATION SCH ×2 (09:03→20:33)
[2023-03-19] MEDS: DAPAGLIFLOZIN PROPANEDIOL 10 MG TABLET PO SCH (09:27)
[2023-03-19] MEDS: MONTELUKAST 10 MG TAB PO SCH (09:27)
[2023-03-19] MEDS: FERROUS SULFATE 325 MG TAB PO SCH (09:27)
[2023-03-19] MEDS: DILTIAZEM CD 120 MG CAP.ER.24H PO SCH (09:27)
[2023-03-19] MEDS: METOPROLOL TARTRATE 25 MG TAB PO SCH ×2 (09:27→20:06)
[2023-03-19] MEDS: CITALOPRAM HYDROBROMIDE 20 MG TAB PO SCH (09:27)
[2023-03-19] MEDS: allopurinoL 100 MG TAB PO SCH (09:27)
[2023-03-19] MEDS: FUROSEMIDE 40 MG TAB PO SCH (09:27)
[2023-03-19] MEDS: SPIRONOLACTONE 25 MG TAB PO SCH (09:27)
[2023-03-19] MEDS: methylPREDNISolone SOD SUCCI 125 MG/2 ML VIAL IV SCH ×2 (09:28→20:06)
[2023-03-19] MEDS: APIXABAN 5 MG TAB PO SCH ×2 (09:28→20:06)
[2023-03-19 10:19] LABS: HCT 39.4 % (34.0-46.0); HGB 11.9 gm/dL (11.4-16.0); Hypochromasia Marked; MCH 28.7 pg (25.0-35.0); MCHC 30.3 g/dL (31.0-37.0); MCV 94.8 fL (80.0-100.0); Mean Platelet Volume 9.7; Platelet Count 162 k/uL (150-450); RBC 4.15 m/uL (3.80-5.40); RDW 15.5 % (11.5-15.5); WBC 9.5 k/uL (3.8-10.6)
[2023-03-19 10:38] LABS: ALT 18 U/L (4-34); AST 19 U/L (14-36); African American GFR (CKD) 58 (>60 ml/min/1.73 sqM); Alkaline Phosphatase 82 U/L (38-126); Anion Gap 10 mmol/L; Blood Urea Nitrogen 40 mg/dL (7-17); Calcium 9.5 mg/dL (8.4-10.2); Carbon Dioxide 36 mmol/L (22-30); Chloride 95 mmol/L (98-107); Glucose 212 mg/dL (74-99); Magnesium 2.4 mg/dL (1.6-2.3); Non-African American GFR(CKD) 50 (>60 ml/min/1.73 sqM); Potassium 3.7 mmol/L (3.5-5.1); Sodium 141 mmol/L (137-145); Total Bilirubin 0.6 mg/dL (0.2-1.3)
[2023-03-19 12:08] LABS: Glucose,Whole Blood 133 mg/dL (70-110)
[2023-03-19 12:35] VITALS: BMI 44.1
[2023-03-19] MEDS: FUROSEMIDE 10 MG/ML 4 ML VIAL IV SCH ×2 (13:49→20:06)
--- NOTE | 2023-03-19 14:45 | P.PN ---
Subjective HISTORY OF PRESENT ILLNESS: Patient examined this afternoon. Patient is sitting in the chair. Patient continues to report shortness of breath although it is improving. She is currently on oral Lasix. She denies chest pain or pressure. Telemetry reveals atrial fibrillation with a heart rate in the 80s. Blood pressure stable. PHYSICAL EXAM: VITAL SIGNS: Reviewed. GENERAL: Well-developed in no acute distress. NECK: Supple. No JVD or thyromegaly LUNGS: Respirations even and unlabored. Lungs diminished with crackles at the bases. HEART: Irregular rate and rhythm. S1 and S2 heard. EXTREMITIES: Normal range of motion. No clubbing or cyanosis. Peripheral pulses intact. 2+ bilateral lower extremity edema ASSESSMENT: Shortness of breath Acute hypoxic respiratory failure requiring BiPAP Chronic hypoxic rest very failure on home oxygen Persistent atrial fibrillation with RVR, currently rate controlled Acute COPD exacerbation Acute on chronic heart failure with preserved ejection fraction Hypertension Hyperlipidemia Pulmonary hypertension Obstructive sleep apnea PLAN: Continue current cardiac medications Change Lasix to IV 40 mg every 12 hours Daily weights, accurate I&O, and monitoring of kidney function Further recommendations pending patient's course Nurse practitioner note has been reviewed by physician. Signing provider agrees with the documented findings, assessment, and plan of care. Objective - Vital Signs Vital signs: Vital Signs Temp 98.3 F 03/19/23 12:00 Pulse 79 03/19/23 12:00 Resp 22 03/19/23 12:00 BP 121/79 03/19/23 12:00 Pulse Ox 93 L 03/19/23 12:00 FiO2 40 03/19/23 05:36 Intake & Output 03/18/23 03/19/23 03/19/23 18:59 06:59 18:59 Intake Total 399 1020 Balance 399 1020 Weight 116.7 kg Intake: Oral 399 1020 Other: Voiding Method Toilet Toilet # Voids 3 - Labs CBC & Chem 7: 03/19/23 09:01 03/19/23 09:01 Labs: Abnormal Lab Results - Last 24 Hours (Table) 03/18/23 03/18/23 03/19/23 Range/Units 16:45 20:18 06:08 MCHC (31.0-37.0) g/dL Chloride (98-107) mmol/L Carbon Dioxide (22-30) mmol/L BUN (7-17) mg/dL Creatinine (0.52-1.04) mg/dL Glucose (74-99) mg/dL POC Glucose (mg/dL) 131 H 221 H 148 H (70-110) mg/dL Magnesium (1.6-2.3) mg/dL 03/19/23 03/19/23 03/19/23 Range/Units 09:01 09:01 12:07 MCHC 30.3 L (31.0-37.0) g/dL Chloride 95 L (98-107) mmol/L Carbon Dioxide 36 H (22-30) mmol/L BUN 40 H (7-17) mg/dL Creatinine 1.20 H (0.52-1.04) mg/dL Glucose 212 H (74-99) mg/dL POC Glucose (mg/dL) 133 H (70-110) mg/dL Magnesium 2.4 H (1.6-2.3) mg/dL
--- NOTE | 2023-03-19 15:17 | P.PN ---
Subjective Progress Note Date: 03/19/23 Hospital course: Patient is a very pleasant 57-year-old female with a past medical history of hypertension, hyperlipidemia, COPD with chronic hypoxic respiratory failure home oxygen dependent on 3 L at all times and CPAP nightly. She reports that she received shingles/varicella vaccination last week and shortly after began feeling fatigued and tired and just under the weather, she reports she then developed some soreness and a mild rash to her right arm where she received the vaccination. Patient reports rash and soreness to right arm dissipated and has fully resolved but reports she then began developing shortness of breath and cough progressively and then rapidly worsening over the past few days. She denied having any known fevers, chills, diaphoresis, chest pain, palpitations, abdominal pain, nausea, vomiting, or experiencing any numbness/tingli ng/weakness/swelling in her extremities. She reported she felt as though she was going to stop breathing and checked her oxygen levels at home and they were extremely low so she called EMS and was taken to the hospital for evaluation. Patient underwent full evaluation at [facility]. Patient was reportedly found to be in acute hypoxic respiratory failure with pulse ox in low 80s requiring placement on BiPAP. She was also found to be in atrial fibrillation with RVR and started on Cardizem infusion. Labs were completed and reviewed. Lactic acid normal findings is 0.8, bicarbonate elevated at 33, BUN 20, creatinine 1.37, sodium 141, potassium 4.5, chloride 98, anion gap 10, proBNP 3878, troponin less than 0.03, PTT 42.4, INR 1.58, PT 19.2. Hemoglobin stable at 11.8 with platelet count of 160. WBC count normal findings at 7.65. Patient was transferred to our facility as she required a higher level of care, admission under our services with need for evaluation by both the aircraft assembler and strapping machine tender. Upon arrival to our facility repeat EKG completed showing atrial fibrillation with RVR at 114 bpm. Vital signs revealing blood pressure 146/72, heart rate 104, respiratory rate 18, and SpO2 of 100% on BiPAP with FiO2 of 80%. Per ED physician and RN attempts were made at weaning patient off of BiPAP but patient quickly desaturated down to 82% and BiPAP was placed back on. Chest x-ray was completed consistent with congestive heart failure with bilater al pleural effusions. Patient was admitted to cardiac stepdown unit under our services with consultation to aircraft assembler and strapping machine tender. Physical exam: Patient seen and fully evaluated at bedside this morning. She was sitting up in chair she is currently on 9L high flow nasal cannula with SpO2 of 94%. She continues to show improvement in respiratory effort but reports continued significant respiratory distress with desaturations with minimal exertion. Vital signs reviewed and stable. General: Nontoxic, no distress and appears stated age. Derm: Skin warm and dry, normal coloration for ethnicity. Head: Atraumatic, normocephalic and symmetric. Eyes: EOMs intact, no lid lag, and anicteric sclera Mouth: no lip lesions, mucus membranes moist Cardiovascular: Irregularly irregular, systolic murmur, positive posterior tibial pulses bilaterally, and cap refill < 2 seconds. Lungs: Respirations currently even, regular, and unlabored on 9 L high flow nasal cannula. Lungs diminished with bibasilar crackles and soft expiratory wheezes this morning. Abdominal: soft, nontender to palpation, no guarding, no appreciable organomegaly Ext: ROM intact. No gross muscle atrophy, 1-2+ pitting bilateral lower extremity edema, no contractures Neuro: Speech clear, face symmetrical and CN II-XII grossly intact with no noted focal neuro deficits Psych: Alert and oriented to person, place, time, and situation. Appropriate and pleasant affect. Assessment and Plan of Care: Acute on chronic respiratory failure with hypoxia secondary to CHF exacerbation and COPD exacerbation Acute on chronic diastolic heart failure with previously known EF of 55% Acute COPD exacerbation Contraction alkalosis Atrial fibrillation with RVR, now maintaining controlled ventricular rate Pulmonary hypertension Hypertension Hyperlipidemia -Patient currently on 9 L high flow nasal cannula maintaining SpO2 94% -Pulmonology following, reviewed documentation in chart, -Rule out varicella pneumonia as patient reports symptoms began shortly after receiving varicella vaccination -RSV, Covid PCR, influenza A, and influenza B were negative. -Continue scheduled nebulizer treatments with duo nebs 4 times daily as well as as needed for wheezing/shortness of breath. -Patient to continue with bronchodilators Formoterol 20 g twice daily (Performist) and Singulair 10 mg daily. -Continue Solu-Medrol 60 mg IVP every 12 hours -Cardiology following, decreased Lasix dose to 40 mg every 12 hours and recommend planning to transition to Bumex once patient able to tolerate oral diuretics. -Continue with continuous telemetry monitoring, Daily weights, and Close monitoring of I's and O's. Patient's documented urinary output over the past 24 hours. -Patient to continue daily medications including: Eliquis 5 mg twice daily, diltiazem 120 mg daily, atorvastatin 40 mg nightly, metoprolol 25 mg twice daily, and Aldactone 25 mg daily. Data and Imaging reviewed: -Morning labs reviewed. CBC unremarkable. BMP revealing mild contraction alkalosis with chloride 95, bicarb 36, and elevated renal function with BUN of 40, creatinine 1.20, and GFR 50. -Vital signs reviewed. Blood pressure 128/66, heart rate 77, respiratory rate 18, temp 98.0F, SpO2 of 94% on 9 L high flow nasal cannula. CODE STATUS: Full code DVT prophylaxis: Eliquis Discussed with: Pt, RN, and pulmonary HORSE GROOMER Anticipated discharge date: Clinical course to determine Anticipated discharge place: Home Patient was seen independently by Nurse Practitioner. This document was prepared using [employer] dictation software. Please allow for errors in dust control engineer while rare they do occur. Objective - Vital Signs Vital signs: Vital Signs Temp 98.1 F 03/18/23 23:47 Pulse 80 03/19/23 05:47 Resp 17 03/19/23 04:00 BP 112/79 03/19/23 04:00 Pulse Ox 95 03/19/23 04:00 FiO2 40 03/19/23 05:36 Intake & Output 03/18/23 03/19/23 03/19/23 18:59 06:59 18:59 Intake Total 399 Balance 399 Intake: Oral 399 Other: Voiding Method Toilet Toilet # Voids 3 - Labs CBC & Chem 7: 03/19/23 09:01 03/19/23 09:01 Labs: Abnormal Lab Results - Last 24 Hours (Table) 03/18/23 03/18/23 03/18/23 Range/Units 09:12 09:12 09:12 MCHC 30.4 L (31.0-37.0) g/dL RDW 15.6 H (11.5-15.5) % VBG pCO2 66 H (37-51) mmHg VBG HCO3 35 H (24-28) mmol/L Chloride 97 L (98-107) mmol/L Carbon Dioxide 34 H (22-30) mmol/L BUN 37 H (7-17) mg/dL Creatinine 1.27 H (0.52-1.04) mg/dL Glucose 155 H (74-99) mg/dL POC Glucose (mg/dL) (70-110) mg/dL 03/18/23 03/18/23 03/18/23 Range/Units 11:43 16:45 20:18 MCHC (31.0-37.0) g/dL RDW (11.5-15.5) % VBG pCO2 (37-51) mmHg VBG HCO3 (24-28) mmol/L Chloride (98-107) mmol/L Carbon Dioxide (22-30) mmol/L BUN (7-17) mg/dL Creatinine (0.52-1.04) mg/dL Glucose (74-99) mg/dL POC Glucose (mg/dL) 135 H 131 H 221 H (70-110) mg/dL 03/19/23 Range/Units 06:08 MCHC (31.0-37.0) g/dL RDW (11.5-15.5) % VBG pCO2 (37-51) mmHg VBG HCO3 (24-28) mmol/L Chloride (98-107) mmol/L Carbon Dioxide (22-30) mmol/L BUN (7-17) mg/dL Creatinine (0.52-1.04) mg/dL Glucose (74-99) mg/dL POC Glucose (mg/dL) 148 H (70-110) mg/dL
--- NOTE | 2023-03-19 15:23 | P.PN ---
Subjective Progress Note Date: 03/19/23 This is a very pleasant 57-year-old female patient with a known history of chronic atrial fibrillation anticoagulated with Eliquis, congestive heart failure, hyperlipidemia, hypertension, severe pulmonary hypertension following at the [facility], previous bariatric surgery as gastric sleeve, f ormer smoker, and dependent chronic obstructive pulmonary disease normally on 3 L, obstructive sleep apnea noncompliant with CPAP. She was transferred to here from [facility] yesterday after having a 4 to five-day history of increasing shortness of breath, cough congestion low O2 saturations in the 60s and 70s. Chest x-ray reveals cardiomegaly and trace bilateral pleural effusions. White count 6.3. Hemoglobin 11.7. Platelets 152. Sodium 139. Potassium 4.4. Bicarb 34. BUN 37. Creatinine 1.27. Glucose 155. She is seen today in consultation on the selective care unit. She is currently laying prone in bed. Awake and alert in no acute distress. Breathing a bit easier today compared to yesterday. He is requiring 10 L high flow nasal cannula to maintain O2 saturation in the low 90s. She's afebrile. Hemodynamically stable. The patient is seen today 03/19/2023 in follow-up on the selective care unit. She is currently sitting up in a chair at the bedside. Awake and alert in no acute distress. She is maintaining O2 saturations in the 90s on 9 L high flow nasal cannula. She's alternating with BiPAP 05/08 on 40% FiO2. She does have home oxygen that she wears 24 7. She is anticoagulated with Eliquis. White count 9.5. Hemoglobin 11.9. Sodium 141. Potassium 3.7. Bicarb 36. BUN 40. Creatinine 1.2. Glucose 212. She is continued on DuoNeb inhalations, Perforomist inhalations, IV Solu-Medrol and Singulair. She remains on IV diuretics. No accurate I&O. Objective - Vital Signs Vital signs: Vital Signs Temp 98.3 F 03/19/23 12:00 Pulse 79 03/19/23 12:00 Resp 22 03/19/23 12:00 BP 121/79 03/19/23 12:00 Pulse Ox 93 L 03/19/23 12:00 FiO2 40 03/19/23 05:36 Intake & Output 03/18/23 03/19/23 03/19/23 18:59 06:59 18:59 Intake Total 399 1020 Balance 399 1020 Weight 116.7 kg Intake: Oral 399 1020 Other: Voiding Method Toilet Toilet # Voids 3 - Exam GENERAL EXAM: Alert, 57-year-old female, on 9 L high flow nasal cannula, fairly comfortable in no apparent distress. HEAD: Normocephalic. EYES: Normal reaction of pupils, equal size. NOSE: Clear with pink turbinates. THROAT: No erythema or exudates. NECK: No masses, no JVD. CHEST: No chest wall deformity. LUNGS: Equal air entry with crackles in the bilateral bases. CVS: S1 and S2 normal with an audible murmur, regular rhythm. ABDOMEN: No hepatosplenomegaly, normal bowel sounds, no guarding or rigidity. SPINE: No scoliosis or deformity SKIN: No rashes CENTRAL NERVOUS SYSTEM: No focal deficits, tone is normal in all 4 extremities. EXTREMITIES: There is 1+ peripheral edema. No clubbing, no cyanosis. Peripheral pulses are intact. - Labs CBC & Chem 7: 03/19/23 09:01 03/19/23 09:01 Labs: Abnormal Lab Results - Last 24 Hours (Table) 03/18/23 03/18/23 03/19/23 Range/Units 16:45 20:18 06:08 MCHC (31.0-37.0) g/dL Chloride (98-107) mmol/L Carbon Dioxide (22-30) mmol/L BUN (7-17) mg/dL Creatinine (0.52-1.04) mg/dL Glucose (74-99) mg/dL POC Glucose (mg/dL) 131 H 221 H 148 H (70-110) mg/dL Magnesium (1.6-2.3) mg/dL 03/19/23 03/19/23 03/19/23 Range/Units 09:01 09:01 12:07 MCHC 30.3 L (31.0-37.0) g/dL Chloride 95 L (98-107) mmol/L Carbon Dioxide 36 H (22-30) mmol/L BUN 40 H (7-17) mg/dL Creatinine 1.20 H (0.52-1.04) mg/dL Glucose 212 H (74-99) mg/dL POC Glucose (mg/dL) 133 H (70-110) mg/dL Magnesium 2.4 H (1.6-2.3) mg/dL Assessment and Plan Assessment: Acute on chronic hypoxemic respiratory failure secondary to an acute exacerbation of diastolic congestive heart failure History of severe pulmonary hypertension being followed at the [facility] Chronic hypoxemic respiratory failure has home oxygen at 3 L 24/7 Chronic obstructive pulmonary disease with an FEV1 value 35% of predicted Chronic atrial fibrillation, anticoagulated with Eliquis Former smoker Obesity with a BMI of 44.2 kg/m History of previous gastric sleeve placement History of obstructive sleep apnea, not tolerant of CPAP Hypertension Chronic kidney disease, stage III Plan: The patient was seen and evaluated Labs and medications reviewed Continue diuretics Continue bronchodilators Titrate down the FiO2 as tolerated We will continue to follow I have personally seen and examined the patient, performed the documentation and the assessment and plan as written. Number of minutes spent on the visit: 10.
[2023-03-19 16:57] LABS: Glucose,Whole Blood 178 mg/dL (70-110)
[2023-03-19] MEDS: ATORVASTATIN 40 MG TAB PO SCH (20:06)
[2023-03-19 20:36] LABS: Glucose,Whole Blood 202 mg/dL (70-110)
[2023-03-20] MEDS: IPRATROPIUM-ALBUTEROL 3 ML NEB INHALATION PRN ×2 (01:06→05:14)
[2023-03-20 05:58] LABS: Glucose,Whole Blood 157 mg/dL (70-110)
[2023-03-20] MEDS: allopurinoL 100 MG TAB PO SCH (07:43)
[2023-03-20] MEDS: CITALOPRAM HYDROBROMIDE 20 MG TAB PO SCH (07:43)
[2023-03-20] MEDS: APIXABAN 5 MG TAB PO SCH ×2 (07:43→21:07)
[2023-03-20] MEDS: SPIRONOLACTONE 25 MG TAB PO SCH (07:43)
[2023-03-20] MEDS: MONTELUKAST 10 MG TAB PO SCH (07:43)
[2023-03-20] MEDS: FERROUS SULFATE 325 MG TAB PO SCH (07:43)
[2023-03-20] MEDS: DILTIAZEM CD 120 MG CAP.ER.24H PO SCH (07:43)
[2023-03-20] MEDS: methylPREDNISolone SOD SUCCI 125 MG/2 ML VIAL IV SCH ×2 (07:44→21:06)
[2023-03-20] MEDS: METOPROLOL TARTRATE 25 MG TAB PO SCH ×2 (07:44→21:07)
[2023-03-20] MEDS: DAPAGLIFLOZIN PROPANEDIOL 10 MG TABLET PO SCH (07:44)
[2023-03-20] MEDS: FUROSEMIDE 10 MG/ML 4 ML VIAL IV SCH ×2 (07:44→21:07)
[2023-03-20] MEDS: FORMOTEROL FUMARATE 20 MCG/2 ML NEBU INHALATION SCH ×2 (08:34→21:49)
[2023-03-20] MEDS: IPRATROPIUM-ALBUTEROL 3 ML NEB INHALATION SCH ×4 (08:34→21:49)
--- NOTE | 2023-03-20 11:08 | P.PN ---
Subjective Progress Note Date: 03/20/23 Hospital course: Patient is a very pleasant 57-year-old female with a past medical history of d iastolic heart failure, hypertension, hyperlipidemia, COPD with chronic hypoxic respiratory failure home oxygen dependent on 3 L at all times and CPAP nightly, and severe pulmonary hypertension. She initially presented with shortness of breath at outside hospital. Patient was found to be in acute on chronic hypoxic respiratory failure requiring BiPAP. She was also found to be in atrial fibrillation with RVR and started on Cardizem infusion. Lactic acid normal findings is 0.8, bicarbonate elevated at 33, BUN 20, creatinine 1.37, sodium 141, potassium 4.5, chloride 98, anion gap 10, proBNP 3878, troponin less than 0.03, PTT 42.4, INR 1.58, PT 19.2. Hemoglobin stable at 11.8 with platelet co unt of 160. WBC count normal findings at 7.65. Patient was transferred to our facility as she required a higher level of care, admission under our services with need for evaluation by both the steam meter reader and pediatric registered nurse. Upon arrival to our facility repeat EKG completed showing atrial fibrillation with RVR at 114 bpm. Vital signs revealing blood pressure 146/72, heart rate 104, respiratory rate 18, and SpO2 of 100% on BiPAP with FiO2 of 80%. Per ED physician and RN attempts were made at weaning patient off of BiPAP but patient quickly desaturated down to 82% and BiPAP was placed back on. Chest x-ray was completed consistent with congestive heart failure with bilateral pleural effus ions. Patient was admitted to cardiac stepdown unit under our services with consultation to steam meter reader and pediatric registered nurse. She is currently on bronchodilators, IV steroids, and IV diuretics. Patient seen and examined at bedside. No acute events overnight. Claims that her breathing is improved. Denies any significant cough. Physical exam: Vital signs reviewed and stable. General: Nontoxic, no distress and appears stated age. Derm: Skin warm and dry, normal coloration for ethnicity. Head: Atraumatic, normocephalic and symmetric. Eyes: EOMs intact, no lid lag, and anicteric sclera Mouth: no lip lesions, mucus membranes moist Cardiovascular: Irregularly irregular, systolic murmur, positive posterior tibial pulses bilaterally, and cap refill < 2 seconds. Lungs: Respirations currently even, regular, and unlabored on 5 L nasal cannula. Lungs diminished with bibasilar crackles and soft expiratory wheezes this morning. Abdominal: soft, nontender to palpation, no guarding, no appreciable organomegaly Ext: ROM intact. No gross muscle atrophy, 1-2+ pitting bilateral lower extremity edema, no contractures Neuro: Speech clear, face symmetrical and CN II-XII grossly intact with no noted focal neuro deficits Psych: Alert and oriented to person, place, time, and situation. Appropriate and pleasant affect. Assessment and Plan of Care: Acute on chronic respiratory failure with hypoxia secondary to CHF exacerbation and COPD exacerbation Acute on chronic diastolic heart failure with previously known EF of 55% Acute COPD exacerbation Atrial fibrillation with RVR, now maintaining controlled ventricular rate Severe Pulmonary hypertension Hypertension Hyperlipidemia -Continue to wean -Pulmonology following, on IV steroids and bronchodilators -Cardiology following, on IV diuretics, monitor electrolytes and renal function -Spoke with PCP, patient has an appointment for right heart cath at [facility] next month Data and Imaging reviewed: -BMP pending, will be reviewed when available CODE STATUS: Full code DVT prophylaxis: Eliquis Anticipated discharge date: Clinical course to determine Anticipated discharge place: Subacute rehab Objective - Vital Signs Vital signs: Vital Signs Temp 98.5 F 03/20/23 08:00 Pulse 96 03/20/23 08:46 Resp 20 03/20/23 08:00 BP 120/76 03/20/23 08:00 Pulse Ox 92 L 03/20/23 08:36 FiO2 40 03/20/23 01:07 Intake & Output 03/19/23 03/20/23 03/20/23 18:59 06:59 18:59 Intake Total 2110 780 Output Total 800 300 Balance 2110 -800 480 Weight 116.7 kg 114.4 kg Intake: Oral 2109 780 Output: Urine 800 300 Other: Voiding Method Toilet Toilet # Voids 6 1 # Bowel Movements 4 - Labs CBC & Chem 7: 03/19/23 09:01 03/19/23 09:01 Labs: Abnormal Lab Results - Last 24 Hours (Table) 03/19/23 03/19/23 03/19/23 Range/Units 12:07 16:56 20:35 POC Glucose (mg/dL) 133 H 178 H 202 H (70-110) mg/dL 03/20/23 Range/Units 05:57 POC Glucose (mg/dL) 157 H (70-110) mg/dL
[2023-03-20 11:49] LABS: Glucose,Whole Blood 252 mg/dL (70-110)
--- NOTE | 2023-03-20 13:45 | P.PN ---
Subjective Progress Note Date: 03/20/23 This is a very pleasant 57-year-old female patient with a known history of chronic atrial fibrillation anticoagulated with Eliquis, congestive heart failure, hyperlipidemia, hypertension, severe pulmonary hypertension following at the [facility], previous bariatric surgery as gastric sleeve, f ormer smoker, and dependent chronic obstructive pulmonary disease normally on 3 L, obstructive sleep apnea noncompliant with CPAP. She was transferred to here from [facility] yesterday after having a 4 to five-day history of increasing shortness of breath, cough congestion low O2 saturations in the 60s and 70s. Chest x-ray reveals cardiomegaly and trace bilateral pleural effusions. White count 6.3. Hemoglobin 11.7. Platelets 152. Sodium 139. Potassium 4.4. Bicarb 34. BUN 37. Creatinine 1.27. Glucose 155. She is seen today in consultation on the selective care unit. She is currently laying prone in bed. Awake and alert in no acute distress. Breathing a bit easier today compared to yesterday. He is requiring 10 L high flow nasal cannula to maintain O2 saturation in the low 90s. She's afebrile. Hemodynamically stable. The patient is seen today 03/19/2023 in follow-up on the selective care unit. She is currently sitting up in a chair at the bedside. Awake and alert in no acute distress. She is maintaining O2 saturations in the 90s on 9 L high flow nasal cannula. She's alternating with BiPAP 12/5 on 40% FiO2. She does have home oxygen that she wears 24 7. She is anticoagulated with Eliquis. White count 9.5. Hemoglobin 11.9. Sodium 141. Potassium 3.7. Bicarb 36. BUN 40. Creatinine 1.2. Glucose 212. She is continued on DuoNeb inhalations, Perforomist inhalations, IV Solu-Medrol and Singulair. She remains on IV diuretics. No accurate I&O. The patient is seen today 03/20/2023 in follow-up on the selective care unit. She is currently sitting up at the bedside. Awake and alert in no acute distress. She is breathing a bit easier today compared to yesterday. Still not quite back to her baseline. Maintaining O2 saturations at 90% on 5 L high flow nasal cannula. Afebrile. Hemodynamically stable. Blood sugar 157. She remains on DuoNeb inhalations Perforomist, Singulair, Solu-Medrol. Anticoagulated with Eliquis. Remains on IV diuretics. Currently in a positive balance. Objective - Vital Signs Vital signs: Vital Signs Temp 98 F 03/20/23 11:48 Pulse 94 03/20/23 12:12 Resp 22 03/20/23 11:48 BP 118/73 03/20/23 11:48 Pulse Ox 90 L 03/20/23 11:48 FiO2 40 03/20/23 01:07 Intake & Output 03/19/23 03/20/23 03/20/23 18:59 06:59 18:59 Intake Total 2110 1020 Output Total 800 500 Balance 2110 -800 520 Weight 116.7 kg 114.4 kg Intake: Oral 0 1020 Output: Urine 800 500 Other: Voiding Method Toilet Toilet # Voids 6 1 # Bowel Movements 4 - Exam GENERAL EXAM: Alert, obese, pleasant 57-year-old female, on 5 L high flow nasal cannula, fairly comfortable in no apparent distress. HEAD: Normocephalic. EYES: Normal reaction of pupils, equal size. NOSE: Clear with pink turbinates. THROAT: No erythema or exudates. NECK: No masses, no JVD. CHEST: No chest wall deformity. LUNGS: Equal air entry with crackles in the bilateral bases. CVS: S1 and S2 normal with an audible murmur, regular rhythm. ABDOMEN: No hepatosplenomegaly, normal bowel sounds, no guarding or rigidity. SPINE: No scoliosis or deformity SKIN: No rashes CENTRAL NERVOUS SYSTEM: No focal deficits, tone is normal in all 4 extremities. EXTREMITIES: There is 1+ peripheral edema. No clubbing, no cyanosis. Peripheral pulses are intact. - Labs CBC & Chem 7: 03/19/23 09:01 03/19/23 09:01 Labs: Abnormal Lab Results - Last 24 Hours (Table) 03/19/23 03/19/23 03/20/23 Range/Units 16:56 20:35 05:57 POC Glucose (mg/dL) 178 H 202 H 157 H (70-110) mg/dL 03/20/23 Range/Units 11:36 POC Glucose (mg/dL) 252 H (70-110) mg/dL Assessment and Plan Assessment: Acute on chronic hypoxemic respiratory failure secondary to an acute exacerbati on of diastolic congestive heart failure History of severe pulmonary hypertension being followed at the [facility] Chronic hypoxemic respiratory failure has home oxygen at 3 L 25/12 Chronic obstructive pulmonary disease with an FEV1 value 35% of predicted Chronic atrial fibrillation, anticoagulated with Eliquis Former smoker Obesity with a BMI of 44.2 kg/m History of previous gastric sleeve placement History of obstructive sleep apnea, not tolerant of CPAP Hypertension Chronic kidney disease, stage III Plan: The patient was seen and evaluated Medications reviewed Improved but not quite back to baseline Continue the current treatment plan Titrate down the FiO2 as tolerated Increase her activity as tolerated We will continue to follow I have personally seen and examined the patient, performed the documentation and the assessment and plan as written. Number of minutes spent on the visit: 10.
--- NOTE | 2023-03-20 14:35 | P.PN ---
Subjective HISTORY OF PRESENT ILLNESS: Patient examined this afternoon. Patient is sitting in the chair. Patient continues to report shortness of breath although it is improving. She is currently on oral Lasix. She denies chest pain or pressure. Telemetry reveals atrial fibrillation with a heart rate in the 80s. Blood pressure stable. 03/20/2023 Examined this morning. Patient is sitting up in the chair. She denies chest pain or pressure. She reports improvement in her shortness of breath. She continues to have lower extremity edema although improving. She remains on IV Lasix 40 mg every 12 hours. Labs from this morning are currently pending PHYSICAL EXAM: VITAL SIGNS: Reviewed. GENERAL: Well-developed in no acute distress. NECK: Supple. No JVD or thyromegaly LUNGS: Respirations even and unlabored. Lungs diminished with crackles at the bases. HEART: Irregular rate and rhythm. S1 and S2 heard. EXTREMITIES: Normal range of motion. No clubbing or cyanosis. Peripheral pulses intact. 2+ bilateral lower extremity edema ASSESSMENT: Shortness of breath Acute hypoxic respiratory failure requiring BiPAP Chronic hypoxic respiratory failure on home oxygen Persistent atrial fibrillation with RVR, currently rate controlled Acute COPD exacerbation Acute on chronic heart failure with preserved ejection fraction Hypertension Hyperlipidemia Pulmonary hypertension Obstructive sleep apnea PLAN: Continue current cardiac medications Continue Lasix to IV 40 mg every 12 hours Daily weights and accurate I&O Await kidney function from this morning Further recommendations pending patient's course Patient to follow-up post discharge with Dr. Cao Nurse practitioner note has been reviewed by physician. Signing provider agrees with the documented findings, assessment, and plan of care. Objective - Vital Signs Vital signs: Vital Signs Temp 98 F 03/20/23 11:48 Pulse 94 03/20/23 12:12 Resp 22 03/20/23 11:48 BP 118/73 03/20/23 11:48 Pulse Ox 90 L 03/20/23 11:48 FiO2 40 03/20/23 01:07 Intake & Output 03/19/23 03/20/23 03/20/23 18:59 06:59 18:59 Intake Total 2110 1020 Output Total 800 500 Balance 2110 -800 520 Weight 116.7 kg 114.4 kg Intake: Oral 0 1020 Output: Urine 800 500 Other: Voiding Method Toilet Toilet # Voids 6 1 # Bowel Movements 4 - Labs CBC & Chem 7: 03/19/23 09:01 03/19/23 09:01 Labs: Abnormal Lab Results - Last 24 Hours (Table) 03/19/23 03/19/23 03/20/23 Range/Units 16:56 20:35 05:57 POC Glucose (mg/dL) 178 H 202 H 157 H (70-110) mg/dL 03/20/23 Range/Units 11:36 POC Glucose (mg/dL) 252 H (70-110) mg/dL
[2023-03-20 16:24] LABS: HCT 40.4 % (34.0-46.0); HGB 12.7 gm/dL (11.4-16.0); Hypochromasia Marked; MCH 29.3 pg (25.0-35.0); MCHC 31.3 g/dL (31.0-37.0); MCV 93.3 fL (80.0-100.0); Mean Platelet Volume 8.9; Platelet Count 172 k/uL (150-450); RBC 4.33 m/uL (3.80-5.40); RDW 15.5 % (11.5-15.5); WBC 7.2 k/uL (3.8-10.6)
[2023-03-20 16:45] LABS: ALT 17 U/L (4-34); AST 19 U/L (14-36); African American GFR (CKD) 65 (>60 ml/min/1.73 sqM); Alkaline Phosphatase 73 U/L (38-126); Anion Gap 8 mmol/L; Blood Urea Nitrogen 43 mg/dL (7-17); Calcium 9.6 mg/dL (8.4-10.2); Carbon Dioxide 35 mmol/L (22-30); Chloride 98 mmol/L (98-107); Glucose 209 mg/dL (74-99); Magnesium 2.5 mg/dL (1.6-2.3); Non-African American GFR(CKD) 56 (>60 ml/min/1.73 sqM); Potassium 3.8 mmol/L (3.5-5.1); Sodium 141 mmol/L (137-145); Total Bilirubin 0.5 mg/dL (0.2-1.3); Total Protein 6.9 g/dL (6.3-8.2)
[2023-03-20 16:54] LABS: Glucose,Whole Blood 185 mg/dL (70-110)
[2023-03-20] MEDS: CALCIUM CARBONATE 500 MG CHEWABLE PO PRN (17:16)
[2023-03-20] MEDS: ATORVASTATIN 40 MG TAB PO SCH (21:07)
[2023-03-20 21:39] LABS: Glucose,Whole Blood 230 mg/dL (70-110)
[2023-03-21 00:10] VITALS: RESP 20
[2023-03-21 05:46] LABS: Glucose,Whole Blood 155 mg/dL (70-110)
[2023-03-21] MEDS: FORMOTEROL FUMARATE 20 MCG/2 ML NEBU INHALATION SCH (08:20)
[2023-03-21] MEDS: IPRATROPIUM-ALBUTEROL 3 ML NEB INHALATION SCH ×2 (08:20→11:45)
[2023-03-21] MEDS: methylPREDNISolone SOD SUCCI 125 MG/2 ML VIAL IV SCH (08:56)
[2023-03-21] MEDS: allopurinoL 100 MG TAB PO SCH (08:56)
[2023-03-21] MEDS: FUROSEMIDE 10 MG/ML 4 ML VIAL IV SCH (08:56)
[2023-03-21] MEDS: MONTELUKAST 10 MG TAB PO SCH (08:57)
[2023-03-21] MEDS: DILTIAZEM CD 120 MG CAP.ER.24H PO SCH (08:57)
[2023-03-21] MEDS: METOPROLOL TARTRATE 25 MG TAB PO SCH (08:57)
[2023-03-21] MEDS: DAPAGLIFLOZIN PROPANEDIOL 10 MG TABLET PO SCH (08:57)
[2023-03-21] MEDS: APIXABAN 5 MG TAB PO SCH (08:57)
[2023-03-21] MEDS: CALCIUM CARBONATE 500 MG CHEWABLE PO PRN (08:57)
[2023-03-21] MEDS: FERROUS SULFATE 325 MG TAB PO SCH (08:57)
[2023-03-21] MEDS: SPIRONOLACTONE 25 MG TAB PO SCH (08:57)
[2023-03-21] MEDS: CITALOPRAM HYDROBROMIDE 20 MG TAB PO SCH (08:57)
[2023-03-21 09:03] LABS: African American GFR (CKD) 70 (>60 ml/min/1.73 sqM); Anion Gap 11 mmol/L; Blood Urea Nitrogen 40 mg/dL (7-17); Calcium 9.9 mg/dL (8.4-10.2); Carbon Dioxide 32 mmol/L (22-30); Chloride 98 mmol/L (98-107); Glucose 210 mg/dL (74-99); Non-African American GFR(CKD) 61 (>60 ml/min/1.73 sqM); Sodium 141 mmol/L (137-145)
[2023-03-21] MEDS ORDERED: PANTOPRAZOLE 40 MG TABLET PO SCH (10:00)
[2023-03-21 11:31] LABS: Glucose,Whole Blood 173 mg/dL (70-110)
[2023-03-21 12:04] VITALS: BP 146/73; PULSE 86; TEMP 98.2
--- NOTE | 2023-03-21 13:49 | P.PN ---
Subjective HISTORY OF PRESENT ILLNESS: Patient examined this afternoon. Patient is sitting in the chair. Patient continues to report shortness of breath although it is improving. She is currently on oral Lasix. She denies chest pain or pressure. Telemetry reveals atrial fibrillation with a heart rate in the 80s. Blood pressure stable. 03/20/2023 Examined this morning. Patient is sitting up in the chair. She denies chest pain or pressure. She reports improvement in her shortness of breath. She continues to have lower extremity edema although improving. She remains on IV Lasix 40 mg every 12 hours. Labs from this morning are currently pending 03/21/2023 Patient examined this morning. She is sitting up in the chair. She denies chest pain or pressure. She denies shortness of breath. She reports improvement in her lower extremity edema. She remains on IV Lasix. Vital signs are stable. Kidney function remained stable. PHYSICAL EXAM: VITAL SIGNS: Reviewed. GENERAL: Well-developed in no acute distress. NECK: Supple. No JVD or thyromegaly LUNGS: Respirations even and unlabored. Lungs diminished bilaterally HEART: Irregular rate and rhythm. S1 and S2 heard. EXTREMITIES: Normal range of motion. No clubbing or cyanosis. Peripheral pulses intact. 1+ bilateral lower extremity edema ASSESSMENT: Shortness of breath Acute hypoxic respiratory failure requiring BiPAP Chronic hypoxic respiratory failure on home oxygen Persistent atrial fibrillation with RVR, currently rate controlled Acute COPD exacerbation Acute on chronic heart failure with preserved ejection fraction Hypertension Hyperlipidemia Pulmonary hypertension Obstructive sleep apnea PLAN: Continue current cardiac medications Discontinue IV Lasix Begin oral Lasix 40 mg twice a day Patient is stable for discharge home today from a cardiac standpoint Patient to follow-up post discharge with Dr. Cao Nurse practitioner note has been reviewed by physician. Signing provider agrees with the documented findings, assessment, and plan of care. Objective - Vital Signs Vital signs: Vital Signs Temp 98.2 F 03/21/23 11:51 Pulse 86 03/21/23 11:59 Resp 20 03/21/23 11:51 BP 146/73 03/21/23 11:51 Pulse Ox 94 L 03/21/23 11:51 FiO2 40 03/21/23 04:10 Intake & Output 03/20/23 03/21/23 03/21/23 18:59 06:59 18:59 Intake Total 1020 960 480 Output Total 1000 1000 850 Balance 20 -40 -370 Weight 115.4 kg Intake: Oral 1020 960 480 Output: Urine 1000 1000 850 Other: Voiding Method Toilet Toilet Toilet # Voids 1 2 - Labs CBC & Chem 7: 03/20/23 16:08 03/21/23 08:27 Labs: Abnormal Lab Results - Last 24 Hours (Table) 03/20/23 03/20/23 03/20/23 Range/Units 16:08 16:49 21:02 Carbon Dioxide 35 H (22-30) mmol/L BUN 43 H (7-17) mg/dL Creatinine 1.09 H (0.52-1.04) mg/dL Glucose 209 H (74-99) mg/dL POC Glucose (mg/dL) 185 H 230 H (70-110) mg/dL Magnesium 2.5 H (1.6-2.3) mg/dL 03/21/23 03/21/23 03/21/23 Range/Units 05:44 08:27 11:30 Carbon Dioxide 32 H (22-30) mmol/L BUN 40 H (7-17) mg/dL Creatinine (0.52-1.04) mg/dL Glucose 210 H (74-99) mg/dL POC Glucose (mg/dL) 155 H 173 H (70-110) mg/dL Magnesium (1.6-2.3) mg/dL
--- NOTE | 2023-03-21 15:00 | P.DS ---
Providers Date of admission: 03/17/23 16:36 Expected date of discharge: 03/21/23 Attending physician: Angie Hinkle MD Consults: 03/17/23 16:33 Consult Physician Routine Consulting Provider: Sparkle Whitmore Consult Reason/Comments: Respiratory distress, BiPAP Do you want consulting provider notified?: Yes Consult Physician Routine Consulting Provider: Kvng Sullivan Consult Reason/Comments: CHF, atrial fibrillation Do you want consulting provider notified?: Yes Primary care physician: Abimael Mcgregor MD Hospital Course: Discharge Diagnosis: Acute on chronic respiratory failure with hypoxia secondary to CHF exacerbation and COPD exacerbation Acute on chronic diastolic heart failure with previously known EF of 55% Acute COPD exacerbation Atrial fibrillation with RVR, now maintaining controlled ventricular rate Severe Pulmonary hypertension Hypertension Hyperlipidemia Hospital Course: Patient is a very pleasant 57-year-old female with a past medical history of diastolic heart failure, hypertension, hyperlipidemia, COPD with chronic hypoxic respiratory failure home oxygen dependent on 3 L at all times and CPAP nightly, and severe pulmonary hypertension. She initially presented with shortness of breath at outside hospital. Patient was found to be in acute on chronic hypoxic respiratory failure requiring BiPAP. She was also found to be in atrial fibrillation with RVR and started on Cardizem infusion. Lactic acid normal findings is 0.8, bicarbonate elevated at 33, BUN 20, creatinine 1.37, sodium 141, potassium 4.5, chloride 98, anion gap 10, proBNP 3878, troponin less than 0.03, PTT 42.4, INR 1.58, PT 19.2. Hemoglobin stable at 11.8 with platelet count of 160. WBC count normal findings at 7.65. Patient was transferred to our facility as she required a higher level of care, admission under our services with need for evaluation by both the career professional and flight technician. Upon arrival to our facility repeat EKG completed showing atrial fibrillation with RVR at 114 bpm. Vital signs revealing blood pressure 146/72, heart rate 104, respiratory rate 18, and SpO2 of 100% on BiPAP with FiO2 of 80%. Per ED physician and RN attempts were made at weaning patient off of BiPAP but patient quickly desaturated down to 82% and BiPAP was placed back on. Chest x-ray was completed consistent with congestive heart failure with bilateral pleural effusions. Patient was admitted to cardiac stepdown unit under our services with consultation to career professional and flight technician. She is currently on bronchodilators, IV steroids, and IV diuretics. Patient now on 4L of nasal canula. Discharge plan discussed with PCP. Being discharged on oral Prednisone, and Oral lasix. Also remain on bronchodilators. Plan for getting a right heart cath next month at [facility]. Patient seen and examined at bedside. Vital signs reviewed and stable. General: Nontoxic, no distress and appears stated age. Derm: Skin warm and dry, normal coloration for ethnicity. Head: Atraumatic, normocephalic and symmetric. Eyes: EOMs intact, no lid lag, and anicteric sclera Mouth: no lip lesions, mucus membranes moist Cardiovascular: Irregularly irregular, systolic murmur, positive posterior tibial pulses bilaterally, and cap refill < 2 seconds. Lungs: Respirations currently even, regular, and unlabored on 4 L nasal cannula. Lungs diminished with bibasilar crackles and soft expiratory wheezes this morning. Abdominal: soft, nontender to palpation, no guarding, no appreciable organomegaly Ext: ROM intact. No gross muscle atrophy, 1-2+ pitting bilateral lower extremity edema, no contractures Neuro: Speech clear, face symmetrical and CN II-XII grossly intact with no noted focal neuro deficits Psych: Alert and oriented to person, place, time, and situation. Appropriate and pleasant affect. A total of 33 minutes of time were spent preparing this complex discharge summary. Patient was discharged on 03/21/23 at 1402. Patient Condition at Discharge: Stable Plan - Discharge Summary New Discharge Prescriptions: New predniSONE [Deltasone] 40 mg PO DAILY #2 tab Continue Montelukast [Singulair] 10 mg PO DAILY@0800 Ascorbic Acid [Vitamin C] 500 mg PO DAILY@0800 Super B-Complex 1 tab PO DAILY@0800 Famotidine [Pepcid] 40 mg PO DAILY@0800 Furosemide [Lasix] 40 mg PO BID@0800,1700 Apixaban [Eliquis] 5 mg PO BID@0800,2000 Dapagliflozin Propanediol [Farxiga] 10 mg PO DAILY tab allopurinoL [Zyloprim] 100 mg PO DAILY dilTIAZem HCL [Cardizem CD] 120 mg PO DAILY Tiotropium Br/Olodaterol HCl [Stiolto Respimat Inhal [place]] 2 puff INHALATION RT-DAILY@0800 Spironolactone [Aldactone] 25 mg PO DAILY@0800 Pantoprazole [Protonix] 40 mg PO DAILY@0800 Ferrous Sulfate [Iron (65 MG Elemental)] 325 mg PO DAILY@0800 Citalopram Hydrobromide [CeleXA] 40 mg PO DAILY@0800 Cholecalciferol (Vitamin D3) [Vitamin D3 (125 MCG = 5,000 IU)] 125 mcg PO DAILY@0800 [place]-3/Dha/Epa/Fish Oil [Fish Oil 1,000 mg Softgel] 1 cap PO DAILY@0800 Atorvastatin [Lipitor] 40 mg PO HS@2000 Calcium Carbonate [Calcium] 1,200 mg PO DAILY@0800 Ipratropium-Albuterol Nebulize [Duoneb 0.5 mg-3 mg/3 ml Soln] 3 ml INHALATION RT-QID Multivitamins, Thera [Multivitamin (formulary)] 1 tab PO DAILY@0800 Semaglutide [Wegovy] 1 mg SQ FR Metoprolol Tartrate [Lopressor] 25 mg PO BID #60 tab Potassium Chloride 20 meq PO DAILY@0800 Albuterol Sulfate [Albuterol Sulfate Hfa] 2 puff PO RT-BID PRN PRN Reason: Shortness Of Breath Discharge Medication List Ascorbic Acid [Vitamin C] 500 mg PO DAILY@0800 08/14/22 [History] Cholecalciferol (Vitamin D3) [Vitamin D3 (125 MCG = 5,000 IU)] 125 mcg PO DAILY@0800 08/14/22 [History] Citalopram Hydrobromide [CeleXA] 40 mg PO DAILY@0808/14/22 [History] Ferrous Sulfate [Iron (65 MG Elemental)] 325 mg PO DAILY@0808/14/22 [History] Montelukast [Singulair] 10 mg PO DAILY@0808/14/22 [History] [place]-3/Dha/Epa/Fish Oil [Fish Oil 1,000 mg Softgel] 1 cap PO DAILY@0800 08/14/22 [History] Pantoprazole [Protonix] 40 mg PO DAILY@0800 08/14/22 [History] Spironolactone [Aldactone] 25 mg PO DAILY@0808/14/22 [History] Tiotropium Br/Olodaterol HCl [Stiolto Respimat Inhal [place]] 2 puff INHALATION RT-DAILY@0800 08/14/22 [History] Atorvastatin [Lipitor] 40 mg PO HS@199910/20/22 [History] Calcium Carbonate [Calcium] 1,200 mg PO DAILY@0800 10/20/22 [History] Famotidine [Pepcid] 40 mg PO DAILY@0800 10/20/22 [History] Super B-Complex 1 tab PO DAILY@0810/20/22 [History] Apixaban [Eliquis] 5 mg PO BID@0800,199912/21/22 [History] Furosemide [Lasix] 40 mg PO BID@0800,1700 12/21/22 [History] Ipratropium-Albuterol Nebulize [Duoneb 0.5 mg-3 mg/3 ml Soln] 3 ml INHALATION RT-QID 12/21/22 [History] Multivitamins, Thera [Multivitamin (formulary)] 1 tab PO DAILY@0800 12/21/22 [History] Semaglutide [Wegovy] 1 mg SQ FR 12/21/22 [History] Metoprolol Tartrate [Lopressor] 25 mg PO BID #60 tab 12/24/22 [Rx] Dapagliflozin Propanediol [Farxiga] 10 mg PO DAILY tab 12/29/22 [Rx] Albuterol Sulfate [Albuterol Sulfate Hfa] 2 puff PO RT-BID PRN 02/12/23 [History] Potassium Chloride 20 meq PO DAILY@0800 02/12/23 [History] allopurinoL [Zyloprim] 100 mg PO DAILY 02/12/23 [History] dilTIAZem HCL [Cardizem CD] 120 mg PO DAILY 02/12/23 [History] predniSONE [Deltasone] 40 mg PO DAILY #2 tab 03/21/23 [Rx] Follow up Appointment(s)/Referral(s): Waldo Graves MD [Medical Doctor] - 1 Week (pace to make monique.) Abimael Mcgregor MD [Primary Care Provider] - 1-2 days (pace to make monique.) Patient Instructions/Handouts: Heart Failure (DC), COPD (Chronic Obstructive Pulmonary Disease) (DC) Activity/Diet/Wound Care/Special Instructions: Activity: As tolerated. Take breaks as needed. Diet: Heart healthy and carb consistent diet. Avoid salts, or foods with hidden salts such as canned or boxed foods and frozen dinners. Extra salt makes your heart work harder and traps the fluid in your body for longer. Special Instructions: Weigh yourself every morning after you urinate. If you gain 3 pounds overnight or more than 5 pounds in one week, call your primary physician and career professional for guidance on your medications or they may want to see you in their office. Keep a daily log of your weights and be sure to bring with you at follow up visits with your PCP and career professional. At your follow up with cardiology, it is recommending that you discuss HFMS Zoll Heart Failure monitoring device along with Furoscix (furosemide subcutaneous injection unit) for better management of your heart failure. Take all of your medications as directed, especially your water pills. NEVER skip a dose. And remember to keep all of your doctor's appointments and follow- up as needed. Elevate your legs when you are not up moving around to help with circulation and prevent swelling. Compression stockings are also a great way to improve lower extremity circulation and prevent/improve lower extremity edema. Call your primary care provider and career professional if you notice any extra swelling in your legs, ankles, feet or abdomen, if you have a new dry cough, if your shortness of breath worsens with activity or at rest, or if you feel more fatigued. Thank you for allowing us to participate in your care, it was truly a pleasure having you for our patient!!! Discharge Disposition: HOME WITH HOME HEALTH SERVICES
[2023-03-21] MEDS ORDERED: FUROSEMIDE 40 MG TAB PO SCH (16:00)
--- NOTE | 2023-03-21 16:33 | P.PN ---
Subjective Progress Note Date: 03/21/23 This is a very pleasant 57-year-old female patient with a known history of chronic atrial fibrillation anticoagulated with Eliquis, congestive heart failure, hyperlipidemia, hypertension, severe pulmonary hypertension following at the [facility], previous bariatric surgery as gastric sleeve, f ormer smoker, and dependent chronic obstructive pulmonary disease normally on 3 L, obstructive sleep apnea noncompliant with CPAP. She was transferred to here from [facility] yesterday after having a 4 to five-day history of increasing shortness of breath, cough congestion low O2 saturations in the 60s and 70s. Chest x-ray reveals cardiomegaly and trace bilateral pleural effusions. White count 6.3. Hemoglobin 11.7. Platelets 152. Sodium 139. Potassium 4.4. Bicarb 34. BUN 37. Creatinine 1.27. Glucose 155. She is seen today in consultation on the selective care unit. She is currently laying prone in bed. Awake and alert in no acute distress. Breathing a bit easier today compared to yesterday. He is requiring 10 L high flow nasal cannula to maintain O2 saturation in the low 90s. She's afebrile. Hemodynamically stable. The patient is seen today 03/19/2023 in follow-up on the selective care unit. She is currently sitting up in a chair at the bedside. Awake and alert in no acute distress. She is maintaining O2 saturations in the 90s on 9 L high flow nasal cannula. She's alternating with BiPAP 12/5 on 40% FiO2. She does have home oxygen that she wears 24 7. She is anticoagulated with Eliquis. White count 9.5. Hemoglobin 11.9. Sodium 141. Potassium 3.7. Bicarb 36. BUN 40. Creatinine 1.2. Glucose 212. She is continued on DuoNeb inhalations, Perforomist inhalations, IV Solu-Medrol and Singulair. She remains on IV diuretics. No accurate I&O. The patient is seen today 03/20/2023 in follow-up on the selective care unit. She is currently sitting up at the bedside. Awake and alert in no acute distress. She is breathing a bit easier today compared to yesterday. Still not quite back to her baseline. Maintaining O2 saturations at 90% on 5 L high flow nasal cannula. Afebrile. Hemodynamically stable. Blood sugar 157. She remains on DuoNeb inhalations Perforomist, Singulair, Solu-Medrol. Anticoagulated with Eliquis. Remains on IV diuretics. Currently in a positive balance. The patient is seen today 03/21/2023 in follow-up on the selective care unit. She is currently up in a chair. Awake and alert in no acute distress. Maintaining O2 saturation in the mid 90s on 4 L/m per nasal cannula. She's been afebrile. Hemodynamically stable. Sodium 141. Potassium 4.0. Bicarb 32. BUN 40. Creatinine 1.02. Glucose 210. If she is continued on bronchodilators and diuretics. Anticoagulated with Eliquis. Objective - Vital Signs Vital signs: Vital Signs Temp 98.2 F 03/21/23 11:51 Pulse 86 03/21/23 11:59 Resp 20 03/21/23 11:51 BP 146/73 03/21/23 11:51 Pulse Ox 94 L 03/21/23 11:51 FiO2 40 03/21/23 04:10 Intake & Output 03/20/23 03/21/23 03/21/23 18:59 06:59 18:59 Intake Total 1020 960 480 Output Total 1000 1000 850 Balance 20 -40 -370 Weight 115.4 kg Intake: Oral 1020 960 480 Output: Urine 1000 1000 850 Other: Voiding Method Toilet Toilet Toilet # Voids 1 2 - Exam GENERAL EXAM: Alert, pleasant 57-year-old female, on 4 L high flow nasal cannula, comfortable in no apparent distress. HEAD: Normocephalic. EYES: Normal reaction of pupils, equal size. NOSE: Clear with pink turbinates. THROAT: No erythema or exudates. NECK: No masses, no JVD. CHEST: No chest wall deformity. LUNGS: Equal air entry with crackles in the bilateral bases. CVS: S1 and S2 normal with an audible murmur, regular rhythm. ABDOMEN: No hepatosplenomegaly, normal bowel sounds, no guarding or rigidity. SPINE: No scoliosis or deformity SKIN: No rashes CENTRAL NERVOUS SYSTEM: No focal deficits, tone is normal in all 4 extremities. EXTREMITIES: There is 1+ peripheral edema. No clubbing, no cyanosis. Peripheral pulses are intact. - Labs CBC & Chem 7: 03/20/23 16:08 03/21/23 08:27 Labs: Abnormal Lab Results - Last 24 Hours (Table) 03/20/23 03/20/23 03/20/23 Range/Units 16:08 16:49 21:02 Carbon Dioxide 35 H (22-30) mmol/L BUN 43 H (7-17) mg/dL Creatinine 1.09 H (0.52-1.04) mg/dL Glucose 209 H (74-99) mg/dL POC Glucose (mg/dL) 185 H 230 H (70-110) mg/dL Magnesium 2.5 H (1.6-2.3) mg/dL 03/21/23 03/21/23 03/21/23 Range/Units 05:44 08:27 11:30 Carbon Dioxide 32 H (22-30) mmol/L BUN 40 H (7-17) mg/dL Creatinine (0.52-1.04) mg/dL Glucose 210 H (74-99) mg/dL POC Glucose (mg/dL) 155 H 173 H (70-110) mg/dL Magnesium (1.6-2.3) mg/dL Assessment and Plan Assessment: Acute on chronic hypoxemic respiratory failure secondary to an acute exacerbat ion of diastolic congestive heart failure History of severe pulmonary hypertension being followed at the [facility] Chronic hypoxemic respiratory failure has home oxygen at 3 L 25/12 Chronic obstructive pulmonary disease with an FEV1 value 35% of predicted Chronic atrial fibrillation, anticoagulated with Eliquis Former smoker Obesity with a BMI of 44.2 kg/m History of previous gastric sleeve placement History of obstructive sleep apnea, not tolerant of CPAP Hypertension Chronic kidney disease, stage III Plan: The patient was seen and evaluated Medications and labs reviewed Cleared for discharge from the pulmonary standpoint Continue her home pulmonary medications, oxygen Keep her scheduled appointment at the [facility] Follow-up in our office in 1 week I have personally seen and examined the patient, performed the documentation and the assessment and plan as written. Number of minutes spent on the visit: 10.
== END 2023-03-21 15:06 | disposition home health service (06) | DRG 291 ==
LOC: EC 14:20 → 3SCARD 16:36
PROVIDERS: ADMIT Family Medicine; ATTEND Family Medicine
PROC: 5A09357 Assistance with Respiratory Ventilation, Less than 24 Consecutive Hours, Continuous Positive Airway Pressure (ICD-10-PCS; principal; 2023-03-17)
PROC: 5A0935A Assistance with Respiratory Ventilation, Less than 24 Consecutive Hours, High Flow/Velocity Cannula (ICD-10-PCS; 2023-03-18)
DX: I13.0 Hypertensive heart and chronic kidney disease with heart failure and stage 1 through stage 4 chronic kidney disease, or unspecified chronic kidney disease (principal); I50.33 Acute on chronic diastolic (congestive) heart failure; J96.21 Acute and chronic respiratory failure with hypoxia; E87.3 Alkalosis; J44.1 Chronic obstructive pulmonary disease with (acute) exacerbation; I48.19 Other persistent atrial fibrillation; Z68.41 Body mass index [BMI] 40.0-44.9, adult; I27.22 Pulmonary hypertension due to left heart disease; E66.9 Obesity, unspecified; N18.30 Chronic kidney disease, stage 3 unspecified; E78.5 Hyperlipidemia, unspecified; L27.1 Localized skin eruption due to drugs and medicaments taken internally; T50.Z95A Adverse effect of other vaccines and biological substances, initial encounter; G47.33 Obstructive sleep apnea (adult) (pediatric); I45.10 Unspecified right bundle-branch block; Z20.822 Contact with and (suspected) exposure to COVID-19; Z99.81 Dependence on supplemental oxygen; Z79.01 Long term (current) use of anticoagulants; I25.2 Old myocardial infarction; Z91.198 Patient's noncompliance with other medical treatment and regimen for other reason; Z98.84 Bariatric surgery status; Z87.891 Personal history of nicotine dependence; Z79.51 Long term (current) use of inhaled steroids; Z79.84 Long term (current) use of oral hypoglycemic drugs; Z88.1 Allergy status to other antibiotic agents; Z88.8 Allergy status to other drugs, medicaments and biological substances; Z79.899 Other long term (current) drug therapy; Z82.49 Family history of ischemic heart disease and other diseases of the circulatory system; Z82.5 Family history of asthma and other chronic lower respiratory diseases
CPT/HCPCS: 71045; 80048; 80053; 82803; 83735; 85027; 87636; 93005; 94640; 94660; 94760; 96365; 96366; 96375; 99291

== ENCOUNTER 2023-09-06 17:07 | Inpatient (IN) | payer OTHER ==
--- NOTE | 2023-09-06 17:30 | ED ---
SOB HPI - General Chief Complaint: Shortness of Breath Stated Complaint: Back Pain/SOB Time Seen by Provider: 09/06/23 17:14 Source: patient, RN notes reviewed Mode of arrival: wheelchair Limitations: no limitations - History of Present Illness Initial Comments: 58-year-old female with a history of stage III renal disease and COPD who presents with 2 days of progressively worsening shortness of breath exertional dyspnea lower extremity and abdominal swelling she also states she has had a weight gain. She believes she is retaining fluid. She normally has 3 L of oxygen daily she had to turn it up to 5 L and still without much relief. She denies any fevers chills sweats no no overt chest pain but does complain of right-sided back pain that seem to get worse with deep breathing and some movement. MD Complaint: shortness of breath - Related Data Home Medications Medication Instructions Recorded Confirmed Citalopram Hydrobromide [CeleXA] 40 mg PO DAILY 08/14/22 09/06/23 Ferrous Sulfate [Iron (65 MG 325 mg PO DAILY 08/14/22 09/06/23 Elemental)] Montelukast [Singulair] 10 mg PO DAILY 08/14/22 09/06/23 [place]-3/Dha/Epa/Fish Oil [Fish Oil 1 cap PO DAILY@0800 08/14/22 09/06/23 1,000 mg Softgel] Pantoprazole [Protonix] 40 mg PO DAILY 08/14/22 09/06/23 Spironolactone [Aldactone] 25 mg PO DAILY 08/14/22 09/06/23 Tiotropium Br/Olodaterol HCl 2 puff INHALATION RT-DAILY 08/14/22 09/06/23 [Stiolto Respimat Inhal [place]] Atorvastatin [Lipitor] 40 mg PO HS 10/20/22 09/06/23 Calcium Carbonate [Calcium] 1,200 mg PO DAILY 10/20/22 09/06/23 Famotidine [Pepcid] 40 mg PO DAILY 10/20/22 09/06/23 Super B-Complex 1 tab PO DAILY 10/20/22 09/06/23 Apixaban [Eliquis] 5 mg PO BID 12/21/22 09/06/23 Ipratropium-Albuterol Nebulize 3 ml INHALATION RT-QID 12/21/22 09/06/23 [Duoneb 0.5 mg-3 mg/3 ml Soln] Multivitamins, Thera [Multivitamin 1 tab PO DAILY 12/21/22 09/06/23 (formulary)] allopurinoL [Zyloprim] 100 mg PO DAILY 02/12/23 09/06/23 dilTIAZem HCL [Cardizem CD] 120 mg PO DAILY 02/12/23 09/06/23 Biotene Dry Mouth Rinse 15 ml PO 5XD 09/06/23 09/06/23 Bumetanide [BUMEX] 2 mg PO BID 09/06/23 09/06/23 Fluticasone Nasal [place] [Flonase 1 spray EA NOSTRIL DAILY PRN 09/06/23 09/06/23 Nasal [place]] Metoprolol Tartrate [Lopressor] 25 mg PO HS 09/06/23 09/06/23 Metoprolol Tartrate [Lopressor] 50 mg PO DAILY 09/06/23 09/06/23 Naproxen [EC-Naprosyn] 500 mg PO BID PRN 09/06/23 09/06/23 Nystatin 100,000 Unit/gm Powd 1 applic TOPICAL BID PRN 09/06/23 09/06/23 [Mycostatin Powder] Potassium Chloride ER [K-Dur 10] 20 meq PO DAILY 09/06/23 09/06/23 diphenhydrAMINE [Benadryl] 50 mg PO HS 09/06/23 09/06/23 Allergies Allergy/AdvReac Type Severity Reaction Status Date / Time doxycycline Allergy NAUSEA, Verified 09/06/23 20:52 VOMITING, UPSET STOMACH lorazepam [From Ativan] AdvReac Hallucinati Verified 09/06/23 20:52 ons venlafaxine [From Effexor] AdvReac Hallucinati Verified 09/06/23 20:52 ons Review of Systems ROS Statement: Those systems with pertinent positive or pertinent negative responses have been documented in the HPI. ROS Other: All systems not noted in ROS Statement are negative. Past Medical History Past Medical History: Atrial Fibrillation, Heart Failure, COPD, Hyperlipidemia, Hypertension Additional Past Medical History / Comment(s): pulmonary HTN History of Any Multi-Drug Resistant Organisms: None Reported Past Surgical History: Bariatric Surgery, Bowel Resection, Hysterectomy Additional Past Surgical History / Comment(s): gastric sleeve Past Anesthesia/Blood Transfusion Reactions: No Reported Reaction Past Psychological History: Depression Smoking Status: Former smoker Past Alcohol Use History: None Reported Past Drug Use History: None Reported - Past Family History Mother Family Medical History: COPD, Coronary Artery Disease (CAD), CVA/TIA, Hypertension Father Family Medical History: COPD, CVA/TIA, Hypertension, Prostate Disorder General Exam - General Exam Comments Initial Comments: This is a well-developed awake alert oriented x 4 female Limitations: no limitations General appearance: alert, anxious Head exam: Present: atraumatic, normocephalic, normal inspection Eye exam: Present: normal appearance, PERRL, EOMI. Absent: scleral icterus, conjunctival injection, periorbital swelling ENT exam: Present: normal exam, mucous membranes moist Neck exam: Present: normal inspection, full ROM, other. Absent: tenderness, meningismus, lymphadenopathy Respiratory exam: Present: rales, accessory muscle use, decreased breath sounds. Absent: respiratory distress, wheezes, rhonchi, stridor Cardiovascular Exam: Present: irregular rhythm. Absent: systolic murmur, diastolic murmur, rubs, gallop, clicks GI/Abdominal exam: Present: soft, normal bowel sounds. Absent: distended, tenderness, guarding, rebound, rigid Extremities exam: Present: full ROM, normal capillary refill, pedal edema. Absent: tenderness, joint swelling, calf tenderness Back exam: Present: normal inspection Neurological exam: Present: alert, oriented X3, CN II-XII intact Psychiatric exam: Present: normal affect, normal mood Skin exam: Present: warm, dry, intact, normal color. Absent: rash Course Vital Signs 09/06/23 09/06/23 09/06/23 17:10 17:12 18:12 Temperature 99.2 F Pulse Rate 89 80 64 Respiratory 26 H 22 20 Rate Blood Pressure 121/75 121/53 O2 Sat by Pulse 88 L 91 L 86 L Oximetry 09/06/23 09/06/23 09/06/23 18:21 18:32 19:36 Temperature Pulse Rate 91 94 Respiratory 22 Rate Blood Pressure O2 Sat by Pulse Oximetry Medical Decision Making - Medical Decision Making Patient was feeling somewhat better though she did require BiPAP in spite of treatment. She was improved after that. Clinically she does appear to be consistent with COPD exacerbation and CHF/pulmonary edema. She does have atrial fibrillation on the monitor. She will be admitted the case was discussed with Dr. Bass. Was pt. sent in by a medical professional or institution (, PA, COMMERCIAL COUNSEL, urgent care, hospital, or usp...) When possible be specific @ -No Did you speak to anyone other than the patient for history (EMS, parent, family, police, friend...)? What history was obtained from this source @ -No Did you review nursing and triage notes (agree or disagree)? Why? @ -I reviewed and agree with nursing and triage notes Were old charts reviewed (outside hosp., previous admission, EMS record, old EKG, old radiological studies, urgent care reports/EKG's, usp records)? Report findings @ -No old charts were reviewed Differential Diagnosis (chest pain, altered mental status, abdominal pain women, abdominal pain men, vaginal bleeding, weakness, fever, dyspnea, syncope, headache, dizziness, GI bleed, back pain, seizure, CVA, palpatations, mental health, musculoskeletal)? @ -Dyspnea, chronic atrial fibrillation EKG interpreted by me (3pts min.). @ -As above EKG interpreted by me atrial fibrillation rate of 73 QRS duration 98 QT/QTc 439/464 incomplete right bundle branch block possible right ventricular hypertrophy poor R wave progression. X-rays interpreted by me (1pt min.). @ -Chest x-ray interpreted by me evidence of increased pulmonary vascular markings consistent with CHF/pulmonary edema CT interpreted by me (1pt min.). @ -None done U/S interpreted by me (1pt. min.). @ -None done What testing was considered but not performed or refused? (CT, X-rays, U/S, labs)? Why? @ -None What meds were considered but not given or refused? Why? @ -None Did you discuss the management of the patient with other professionals (professionals i.e. , ADI, COMMERCIAL COUNSEL, lab, RT, psych nurse, criminal justice social worker, clay dry press operator, teacher, field health officer, casework manager)? Give summary @ -, Mood Was smoking cessation discussed for >3mins.? @ -No Was critical care preformed (if so, how long)? @ -45 minutes Were there social determinants of health that impacted care today? How? (Homelessness, low income, unemployed, alcoholism, drug addiction, transportation, low edu. Level, literacy, decrease access to med. care, fdc, rehab)? @ -No Was there de-escalation of care discussed even if they declined (Discuss DNR or withdrawal of care, Hospice)? DNR status @ -No What co-morbidities impacted this encounter? (DM, HTN, Smoking, COPD, CAD, Cancer, CVA, ARF, Chemo, Hep., AIDS, mental health diagnosis, sleep apnea, morbid obesity)? @ -OPD, CHF, stage III kidney disease Was patient admitted / discharged? Hospital course, mention meds given and route, prescriptions, significant lab abnormalities, going to OR and other pertinent info. @ -Hospital course patient was admitted for inpatient treatment Undiagnosed new problem with uncertain prognosis? @ -No Drug Therapy requiring intensive monitoring for toxicity (Heparin, Nitro, I nsulin, Cardizem)? @ -No Were any procedures done? @ -No Diagnosis/symptom? @ -Acute pulmonary edema, COPD exacerbation, atrial fibrillation, chronic Acute, or Chronic, or Acute on Chronic? @ -Acute Uncomplicated (without systemic symptoms) or Complicated (systemic symptoms)? @ -Complicated Side effects of treatment? @ -No Exacerbation, Progression, or Severe Exacerbation? @ -Exacerbation, severe Poses a threat to life or bodily function? How? (Chest pain, [place], [place], pneumonia, PE, COPD, DKA, ARF, appy, cholecystitis, CVA, Diverticulitis, Homicidal, Suicidal, threat to staff... and all critical care pts) @ -Potential - Lab Data Result diagrams: 09/06/23 18:05 09/06/23 18:05 Lab Results 09/06/23 09/06/23 09/06/23 Range/Units 18:05 18:05 18:05 WBC 7.9 (3.8-10.6) k/uL RBC 3.82 (3.80-5.40) m/uL Hgb 11.9 (11.4-16.0) gm/dL Hct 36.9 (34.0-46.0) % MCV 96.5 (80.0-100.0) fL MCH 31.1 (25.0-35.0) pg MCHC 32.3 (31.0-37.0) g/dL RDW 15.2 (11.5-15.5) % Plt Count 144 L (150-450) k/uL MPV 8.8 Neutrophils % 73 % Lymphocytes % 12 % Monocytes % 8 % Eosinophils % 4 % Basophils % 1 % Neutrophils # 5.8 (1.3-7.7) k/uL Lymphocytes # 1.0 (1.0-4.8) k/uL Monocytes # 0.6 (0-1.0) k/uL Eosinophils # 0.3 (0-0.7) k/uL Basophils # 0.1 (0-0.2) k/uL Hypochromasia Slight PT 12.1 (10.0-12.5) sec INR 1.1 (<1.2) APTT 24.1 (22.0-30.0) sec Sodium 136 L (137-145) mmol/L Potassium 5.4 H (3.5-5.1) mmol/L Chloride 103 (98-107) mmol/L Carbon Dioxide 24 (22-30) mmol/L Anion Gap 9 mmol/L BUN 33 H (7-17) mg/dL Creatinine 1.58 H (0.52-1.04) mg/dL Est GFR (CKD-EPI)AfAm 41 (>60 ml/min/1.73 sqM) Est GFR (CKD-EPI)NonAf 36 (>60 ml/min/1.73 sqM) Glucose 96 (74-99) mg/dL Plasma Lactic Acid [place] (0.7-2.0) mmol/L Calcium 9.1 (8.4-10.2) mg/dL Magnesium 2.1 (1.6-2.3) mg/dL Total Bilirubin 1.3 (0.2-1.3) mg/dL AST 40 H (14-36) U/L ALT 15 (4-34) U/L Alkaline Phosphatase 89 (38-126) U/L Troponin I (0.000-0.034) ng/mL NT-Pro-B Natriuret Pep 8060 pg/mL Total Protein 7.2 (6.3-8.2) g/dL Albumin 4.2 (3.5-5.0) g/dL Influenza Type A (PCR) (Not Detectd) Influenza Type B (PCR) (Not Detectd) RSV (PCR) (Not Detectd) SARS-CoV-2 (PCR) (Not Detectd) 09/06/23 09/06/23 09/06/23 Range/Units 18:05 18:05 18:05 WBC (3.8-10.6) k/uL RBC (3.80-5.40) m/uL Hgb (11.4-16.0) gm/dL Hct (34.0-46.0) % MCV (80.0-100.0) fL MCH (25.0-35.0) pg MCHC (31.0-37.0) g/dL RDW (11.5-15.5) % Plt Count (150-450) k/uL MPV Neutrophils % % Lymphocytes % % Monocytes % % Eosinophils % % Basophils % % Neutrophils # (1.3-7.7) k/uL Lymphocytes # (1.0-4.8) k/uL Monocytes # (0-1.0) k/uL Eosinophils # (0-0.7) k/uL Basophils # (0-0.2) k/uL Hypochromasia PT (10.0-12.5) sec INR (<1.2) APTT (22.0-30.0) sec Sodium (137-145) mmol/L Potassium (3.5-5.1) mmol/L Chloride (98-107) mmol/L Carbon Dioxide (22-30) mmol/L Anion Gap mmol/L BUN (7-17) mg/dL Creatinine (0.52-1.04) mg/dL Est GFR (CKD-EPI)AfAm (>60 ml/min/1.73 sqM) Est GFR (CKD-EPI)NonAf (>60 ml/min/1.73 sqM) Glucose (74-99) mg/dL Plasma Lactic Acid Leoncio 0.8 (0.7-2.0) mmol/L Calcium (8.4-10.2) mg/dL Magnesium (1.6-2.3) mg/dL Total Bilirubin (0.2-1.3) mg/dL AST (14-36) U/L ALT (4-34) U/L Alkaline Phosphatase (38-126) U/L Troponin I 0.022 (0.000-0.034) ng/mL NT-Pro-B Natriuret Pep pg/mL Total Protein (6.3-8.2) g/dL Albumin (3.5-5.0) g/dL Influenza Type A (PCR) Not Detected (Not Detectd) Influenza Type B (PCR) Not Detected (Not Detectd) RSV (PCR) Not Detected (Not Detectd) SARS-CoV-2 (PCR) Not Detected (Not Detectd) - EKG Data -: EKG Interpreted by Me - Radiology Data Interpreted by me: Chest x-ray interpreted by me evidence of pulmonary edema with increased pulmonary vascular markings Critical Care Time Critical Care Time: Yes Total Critical Care Time: 45 Disposition Clinical Impression: Acute pulmonary edema, Acute exacerbation of chronic obstructive pulmonary disease, Chronic atrial fibrillation, Hypoxemia, Stage III chronic kidney dis ease Disposition: ADMITTED IP TO THIS HOSP Condition: Fair Referrals: None,Stated [Primary Care Provider] - 1-2 days Time of Disposition: 20:45 Decision Date: 09/06/23 Decision Time: 20:45
[2023-09-06] MEDS: IPRATROPIUM-ALBUTEROL 3 ML NEB INHALATION STA (18:21)
[2023-09-06 18:28] LABS: Basophils # (A) 0.1 k/uL (0-0.2); Basophils % (A) 1 %; Eosinophils # (A) 0.3 k/uL (0-0.7); Eosinophils % (A) 4 %; HCT 36.9 % (34.0-46.0); HGB 11.9 gm/dL (11.4-16.0); Hypochromasia Slight; Lymphocytes % (A) 12 %; MCH 31.1 pg (25.0-35.0); MCHC 32.3 g/dL (31.0-37.0); MCV 96.5 fL (80.0-100.0); Mean Platelet Volume 8.8; Monocytes # (A) 0.6 k/uL (0-1.0); Monocytes % (A) 8 %; Neutrophils # (A) 5.8 k/uL (1.3-7.7); Neutrophils % (A) 73 %; Platelet Count 144 k/uL (150-450); RBC 3.82 m/uL (3.80-5.40); RDW 15.2 % (11.5-15.5); WBC 7.9 k/uL (3.8-10.6)
[2023-09-06 18:33] LABS: ALT 15 U/L (4-34); African American GFR (CKD) 41 (>60 ml/min/1.73 sqM); Anion Gap 9 mmol/L; Blood Urea Nitrogen 33 mg/dL (7-17); Calcium 9.1 mg/dL (8.4-10.2); Carbon Dioxide 24 mmol/L (22-30); Chloride 103 mmol/L (98-107); Glucose 96 mg/dL (74-99); Non-African American GFR(CKD) 36 (>60 ml/min/1.73 sqM); Sodium 136 mmol/L (137-145)
[2023-09-06] MEDS: FUROSEMIDE 10 MG/ML 4 ML VIAL IV STA (18:36)
[2023-09-06] MEDS: HYDROmorphone 1 MG/ML 1 ML SYRINGE IVP STA (18:37)
[2023-09-06 18:42] LABS: NT-Pro-B-Type Natriuretic Pept 8060 pg/mL
[2023-09-06 18:49] LABS: AST 40 U/L (14-36); Albumin 4.2 g/dL (3.5-5.0); Alkaline Phosphatase 89 U/L (38-126); Magnesium 2.1 mg/dL (1.6-2.3); Potassium 5.4 mmol/L (3.5-5.1); Total Bilirubin 1.3 mg/dL (0.2-1.3); Total Protein 7.2 g/dL (6.3-8.2)
[2023-09-06 19:06] LABS: INR 1.1 (<1.2); Partial Thromboplastin Time 24.1 sec (22.0-30.0); Prothrombin Time 12.1 sec (10.0-12.5)
--- NOTE | 2023-09-06 19:31 | XR ---
EXAMINATION: XR chest 2V: 09/06/2023 7:06 PM CLINICAL INDICATION: difficulty breathing TECHNIQUE: Departmental protocol COMPARISON: 03/18/2023 FINDINGS: Cardiac silhouette is markedly enlarged, unchanged. There is moderate marked silhouetting of the pulmonary vasculature bilaterally by predominantly a fin e reticular pattern of increased density bilaterally throughout the lungs particularly involving the mid and lower lung zones. There are also scattered ill-defined small areas of coalescence, right grea ter left. The findings suggest interstitial and alveolar phase pulmonary edema, provided pneumonia ca n be excluded on clinical grounds. The pleural spaces are negative. Skeletal structures and soft tissues are negative for acute findings. IMPRESSION: Suspect interstitial phase and alveolar phase pulmonary edema.
[2023-09-07] MEDS: FUROSEMIDE 40 MG TAB PO SCH (00:57)
[2023-09-07] MEDS: HYDROmorphone 0.5 MG/0.5 ML SYRINGE IVP PRN (00:57)
--- NOTE | 2023-09-07 02:33 | P.HPIM ---
History of Present Illness H&P Date: 09/06/23 Chief Complaint: Difficulty breathing 58-year-old female with congestive heart failure A-fib on Eliquis Patient coming in with 2-week history of progressive shortness of breath which was getting worse over the past couple days she also noticed about 15 to 20 pounds weight gain with swelling of bilateral legs. She denies any fevers or chills denies any coughing but reports shortness of breath on mild to moderate exertion along with orthopnea and difficulty with getting comfortable at night. Patient also reports right-sided back pain that is chronic in nature which was getting worse with her difficulty breathing. Denies any focal neurodeficits or radiculopathy. Patient denies any history of blood clots denies any recent travel or hospital stay denies any GI bleeding or changes with bowel or urinary habits She denies any tobacco smoking illicit drugs or heavy alcohol Patient also has COPD on home oxygen 3 L that she wears all the time. She called her primary care doctor who recommended increasing her Bumex and Lasix however patient did not notice any benefit from these changes with her symptoms kept getting worse and decided to come in today review of systems Pertinent positives as noted in HPI. All other systems were reviewed and are negative on exam Constitutional: No acute distress, conversant, pleasant Eyes: Anicteric sclerae, moist conjunctiva, Pupils equal round reactive to light ENMT: NC/AT Oropharynx clear, no erythema, or exudates Neck: Supple, no masses, or JVD No carotid bruits No thyromegaly Lungs: Good breath sounds bilaterally with inspiratory rales at left lung bases Clear to percussion Normal respiratory effort, no accessory muscle use Cardiovascular: Heart regular in rate and rhythm, No murmurs, gallops, or rubs +2 bilateral peripheral leg edema Abdominal: Soft Nontender, no guarding, rebound or rigidity Abdomen moving with respiration Normoactive bowel sounds Extremities: No digital cyanosis No clubbing Pedal pulses intact and symmetrical Radial pulses intact and symmetrical No calf tenderness Psychiatric: Alert and oriented to person, place and time Appropriate affect fair judgement Neuro Muscles Strength 5/5 in all 4 extremities Sensation to light touch grossly present throughout Cranial nerves II-XII grossly intact Past Medical History Past Medical History: Atrial Fibrillation, Heart Failure, COPD, Hyperlipidemia, Hypertension Additional Past Medical History / Comment(s): pulmonary HTN History of Any Multi-Drug Resistant Organisms: None Reported Past Surgical History: Bariatric Surgery, Bowel Resection, Hysterectomy Additional Past Surgical History / Comment(s): gastric sleeve Past Anesthesia/Blood Transfusion Reactions: No Reported Reaction Past Psychological History: Depression Smoking Status: Former smoker Past Alcohol Use History: None Reported Past Drug Use History: None Reported - Past Family History Mother Family Medical History: COPD, Coronary Artery Disease (CAD), CVA/TIA, Hypertension Father Family Medical History: COPD, CVA/TIA, Hypertension, Prostate Disorder Medications and Allergies Home Medications Medication Instructions Recorded Confirmed Type Citalopram Hydrobromide [CeleXA] 40 mg PO DAILY 08/14/22 09/06/23 History Ferrous Sulfate [Iron (65 MG 325 mg PO DAILY 08/14/22 09/06/23 History Elemental)] Montelukast [Singulair] 10 mg PO DAILY 08/14/22 09/06/23 History [place]-3/Dha/Epa/Fish Oil [Fish Oil 1 cap PO DAILY@0800 08/14/22 09/06/23 History 1,000 mg Softgel] Pantoprazole [Protonix] 40 mg PO DAILY 08/14/22 09/06/23 History Spironolactone [Aldactone] 25 mg PO DAILY 08/14/22 09/06/23 History Tiotropium Br/Olodaterol HCl 2 puff INHALATION RT-DAILY 08/14/22 09/06/23 History [Stiolto Respimat Inhal [place]] Atorvastatin [Lipitor] 40 mg PO HS 10/20/22 09/06/23 History Calcium Carbonate [Calcium] 1,200 mg PO DAILY 10/20/22 09/06/23 History Famotidine [Pepcid] 40 mg PO DAILY 10/20/22 09/06/23 History Super B-Complex 1 tab PO DAILY 10/20/22 09/06/23 History Apixaban [Eliquis] 5 mg PO BID 12/21/22 09/06/23 History Ipratropium-Albuterol Nebulize 3 ml INHALATION RT-QID 12/21/22 09/06/23 History [Duoneb 0.5 mg-3 mg/3 ml Soln] Multivitamins, Thera [Multivitamin 1 tab PO DAILY 12/21/22 09/06/23 History (formulary)] allopurinoL [Zyloprim] 100 mg PO DAILY 02/12/23 09/06/23 History dilTIAZem HCL [Cardizem CD] 120 mg PO DAILY 02/12/23 09/06/23 History Biotene Dry Mouth Rinse 15 ml PO 5XD 09/06/23 09/06/23 History Bumetanide [BUMEX] 2 mg PO BID 09/06/23 09/06/23 History Fluticasone Nasal [place] [Flonase 1 spray EA NOSTRIL DAILY PRN 09/06/23 09/06/23 History Nasal [place]] Metoprolol Tartrate [Lopressor] 25 mg PO HS 09/06/23 09/06/23 History Metoprolol Tartrate [Lopressor] 50 mg PO DAILY 09/06/23 09/06/23 History Naproxen [EC-Naprosyn] 500 mg PO BID PRN 09/06/23 09/06/23 History Nystatin 100,000 Unit/gm Powd 1 applic TOPICAL BID PRN 09/06/23 09/06/23 History [Mycostatin Powder] Potassium Chloride ER [K-Dur 10] 20 meq PO DAILY 09/06/23 09/06/23 History diphenhydrAMINE [Benadryl] 50 mg PO HS 09/06/23 09/06/23 History Allergies Allergy/AdvReac Type Severity Reaction Status Date / Time doxycycline Allergy NAUSEA, Verified 09/06/23 20:52 VOMITING, UPSET STOMACH lorazepam [From Ativan] AdvReac Hallucinati Verified 09/06/23 20:52 ons venlafaxine [From Effexor] AdvReac Hallucinati Verified 09/06/23 20:52 ons Physical Exam Vitals: Vital Signs Temp Pulse Resp BP Pulse Ox 09/06/23 22:01 67 18 110/72 93 L 09/06/23 19:36 22 09/06/23 18:32 94 09/06/23 18:21 91 09/06/23 18:12 64 20 121/53 86 L 09/06/23 17:12 80 22 91 L 09/06/23 17:10 99.2 F 89 26 H 121/75 88 L Intake and Output 09/06/23 09/06/23 09/06/23 06:59 14:59 22:59 Other: Weight 112.037 kg Results CBC & Chem 7: 04/04/24 18:05 09/06/23 18:05 Labs: Abnormal Lab Results - Last 24 Hours (Table) 09/06/23 09/06/23 Range/Units 18:05 18:05 Plt Count 144 L (150-450) k/uL Sodium 136 L (137-145) mmol/L Potassium 5.4 H (3.5-5.1) mmol/L BUN 33 H (7-17) mg/dL Creatinine 1.58 H (0.52-1.04) mg/dL AST 40 H (14-36) U/L Assessment and Plan Assessment: 58-year-old female with A-fib on Eliquis, congestive heart failure COPD on home oxygen coming in with progressive shortness of breath with exertion and orthopnea I discussed case with ED doctor and accepted the admission for acute CHF exacerbation with anticipated length of stay more than 2 midnights Chronic hypoxic respiratory failure Acute CHF exacerbation Daily weights Fluid restriction 2 L daily IV Lasix 40 mg twice daily Monitor inputs and outputs Echocardiogram done December 2022 showed left ventricular ejection fraction 55% Check echocardiogram Continue with aspirin statin Chest x-ray showed pulmonary edema Paroxysmal A-fib Continue with Eliquis Continue diltiazem Continue metoprolol 50 mg daily 25 mg nightly COPD compensated Continue with Singulair Continue with home inhalers Continue with nebulizer DuoNeb as needed Blood work unremarkable showing white count 7.9 hemoglobin 11.9 Acute kidney injury on CKD Sodium 136 potassium 5.4 BUN 33 creatinine 1.58 baseline 1.2 Avoid nephrotoxic meds Monitor renal function and urine output Hold spironolactone Full code DVT prophylaxis on Eliquis for A-fib GI prophylaxis continue with Pepcid
[2023-09-07] MEDS ORDERED: IPRATROPIUM-ALBUTEROL 3 ML NEB INHALATION SCH ×2 (08:00)
[2023-09-07] MEDS: FORMOTEROL FUMARATE 20 MCG/2 ML NEBU INHALATION SCH (08:27)
[2023-09-07] MEDS: IPRATROPIUM-ALBUTEROL 3 ML NEB INHALATION SCH (08:27)
[2023-09-07] MEDS: MONTELUKAST 10 MG TAB PO SCH (08:41)
[2023-09-07] MEDS: DILTIAZEM CD 120 MG CAP.ER.24H PO SCH (08:41)
[2023-09-07] MEDS: allopurinoL 100 MG TAB PO SCH (08:41)
[2023-09-07] MEDS: FAMOTIDINE 20 MG TAB PO SCH (08:41)
[2023-09-07] MEDS: ASPIRIN 325 MG TAB PO SCH (08:41)
[2023-09-07] MEDS: APIXABAN 5 MG TAB PO SCH (08:41)
[2023-09-07] MEDS: METOPROLOL TARTRATE 25 MG TAB PO SCH ×2 (08:41→20:32)
[2023-09-07] MEDS: FUROSEMIDE 10 MG/ML 4 ML VIAL IV SCH (08:42)
[2023-09-07] MEDS ORDERED: SPIRONOLACTONE 25 MG TAB PO SCH (09:00)
--- NOTE | 2023-09-07 10:44 | P.PN ---
Subjective Progress Note Date: 09/07/23 Pt still c/o dyspnea, but reports improvement from admission. Gen: In NAD, non-toxic HEENT: normocephalic, atraumatic, hearing acuity is intant, mucous membranes moist CVS: perfusing all extremities well, bilateral pitting edema, Respiratory: symmetric chest expansion, no accessory muscle use, crackles in the posterior wren GI: soft, NTTP, ND, : no suprapubic tenderness, no CVA tenderness MSK/Derm: no rashes, cyanosis Neuro: CN II-XII intact, no motor weakness, Psych: cooperative, euthymic mood, judgment and insight is intact Hospital course: 58-year-old female with congestive heart failure A-fib on Eliquis presented with 2-week history of progressive shortness of breath Echocardiogram done December 2022 showed left ventricular ejection fraction 55% Blood work unremarkable showing white count 7.9 hemoglobin 11.9 Sodium 136 potassium 5.4 BUN 33 creatinine 1.58 baseline 1.2 -Chest x-ray showed pulmonary edema Assessment/plan: Acute on chronic hypoxic respiratory failure Acute CHF exacerbation -Daily weights -Fluid restriction 2 L daily -IV Lasix 40 mg twice daily -Monitor inputs and outputs -Check echocardiogram -Continue with aspirin statin Paroxysmal A-fib -Continue with Eliquis -Continue diltiazem -Continue metoprolol 50 mg daily 25 mg nightly COPD compensated -Continue with Singulair -Continue with home inhalers -Continue with nebulizer DuoNeb as needed Acute kidney injury on CKD -Avoid nephrotoxic meds -Monitor renal function and urine output -Hold spironolactone Full code DVT prophylaxis on Eliquis for A-fib GI prophylaxis continue with Pepcid Objective - Vital Signs Vital signs: Vital Signs Temp 98.1 F 09/07/23 08:00 Pulse 90 09/07/23 08:55 Resp 22 09/07/23 08:00 BP 111/66 09/07/23 08:00 Pulse Ox 92 L 09/07/23 08:28 FiO2 Intake & Output 09/06/23 09/07/23 09/07/23 18:59 06:59 18:59 Intake Total 240 Balance 240 Weight 112.037 kg 112.4 kg Intake: Oral 240 Other: # Voids 1 - Labs CBC & Chem 7: 09/06/23 18:05 04/04/24 18:05 Labs: Abnormal Lab Results - Last 24 Hours (Table) 09/06/23 09/06/23 Range/Units 18:05 18:05 Plt Count 144 L (150-450) k/uL Sodium 136 L (137-145) mmol/L Potassium 5.4 H (3.5-5.1) mmol/L BUN 33 H (7-17) mg/dL Creatinine 1.58 H (0.52-1.04) mg/dL AST 40 H (14-36) U/L
--- NOTE | 2023-09-07 15:29 | CA ---
Transthoracic Echo Report Name: Amy Castellano Age: 58 Gender: F : 1965 Exam Date: 09/07/2023 09:17 Exam Location: [facility] Ht (in): 66 Wt (lb): 247 Ordering Physician: Brian Choe MD Attending/Referring Phys: [id number], Дмитрий Materials Specialist Jackie Alcocer RDCS Procedure CPT: Indications: lvef Cardiac Hx: Technical Quality: Technically difficult study Contrast 1: Definity Total Dose (mL): 3 Contrast 2: Total Dose (mL): MEASUREMENTS (Male / Female) Normal Values 2D ECHO Aortic Root Diameter 3.3 cm LA Systolic Diameter LX 7.0 cm 3.0 - 4.0 / 2.7 - 3.8 cm DOPPLER AV Peak Velocity 130.0 cm/s AV Peak Gradient 6.8 mmHg AV Mean Velocity 81.7 cm/s AV Mean Gradient 2.9 mmHg AV Velocity Time Integral 23.4 cm LVOT Peak Velocity 66.2 cm/s LVOT Peak Gradient 1.8 mmHg LVOT Velocity Time Integral 12.5 cm MR Peak Velocity 363.6 cm/s MR Peak Gradient 52.9 mmHg TR Peak Velocity 317.3 cm/s TR Peak Gradient 40.3 mmHg PV Peak Velocity 49.0 cm/s PV Peak Gradient 1.0 mmHg FINDINGS Left Ventricle Left ventricular ejection fraction is estimated at 55 %. Mild left ventricular hypertrophy. Grade 3 diastolic dysfunction. Left ventricular cavity size normal. Right Ventricle Mild right ventricular dilatation. Right Atrium Severe right atrial dilatation. Left Atrium Severely increased left atrial diameter. Mitral Valve Moderate mitral annular calcification. Aortic Valve No aortic valve stenosis or regurgitation. Tricuspid Valve [id number] tricuspid regurgitation. Pulmonic Valve No pulmonic regurgitation. Pericardium No pericardial effusion. Aorta Normal size aortic root and proximal ascending aorta. CONCLUSIONS Previous echo recorded on 12/21/2022. Limited views due to poor acoustic Left ventricular ejection fraction 55% Severe biatrial enlargement Moderate to severe mitral annular calcification Mild to moderate tricuspid regurgitation No pericardial effusion Previewed by: Dr. Glenn Yepez DO (Electronically Signed) Final Date: 07 September 2023 15:29
[2023-09-07] MEDS: ATORVASTATIN 40 MG TAB PO SCH (20:32)
[2023-09-08] MEDS: FAMOTIDINE 20 MG TAB PO SCH (08:50)
[2023-09-08] MEDS: SENNOSIDES 8.6 MG TAB PO SCH (08:50)
[2023-09-08] MEDS: CITALOPRAM HYDROBROMIDE 20 MG TAB PO SCH (09:37)
[2023-09-08 11:04] LABS: African American GFR (CKD) 55 (>60 ml/min/1.73 sqM); Anion Gap 5 mmol/L; Blood Urea Nitrogen 30 mg/dL (7-17); Calcium 9.1 mg/dL (8.4-10.2); Carbon Dioxide 34 mmol/L (22-30); Chloride 101 mmol/L (98-107); Glucose 113 mg/dL (74-99); Non-African American GFR(CKD) 48 (>60 ml/min/1.73 sqM); Potassium 4.2 mmol/L (3.5-5.1); Sodium 140 mmol/L (137-145)
[2023-09-08] MEDS: FLUTICASONE 50MCG/SPRAY NASAL 16GM EA NOSTRIL PRN (13:04)
--- NOTE | 2023-09-08 15:56 | P.PN ---
Subjective Progress Note Date: 09/08/23 Pt still c/o dyspnea, feels very labored today, also reporting anxiety. Gen: In NAD, non-toxic HEENT: normocephalic, atraumatic, hearing acuity is intant, mucous membranes moist CVS: perfusing all extremities well, bilateral pitting edema, Respiratory: symmetric chest expansion, no accessory muscle use, crackles in the posterior wren GI: soft, NTTP, ND, : no suprapubic tenderness, no CVA tenderness MSK/Derm: no rashes, cyanosis Neuro: CN II-XII intact, no motor weakness, Psych: cooperative, euthymic mood, judgment and insight is intact Hospital course: 58-year-old female with congestive heart failure A-fib on Eliquis presented with 2-week history of progressive shortness of breath Echocardiogram done December 2022 showed left ventricular ejection fraction 55% Blood work unremarkable showing white count 7.9 hemoglobin 11.9 Sodium 136 potassium 5.4 BUN 33 creatinine 1.58 baseline 1.2 -Chest x-ray showed pulmonary edema Assessment/plan: Acute on chronic hypoxic respiratory failure Acute CHF exacerbation -Daily weights -Fluid restriction 2 L daily -IV Lasix 40 mg twice daily was increased to 60mg BID -Monitor inputs and outputs -Check echocardiogram, shows grade III diastolic dysfunction -Continue with aspirin, statin Paroxysmal A-fib -Continue with Eliquis -Continue diltiazem -Continue metoprolol 50 mg daily 25 mg nightly COPD compensated -Continue with Singulair -Continue with home inhalers -Continue with nebulizer DuoNeb as needed Acute kidney injury on CKD -Avoid nephrotoxic meds -Monitor renal function and urine output -Hold spironolactone Full code DVT prophylaxis on Eliquis for A-fib GI prophylaxis continue with Pepcid Objective - Vital Signs Vital signs: Vital Signs Temp 98.8 F 09/08/23 08:34 Pulse 91 09/08/23 13:09 Resp 20 09/08/23 11:43 BP 95/59 09/08/23 11:43 Pulse Ox 91 L 09/08/23 11:43 FiO2 Intake & Output 09/07/23 09/08/23 09/08/23 18:59 06:59 18:59 Intake Total 847 385 2460 Output Total 600 900 Balance 358 -60 408 Weight 112.4 kg 113.8 kg Intake: Oral 224 208 9932 Output: Urine 600 900 Other: Voiding Method Bedside Commode # Voids 2 # Bowel Movements 0 - Labs CBC & Chem 7: 09/06/23 18:05 09/08/23 10:22 Labs: Abnormal Lab Results - Last 24 Hours (Table) 09/08/23 Range/Units 10:22 Carbon Dioxide 34 H (22-30) mmol/L BUN 30 H (7-17) mg/dL Creatinine 1.24 H (0.52-1.04) mg/dL Glucose 113 H (74-99) mg/dL
[2023-09-08] MEDS: diphenhydrAMINE 25 MG CAP PO SCH (21:06)
[2023-09-08] MEDS: FUROSEMIDE 10 MG/ML 10 ML VIAL IV SCH (21:06)
[2023-09-09 06:27] LABS: Basophils % (A) 0 %; Eosinophils # (A) 0.2 k/uL (0-0.7); Eosinophils % (A) 2 %; HCT 35.3 % (34.0-46.0); Hypochromasia Slight; Lymphocytes # (A) 0.6 k/uL (1.0-4.8); Lymphocytes % (A) 8 %; MCH 30.6 pg (25.0-35.0); MCHC 31.1 g/dL (31.0-37.0); MCV 98.2 fL (80.0-100.0); Macrocytosis Slight; Mean Platelet Volume 9.9; Monocytes # (A) 0.5 k/uL (0-1.0); Monocytes % (A) 7 %; Neutrophils # (A) 6.4 k/uL (1.3-7.7); Neutrophils % (A) 81 %; Platelet Count 138 k/uL (150-450); RBC 3.59 m/uL (3.80-5.40); RDW 15.2 % (11.5-15.5)
[2023-09-09 06:49] LABS: African American GFR (CKD) 60 (>60 ml/min/1.73 sqM); Anion Gap 6 mmol/L; Blood Urea Nitrogen 31 mg/dL (7-17); Calcium 9.3 mg/dL (8.4-10.2); Carbon Dioxide 32 mmol/L (22-30); Chloride 103 mmol/L (98-107); Glucose 109 mg/dL (74-99); Non-African American GFR(CKD) 52 (>60 ml/min/1.73 sqM); Sodium 141 mmol/L (137-145)
[2023-09-09] MEDS: NON FORMULARY DRUG (Omega-3/Dha/Epa/Fish Oil [Fish Oil 1,000 Mg Softgel] 1 EACH Capsule) PO SCH (07:52)
[2023-09-09] MEDS: CALCIUM CARBONATE 500 MG CHEWABLE PO SCH (08:00)
[2023-09-09] MEDS: MULTIVITAMINS, THERA 1 EACH TAB PO SCH (08:00)
[2023-09-09] MEDS: FERROUS SULFATE 325 MG TAB PO SCH (08:00)
[2023-09-09] MEDS: PANTOPRAZOLE 40 MG TABLET PO SCH (08:00)
[2023-09-09] MEDS: SUPER B COMPLEX PO SCH (08:00)
[2023-09-09] MEDS ORDERED: VANCOMYCIN IV PER PHARMACY 1 EACH MISC MISCELLANE PRN (09:39)
--- NOTE | 2023-09-09 09:59 | XR ---
EXAMINATION TYPE: XR chest 1V portable DATE OF EXAM: 09/09/2023 HISTORY: Shortness of breath. COMPARISON: 09/06/2023 TECHNIQUE: Single view of the chest is submitted. FINDINGS: Demonstrated are scattered senescent parenchymal change. Continued cardiomegaly with pulmonary venous congestion and scattered infiltrates which are nonspecif ic. No sizable pleural effusion is identified at this time. Correlate for congestive failure versus p neumonia. Progress studies are advised. Hilar and mediastinal structures are within normal limits. Degenerative changes are seen of the dorsal spine. The IMPRESSION: 1. Continued cardiomegaly with pulmonary venous congestion and scattered infiltrates which are nonsp ecific. No sizable pleural effusion is identified at this time. Correlate for congestive failure vers us pneumonia. Progress studies are advised.
[2023-09-09] MEDS: VANCOMYCIN 2,000 MG in SODIUM CHLORIDE 0.9% 500 ML 500 ML IVPB ONE (10:46)
--- NOTE | 2023-09-09 12:11 | P.PN ---
Subjective Progress Note Date: 09/09/23 Pt still c/o dyspnea, but does not appear as labored as yesterday, however, oxygen requirement is increasing to now 10L HFNC. Right wrist appears swollen, erythemic, painful. Cr improving with diuresis. Gen: In NAD, non-toxic HEENT: normocephalic, atraumatic, hearing acuity is intant, mucous membranes moist CVS: perfusing all extremities well, bilateral pitting edema, Respiratory: symmetric chest expansion, no accessory muscle use, crackles in the posterior wren GI: soft, NTTP, ND, : no suprapubic tenderness, no CVA tenderness MSK/Derm: no rashes, cyanosis Neuro: CN II-XII intact, no motor weakness, Psych: cooperative, euthymic mood, judgment and insight is intact Hospital course: 58-year-old female with congestive heart failure A-fib on Eliquis presented with 2-week history of progressive shortness of breath Echocardiogram done December 2022 showed left ventricular ejection fraction 55% Blood work unremarkable showing white count 7.9 hemoglobin 11.9 Sodium 136 potassium 5.4 BUN 33 creatinine 1.58 baseline 1.2 -Chest x-ray showed pulmonary edema Assessment/plan: Acute on chronic hypoxic respiratory failure Acute CHF exacerbation -Daily weights -Fluid restriction decreased to 1.2 L daily -IV Lasix 60mg BID -Monitor inputs and outputs -Check echocardiogram, shows grade III diastolic dysfunction -Continue with aspirin, statin -pulmonology, cardiology consulted Carpal Tunnel Surgery Cellulitis -infectious disease consult -orthopedic surgery consult -vancomycin ordered Paroxysmal A-fib -Continue with Eliquis -Continue diltiazem -Continue metoprolol 50 mg daily 25 mg nightly COPD compensated -Continue with Singulair -Continue with home inhalers -Continue with nebulizer DuoNeb as needed Acute kidney injury on CKD, improving -Avoid nephrotoxic meds -Monitor renal function and urine output -Hold spironolactone Full code DVT prophylaxis on Eliquis for A-fib GI prophylaxis continue with Pepcid Objective - Vital Signs Vital signs: Vital Signs Temp 98.6 F 09/09/23 07:53 Pulse 96 09/09/23 12:01 Resp 22 09/09/23 11:24 BP 107/69 09/09/23 11:20 Pulse Ox 91 L 09/09/23 11:50 FiO2 Intake & Output 09/08/23 09/09/23 09/09/23 18:59 06:59 18:59 Intake Total 1408 780 Output Total 1150 500 Balance 258 -500 780 Weight 113.4 kg Intake: Oral 1408 780 Output: Urine 1150 500 Other: Voiding Method Bedside Commode Bedside Commode Bedside Commode # Bowel Movements 0 - Labs CBC & Chem 7: 09/09/23 06:11 09/09/23 06:11 Labs: Abnormal Lab Results - Last 24 Hours (Table) 09/09/23 09/09/23 Range/Units 06:11 06:11 RBC 3.59 L (3.80-5.40) m/uL Hgb 11.0 L (11.4-16.0) gm/dL Plt Count 138 L (150-450) k/uL Lymphocytes # 0.6 L (1.0-4.8) k/uL Carbon Dioxide 32 H (22-30) mmol/L BUN 31 H (7-17) mg/dL Creatinine 1.16 H (0.52-1.04) mg/dL Glucose 109 H (74-99) mg/dL
[2023-09-09] MEDS: DICLOFENAC SODIUM GEL 50 GM TUBE TOPICAL SCH (12:40)
--- NOTE | 2023-09-09 22:53 | P.CONS ---
History of Present Illness - Reason for Consult Consult date: 09/09/23 Infected surgical site of carpal tunnel Requesting physician: Carrie Graham - Chief Complaint Right wrist pain and drainage x few days - History of Present Illness Patient is a 58-year-old female past medical history significant for atrial fibrillation hypertension hyperlipidemia COPD heart failure with patient recently did have a right carpal tunnel release about a week ago patient presenting to the hospital for evaluation of increasing shortness of breath and lower extremity swelling that has been getting worse for the last few days patient has been managed by admitting team patient was noticed to have increasing pain swelling redness to the right wrist surgical site which apparently has been getting worse for the last few days patient describes the pain to be sharp moderate intensity without any radiation with associated swelling redness but no foul-smelling drainage patient did not have any fever during this admission and white count of 8.0 creatinine is 1.16 influenza RSV COVID testing negative patient was started on vancomycin infectious disease was consulted for further management of antibiotic therapy Review of Systems Positive point and negatives has been mentioned in the HPI, complete review of systems was performed and all other systems are negative Past Medical History Past Medical History: Atrial Fibrillation, Heart Failure, COPD, Hyperlipidemia, Hypertension Additional Past Medical History / Comment(s): pulmonary HTN History of Any Multi-Drug Resistant Organisms: None Reported Past Surgical History: Bariatric Surgery, Bowel Resection, Hysterectomy Additional Past Surgical History / Comment(s): gastric sleeve Past Anesthesia/Blood Transfusion Reactions: No Reported Reaction Past Psychological History: Depression Smoking Status: Former smoker Past Alcohol Use History: None Reported Past Drug Use History: None Reported - Past Family History Mother Family Medical History: COPD, Coronary Artery Disease (CAD), CVA/TIA, Hypertension Father Family Medical History: COPD, CVA/TIA, Hypertension, Prostate Disorder Medications and Allergies Home Medications Medication Instructions Recorded Confirmed Type Citalopram Hydrobromide [CeleXA] 40 mg PO DAILY 08/14/22 09/06/23 History Ferrous Sulfate [Iron (65 MG 325 mg PO DAILY 08/14/22 09/06/23 History Elemental)] Montelukast [Singulair] 10 mg PO DAILY 08/14/22 09/06/23 History [place]-3/Dha/Epa/Fish Oil [Fish Oil 1 cap PO DAILY@0800 08/14/22 09/06/23 History 1,000 mg Softgel] Pantoprazole [Protonix] 40 mg PO DAILY 08/14/22 09/06/23 History Spironolactone [Aldactone] 25 mg PO DAILY 08/14/22 09/06/23 History Tiotropium Br/Olodaterol HCl 2 puff INHALATION RT-DAILY 08/14/22 09/06/23 History [Stiolto Respimat Inhal Eagle] Atorvastatin [Lipitor] 40 mg PO HS 10/20/22 09/06/23 History Calcium Carbonate [Calcium] 1,200 mg PO DAILY 10/20/22 09/06/23 History Famotidine [Pepcid] 40 mg PO DAILY 10/20/22 09/06/23 History Super B-Complex 1 tab PO DAILY 10/20/22 09/06/23 History Apixaban [Eliquis] 5 mg PO BID 12/21/22 09/06/23 History Ipratropium-Albuterol Nebulize 3 ml INHALATION RT-QID 12/21/22 09/06/23 History [Duoneb 0.5 mg-3 mg/3 ml Soln] Multivitamins, Thera [Multivitamin 1 tab PO DAILY 12/21/22 09/06/23 History (formulary)] allopurinoL [Zyloprim] 100 mg PO DAILY 02/12/23 09/06/23 History dilTIAZem HCL [Cardizem CD] 120 mg PO DAILY 02/12/23 09/06/23 History Biotene Dry Mouth Rinse 15 ml PO 5XD 09/06/23 09/06/23 History Fluticasone Nasal [place] [Flonase 1 spray EA NOSTRIL DAILY PRN 09/06/23 09/06/23 History Nasal [place]] Naproxen [EC-Naprosyn] 500 mg PO BID PRN 09/06/23 09/06/23 History Nystatin 100,000 Unit/gm Powd 1 applic TOPICAL BID PRN 09/06/23 09/06/23 History [Mycostatin Powder] Potassium Chloride ER [K-Dur 10] 20 meq PO DAILY 09/06/23 09/06/23 History diphenhydrAMINE [Benadryl] 50 mg PO HS 09/06/23 09/06/23 History Cephalexin [Keflex] 500 mg PO Q6HR 10 Days #40 cap 09/12/23 Rx Furosemide [Lasix] 60 mg PO BID@0900,1600 tab 09/12/23 Rx Metoprolol Tartrate [Lopressor] 50 mg PO BID tab 09/12/23 Rx Allergies Allergy/AdvReac Type Severity Reaction Status Date / Time doxycycline Allergy NAUSEA, Verified 09/06/23 20:52 VOMITING, UPSET STOMACH lorazepam [From Ativan] AdvReac Hallucinati Verified 09/06/23 20:52 ons venlafaxine [From Effexor] AdvReac Hallucinati Verified 09/06/23 20:52 ons Physical Exam Vitals: Vital Signs Temp Pulse Pulse Resp BP Pulse Ox 09/09/23 12:01 96 09/09/23 11:50 91 L 09/09/23 11:44 94 09/09/23 11:24 22 92 L 09/09/23 11:20 80 22 107/69 94 L 09/09/23 09:45 20 91 L 09/09/23 09:44 90 L 09/09/23 09:30 20 87 L 09/09/23 08:57 98 09/09/23 08:43 100 09/09/23 08:42 100 09/09/23 08:25 102 H 09/09/23 07:53 98.6 F 110 H 20 118/67 90 L 09/09/23 04:00 90 20 120/59 92 L 09/09/23 00:00 92 20 110/58 91 L 09/08/23 21:53 90 09/08/23 21:39 88 09/08/23 20:00 98.5 F 90 20 98/54 90 L 09/08/23 16:51 88 09/08/23 16:35 90 09/08/23 15:06 98.9 F 98 20 120/53 92 L 09/08/23 13:09 91 Intake and Output 09/08/23 09/09/23 09/09/23 22:59 06:59 14:59 Intake Total 640 780 Output Total 250 500 Balance 390 -500 780 Intake: Oral 640 780 Output: Urine 250 500 Other: Voiding Method Bedside Commode Bedside Commode Bedside Commode Weight 113.4 kg GENERAL DESCRIPTION: Middle-aged female up in the chair, no distress. No tachypnea or accessory muscle of respiration use. HEENT: Shows Pallor , no scleral icterus. Oral mucous membrane is dry. NECK: Trachea central, no thyromegaly. LUNGS: Unlabored breathing. Coarse breath sounds bilaterally HEART: S1, S2, regular rate and rhythm. No loud murmur ABDOMEN: Soft, no tenderness , EXTREMITIES: Diffuse swelling to the leg no redness SKIN: Right wrist carpal tunnel incision intact with some swelling stitches are intact no foul-smelling drainage NEUROLOGICAL: The patient is awake, alert, oriented x3, mood and affect normal. Results CBC & Chem 7: 09/12/23 08:29 09/12/23 08:29 Labs: Abnormal Lab Results - Last 24 Hours (Table) 09/09/23 09/09/23 Range/Units 06:11 06:11 RBC 3.59 L (3.80-5.40) m/uL Hgb 11.0 L (11.4-16.0) gm/dL Plt Count 138 L (150-450) k/uL Lymphocytes # 0.6 L (1.0-4.8) k/uL Carbon Dioxide 32 H (22-30) mmol/L BUN 31 H (7-17) mg/dL Creatinine 1.16 H (0.52-1.04) mg/dL Glucose 109 H (74-99) mg/dL Assessment and Plan (1) Cellulitis of right wrist Current Visit: Yes Status: Acute Code(s): L03.113 - CELLULITIS OF RIGHT UPPER LIMB SNOMED Code(s): 29277637379943584 (2) Surgical site infection Current Visit: Yes Status: Acute Code(s): T81.49XA - SNOMED Code(s): 83444697 (3) Wound cellulitis after surgery Current Visit: Yes Status: Acute Priority: Medium Code(s): T81.49XA - SNOMED Code(s): 106200933 Plan: 1patient with a recent right carpal tunnel release surgery and now with evidence of increasing swelling redness at the incision site concerning for surgical site infection likely from gram-positive skin devin 2patient with the renal insufficiency high risk of nephrotoxicity 3await surgical evaluation and possible takedown of some of the stitches and if any fluid sending it for culture 4-we will also check a blood culture and a CRP 5vancomycin pharmacy to dose target trough of 15 while watching kidney function and Vanco trough closely We will follow on clinical condition and cultures to further adjust medication if needed Thank you for this consultation we will follow the patient along with you Dictation was produced using [employer] dictation software. please excuse any gr ammatical, word or spelling errors. Time with Patient: Greater than 30
[2023-09-10] MEDS: VANCOMYCIN 2,000 MG in SODIUM CHLORIDE 0.9% 500 ML 500 ML IVPB SCH (03:04)
--- NOTE | 2023-09-10 03:17 | P.CNPUL ---
History of Present Illness Consult date: 09/10/23 Requesting physician: Carrie Graham Reason for consult: hypoxemia Chief complaint: Shortness of breath, weakness, lower extremity swelling, weight gain History of present illness: Patient is a 58-year-old white female with past medical history significant for heart failure, paroxysmal atrial fibrillation, COPD, pulmonary hypertension, chronic ongoing oxygen dependent on 3 L/min home O2, obstructive sleep apnea, and former tobacco smoker. She does follow with Dr. Mathew in the pulmonary office. She is reportedly being worked up at [facility] for her pulmonary hypertension. Over the last week she is been experiencing progressively worsening shortness of breath. This is accompanied with a 15 pound weight gain. She has had increased lower extremity swelling. She has been taking her d iuretics. She initially presented to the emergency room back on 09/06/2023, and was admitted to the cardiac stepdown unit. Over the last couple days, the patient has had gradually worsening oxygen demand. She is currently resting comfortably in the bedside recliner, on 11 L high flow nasal cannula, in no apparent distress at rest. Denies any infectious symptoms such as productive cough, purulent sputum, fevers, chest pain. She does have an intermittent nonproductive cough. Negative for influenza, RSV, COVID on arrival. Most recent chest x-ray from yesterday demonstrates cardiomegaly, pulmonary vascular congestion, and scattered nonspecific infiltrates. NT proBNP was elevated 8000 on arrival. CBC from yesterday unremarkable. No leukocytosis. No fevers. Most recent available BMP from yesterday is unremarkable other than improved renal function with creatinine down to 1.16 and BUN 31. Patient remains on Lasix 60 mg twice daily. Of note, she recently underwent right wrist carpal tunnel surgery, and over the last couple days her right wrist has been more swollen, inflamed, erythemic. No discharge. She was placed on vancomycin for gram-positive coverage. Hemodynamically stable. Review of Systems REVIEW OF SYSTEMS: CONSTITUTIONAL: Admits 15 pound weight gain over the last week. Admits generalized weakness. Denies fevers. EYES: Denies change in vision. EARS, NOSE, MOUTH, THROAT: Denies headaches, denies sore throat. CARDIOVASCULAR: Denies chest pain, palpitations or syncopal episodes. Admits increased lower extremity swelling and orthopnea. RESPIRATORY: See HPI. GASTROINTESTINAL: Denies change in appetite, abdominal pain, nausea and vomiting, or diarrhea GENITOURINARY: Denies hematuria, denies infections. MUSKULOSKELETAL: Admits recent right carpal tunnel surgery. Increased erythema, warmth, tenderness. No discharge. Limited mobility of right hand. INTEGUMENTARY: Denies rash, denies eczema. NEUROLOGICAL: Denies recent memory loss, no recent seizure activity. PSYCHIATRIC: Denies anxiety, denies depression. HEMATOLOGIC/LYMPHATIC: Denies anemia, denies enlarged lymph node Past Medical History Past Medical History: Atrial Fibrillation, Heart Failure, COPD, Hyperlipidemia, Hypertension Additional Past Medical History / Comment(s): pulmonary HTN History of Any Multi-Drug Resistant Organisms: None Reported Past Surgical History: Bariatric Surgery, Bowel Resection, Hysterectomy Additional Past Surgical History / Comment(s): gastric sleeve Past Anesthesia/Blood Transfusion Reactions: No Reported Reaction Past Psychological History: Depression Smoking Status: Former smoker Past Alcohol Use History: None Reported Past Drug Use History: None Reported - Past Family History Mother Family Medical History: COPD, Coronary Artery Disease (CAD), CVA/TIA, Hypertension Father Family Medical History: COPD, CVA/TIA, Hypertension, Prostate Disorder Medications and Allergies Home Medications Medication Instructions Recorded Confirmed Type Citalopram Hydrobromide [CeleXA] 40 mg PO DAILY 08/14/22 09/06/23 History Ferrous Sulfate [Iron (65 MG 325 mg PO DAILY 08/14/22 09/06/23 History Elemental)] Montelukast [Singulair] 10 mg PO DAILY 08/14/22 09/06/23 History [place]-3/Dha/Epa/Fish Oil [Fish Oil 1 cap PO DAILY@0800 08/14/22 09/06/23 History 1,000 mg Softgel] Pantoprazole [Protonix] 40 mg PO DAILY 08/14/22 09/06/23 History Spironolactone [Aldactone] 25 mg PO DAILY 08/14/22 09/06/23 History Tiotropium Br/Olodaterol HCl 2 puff INHALATION RT-DAILY 08/14/22 09/06/23 History [Stiolto Respimat Inhal [place]] Atorvastatin [Lipitor] 40 mg PO HS 10/20/22 09/06/23 History Calcium Carbonate [Calcium] 1,200 mg PO DAILY 10/20/22 09/06/23 History Famotidine [Pepcid] 40 mg PO DAILY 10/20/22 09/06/23 History Super B-Complex 1 tab PO DAILY 10/20/22 09/06/23 History Apixaban [Eliquis] 5 mg PO BID 12/21/22 09/06/23 History Ipratropium-Albuterol Nebulize 3 ml INHALATION RT-QID 12/21/22 09/06/23 History [Duoneb 0.5 mg-3 mg/3 ml Soln] Multivitamins, Thera [Multivitamin 1 tab PO DAILY 12/21/22 09/06/23 History (formulary)] allopurinoL [Zyloprim] 100 mg PO DAILY 02/12/23 09/06/23 History dilTIAZem HCL [Cardizem CD] 120 mg PO DAILY 02/12/23 09/06/23 History Biotene Dry Mouth Rinse 15 ml PO 5XD 09/06/23 09/06/23 History Bumetanide [BUMEX] 2 mg PO BID 09/06/23 09/06/23 History Fluticasone Nasal [place] [Flonase 1 spray EA NOSTRIL DAILY PRN 09/06/23 09/06/23 History Nasal [place]] Metoprolol Tartrate [Lopressor] 25 mg PO HS 09/06/23 09/06/23 History Metoprolol Tartrate [Lopressor] 50 mg PO DAILY 09/06/23 09/06/23 History Naproxen [EC-Naprosyn] 500 mg PO BID PRN 09/06/23 09/06/23 History Nystatin 100,000 Unit/gm Powd 1 applic TOPICAL BID PRN 09/06/23 09/06/23 History [Mycostatin Powder] Potassium Chloride ER [K-Dur 10] 20 meq PO DAILY 09/06/23 09/06/23 History diphenhydrAMINE [Benadryl] 50 mg PO HS 09/06/23 09/06/23 History Allergies Allergy/AdvReac Type Severity Reaction Status Date / Time doxycycline Allergy NAUSEA, Verified 09/06/23 20:52 VOMITING, UPSET STOMACH lorazepam [From Ativan] AdvReac Hallucinati Verified 09/06/23 20:52 ons venlafaxine [From Effexor] AdvReac Hallucinati Verified 04/04/24 20:52 ons Physical Exam Vitals: Vital Signs Temp Pulse Pulse Resp BP Pulse Ox 09/10/23 00:00 102 H 20 135/70 94 L 09/09/23 20:32 88 09/09/23 20:25 93 09/09/23 20:24 92 09/09/23 20:20 91 09/09/23 19:55 98.9 F 96 20 121/58 90 L 09/09/23 16:37 92 09/09/23 16:23 94 09/09/23 15:29 98.2 F 88 20 102/62 90 L 09/09/23 13:11 80 09/09/23 12:01 96 09/09/23 11:50 91 L 09/09/23 11:44 94 09/09/23 11:24 22 92 L 09/09/23 11:20 80 22 107/69 94 L 09/09/23 09:45 20 91 L 09/09/23 09:44 90 L 09/09/23 09:30 20 87 L 09/09/23 08:57 98 09/09/23 08:43 100 09/09/23 08:42 100 09/09/23 08:25 102 H 09/09/23 07:53 98.6 F 110 H 20 118/67 90 L 09/09/23 04:00 90 20 120/59 92 L Intake and Output 09/09/23 09/09/23 09/10/23 14:59 22:59 06:59 Intake Total 1320 878 Output Total 350 Balance 1320 528 Intake: Oral 1320 878 Output: Urine 350 Other: Voiding Method Bedside Commode Bedside Commode Bedside Commode GENERAL EXAM: Alert, 58-year-old obese white female, sitting up in the bedside recliner, comfortable in no apparent distress. HEAD: Normocephalic and atraumatic EYES: Normal reaction of pupils, equal size. NOSE: Clear with pink turbinates. THROAT: No erythema or exudates. NECK: No masses, no JVD. CHEST: No chest wall deformity. LUNGS: Equal air entry with inspiratory bibasilar crackles and scattered wheezes. On 11 L high flow nasal cannula. No conversational dyspnea or accessory muscle use.. CVS: S1 and S2 normal with no audible murmur, irregular rhythm. No extra heart sounds ABDOMEN: No hepatosplenomegaly, active bowel sounds, no guarding or rigidity. SPINE: No scoliosis or deformity SKIN: Right wrist incision is approximated, no drainage. Surrounding hand is erythemic, warm, and swollen. Still able to move all associated digits. CENTRAL NERVOUS SYSTEM: No focal deficits, tone is normal in all 4 extremities. EXTREMITIES: There is mild nonpitting bilateral lower extremity edema. No clubbing, or cyanosis. Peripheral pulses are intact. Results - Laboratory Findings CBC and BMP: 09/09/23 06:11 09/09/23 06:11 PT/INR, D-dimer PT 12.1 sec (10.0-12.5) 09/06/23 18:05 INR 1.1 (<1.2) 09/06/23 18:05 Abnormal lab findings: Abnormal Labs 09/06/23 09/06/23 09/08/23 18:05 18:05 10:22 RBC Hgb Plt Count 144 L Lymphocytes # Sodium 136 L Potassium 5.4 H Carbon Dioxide 34 H BUN 33 H 30 H Creatinine 1.58 H 1.24 H Glucose 113 H AST 40 H C-Reactive Protein 09/09/23 09/09/23 09/09/23 06:11 06:11 16:03 RBC 3.59 L Hgb 11.0 L Plt Count 138 L Lymphocytes # 0.6 L Sodium Potassium Carbon Dioxide 32 H BUN 31 H Creatinine 1.16 H Glucose 109 H AST C-Reactive Protein 7.6 H - Diagnostic Findings Chest x-ray: image reviewed Assessment and Plan Assessment: Acute on chronic hypoxemic respiratory failure, possibly multifactorial secondary, to an acute exacerbation of diastolic congestive heart failure and acute COPD exacerbation History of severe pulmonary hypertension, being followed at the [facility] Severe chronic obstructive pulmonary disease, with an FEV1 value 32% of predicted, normally maintained on a combination of Stiolto, DuoNebs [id number], and as needed albuterol rescue inhaler. Chronic hypoxemic respiratory failure, secondary to above Recent history of right carpal tunnel release surgery, with possible surgical site infection/cellulitis. Chronic atrial fibrillation, anticoagulated with Eliquis Obesity with a BMI of 44.2 kg/m History of previous gastric sleeve placement History of obstructive sleep apnea, not tolerant of CPAP Hypertension Chronic kidney disease, stage III Former tobacco smoker Plan: Patient's medications, labs, chest x-ray reviewed Continue supplemental oxygen to maintain oxygen saturation of 90% or greater Agree with diuresis in the form of Lasix to 60 mg twice daily Negative for influenza, RSV, COVID. Continue combination of formoterol, budesonide, and add IV Solu-Medrol Infectious disease was added for possible surgical site infection. Currently covered with vancomycin. Currently hemodynamically stable. We will continue to follow. I have personally seen and examined the patient, performed the documentation and the assessment and plan as written. Number of minutes spent on the visit: 20 Time with Patient: Greater than 30
[2023-09-10] MEDS: methylPREDNISolone SOD SUCCI 125 MG/2 ML VIAL IV SCH (06:17)
[2023-09-10] MEDS: BUDESONIDE 1 MG/2 ML NEBU INHALATION SCH (08:26)
[2023-09-10 09:32] LABS: African American GFR (CKD) 50 (>60 ml/min/1.73 sqM); Non-African American GFR(CKD) 44 (>60 ml/min/1.73 sqM)
--- NOTE | 2023-09-10 09:49 | P.PN ---
Subjective Progress Note Date: 09/10/23 Pt still c/o dyspnea, mildly improved from yesterday. Still requiring 10L HFNC - 93%. Right hand appears worse today, much more swollen and painful - on vancomycin, pending ortho consult. Gen: In NAD, non-toxic HEENT: normocephalic, atraumatic, hearing acuity is intant, mucous membranes moist CVS: perfusing all extremities well, bilateral pitting edema, Respiratory: symmetric chest expansion, no accessory muscle use, crackles in the posterior wren GI: soft, NTTP, ND, : no suprapubic tenderness, no CVA tenderness MSK/Derm: no rashes, cyanosis Neuro: CN II-XII intact, no motor weakness, Psych: cooperative, euthymic mood, judgment and insight is intact Hospital course: 58-year-old female with congestive heart failure A-fib on Eliquis presented with 2-week history of progressive shortness of breath Echocardiogram done December 2022 showed left ventricular ejection fraction 55% Blood work unremarkable showing white count 7.9 hemoglobin 11.9 Sodium 136 potassium 5.4 BUN 33 creatinine 1.58 baseline 1.2 -Chest x-ray showed pulmonary edema Assessment/plan: Acute on chronic hypoxic respiratory failure Acute CHF exacerbation -Daily weights -Fluid restriction decreased to 1.2 L daily -IV Lasix 60mg BID -Monitor inputs and outputs -Check echocardiogram, shows grade III diastolic dysfunction -Continue with aspirin, statin -pulmonology, cardiology consulted Carpal Tunnel Surgery Cellulitis -infectious disease consult, -orthopedic surgery consult, discussed with them today, they will see pt -vancomycin ordered Paroxysmal A-fib -Continue with Eliquis -Continue diltiazem -Continue metoprolol 50 mg daily 25 mg nightly COPD compensated -Continue with Singulair -Continue with home inhalers -Continue with nebulizer DuoNeb as needed Acute kidney injury on CKD, improving -Avoid nephrotoxic meds -Monitor renal function and urine output -Hold spironolactone Full code DVT prophylaxis on Eliquis for A-fib GI prophylaxis continue with Pepcid Objective - Vital Signs Vital signs: Vital Signs Temp 97.8 F 09/10/23 03:08 Pulse 124 H 09/10/23 08:56 Resp 20 09/10/23 03:08 BP 132/77 09/10/23 03:08 Pulse Ox 93 L 09/10/23 08:26 FiO2 Intake & Output 09/09/23 09/10/23 09/10/23 18:59 06:59 18:59 Intake Total 2198 0 Output Total 350 Balance 1848 0 Weight 114.4 kg Intake: Oral 2198 0 Output: Urine 350 Other: Voiding Method Bedside Commode Bedside Commode - Labs CBC & Chem 7: 09/09/23 06:11 09/10/23 08:43 Labs: Abnormal Lab Results - Last 24 Hours (Table) 09/09/23 09/10/23 Range/Units 16:03 08:43 Creatinine 1.34 H (0.52-1.04) mg/dL C-Reactive Protein 7.6 H (<1.0) mg/dL
[2023-09-10] MEDS: LIDOCAINE 1% INJ 10MG/ML (20 ML MDV) ONE (11:06)
--- NOTE | 2023-09-10 11:29 | P.CNOR ---
History of Present Illness - [facility] Consult date: 09/10/23 Consult reason: other History of present illness: Patient is a pleasant 58-year-old female seen at bedside this morning in consultation for right wrist pain, erythema and swelling. She is status post right carpal tunnel release performed by Dr. Agustin on September 04, 2023. She was admitted to the hospital on September 06, 2023 for acute exacerbation of CHF. She noticed increased pain and swelling as well as redness few days ago. Consult was put in yesterday, September 09, 2023, to evaluate. She was put on IV vancomycin. She continues to have pain, swelling and redness. She is denying fever or chills. She is denying new numbness or tingling. She is on a blood thinner. She has no other new complaints. Review of Systems All systems: negative Constitutional: Denies chills, Denies fever Eyes: denies blurred vision, denies pain Ears, nose, mouth and throat: Denies headache, Denies sore throat Cardiovascular: Denies chest pain Respiratory: Denies cough Gastrointestinal: Denies abdominal pain, Denies diarrhea, Denies nausea, Denies vomiting Genitourinary: Denies dysuria, Denies hematuria Musculoskeletal: Denies myalgias Integumentary: Denies pruritus, Denies rash Neurological: Denies numbness, Denies weakness Psychiatric: Denies anxiety, Denies depression Endocrine: Denies fatigue, Denies weight change Past Medical History Past Medical History: Atrial Fibrillation, Heart Failure, COPD, Hyperlipidemia, Hypertension Additional Past Medical History / Comment(s): pulmonary HTN History of Any Multi-Drug Resistant Organisms: None Reported Past Surgical History: Bariatric Surgery, Bowel Resection, Hysterectomy Additional Past Surgical History / Comment(s): gastric sleeve Past Anesthesia/Blood Transfusion Reactions: No Reported Reaction Past Psychological History: Depression Smoking Status: Former smoker Past Alcohol Use History: None Reported Past Drug Use History: None Reported - Past Family History Mother Family Medical History: COPD, Coronary Artery Disease (CAD), CVA/TIA, Hypertension Father Family Medical History: COPD, CVA/TIA, Hypertension, Prostate Disorder Medications and Allergies Home Medications Medication Instructions Recorded Confirmed Type Citalopram Hydrobromide [CeleXA] 40 mg PO DAILY 08/14/22 09/06/23 History Ferrous Sulfate [Iron (65 MG 325 mg PO DAILY 08/14/22 09/06/23 History Elemental)] Montelukast [Singulair] 10 mg PO DAILY 08/14/22 09/06/23 History [place]-3/Dha/Epa/Fish Oil [Fish Oil 1 cap PO DAILY@0800 08/14/22 09/06/23 History 1,000 mg Softgel] Pantoprazole [Protonix] 40 mg PO DAILY 08/14/22 09/06/23 History Spironolactone [Aldactone] 25 mg PO DAILY 08/14/22 09/06/23 History Tiotropium Br/Olodaterol HCl 2 puff INHALATION RT-DAILY 08/14/22 09/06/23 History [Stiolto Respimat Inhal [place]] Atorvastatin [Lipitor] 40 mg PO HS 10/20/22 09/06/23 History Calcium Carbonate [Calcium] 1,200 mg PO DAILY 10/20/22 09/06/23 History Famotidine [Pepcid] 40 mg PO DAILY 10/20/22 09/06/23 History Super B-Complex 1 tab PO DAILY 10/20/22 09/06/23 History Apixaban [Eliquis] 5 mg PO BID 12/21/22 09/06/23 History Ipratropium-Albuterol Nebulize 3 ml INHALATION RT-QID 12/21/22 09/06/23 History [Duoneb 0.5 mg-3 mg/3 ml Soln] Multivitamins, Thera [Multivitamin 1 tab PO DAILY 12/21/22 09/06/23 History (formulary)] allopurinoL [Zyloprim] 100 mg PO DAILY 02/12/23 09/06/23 History dilTIAZem HCL [Cardizem CD] 120 mg PO DAILY 02/12/23 09/06/23 History Biotene Dry Mouth Rinse 15 ml PO 5XD 09/06/23 09/06/23 History Bumetanide [BUMEX] 2 mg PO BID 09/06/23 09/06/23 History Fluticasone Nasal [place] [Flonase 1 spray EA NOSTRIL DAILY PRN 09/06/23 09/06/23 History Nasal [place]] Metoprolol Tartrate [Lopressor] 25 mg PO HS 09/06/23 09/06/23 History Metoprolol Tartrate [Lopressor] 50 mg PO DAILY 09/06/23 09/06/23 History Naproxen [EC-Naprosyn] 500 mg PO BID PRN 09/06/23 09/06/23 History Nystatin 100,000 Unit/gm Powd 1 applic TOPICAL BID PRN 09/06/23 09/06/23 History [Mycostatin Powder] Potassium Chloride ER [K-Dur 10] 20 meq PO DAILY 09/06/23 09/06/23 History diphenhydrAMINE [Benadryl] 50 mg PO HS 09/06/23 09/06/23 History Allergies Allergy/AdvReac Type Severity Reaction Status Date / Time doxycycline Allergy NAUSEA, Verified 09/06/23 20:52 VOMITING, UPSET STOMACH lorazepam [From Ativan] AdvReac Hallucinati Verified 09/06/23 20:52 ons venlafaxine [From Effexor] AdvReac Hallucinati Verified 09/06/23 20:52 ons Physical Examination Inspection of the right wrist shows surgical wound with nylon sutures in place. The hand is diffusely edematous with erythema about the wound on the palmar aspect of the right hand and wrist. There is no active bleeding or visible drainage. There is no proximal streaking. She is tender about the wound it is warm to touch. She has a 2+ radial pulse. Less than 2-second capillary refill is present in all digits. Motor and sensation is intact throughout the hand digits and wrist. Results - Labs Labs: Abnormal Lab Results - Last 24 Hours (Table) 09/09/23 09/10/23 Range/Units 16:03 08:43 Creatinine 1.34 H (0.52-1.04) mg/dL C-Reactive Protein 7.6 H (<1.0) mg/dL H & H 09/06/23 09/09/23 Range/Units 18:05 06:11 Hgb 11.9 11.0 L (11.4-16.0) gm/dL Hct 36.9 35.3 (34.0-46.0) % Coagulation 09/06/23 Range/Units 18:05 INR 1.1 (<1.2) Result Diagrams: 09/09/23 06:11 09/10/23 08:43 Assessment and Plan (1) Wound cellulitis after surgery Narrative/Plan: Using sterile technique the nylon sutures were removed. The wound was expressed some where culture swabs were obtained and sent to lab for possible identification of bacterial etiology. Approximately 5 cc of 1% lidocaine was injected into the wound edges where the wound was further opened. Wound was irrigated with sterile saline where a minimal amount of purulence was expressed. There is no active bleeding. Will have her soak in warm soapy water 20 to 30 minutes 3 times per day. I advised her to keep elevated as well. Use loose Cover bandage for protection. We will monitor closely and make further recommendations pending her clinical course. Will place her NPO after midnight should she not improve by tomorrow and need to be taken to the OR.. Continue pain management and medical management as well as wound care. Current Visit: Yes Status: Acute Priority: Medium Code(s): T81.49XA - INFECTION FOLLOWING A PROCEDURE, OTHER SURGICAL SITE, INIT SNOMED Code(s): 250448279 Time with Patient: Less than 30
--- NOTE | 2023-09-10 12:21 | P.CRDCN ---
History of Present Illness Consult date: 09/10/23 Reason for Consult (text): Grade 3 diastolic dysfunction History of present illness: History of present illness: This is a 58-year-old patient of Dr. LUIS Cao with past medical history of persistent atrial fibrillation on Eliquis, COPD, home oxygen, pulmonary hypertension, hypertension, hyperlipidemia, former tobacco use and dependence, morbid obesity. We have been asked to evaluate the patient for grade 3 diastolic dysfunction. Patient states that she developed increasing shortness of breath that seem to be worsening and occurs with less and less activity. Now she can only do minimal activity and has shortness of breath. Patient has been started on IV Lasix 60 mg every 12 hours. Patient had recent carpal tunnel surgery and infectious disease, orthopedic surgery on consult for cellulitis at the wound site. EKG atrial fibrillation at a ventricular rate of 73 bpm Chest x-ray performed on 09/08 revealed cardiomegaly and pulmonary venous congestion and scattered infiltrates nonspecific.: WBC 8, hemoglobin 11, platelet count 138. Sodium 141, potassium 4, CO2 32, BUN 31 creatinine 1.16. C-reactive protein 7.6. Troponin negative x 1. proBNP 8060. Influenza A, influenza B, RSV, COVID-19 not detected. Echocardiogram performed on 09/07/2023 reveals EF 55%. Severe biatrial enlargement. Moderate to severe mitral annular calcification. Mild to moderate tricuspid regurgitation. No pericardial effusion. Home cardiac medications: Eliquis 5 mg twice daily, atorvastatin 40 mg at bedtime, Bumex 2 mg twice daily, Cardizem CD 120 mg daily, Lopressor 50 mg in the morning 25 mg in the evening, potassium chloride 20 meq daily, Aldactone 25 mg daily. Review Of Systems: At the time of my exam: CONSTITUTIONAL: Denies fever or chills. HEENT: Denies blurred vision, vision changes, or eye pain. Denies hemoptysis CARDIOVASCULAR: Denies chest pain. Denies orthopnea. Denies PND. Denies palpitations RESPIRATORY: Reports dyspnea on exertion, reports shortness of breath. GASTROINTESTINAL: Denies abdominal pain. Denies nausea or vomiting. HEMATOLOGIC: Denies bleeding disorders. GENITOURINARY: Denies any blood in urine. SKIN: Denies pruitis. Denies rash. Physical examination: Gen: This is a 58-year-old morbidly obese female in no acute distress] VS: reviewed blood pressure 143/71, heart rate [id number], pulse ox 93% on 10 L h igh flow nasal cannula. HEENT: Head is atraumatic, normocephalic. Pupils equal, round. Sclerae is an icteric. NECK: Supple. No JVD. LUNGS: Diminished breath sounds bilaterally. No intercostal retractions. HEART: Regular rate and rhythm. No murmur. ABDOMEN: Soft No tenderness. EXTREMITIES: Bilateral lower extremity edema. No calf tenderness. NEUROLOGICAL: Patient is awake, alert and oriented x3. Assessment: Acute on chronic hypoxic respiratory failure secondary to acute diastolic heart failure Persistent atrial fibrillation COPD Pulmonary hypertension Hypertension Hyperlipidemia Morbid obesity with BMI of 41 Recent carpal tunnel surgery Plan: Resume patient's home cardiac medications Change aspirin to 81 mg daily Continue IV Lasix 60 mg every 12 hours Monitor JUAN MANUEL, daily weights, electrolytes and renal function Further recommendations to follow based upon clinical course Thank you kindly for this consultation. Nurse practitioner note has been reviewed, I agree with documented findings and plan of care. Patient was seen and examined. Past Medical History Past Medical History: Atrial Fibrillation, Heart Failure, COPD, Hyperlipidemia, Hypertension Additional Past Medical History / Comment(s): pulmonary HTN History of Any Multi-Drug Resistant Organisms: None Reported Past Surgical History: Bariatric Surgery, Bowel Resection, Hysterectomy Additional Past Surgical History / Comment(s): gastric sleeve Past Anesthesia/Blood Transfusion Reactions: No Reported Reaction Past Psychological History: Depression Smoking Status: Former smoker Past Alcohol Use History: None Reported Past Drug Use History: None Reported - Past Family History Mother Family Medical History: COPD, Coronary Artery Disease (CAD), CVA/TIA, Hypertension Father Family Medical History: COPD, CVA/TIA, Hypertension, Prostate Disorder Medications and Allergies Home Medications Medication Instructions Recorded Confirmed Type Citalopram Hydrobromide [CeleXA] 40 mg PO DAILY 08/14/22 09/06/23 History Ferrous Sulfate [Iron (65 MG 325 mg PO DAILY 08/14/22 09/06/23 History Elemental)] Montelukast [Singulair] 10 mg PO DAILY 08/14/22 09/06/23 History [place]-3/Dha/Epa/Fish Oil [Fish Oil 1 cap PO DAILY@0800 08/14/22 09/06/23 History 1,000 mg Softgel] Pantoprazole [Protonix] 40 mg PO DAILY 08/14/22 09/06/23 History Spironolactone [Aldactone] 25 mg PO DAILY 08/14/22 09/06/23 History Tiotropium Br/Olodaterol HCl 2 puff INHALATION RT-DAILY 08/14/22 09/06/23 History [Stiolto Respimat Inhal [place]] Atorvastatin [Lipitor] 40 mg PO HS 10/20/22 09/06/23 History Calcium Carbonate [Calcium] 1,200 mg PO DAILY 10/20/22 09/06/23 History Famotidine [Pepcid] 40 mg PO DAILY 10/20/22 09/06/23 History Super B-Complex 1 tab PO DAILY 10/20/22 09/06/23 History Apixaban [Eliquis] 5 mg PO BID 12/21/22 09/06/23 History Ipratropium-Albuterol Nebulize 3 ml INHALATION RT-QID 12/21/22 09/06/23 History [Duoneb 0.5 mg-3 mg/3 ml Soln] Multivitamins, Thera [Multivitamin 1 tab PO DAILY 12/21/22 09/06/23 History (formulary)] allopurinoL [Zyloprim] 100 mg PO DAILY 02/12/23 09/06/23 History dilTIAZem HCL [Cardizem CD] 120 mg PO DAILY 02/12/23 09/06/23 History Biotene Dry Mouth Rinse 15 ml PO 5XD 09/06/23 09/06/23 History Bumetanide [BUMEX] 2 mg PO BID 09/06/23 09/06/23 History Fluticasone Nasal [place] [Flonase 1 spray EA NOSTRIL DAILY PRN 09/06/23 09/06/23 History Nasal [place]] Metoprolol Tartrate [Lopressor] 25 mg PO HS 09/06/23 09/06/23 History Metoprolol Tartrate [Lopressor] 50 mg PO DAILY 09/06/23 09/06/23 History Naproxen [EC-Naprosyn] 500 mg PO BID PRN 09/06/23 09/06/23 History Nystatin 100,000 Unit/gm Powd 1 applic TOPICAL BID PRN 09/06/23 09/06/23 History [Mycostatin Powder] Potassium Chloride ER [K-Dur 10] 20 meq PO DAILY 09/06/23 09/06/23 History diphenhydrAMINE [Benadryl] 50 mg PO HS 09/06/23 09/06/23 History Allergies Allergy/AdvReac Type Severity Reaction Status Date / Time doxycycline Allergy NAUSEA, Verified 09/06/23 20:52 VOMITING, UPSET STOMACH lorazepam [From Ativan] AdvReac Hallucinati Verified 09/06/23 20:52 ons venlafaxine [From Effexor] AdvReac Hallucinati Verified 09/06/23 20:52 ons Physical Exam Vitals: Vital Signs Temp Pulse Pulse Resp BP Pulse Ox 09/10/23 08:56 124 H 09/10/23 08:43 124 H 09/10/23 08:41 124 H 09/10/23 08:26 120 H 93 L 09/10/23 03:08 97.8 F 92 20 132/77 90 L 09/10/23 00:00 102 H 20 135/70 94 L 09/09/23 20:32 88 09/09/23 20:25 93 09/09/23 20:24 92 09/09/23 20:20 91 09/09/23 19:55 98.9 F 96 20 121/58 90 L 09/09/23 16:37 92 09/09/23 16:23 94 09/09/23 15:29 98.2 F 88 20 102/62 90 L 09/09/23 13:11 80 09/09/23 12:01 96 09/09/23 11:50 91 L 09/09/23 11:44 94 09/09/23 11:24 22 92 L 09/09/23 11:20 80 22 107/69 94 L 09/09/23 09:45 20 91 L 09/09/23 09:44 90 L 09/09/23 09:30 20 87 L Intake and Output 09/09/23 09/10/23 09/10/23 22:59 06:59 14:59 Intake Total 878 0 Output Total 350 Balance 528 0 Intake: Oral 878 0 Output: Urine 350 Other: Voiding Method Bedside Commode Bedside Commode Weight 114.4 kg Results 09/09/23 06:11 09/10/23 08:43 Current Medications Generic Name Dose Route Start Last Admin Trade Name Freq PRN Reason Stop Dose Admin Albuterol/Ipratropium 3 ml 04/05/24 08:00 09/10/23 08:26 Ipratropium-Albuterol 3 Ml Neb INHALATION 3 ml RT-QID EHSAN Administration Allopurinol 100 mg 09/07/23 09:00 09/10/23 08:51 Allopurinol 100 Mg Tab PO 100 mg DAILY EHSAN Administration Apixaban 5 mg 09/07/23 09:00 09/10/23 08:52 Apixaban 5 Mg Tab PO 5 mg BID EHSAN Administration Protocol Aspirin 325 mg 09/07/23 09:00 09/10/23 08:50 Aspirin 325 Mg Tab PO 325 mg DAILY EHSAN Administration Atorvastatin Calcium 40 mg 09/07/23 21:00 09/09/23 20:04 Atorvastatin 40 Mg Tab PO 40 mg HS EHSAN Administration Budesonide 1 mg 09/10/23 08:00 09/10/23 08:26 Budesonide 1 Mg/2 Ml Nebu INHALATION 1 mg RT-BID EHSAN Administration Calcium Carbonate/Glycine 1,000 mg 09/09/23 09:00 09/10/23 08:50 Calcium Carbonate 500 Mg Chewable PO 1,000 mg DAILY EHSAN Administration Citalopram Hydrobromide 40 mg 09/08/23 09:30 09/10/23 08:51 Citalopram Hydrobromide 20 Mg Tab PO 40 mg DAILY EHSAN Administration Diclofenac Sodium 4 gm 09/09/23 13:00 09/10/23 09:01 Diclofenac Sodium Gel 100 Gm Tube TOPICAL 4 gm QID EHSAN Administration Protocol Diltiazem HCl 120 mg 09/07/23 09:00 09/10/23 08:51 Diltiazem Cd 120 Mg Cap.Er.24h PO 120 mg DAILY EHSAN Administration Diphenhydramine HCl 50 mg 09/08/23 21:00 09/09/23 20:04 Diphenhydramine 25 Mg Cap PO 50 mg HS EHSAN Administration Famotidine 20 mg 09/08/23 09:00 09/10/23 08:52 Famotidine 20 Mg Tab PO 20 mg DAILY EHSAN Administration Ferrous Sulfate 325 mg 09/09/23 09:00 09/10/23 08:51 Ferrous Sulfate 325 Mg Tab PO 325 mg DAILY EHSAN Administration Fluticasone Propionate 1 spray 09/08/23 09:20 09/08/23 13:04 Fluticasone 50mcg/[place] Nasal 16gm EA NOSTRIL 1 spray DAILY PRN Administration Allergy Symptoms Formoterol Fumarate 20 mcg 09/07/23 08:00 09/10/23 08:26 Formoterol Fumarate 20 Mcg/2 Ml Nebu INHALATION 20 mcg RT-BID EHSAN Administration Furosemide 60 mg 09/08/23 21:00 09/10/23 08:50 Furosemide 10 Mg/Ml 10 Ml Vial IV 60 mg Q12HR EHSAN Administration Hydromorphone HCl 0.5 mg 09/07/23 00:53 09/10/23 06:18 Hydromorphone 0.5 Mg/0.5 Ml Syringe IVP 0.5 mg Q4HR PRN Administration Pain Vancomycin HCl 2,000 mg/ 500 mls @ 167 mls/hr 09/10/23 02:00 09/10/23 03:04 Sodium Chloride IVPB 167 mls/hr Q18H EHSAN Administration Methylprednisolone Sodium Succinate 60 mg 09/10/23 06:00 09/10/23 06:17 Methylprednisolone Sod Succi 125 Mg/2 Ml Vial IV 60 mg Q6HR EHSAN Administration Metoprolol Tartrate 25 mg 09/07/23 21:00 09/09/23 20:04 Metoprolol Tartrate 25 Mg Tab PO 25 mg HS EHSAN Administration Metoprolol Tartrate 50 mg 09/07/23 09:00 09/10/23 08:51 Metoprolol Tartrate 25 Mg Tab PO 50 mg DAILY EHSAN Administration Montelukast Sodium 10 mg 09/07/23 09:00 09/10/23 08:51 Montelukast 10 Mg Tab PO 10 mg DAILY EHSAN Administration Multivitamins 1 each 09/09/23 09:00 09/10/23 08:52 Multivitamins, Thera 1 Each Tab PO 1 each DAILY EHSAN Administration Non-Formulary Medication 1 cap 09/09/23 08:00 09/10/23 08:37 [place]-3/Dha/Epa/Fish Oil [Fish Oil 1,000 Mg Softgel] PO Not Given DAILY@0800 EHSAN Non-Formulary Medication 1 tab 09/09/23 09:00 09/09/23 08:00 Super B-Complex PO Not Given DAILY EHSAN Pantoprazole Sodium 40 mg 09/09/23 09:00 09/10/23 08:51 Pantoprazole 40 Mg Tablet PO 40 mg DAILY EHSAN Administration Senna 8.6 mg 09/08/23 09:00 09/10/23 08:51 Sennosides 8.6 Mg Tab PO 8.6 mg DAILY EHSAN Administration Intake and Output 09/09/23 09/10/23 09/10/23 22:59 06:59 14:59 Intake Total 878 0 Output Total 350 Balance 528 0 Intake: Oral 878 0 Output: Urine 350 Other: Voiding Method Bedside Commode Bedside Commode Weight 114.4 kg 09/09/23 06:11 09/09/23 06:11
--- NOTE | 2023-09-10 16:06 | P.CNPUL ---
History of Present Illness Consult date: 09/10/23 Reason for consult: dyspnea, hypoxemia History of present illness: Patient is a 58-year-old white female with past medical history significant for heart failure, paroxysmal atrial fibrillation, COPD, pulmonary hypertension, chronic ongoing oxygen dependent on 3 L/min home O2, obstructive sleep apnea, and former tobacco smoker. She does follow with Dr. Mathew in the pulmonary office. She is reportedly being worked up at [facility] for her pulmonary hypertension. Over the last week she is been experiencing progressively worsening shortness of breath. This is accompanied with a 15 pound weight gain. She has had increased lower extremity swelling. She has been taking her diuretics. She initially presented to the emergency room back on 09/06/2023, and was admitted to the cardiac stepdown unit. Over the last couple days, the patient has had gradually worsening oxygen demand. She is currently resting comfortably in the bedside recliner, on 11 L high flow nasal cannula, in no apparent distress at rest. Denies any infectious symptoms such as productive cough, purulent sputum, fevers, chest pain. She does have an intermittent nonp roductive cough. Negative for influenza, RSV, COVID on arrival. Most recent chest x-ray from yesterday demonstrates cardiomegaly, pulmonary vascular congestion, and scattered nonspecific infiltrates. NT proBNP was elevated 8000 on arrival. CBC from yesterday unremarkable. No leukocytosis. No fevers. Most recent available BMP from yesterday is unremarkable other than improved renal function with creatinine down to 1.16 and BUN 31. Patient remains on Lasix 60 mg twice daily. Of note, she recently underwent right wrist carpal tunnel surgery, and over the last couple days her right wrist has been more swollen, inflamed, erythemic. No discharge. She was placed on vancomycin for gram-positive coverage. Hemodynamically stable. The patient was seen today and evaluated. Obviously patient is in CHF. The patient remains hypoxic and the patient remains on oxygen at 10 L/min nasal cannula. I reviewed the chest x-ray is consistent with cardiomegaly and CHF and the patient's proBNP level is quite elevated. The chest x-ray showing cardiomegaly and pulm vessel congestion and scattered infiltrates bilaterally. The patient is on IV Lasix. The patient is headed over the negative fluid balance. She is receiving Lasix 60 mg IV push every 12 hours. Blood work was noted. Creatinine is down to 1.34 with a sodium levels at 141 with a potassium level of 4 and a serum bicarb is at 32. The viral screen was negative. Troponins were also negative. proBNP level was elevated at 8060. Note that the patient is also followed up at [facility] regarding pulm hypertension. 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 Review of Systems CONSTITUTIONAL: Admits 15 pound weight gain over the last week. Admits generalized weakness. Denies fevers. EYES: Denies change in vision. EARS, NOSE, MOUTH, THROAT: Denies headaches, denies sore throat. CARDIOVASCULAR: Denies chest pain, palpitations or syncopal episodes. Admits increased lower extremity swelling and orthopnea. RESPIRATORY: See HPI. GASTROINTESTINAL: Denies change in appetite, abdominal pain, nausea and vomiting, or diarrhea GENITOURINARY: Denies hematuria, denies infections. MUSKULOSKELETAL: Admits recent right carpal tunnel surgery. Increased erythema, warmth, tenderness. No discharge. Limited mobility of right hand. INTEGUMENTARY: Denies rash, denies eczema. NEUROLOGICAL: Denies recent memory loss, no recent seizure activity. PSYCHIATRIC: Denies anxiety, denies depression. HEMATOLOGIC/LYMPHATIC: Denies anemia, denies enlarged lymph node Past Medical History Past Medical History: Atrial Fibrillation, Heart Failure, COPD, Hyperlipidemia, Hypertension Additional Past Medical History / Comment(s): pulmonary HTN History of Any Multi-Drug Resistant Organisms: None Reported Past Surgical History: Bariatric Surgery, Bowel Resection, Hysterectomy Additional Past Surgical History / Comment(s): gastric sleeve Past Anesthesia/Blood Transfusion Reactions: No Reported Reaction Past Psychological History: Depression Smoking Status: Former smoker Past Alcohol Use History: None Reported Past Drug Use History: None Reported - Past Family History Mother Family Medical History: COPD, Coronary Artery Disease (CAD), CVA/TIA, Hyper tension Father Family Medical History: COPD, CVA/TIA, Hypertension, Prostate Disorder Medications and Allergies Home Medications Medication Instructions Recorded Confirmed Type Citalopram Hydrobromide [CeleXA] 40 mg PO DAILY 08/14/22 09/06/23 History Ferrous Sulfate [Iron (65 MG 325 mg PO DAILY 08/14/22 09/06/23 History Elemental)] Montelukast [Singulair] 10 mg PO DAILY 08/14/22 09/06/23 History [place]-3/Dha/Epa/Fish Oil [Fish Oil 1 cap PO DAILY@0800 08/14/22 09/06/23 History 1,000 mg Softgel] Pantoprazole [Protonix] 40 mg PO DAILY 08/14/22 09/06/23 History Spironolactone [Aldactone] 25 mg PO DAILY 08/14/22 09/06/23 History Tiotropium Br/Olodaterol HCl 2 puff INHALATION RT-DAILY 08/14/22 09/06/23 History [Stiolto Respimat Inhal [place]] Atorvastatin [Lipitor] 40 mg PO HS 10/20/22 09/06/23 History Calcium Carbonate [Calcium] 1,200 mg PO DAILY 10/20/22 09/06/23 History Famotidine [Pepcid] 40 mg PO DAILY 10/20/22 09/06/23 History Super B-Complex 1 tab PO DAILY 10/20/22 09/06/23 History Apixaban [Eliquis] 5 mg PO BID 12/21/22 09/06/23 History Ipratropium-Albuterol Nebulize 3 ml INHALATION RT-QID 12/21/22 09/06/23 History [Duoneb 0.5 mg-3 mg/3 ml Soln] Multivitamins, Thera [Multivitamin 1 tab PO DAILY 12/21/22 09/06/23 History (formulary)] allopurinoL [Zyloprim] 100 mg PO DAILY 02/12/23 09/06/23 History dilTIAZem HCL [Cardizem CD] 120 mg PO DAILY 02/12/23 09/06/23 History Biotene Dry Mouth Rinse 15 ml PO 5XD 09/06/23 09/06/23 History Bumetanide [BUMEX] 2 mg PO BID 09/06/23 09/06/23 History Fluticasone Nasal [place] [Flonase 1 spray EA NOSTRIL DAILY PRN 09/06/23 09/06/23 History Nasal [place]] Metoprolol Tartrate [Lopressor] 25 mg PO HS 09/06/23 09/06/23 History Metoprolol Tartrate [Lopressor] 50 mg PO DAILY 09/06/23 09/06/23 History Naproxen [EC-Naprosyn] 500 mg PO BID PRN 09/06/23 09/06/23 History Nystatin 100,000 Unit/gm Powd 1 applic TOPICAL BID PRN 09/06/23 09/06/23 History [Mycostatin Powder] Potassium Chloride ER [K-Dur 10] 20 meq PO DAILY 09/06/23 09/06/23 History diphenhydrAMINE [Benadryl] 50 mg PO HS 09/06/23 09/06/23 History Allergies Allergy/AdvReac Type Severity Reaction Status Date / Time doxycycline Allergy NAUSEA, Verified 09/06/23 20:52 VOMITING, UPSET STOMACH lorazepam [From Ativan] AdvReac Hallucinati Verified 09/06/23 20:52 ons venlafaxine [From Effexor] AdvReac Hallucinati Verified 09/06/23 20:52 ons Physical Exam Vitals: Vital Signs Temp Pulse Pulse Resp BP Pulse Ox 09/10/23 15:53 88 09/10/23 15:37 84 09/10/23 15:28 97.5 F L 86 14 116/65 91 L 09/10/23 13:14 95 18 09/10/23 12:00 97.9 F 95 18 112/71 91 L 09/10/23 11:44 92 09/10/23 11:25 88 09/10/23 08:56 124 H 09/10/23 08:43 124 H 09/10/23 08:41 124 H 09/10/23 08:26 120 H 93 L 09/10/23 08:00 97.8 F 108 H 18 143/71 93 L 09/10/23 03:08 97.8 F 92 20 132/77 90 L 09/10/23 00:00 102 H 20 135/70 94 L 09/09/23 20:32 88 09/09/23 20:25 93 09/09/23 20:24 92 09/09/23 20:20 91 09/09/23 19:55 98.9 F 96 20 121/58 90 L 09/09/23 16:37 92 09/09/23 16:23 94 Intake and Output 09/10/23 09/10/23 09/10/23 06:59 14:59 22:59 Intake Total 110 Output Total 300 Balance -190 Intake: Oral 110 Output: Urine 300 Other: Voiding Method Bedside Commode Bedside Commode Weight 114.4 kg GENERAL EXAM: Alert, 58-year-old obese white female, sitting up in the bedside recliner, comfortable in no apparent distress. The patient is currently on 10 L of oxygen by nasal cannula HEAD: Normocephalic and atraumatic EYES: Normal reaction of pupils, equal size. NOSE: Clear with pink turbinates. THROAT: No erythema or exudates. NECK: No masses, no JVD. CHEST: No chest wall deformity. LUNGS: Equal air entry with inspiratory bibasilar crackles and scattered wheezes. On 10 L high flow nasal cannula. No conversational dyspnea or accessory muscle use.. CVS: S1 and S2 normal with no audible murmur, irregular rhythm. No extra heart sounds ABDOMEN: No hepatosplenomegaly, active bowel sounds, no guarding or rigidity. SPINE: No scoliosis or deformity SKIN: Right wrist incision is approximated, no drainage. Surrounding hand is erythemic, warm, and swollen. Still able to move all associated digits. CENTRAL NERVOUS SYSTEM: No focal deficits, tone is normal in all 4 extremities. EXTREMITIES: There is mild nonpitting bilateral lower extremity edema. No clubbing, or cyanosis. Peripheral pulses are intact. Results - Laboratory Findings CBC and BMP: 09/09/23 06:11 09/10/23 08:43 PT/INR, D-dimer PT 12.1 sec (10.0-12.5) 09/06/23 18:05 INR 1.1 (<1.2) 09/06/23 18:05 Abnormal lab findings: Abnormal Labs 09/06/23 09/06/23 09/08/23 18:05 18:05 10:22 RBC Hgb Plt Count 144 L Lymphocytes # Sodium 136 L Potassium 5.4 H Carbon Dioxide 34 H BUN 33 H 30 H Creatinine 1.58 H 1.24 H Glucose 113 H AST 40 H C-Reactive Protein 09/09/23 09/09/23 09/09/23 06:11 06:11 16:03 RBC 3.59 L Hgb 11.0 L Plt Count 138 L Lymphocytes # 0.6 L Sodium Potassium Carbon Dioxide 32 H BUN 31 H Creatinine 1.16 H Glucose 109 H AST C-Reactive Protein 7.6 H 09/10/23 08:43 RBC Hgb Plt Count Lymphocytes # Sodium Potassium Carbon Dioxide BUN Creatinine 1.34 H Glucose AST C-Reactive Protein - Diagnostic Findings Chest x-ray: image reviewed Assessment and Plan Plan: Acute on chronic hypoxemic respiratory failure, possibly multifactorial secondary, to an acute exacerbation of diastolic congestive heart failure and acute COPD exacerbation. The patient's proBNP level is elevated and the patient has cardiomegaly and pulm vascular congestion consistent with CHF. WHO class II pulmonary hypertension with history of severe pulmonary hypertension, being followed at the [facility] Severe chronic obstructive pulmonary disease, with an FEV1 value 32% of predicted, normally maintained on a combination of Stiolto, DuoNebs [id number], and as needed albuterol rescue inhaler. Chronic hypoxemic respiratory failure, secondary to above Recent history of right carpal tunnel release surgery, with possible surgical site infection/cellulitis. Chronic atrial fibrillation, anticoagulated with Eliquis Obesity with a BMI of 44.2 kg/m History of previous gastric sleeve placement History of obstructive sleep apnea, not tolerant of CPAP Hypertension Chronic kidney disease, stage III, creatinine is stable for now. Former tobacco smoker Plan: Keep the patient on 10 L of oxygen by nasal cannula and gradually titrate oxygen flow to maintain saturation above 90% Will review the records and recommendations that were made at [facility] regarding the patient's pulmonary hypertension which is thought to be a WHO class II pulmonary hypertension Agree with diuresis in the form of Lasix to 60 mg twice daily Negative for influenza, RSV, COVID. Continue combination of formoterol, budesonide The patient may have an area of cellulitis over the right upper extremity carpal tunnel surgical wound site. She was covered with vancomycin. Awaiting [facility] surgery consultation. Infectious disease was added for possible surgical site infection. Currently covered with vancomycin. Currently hemodynamically stable. We will continue to follow.
--- NOTE | 2023-09-10 23:05 | P.PN ---
Subjective Progress Note Date: 09/10/23 Principal diagnosis: Reason for follow-up is right wrist surgical site infection Patient is a 58-year-old female past medical history significant for atrial fibrillation hypertension hyperlipidemia COPD heart failure with patient recently did have a right carpal tunnel release and noticed to have increasing swelling redness to the right wrist incision site concerning for surgical site infection. On today's visit that is 09/10/2023, patient has been afebrile, patient is breathing comfortably however is requiring high flow nasal cannula oxygen, patient denies having any significant cough no chest pain , patient denies nausea vomiting or diarrhea and no abdominal pain,, still discomfort to the right wrist area mention there was some drainage by the orthopedic. Patient did have a creatinine 1.34 cultures currently pending Objective - Vital Signs Vital signs: Vital Signs Temp 97.8 F 09/10/23 08:00 Pulse 92 09/10/23 11:44 Resp 18 09/10/23 08:00 BP 143/71 09/10/23 08:00 Pulse Ox 93 L 09/10/23 08:26 FiO2 Intake & Output 09/09/23 09/10/23 09/10/23 18:59 06:59 18:59 Intake Total 2198 0 Output Total 350 300 Balance 1848 -300 Weight 114.4 kg Intake: Oral 2198 0 Output: Urine 350 300 Other: Voiding Method Bedside Commode Bedside Commode - Exam GENERAL DESCRIPTION: Middle-aged female up in the chair in no distress RESPIRATORY SYSTEM: Unlabored breathing , decreased breath sounds at bases HEART: S1 S2 regular rate and rhythm , ABDOMEN: Soft , no tenderness EXTREMITIES: Right wrist is currently dressed no drainage on the dressing - Labs CBC & Chem 7: 09/09/23 06:11 09/10/23 08:43 Labs: Abnormal Lab Results - Last 24 Hours (Table) 09/09/23 09/10/23 Range/Units 16:03 08:43 Creatinine 1.34 H (0.52-1.04) mg/dL C-Reactive Protein 7.6 H (<1.0) mg/dL Assessment and Plan (1) Cellulitis of right wrist Current Visit: Yes Status: Acute Code(s): L03.113 - CELLULITIS OF RIGHT UPPER LIMB SNOMED Code(s): 51196414771111527 (2) Surgical site infection Current Visit: Yes Status: Acute Code(s): T81.49XA - INFECTION FOLLOWING A PROCEDURE, OTHER SURGICAL SITE, INIT SNOMED Code(s): 17474602 Plan: 1patient with a recent right carpal tunnel release surgery and now with evidence of increasing swelling redness at the incision site concerning for surgical site infection likely from gram-positive skin devin 2patient with the renal insufficiency high risk of nephrotoxicity 3patient has been evaluated by orthopedics and did have expression of some drainage which has been sent for culture 4-patient to continue with vancomycin pharmacy to dose target trough of 15 while watching kidney function and Vanco trough closely and culture closely Dictation was produced using [employer] dictation software. please excuse any grammatical, word or spelling errors. Time with Patient: Less than 30
[2023-09-11] MEDS: VANCOMYCIN 2,000 MG in SODIUM CHLORIDE 0.9% 500 ML 500 ML IVPB SCH (05:42)
[2023-09-11] MEDS: ASPIRIN 81 MG PO SCH (08:43)
--- NOTE | 2023-09-11 09:11 | P.PN ---
Subjective Progress Note Date: 09/11/23 Principal diagnosis: Post op right wrist The patient is a 58 y/o female who we are following for a right wrist post op complication. She is status post right open carpal tunnel release on 09/04/2023. The incision was opened yesterday and she states the hand and wrist are feeling much better. She denies fever and chills. Cultures are pending. She states she has issues with yeast infections with antibiotics and would like a dose of Diflucan. She states her breathing is better as well. Objective - Vital Signs Vital signs: Vital Signs Temp 98.4 F 09/11/23 00:00 Pulse 80 09/11/23 08:11 Resp 18 09/11/23 04:00 BP 116/64 09/11/23 04:00 Pulse Ox 94 L 09/11/23 07:44 FiO2 Intake & Output 09/10/23 09/11/23 09/11/23 18:59 06:59 18:59 Intake Total 110 Output Total 550 850 Balance -440 -850 Weight 113.2 kg Intake: Oral 110 Output: Urine 550 850 Other: Voiding Method Bedside Commode Bedside Commode - Exam Geraldine is a 58 y/o female in no acute distress. She is alert and oriented x3. Exam of the right hand reveals serosanginous drainage on the old dressing. The incision is open. Normal granulation tissue is present. No purulence present. There is a dark erythema to the periwound area. No proximal red streaking present. Full finger motion. No pain along the flexor tendons of the fingers and thumb. No proximal wrist and forearm pain present. Neurological and circulatory status is intact. - Labs CBC & Chem 7: 09/09/23 06:11 09/10/23 08:43 Labs: Abnormal Lab Results - Last 24 Hours (Table) 09/10/23 Range/Units 08:43 Creatinine 1.34 H (0.52-1.04) mg/dL Microbiology - Last 24 Hours (Table) 09/10/23 11:10 Gram Stain - Preliminary Arm - Right 09/09/23 16:03 Blood Culture - Preliminary Blood Assessment and Plan (1) Acute exacerbation of chronic obstructive pulmonary disease Current Visit: Yes Status: Acute Code(s): J44.1 - CHRONIC OBSTRUCTIVE PULMONARY DISEASE W (ACUTE) EXACERBATION SNOMED Code(s): 508058706 (2) Cellulitis of right wrist Current Visit: Yes Status: Acute Code(s): L03.113 - CELLULITIS OF RIGHT UPP ER LIMB SNOMED Code(s): 06783768988549949 (3) Congestive heart failure Current Visit: No Status: Acute Code(s): I50.9 - HEART FAILURE, UNSPECIFIED SNOMED Code(s): 81100052 Plan: The clinical findings were discussed with the patient. The case was discussed at length with Dr. Agustin. There appears to be significant improvement with opening the incision yesterday and with IV antibiotics. Cultures are pending. The patient is able to eat today, no formal I&D is planned at this time. The patient may wash her hand with soap and water, no soaking. She may shower over the hand as well. New dressing applied today with a small amount of Medihoney. Dressing should be changed daily and PRN for drainage. Keep incision dry otherwise. Encourage finger motion. Continue antibiotics per infectious disease, awaiting cultures. We will continue to follow the patient closely.
[2023-09-11 09:48] VITALS: BMI 40.2
[2023-09-11] MEDS: FLUCONAZOLE 150 MG TAB PO STA (10:02)
[2023-09-11 11:13] LABS: Basophils % (A) 0 %; Eosinophils % (A) 0 %; HCT 34.9 % (34.0-46.0); HGB 10.6 gm/dL (11.4-16.0); Hypochromasia Moderate; Lymphocytes # (A) 0.3 k/uL (1.0-4.8); Lymphocytes % (A) 5 %; MCH 29.8 pg (25.0-35.0); MCHC 30.3 g/dL (31.0-37.0); MCV 98.6 fL (80.0-100.0); Mean Platelet Volume 9.3; Monocytes # (A) 0.3 k/uL (0-1.0); Monocytes % (A) 4 %; Neutrophils # (A) 6.4 k/uL (1.3-7.7); Neutrophils % (A) 91 %; Platelet Count 163 k/uL (150-450); RBC 3.54 m/uL (3.80-5.40); RDW 14.6 % (11.5-15.5)
[2023-09-11 11:14] LABS: ALT 16 U/L (4-34); AST 20 U/L (14-36); African American GFR (CKD) 60 (>60 ml/min/1.73 sqM); Albumin 3.7 g/dL (3.5-5.0); Alkaline Phosphatase 105 U/L (38-126); Anion Gap 7 mmol/L; Blood Urea Nitrogen 40 mg/dL (7-17); Calcium 9.6 mg/dL (8.4-10.2); Carbon Dioxide 31 mmol/L (22-30); Chloride 103 mmol/L (98-107); Glucose 156 mg/dL (74-99); Magnesium 2.2 mg/dL (1.6-2.3); Non-African American GFR(CKD) 52 (>60 ml/min/1.73 sqM); Potassium 4.1 mmol/L (3.5-5.1); Sodium 141 mmol/L (137-145); Total Bilirubin 0.6 mg/dL (0.2-1.3); Total Protein 6.5 g/dL (6.3-8.2)
--- NOTE | 2023-09-11 11:18 | P.PN ---
Subjective Progress Note Date: 09/11/23 Hospital Course: 58-year-old female with history of diastolic heart failure, pulmonary hyperten aravind, paroxysmal atrial fibrillation, COPD, hypoxic respiratory failure on 3 L, AMADEO, former nicotine dependence presenting with worsening shortness of breath. She claims that she gained over 15 pounds in the last 2 weeks. She did have increased sodium intake over the last couple of weeks. On initial presentation, she was hypoxic at 88% on 5 L. Chest x-ray showed interstitial opacities. EKG shows atrial fibrillation, rate controlled, incomplete right bundle branch block. Laboratory workup showed elevated creatinine 1.58, troponin negative, proBNP elevated at 8000. Respiratory viral panel negative. She also had recent carpal tunnel surgery 1 week ago, and noted to have increased swelling and redness. Cardiology, pulmonology, orthopedic surgery and infectious disease were consulted. Echocardiogram showed LVEF 55%, moderate to severe mitral annular calcification, mild to moderate tricuspid regurgitation, severe biatrial enlargement. She was started on IV Lasix, bronchodilators, IV steroids, IV vancomycin, underwent opening the incision without I&D. Respiratory function overall improving. Subjective: Patient seen and examined at bedside. No acute events overnight. Respiratory function improving. Patient still significantly dyspneic with exertion. Denies any chest pain, abdominal pain, cough, nausea, vomiting, urinary or bowel complaints. Pertinent positives and negatives as discussed above, a complete review of systems was performed and all other systems are negative. Vitals Signs Reviewed. General: Nontoxic, no distress, appears at stated age, obese Derm: Warm, dry Head: Atraumatic, normocephalic, symmetric Eyes: EOMI, no lid lag, anicteric sclera Mouth: No lip lesion, mucus membranes moist Cardiovascular: S1S2 reg, no murmur Lungs: Scattered wheezing, fine Rales, no accessory muscle use, supplemental oxygen Abdominal: Soft, nontender to palpation, no guarding, no appreciable organomegaly Ext: No gross muscle atrophy, right lower extremity edema, no contractures Neuro: CN II-XI grossly intact, no focal neuro deficits Psych: Alert, oriented, appropriate affect Data Reviewed Today: Pertinent Labs: CBC, CMP, magnesium pending, will be reviewed when available Imaging: No new imaging Assessment and Plan: Patient is severely ill, needs close monitoring. Prognosis guarded. Active: Acute on chronic hypoxic respiratory failure, likely multifactorial Acute on chronic diastolic CHF exacerbation Acute COPD exacerbation Pulmonary hypertension, severe - Pulmonology following, continued on Pulmicort twice daily, Perforomist twice daily, DuoNeb 4 times daily, Solu-Medrol 60 IV every 6 hours - Cardiology following, IV Lasix discontinued, on oral Lasix 120 twice daily - Continue daily weight, intake and output - wean O2 Recent carpal tunnel release surgery complicated by cellulitis - ID following, patient on vancomycin 2 g IV every 24 hours, monitor renal function for renal toxicity - Orthopedic surgery note reviewed, Had incision, no formal I&D Resolved: Acute kidney injury on CKD stage III Chronic: Hypertension AMADEO, not on CPAP Morbid obesity Chronic atrial fibrillation Depression GERD DVT ppx: eliquis Code status: FC Anticipated discharge place: pending clinical course Anticipated discharge time: pending clinical course Objective - Vital Signs Vital signs: Vital Signs Temp 97.3 F L 09/11/23 07:45 Pulse 80 09/11/23 08:11 Resp 18 09/11/23 07:45 BP 129/72 09/11/23 07:45 Pulse Ox 94 L 09/11/23 07:45 FiO2 Intake & Output 09/10/23 09/11/23 09/11/23 18:59 06:59 18:59 Intake Total 110 Output Total 550 850 400 Balance -440 -850 -400 Weight 113.2 kg 113.2 kg Intake: Oral 110 Output: Urine 550 850 400 Other: Voiding Method Bedside Commode Bedside Commode Bedside Commode # Voids 1 - Labs CBC & Chem 7: 09/11/23 09:41 09/11/23 09:41 Labs: Abnormal Lab Results - Last 24 Hours (Table) 09/11/23 09/11/23 Range/Units 09:41 09:41 RBC 3.54 L (3.80-5.40) m/uL Hgb 10.6 L (11.4-16.0) gm/dL MCHC 30.3 L (31.0-37.0) g/dL Lymphocytes # 0.3 L (1.0-4.8) k/uL Carbon Dioxide 31 H (22-30) mmol/L BUN 40 H (7-17) mg/dL Creatinine 1.16 H (0.52-1.04) mg/dL Glucose 156 H (74-99) mg/dL Microbiology - Last 24 Hours (Table) 09/10/23 11:10 Gram Stain - Preliminary Arm - Right 09/09/23 16:03 Blood Culture - Preliminary Blood
[2023-09-11] MEDS: SPIRONOLACTONE 25 MG TAB PO SCH (11:28)
--- NOTE | 2023-09-11 13:56 | P.PN ---
Subjective Progress Note Date: 09/11/23 Patient is a 58-year-old white female with past medical history significant for heart failure, paroxysmal atrial fibrillation, COPD, pulmonary hypertension, chronic ongoing oxygen dependent on 3 L/min home O2, obstructive sleep apnea, and former tobacco smoker. She does follow with Dr. Mathew in the pulmonary office. She is reportedly being worked up at [facility] for her pulmonary hypertension. Over the last week she is been experiencing progressively worsening shortness of breath. This is accompanied with a 15 pound weight gain. She has had increased lower extremity swelling. She has been taking her diuretics. She initially presented to the emergency room back on 09/06/2023, and was admitted to the cardiac stepdown unit. Over the last couple days, the patient has had gradually worsening oxygen demand. She is currently resting comfortably in the bedside recliner, on 11 L high flow nasal cannula, in no apparent distress at rest. Denies any infectious symptoms such as productive cough, purulent sputum, fevers, chest pain. She does have an intermittent nonproductive cough. Negative for influenza, RSV, COVID on arrival. Most recent chest x-ray from yesterday demonstrates cardiomegaly, pulmonary vascular congestion, and scattered nonspecific infiltrates. NT proBNP was elevated 8000 on arrival. CBC from yesterday unremarkable. No leukocytosis. No fevers. Most recent available BMP from yesterday is unremarkable other than improved renal function with creatinine down to 1.16 and BUN 31. Patient remains on Lasix 60 mg twice daily. Of note, she recently underwent right wrist carpal tunnel surgery, and over the last couple days her right wrist has been more swollen, inflamed, erythemic. No discharge. She was placed on vancomycin for gram-positive coverage. Hemodynamically stable. The patient was seen today and evaluated. Obviously patient is in CHF. The patient remains hypoxic and the patient remains on oxygen at 10 L/min nasal cannula. I reviewed the chest x-ray is consistent with cardiomegaly and CHF and the patient's proBNP level is quite elevated. The chest x-ray showing cardiomegaly and pulm vessel congestion and scattered infiltrates bilaterally. The patient is on IV Lasix. The patient is headed over the negative fluid balance. She is receiving Lasix 60 mg IV push every 12 hours. Blood work was noted. Creatinine is down to 1.34 with a sodium levels at 141 with a potassium level of 4 and a serum bicarb is at 32. The viral screen was negative. Troponins were also negative. proBNP level was elevated at 8060. Note that the patient is also followed up at [facility] regarding pulm hypertension. 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 For a follow-up. The patient is doing on today's evaluation on 09/11/2023, the patient is being seen for a follow-up. The patient was hospitalized for an acute on top of chronic hypoxic respiratory failure due to CHF. The patient also has significant pulm hypertension that was evaluated at [facility] this is considered to be a WHO class II pulmonary hypertension. The patient is diuresing with IV Lasix. The fluid balance is -1.2 L over the past 24 hours. There is some interval improvement in oxygenation and the patient was weaned down to 8 L with a pulse ox remained in the order of 94%. In terms of her blood work, BUN is at 40 with a creatinine 1.1 and a sodium levels at 141 with a potassium level of 4.1. The white cell count at 7 with a hemoglobin of 10.6 and a platelet count of 163. She is sitting up on the chair and she is calm and comfortable. No significant respiratory distress despite her underlying hypoxemia. She remains on anticoagulation with Eliquis 5 mg p.o. twice a day. She remains on bronchodilators. She remains on a combination performance of Pulmicort updrafts and she is also on IV Solu-Medrol. Her antibi otic coverage includes vancomycin regarding a surgical wound infection in the site of a previous carpal tunnel surgery. Objective - Vital Signs Vital signs: Vital Signs Temp 97.3 F L 09/11/23 07:45 Pulse 80 09/11/23 08:11 Resp 18 09/11/23 07:45 BP 129/72 09/11/23 07:45 Pulse Ox 94 L 09/11/23 07:45 FiO2 Intake & Output 09/10/23 09/11/23 09/11/23 18:59 06:59 18:59 Intake Total 110 Output Total 550 850 Balance -440 -850 Weight 113.2 kg 113.2 kg Intake: Oral 110 Output: Urine 550 850 Other: Voiding Method Bedside Commode Bedside Commode - Exam GENERAL EXAM: Alert, 58-year-old obese white female, sitting up in the bedside recliner, comfortable in no apparent distress. The patient is currently on 8 L of oxygen by nasal cannula HEAD: Normocephalic and atraumatic EYES: Normal reaction of pupils, equal size. NOSE: Clear with pink turbinates. THROAT: No erythema or exudates. NECK: No masses, no JVD. CHEST: No chest wall deformity. LUNGS: Equal air entry with inspiratory bibasilar crackles and scattered whe ezes. On 10 L high flow nasal cannula. No conversational dyspnea or accessory muscle use.. CVS: S1 and S2 normal with no audible murmur, irregular rhythm. No extra heart sounds ABDOMEN: No hepatosplenomegaly, active bowel sounds, no guarding or rigidity. SPINE: No scoliosis or deformity SKIN: Right wrist incision is approximated, no drainage. Surrounding hand is erythemic, warm, and swollen. Still able to move all associated digits. CENTRAL NERVOUS SYSTEM: No focal deficits, tone is normal in all 4 extremities. EXTREMITIES: There is mild nonpitting bilateral lower extremity edema. No cl ubbing, or cyanosis. Peripheral pulses are intact. - Labs CBC & Chem 7: 09/11/23 09:41 09/11/23 09:41 Labs: Microbiology - Last 24 Hours (Table) 09/10/23 11:10 Gram Stain - Preliminary Arm - Right 09/09/23 16:03 Blood Culture - Preliminary Blood Assessment and Plan Plan: Acute on chronic hypoxemic respiratory failure, possibly multifactorial secondary, to an acute exacerbation of diastolic congestive heart failure and acute COPD exacerbation. The patient's proBNP level is elevated and the patient has cardiomegaly and pulm vascular congestion consistent with CHF. Currently less short of breath compared to yesterday and oxygenation is improved and the patient is currently on 8 L of oxygen by nasal cannula, baseline oxygen requirements are 3 L. WHO group II pulmonary hypertension with history of severe pulmonary hypertension, being followed at the [facility]. Complaints things in perspective, the patient has multiple medical problems including severe COPD and chronic heart failure with preserved ejection fraction and systemic hypertension and chronic atrial fibrillation along with obesity and chronic kidney disease and obstructive sleep apnea. The patient also has pulmonary hypertension. Low suspicion for Group 1 pulmonary hypertension and it is likely group 3 pulmonary hypertension. Right-sided cardiac cath was done at [facility]. The patient was found to have a pulmonary vascular resistance of 3.8 Wood, mean pulmonary artery pressure of 45, right atrial pressure of 16, cardiac index of 2.4, pulmonary capillary wedge pressure of 25 and obviously this is consistent with postcapillary pulmonary hypertension. The patient was not found to be a candidate for an additional pulmonary vasodilator medication therapy Severe chronic obstructive pulmonary disease, with an FEV1 value 32% of predicted, normally maintained on a combination of Stiolto, DuoNebs [id number], and as needed albuterol rescue inhaler. Chronic hypoxemic respiratory failure, secondary to above Recent history of right carpal tunnel release surgery, with possible surgical site infection/cellulitis. Chronic atrial fibrillation, anticoagulated with Eliquis Obesity with a BMI of 44.2 kg/m History of previous gastric sleeve placement History of obstructive sleep apnea, not tolerant of CPAP Hypertension Chronic kidney disease, stage III, creatinine is stable for now. Former tobacco smoker Plan: Keep the patient on 8 L of oxygen by nasal cannula and gradually titrate oxygen flow to maintain saturation above 90% Recommendations from [facility] was noted and discussed with the patient. Agree with diuresis in the form of Lasix to 60 mg twice daily, this will be continued for another 24 hours and subsequently switched to oral Lasix. Negative for influenza, RSV, COVID. Continue combination of formoterol, budesonide The patient may have an area of cellulitis over the right upper extremity carpal tunnel surgical wound site. She was covered with vancomycin. Awaiting orthopedic surgery consultation. Infectious disease was added for possible surgical site infection. Currently covered with vancomycin. Currently hemodynamically stable. We will continue to follow.
--- NOTE | 2023-09-11 14:03 | US ---
EXAMINATION TYPE: US venous doppler duplex LE RT DATE OF EXAM: 09/11/2023 1:23 PM COMPARISON: NONE CLINICAL INDICATION: Female, 58 years old with history of edema; No hx of DVT. Patient is on eliquis. Swelling x a couple days per patient. SIDE PERFORMED: Right TECHNIQUE: The lower extremity deep venous system is examined utilizing real time linear array sonog parisa with graded compression, doppler sonography and color-flow sonography. VESSELS IMAGED: Common Femoral Vein Deep Femoral Vein Greater Saphenous Vein * Femoral Vein Popliteal Vein Small Saphenous Vein * Proximal Calf Veins (* superficial vessels) Right Leg: No evidence of DVT. IMPRESSION: 1. No diagnostic evidence of DVT
--- NOTE | 2023-09-11 14:15 | P.PN ---
Subjective Progress Note Date: 09/11/23 Reason for Consult (text): Grade 3 diastolic dysfunction History of present illness: History of present illness: This is a 58-year-old patient of Dr. LUIS Cao with past medical history of persistent atrial fibrillation on Eliquis, COPD, home oxygen, pulmonary hypertension, hypertension, hyperlipidemia, former tobacco use and dependence, morbid obesity. We have been asked to evaluate the patient for grade 3 diastolic dysfunction. Patient states that she developed increasing shortness of breath that seem to be worsening and occurs with less and less activity. Now she can only do minimal activity and has shortness of breath. Patient has been started on IV Lasix 60 mg every 12 hours. Patient had recent carpal tunnel surgery and infectious disease, orthopedic surgery on consult for cellulitis at the wound site. EKG atrial fibrillation at a ventricular rate of 73 bpm Chest x-ray performed on 09/08 revealed cardiomegaly and pulmonary venous congestion and scattered infiltrates nonspecific.: WBC 8, hemoglobin 11, platelet count 138. Sodium 141, potassium 4, CO2 32, BUN 31 creatinine 1.16. C-reactive protein 7.6. Troponin negative x 1. proBNP 8060. Influenza A, influenza B, RSV, COVID-19 not detected. Echocardiogram performed on 09/07/2023 reveals EF 55%. Severe biatrial enlargement. Moderate to severe mitral annular calcification. Mild to moderate tricuspid regurgitation. No pericardial effusion. Home cardiac medications: Eliquis 5 mg twice daily, atorvastatin 40 mg at bedtime, Bumex 2 mg twice daily, Cardizem CD 120 mg daily, Lopressor 50 mg in the morning 25 mg in the evening, potassium chloride 20 meq daily, Aldactone 25 mg daily. 09/10 Patient denies having any fever or chills. She states her breathing is little better. She is normally on Bumex 2 mg twice daily and currently on IV Lasix 60 mg every 12 hours. Discussed with the patient that we will change IV Lasix to oral Lasix at 120 mg twice daily which will be equivalent to a Bumex 3 mg twice daily when she is ready to go home. Blood pressure 121/73, pulse ox 94% on high flow nasal cannula at 8 L. Heart rate has been running in the 80s. Repeat blood work reveals hemoglobin 11.6. Sodium 141, potassium 4.1, CO2 31, BUN 40 creatinine 1.16. Venous Doppler study of the right lower extremity was negative for DVT. Physical examination: Gen: This is a 58-year-old morbidly obese female in no acute distress] VS: reviewed blood pressure 143/71, heart rate 930339, pulse ox 93% on 10 L high flow nasal cannula. HEENT: Head is atraumatic, normocephalic. Pupils equal, round. Sclerae is anicteric. NECK: Supple. No JVD. LUNGS: Diminished breath sounds bilaterally. No intercostal retractions. HEART: Regular rate and rhythm. No murmur. ABDOMEN: Soft No tenderness. EXTREMITIES: Bilateral lower extremity edema. No calf tenderness. NEUROLOGICAL: Patient is awake, alert and oriented x3. Assessment: Acute on chronic hypoxic respiratory failure secondary to acute diastolic heart failure Persistent atrial fibrillation COPD Pulmonary hypertension Hypertension Hyperlipidemia Morbid obesity with BMI of 41 Recent carpal tunnel surgery Plan: Resume patient's home cardiac medications Change aspirin to 81 mg daily Transition IV Lasix to oral Lasix 120 mg twice daily Monitor JUAN MANUEL, daily weights, electrolytes and renal function Further recommendations to follow based upon clinical course Nurse practitioner note has been reviewed, I agree with documented findings and plan of care. Patient was seen and examined. Objective - Vital Signs Vital signs: Vital Signs Temp 97.3 F L 09/11/23 07:45 Pulse 80 09/11/23 08:11 Resp 18 09/11/23 07:45 BP 129/72 09/11/23 07:45 Pulse Ox 94 L 09/11/23 07:45 FiO2 Intake & Output 09/10/23 09/11/23 09/11/23 18:59 06:59 18:59 Intake Total 110 Output Total 550 850 Balance -440 -850 Weight 113.2 kg 113.2 kg Intake: Oral 110 Output: Urine 550 850 Other: Voiding Method Bedside Commode Bedside Commode - Labs CBC & Chem 7: 09/11/23 09:41 09/11/23 09:41 Labs: Microbiology - Last 24 Hours (Table) 09/10/23 11:10 Gram Stain - Preliminary Arm - Right 09/09/23 16:03 Blood Culture - Preliminary Blood
--- NOTE | 2023-09-11 14:22 | P.PN ---
Subjective Progress Note Date: 09/11/23 Principal diagnosis: Reason for follow-up is right wrist surgical site infection Patient is a 58-year-old female past medical history significant for atrial fibrillation hypertension hyperlipidemia COPD heart failure with patient recently did have a right carpal tunnel release and noticed to have increasing swelling redness to the right wrist incision site concerning for surgical site infection. On today's visit that is 09/11/2023,the patient denies any fever or any chills, patient is breathing comfortably on 8 L nasal cannula oxygen, the patient denies chest pain shortness of breath and no worsening cough, patient denies abdominal pain, no nausea vomiting or diarrhea. Pain to the right wrist has decreased in intensity. Patient white count is 7.0, creatinine is 1.16 cultures currently pending Objective - Vital Signs Vital signs: Vital Signs Temp 97.7 F 09/11/23 11:19 Pulse 84 09/11/23 11:46 Resp 18 09/11/23 11:19 BP 121/73 09/11/23 11:19 Pulse Ox 94 L 09/11/23 11:19 FiO2 Intake & Output 09/10/23 09/11/23 09/11/23 18:59 06:59 18:59 Intake Total 110 Output Total 550 850 650 Balance -440 -850 -650 Weight 113.2 kg 113.2 kg Intake: Oral 110 Output: Urine 550 850 650 Other: Voiding Method Bedside Commode Bedside Commode Bedside Commode # Voids 1 # Bowel Movements 1 - Exam GENERAL DESCRIPTION: Middle-aged female up in the chair in no distress RESPIRATORY SYSTEM: Unlabored breathing , decreased breath sounds at bases HEART: S1 S2 regular rate and rhythm , ABDOMEN: Soft , no tenderness EXTREMITIES: Right wrist is currently dressed no drainage on the dressing - Labs CBC & Chem 7: 09/11/23 09:41 09/11/23 09:41 Labs: Abnormal Lab Results - Last 24 Hours (Table) 09/11/23 09/11/23 Range/Units 09:41 09:41 RBC 3.54 L (3.80-5.40) m/uL Hgb 10.6 L (11.4-16.0) gm/dL MCHC 30.3 L (31.0-37.0) g/dL Lymphocytes # 0.3 L (1.0-4.8) k/uL Carbon Dioxide 31 H (22-30) mmol/L BUN 40 H (7-17) mg/dL Creatinine 1.16 H (0.52-1.04) mg/dL Glucose 156 H (74-99) mg/dL Microbiology - Last 24 Hours (Table) 09/10/23 11:10 Gram Stain - Preliminary Arm - Right 09/09/23 16:03 Blood Culture - Preliminary Blood Assessment and Plan (1) Cellulitis of right wrist Current Visit: Yes Status: Acute Code(s): L03.113 - CELLULITIS OF RIGHT UPPER LIMB SNOMED Code(s): 26832204375406940 (2) Surgical site infection Current Visit: Yes Status: Acute Code(s): T81.49XA - INFECTION FOLLOWING A PROCEDURE, OTHER SURGICAL SITE, INIT SNOMED Code(s): 91592818 Plan: 1patient with a recent right carpal tunnel release surgery and now with evidence of increasing swelling redness at the incision site concerning for surgical site infection likely from gram-positive skin devin 2patient with the renal insufficiency high risk of nephrotoxicity 3patient has been evaluated by orthopedics and did have expression of some fluid has been sent for the cultures cultures currently pending 4-patient to continue with vancomycin pharmacy to dose target trough of 15 creatinine stable at 1.6 discharge antibiotic on the basis of cultures Dictation was produced using [employer] dictation software. please excuse any grammatical, word or spelling errors. Time with Patient: Less than 30
[2023-09-11] MEDS: FUROSEMIDE 80 MG TAB PO SCH (16:40)
[2023-09-12 09:21] LABS: Basophils % (A) 0 %; Eosinophils % (A) 0 %; HGB 10.9 gm/dL (11.4-16.0); Hypochromasia Moderate; Lymphocytes # (A) 0.4 k/uL (1.0-4.8); Lymphocytes % (A) 6 %; MCH 29.9 pg (25.0-35.0); MCHC 30.2 g/dL (31.0-37.0); MCV 98.8 fL (80.0-100.0); Macrocytosis Slight; Mean Platelet Volume 9.4; Monocytes # (A) 0.3 k/uL (0-1.0); Monocytes % (A) 4 %; Neutrophils # (A) 5.2 k/uL (1.3-7.7); Neutrophils % (A) 89 %; Platelet Count 177 k/uL (150-450); RBC 3.64 m/uL (3.80-5.40); RDW 14.8 % (11.5-15.5); WBC 5.9 k/uL (3.8-10.6)
[2023-09-12 09:38] LABS: African American GFR (CKD) 48 (>60 ml/min/1.73 sqM); Anion Gap 7 mmol/L; Blood Urea Nitrogen 44 mg/dL (7-17); Calcium 9.4 mg/dL (8.4-10.2); Carbon Dioxide 30 mmol/L (22-30); Chloride 103 mmol/L (98-107); Glucose 231 mg/dL (74-99); Magnesium 2.2 mg/dL (1.6-2.3); Non-African American GFR(CKD) 42 (>60 ml/min/1.73 sqM); Potassium 3.9 mmol/L (3.5-5.1); Sodium 140 mmol/L (137-145)
--- NOTE | 2023-09-12 11:11 | P.PN ---
Subjective Progress Note Date: 09/12/23 Patient is a 58-year-old white female with past medical history significant for heart failure, paroxysmal atrial fibrillation, COPD, pulmonary hypertension, chronic ongoing oxygen dependent on 3 L/min home O2, obstructive sleep apnea, and former tobacco smoker. She does follow with Dr. Mathew in the pulmonary office. She is reportedly being worked up at [facility] for her pulmonary hypertension. Over the last week she is been experiencing progressively worsening shortness of breath. This is accompanied with a 15 pound weight gain. She has had increased lower extremity swelling. She has been taking her diuretics. She initially presented to the emergency room back on 09/06/2023, and was admitted to the cardiac stepdown unit. Over the last couple days, the patient has had gradually worsening oxygen demand. She is currently resting comfortably in the bedside recliner, on 11 L high flow nasal cannula, in no apparent distress at rest. Denies any infectious symptoms such as productive cough, purulent sputum, fevers, chest pain. She does have an intermittent nonproductive cough. Negative for influenza, RSV, COVID on arrival. Most recent chest x-ray from yesterday demonstrates cardiomegaly, pulmonary vascular congestion, and scattered nonspecific infiltrates. NT proBNP was elevated 8000 on arrival. CBC from yesterday unremarkable. No leukocytosis. No fevers. Most recent available BMP from yesterday is unremarkable other than improved renal function with creatinine down to 1.16 and BUN 31. Patient remains on Lasix 60 mg twice daily. Of note, she recently underwent right wrist carpal tunnel surgery, and over the last couple days her right wrist has been more swollen, inflamed, erythemic. No discharge. She was placed on vancomycin for gram-positive coverage. Hemodynamically stable. The patient was seen today and evaluated. Obviously patient is in CHF. The patient remains hypoxic and the patient remains on oxygen at 10 L/min nasal cannula. I reviewed the chest x-ray is consistent with cardiomegaly and CHF and the patient's proBNP level is quite elevated. The chest x-ray showing cardiomegaly and pulm vessel congestion and scattered infiltrates bilaterally. The patient is on IV Lasix. The patient is headed over the negative fluid balance. She is receiving Lasix 60 mg IV push every 12 hours. Blood work was noted. Creatinine is down to 1.34 with a sodium levels at 141 with a potassium level of 4 and a serum bicarb is at 32. The viral screen was negative. Troponins were also negative. proBNP level was elevated at 8060. Note that the patient is also followed up at [facility] regarding pulm hypertension. 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 For a follow-up. The patient is doing on today's evaluation on 09/11/2023, the patient is being seen for a follow-up. The patient was hospitalized for an acute on top of chronic hypoxic respiratory failure due to CHF. The patient also has significant pulm hypertension that was evaluated at [facility] this is considered to be a WHO class II pulmonary hypertension. The patient is diuresing with IV Lasix. The fluid balance is -1.2 L over the past 24 hours. There is some interval improvement in oxygenation and the patient was weaned down to 8 L with a pulse ox remained in the order of 94%. In terms of her blood work, BUN is at 40 with a creatinine 1.1 and a sodium levels at 141 with a potassium level of 4.1. The white cell count at 7 with a hemoglobin of 10.6 and a platelet count of 163. She is sitting up on the chair and she is calm and comfortable. No significant respiratory distress despite her underlying hypoxemia. She remains on anticoagulation with Eliquis 5 mg p.o. twice a day. She remains on bronchodilators. She remains on a combination performance of Pulmicort updrafts and she is also on IV Solu-Medrol. Her antibi otic coverage includes vancomycin regarding a surgical wound infection in the site of a previous carpal tunnel surgery. On today's evaluation of 09/12/2023, the patient is being seen for a follow-up. Clinically, the patient is stable. The patient has been weaned down to 6 L of O2 nasal cannula. The patient has responded nicely to diuretics and the patient has been negative fluid balance over the past 24 hours and another 2 L of negative fluid balance was noted. BUN is at 44 with a creatinine 1.3 and his sodium is at 140. The patient is currently on Lasix 120 mg p.o. twice a day and this adjustment was done by cardiology. She continues to receive vancomycin regarding the cellulitis and wound infection in the right upper extremity. This area is postsurgical following carpal tunnel surgery. ID is on the case. Orthopedic surgery is on the case. The white cell count of 5.9 with hemoglobin 10.9 and platelet count of 177. The patient is clinically doing well. No significant respiratory worsening. In fact the patient feels less short of breath. No other complaints otherwise for now. Objective - Vital Signs Vital signs: Vital Signs Temp 98.1 F 09/12/23 08:00 Pulse 96 09/12/23 08:22 Resp 18 09/12/23 08:00 BP 125/81 09/12/23 08:00 Pulse Ox 90 L 09/12/23 08:00 FiO2 Intake & Output 09/11/23 09/12/23 09/12/23 18:59 06:59 18:59 Intake Total 1080 20 120 Output Total 850 850 Balance 230 -830 120 Weight 113.2 kg 113 kg Intake: IV 20 Invasive Line 1 20 Oral 1080 120 Output: Urine 850 850 Other: Voiding Method Bedside Commode Bedside Commode # Voids 1 # Bowel Movements 1 - Exam GENERAL EXAM: Alert, 58-year-old obese white female, sitting up in the bedside recliner, comfortable in no apparent distress. The patient is currently on 6 L of oxygen by nasal cannula HEAD: Normocephalic and atraumatic EYES: Normal reaction of pupils, equal size. NOSE: Clear with pink turbinates. THROAT: No erythema or exudates. NECK: No masses, no JVD. CHEST: No chest wall deformity. LUNGS: Equal air entry with inspiratory bibasilar crackles and scattered wheezes. On 10 L high flow nasal cannula. No conversational dyspnea or accessory muscle use.. CVS: S1 and S2 normal with no audible murmur, irregular rhythm. No extra heart sounds ABDOMEN: No hepatosplenomegaly, active bowel sounds, no guarding or rigidity. SPINE: No scoliosis or deformity SKIN: Right wrist incision is approximated, no drainage. Surrounding hand is erythemic, warm, and swollen. Still able to move all associated digits. CENTRAL NERVOUS SYSTEM: No focal deficits, tone is normal in all 4 extremities. EXTREMITIES: There is mild nonpitting bilateral lower extremity edema. No clubbing, or cyanosis. Peripheral pulses are intact. - Labs CBC & Chem 7: 09/12/23 08:29 09/12/23 08:29 Labs: Abnormal Lab Results - Last 24 Hours (Table) 09/11/23 09/11/23 09/12/23 Range/Units 09:41 09:41 08:29 RBC 3.54 L 3.64 L (3.80-5.40) m/uL Hgb 10.6 L 10.9 L (11.4-16.0) gm/dL MCHC 30.3 L 30.2 L (31.0-37.0) g/dL Lymphocytes # 0.3 L 0.4 L (1.0-4.8) k/uL Carbon Dioxide 31 H (22-30) mmol/L BUN 40 H (7-17) mg/dL Creatinine 1.16 H (0.52-1.04) mg/dL Glucose 156 H (74-99) mg/dL Microbiology - Last 24 Hours (Table) 09/10/23 11:10 Gram Stain - Final Arm - Right Wound Culture - Final 09/09/23 16:03 Blood Culture - Preliminary Blood Assessment and Plan Plan: Acute on chronic hypoxemic respiratory failure, possibly multifactorial secondary, to an acute exacerbation of diastolic congestive heart failure and acute COPD exacerbation. The patient's proBNP level is elevated and the patient has cardiomegaly and pulm vascular congestion consistent with CHF. Currently less short of breath compared to yesterday and oxygenation is improved and the patient is currently on 6 L of oxygen by nasal cannula, baseline oxygen requirements are 3 L. WHO group II pulmonary hypertension with history of severe pulmonary hypertension, being followed at the [facility]. Complaints things in perspective, the patient has multiple medical problems including severe COPD and chronic heart failure with preserved ejection fraction and systemic hypertension and chronic atrial fibrillation along with obesity and chronic kidney disease and obstructive sleep apnea. The patient also has pulmonary hypertension. Low suspicion for Group 1 pulmonary hypertension and it is likely group 3 pulmonary hypertension. Right-sided cardiac cath was done at [facility]. The patient was found to have a pulmonary vascular resistance of 3.8 Wood, mean pulmonary artery pressure of 45, right atrial pressure of 16, cardiac index of 2.4, pulmonary capillary wedge pressure of 25 and obviously this is consistent with postcapillary pulmonary hypertension. The patient was not found to be a candidate for an additional pulmonary vasodilator medication therapy Severe chronic obstructive pulmonary disease, with an FEV1 value 32% of predicted, normally maintained on a combination of Stiolto, DuoNebs around-the- clock, and as needed albuterol rescue inhaler. Chronic hypoxemic respiratory failure, secondary to above Recent history of right carpal tunnel release surgery, with possible surgical site infection/cellulitis. The patient is currently on IV vancomycin Chronic atrial fibrillation, anticoagulated with Eliquis Obesity with a BMI of 44.2 kg/m History of previous gastric sleeve placement History of obstructive sleep apnea, not tolerant of CPAP Hypertension Chronic kidney disease, stage III, creatinine is stable for now. Former tobacco smoker Plan: Keep the patient on 6 L of oxygen by nasal cannula and gradually titrate oxygen flow to maintain saturation above 90% Recommendations from [facility] was noted and discussed with the patient. Agree with diuresis and the patient is currently on oral Lasix 120 mg twice a day. Recommend dropping the dose to 60 mg p.o. twice a day at time of discharge. Negative for influenza, RSV, COVID. Continue combination of formoterol, budesonide, the patient can be transition to routine respiratory medication inhalers on outpatient basis. I believe she is on Stiolto and DuoNeb updrafts The patient may have an area of cellulitis over the right upper extremity carpal tunnel surgical wound site. She was covered with vancomycin, Consider switching her to oral antibiotics. Infectious disease was added for possible surgical site infection. Currently covered with vancomycin. Currently hemodynamically stable. We will continue to follow.
--- NOTE | 2023-09-12 12:05 | P.PN ---
Subjective Progress Note Date: 09/12/23 Reason for Consult (text): Grade 3 diastolic dysfunction History of present illness: History of present illness: This is a 58-year-old patient of Dr. LUIS Cao with past medical history of persistent atrial fibrillation on Eliquis, COPD, home oxygen, pulmonary hypertension, hypertension, hyperlipidemia, former tobacco use and dependence, morbid obesity. We have been asked to evaluate the patient for grade 3 diastolic dysfunction. Patient states that she developed increasing shortness of breath that seem to be worsening and occurs with less and less activity. Now she can only do minimal activity and has shortness of breath. Patient has been started on IV Lasix 60 mg every 12 hours. Patient had recent carpal tunnel surgery and infectious disease, orthopedic surgery on consult for cellulitis at the wound site. EKG atrial fibrillation at a ventricular rate of 73 bpm Chest x-ray performed on 09/08 revealed cardiomegaly and pulmonary venous congestion and scattered infiltrates nonspecific.: WBC 8, hemoglobin 11, platelet count 138. Sodium 141, potassium 4, CO2 32, BUN 31 creatinine 1.16. C-reactive protein 7.6. Troponin negative x 1. proBNP 8060. Influenza A, influenza B, RSV, COVID-19 not detected. Echocardiogram performed on 09/07/2023 reveals EF 55%. Severe biatrial enlargement. Moderate to severe mitral annular calcification. Mild to moderate tricuspid regurgitation. No pericardial effusion. Home cardiac medications: Eliquis 5 mg twice daily, atorvastatin 40 mg at bedtime, Bumex 2 mg twice daily, Cardizem CD 120 mg daily, Lopressor 50 mg in the morning 25 mg in the evening, potassium chloride 20 meq daily, Aldactone 25 mg daily. 09/10 Patient denies having any fever or chills. She states her breathing is little better. She is normally on Bumex 2 mg twice daily and currently on IV Lasix 60 mg every 12 hours. Discussed with the patient that we will change IV Lasix to oral Lasix at 120 mg twice daily which will be equivalent to a Bumex 3 mg twice daily when she is ready to go home. Blood pressure 121/73, pulse ox 94% on high flow nasal cannula at 8 L. Heart rate has been running in the 80s. Repeat blood work reveals hemoglobin 11.6. Sodium 141, potassium 4.1, CO2 31, BUN 40 creatinine 1.16. Venous Doppler study of the right lower extremity was negative for DVT. 09/11 Patient states that her breathing is much better. She is down to 4 L nasal cannula. Lower extremity edema is improving. Yesterday we transition IV Lasix to oral 120 mg twice daily. She is currently on Lopressor 50 mg in the morning and 25 mg in the evening. Heart rate 83649, blood pressure 125/81, pulse ox 97% on 4 L nasal cannula. Repeat blood work reveals WBC 5.9, hemoglobin 10.9. Electrolytes are normal, BUN 44 creatinine 1.38. Physical examination: Gen: This is a 58-year-old morbidly obese female in no acute distress] VS: reviewed HEENT: Head is atraumatic, normocephalic. Pupils equal, round. Sclerae is anicteric. NECK: Supple. No JVD. LUNGS: Diminished breath sounds bilaterally. No intercostal retractions. HEART: Regular rate and rhythm. No murmur. ABDOMEN: Soft No tenderness. EXTREMITIES: Bilateral lower extremity edema improving. No calf tenderness. NEUROLOGICAL: Patient is awake, alert and oriented x3. Assessment: Acute on chronic hypoxic respiratory failure secondary to acute diastolic heart failure Persistent atrial fibrillation COPD Pulmonary hypertension Hypertension Hyperlipidemia Morbid obesity with BMI of 41 Recent carpal tunnel surgery Plan: Continue patient's home cardiac medications Increase metoprolol to 50 mg twice daily Continue oral Lasix 120 mg twice daily and for home, recommend Bumex 3 mg twice daily Patient is cleared from cardiology for discharge and may follow-up with Dr. LUIS Cao in 1 week. Nurse practitioner note has been reviewed, I agree with documented findings and plan of care. Patient was seen and examined. Objective - Vital Signs Vital signs: Vital Signs Temp 98.1 F 09/12/23 08:00 Pulse 96 09/12/23 08:22 Resp 18 09/12/23 08:00 BP 125/81 09/12/23 08:00 Pulse Ox 97 09/12/23 10:00 FiO2 Intake & Output 09/11/23 09/12/23 09/12/23 18:59 06:59 18:59 Intake Total 1080 20 120 Output Total 850 850 Balance 230 -830 120 Weight 113.2 kg 113 kg Intake: IV 20 Invasive Line 1 20 Oral 1080 120 Output: Urine 850 850 Other: Voiding Method Bedside Commode Bedside Commode # Voids 1 # Bowel Movements 1 - Labs CBC & Chem 7: 09/12/23 08:29 09/12/23 08:29 Labs: Abnormal Lab Results - Last 24 Hours (Table) 09/11/23 09/11/23 09/12/23 Range/Units 09:41 09:41 08:29 RBC 3.54 L (3.80-5.40) m/uL Hgb 10.6 L (11.4-16.0) gm/dL MCHC 30.3 L (31.0-37.0) g/dL Lymphocytes # 0.3 L (1.0-4.8) k/uL Carbon Dioxide 31 H (22-30) mmol/L BUN 40 H 44 H (7-17) mg/dL Creatinine 1.16 H 1.38 H (0.52-1.04) mg/dL Glucose 156 H 231 H (74-99) mg/dL 09/12/23 Range/Units 08:29 RBC 3.64 L (3.80-5.40) m/uL Hgb 10.9 L (11.4-16.0) gm/dL MCHC 30.2 L (31.0-37.0) g/dL Lymphocytes # 0.4 L (1.0-4.8) k/uL Carbon Dioxide (22-30) mmol/L BUN (7-17) mg/dL Creatinine (0.52-1.04) mg/dL Glucose (74-99) mg/dL Microbiology - Last 24 Hours (Table) 09/10/23 11:10 Gram Stain - Final Arm - Right Wound Culture - Final 09/09/23 16:03 Blood Culture - Preliminary Blood
[2023-09-12 12:23] VITALS: BP 131/76; RESP 16; TEMP 98.4
--- NOTE | 2023-09-12 13:22 | P.PN ---
Subjective Progress Note Date: 09/12/23 Principal diagnosis: Post op right wrist The patient is a 58 y/o female who we are following for a right wrist post op complication. She is status post right open carpal tunnel release on 09/04/2023. The incision was opened two days ago and she states the hand and wrist are feel ing much better. She denies fever and chills. Cultures are negative so far. She states her breathing is better as well. No new complaints. Objective - Vital Signs Vital signs: Vital Signs Temp 98.4 F 09/12/23 12:00 Pulse 84 09/12/23 12:00 Resp 16 09/12/23 12:00 BP 131/76 09/12/23 12:00 Pulse Ox 92 L 09/12/23 12:00 FiO2 Intake & Output 09/11/23 09/12/23 09/12/23 18:59 06:59 18:59 Intake Total 1080 20 130 Output Total 850 850 Balance 230 -830 130 Weight 113.2 kg 113 kg Intake: IV 20 10 Invasive Line 1 20 10 Oral 1080 120 Output: Urine 850 850 Other: Voiding Method Bedside Commode Bedside Commode Bedside Commode # Voids 1 # Bowel Movements 1 - Exam Geraldine is a 58 y/o female in no acute distress. She is alert and oriented x3. Exam of the right hand reveals Medihoney striking thru on the dressing. There is a dark erythema to the periwound area. No proximal red streaking present. Full finger motion. No pain along the flexor tendons of the fingers and thumb. No proximal wrist and forearm pain present. Neurological and circulatory status is intact. - Labs CBC & Chem 7: 09/12/23 08:29 09/12/23 08:29 Labs: Abnormal Lab Results - Last 24 Hours (Table) 09/12/23 09/12/23 Range/Units 08:29 08:29 RBC 3.64 L (3.80-5.40) m/uL Hgb 10.9 L (11.4-16.0) gm/dL MCHC 30.2 L (31.0-37.0) g/dL Lymphocytes # 0.4 L (1.0-4.8) k/uL BUN 44 H (7-17) mg/dL Creatinine 1.38 H (0.52-1.04) mg/dL Glucose 231 H (74-99) mg/dL Microbiology - Last 24 Hours (Table) 09/10/23 11:10 Anaerobic Culture - Preliminary Arm - Right 09/10/23 11:10 Gram Stain - Final Arm - Right Wound Culture - Final 09/09/23 16:03 Blood Culture - Preliminary Blood Assessment and Plan (1) Acute exacerbation of chronic obstructive pulmonary disease Current Visit: Yes Status: Acute Code(s): J44.1 - CHRONIC OBSTRUCTIVE PULMONARY DISEASE W (ACUTE) EXACERBATION SNOMED Code(s): 763121967 (2) Cellulitis of right wrist Current Visit: Yes Status: Acute Code(s): L03.113 - CELLULITIS OF RIGHT UPPER LIMB SNOMED Code(s): 57969684697337229 (3) Congestive heart failure Current Visit: No Status: Acute Code(s): I50.9 - HEART FAILURE, UNSPECIFIED SNOMED Code(s): 09409079 Plan: The clinical findings were discussed with the patient. The case was discussed at length with Dr. Agustin. There appears to be significant improvement with opening the incision and with IV antibiotics. Cultures are negative so far. The patient is able to eat today, no formal I&D is planned at this time. The patient may wash her hand with soap and water, no soaking. She may shower over the hand as well. Dressing should be changed daily and PRN for drainage. Keep incision dry otherwise. Encourage finger motion. Continue antibiotics per infectious disease. We will continue to follow the patient closely if she remains in the hospital. She may discharge home with antibiotics and close follow up in our office either this Sunday or Sunday.
--- NOTE | 2023-09-12 14:04 | P.PN ---
Subjective Progress Note Date: 09/12/23 Principal diagnosis: Reason for follow-up is right wrist surgical site infection Patient is a 58-year-old female past medical history significant for atrial fibrillation hypertension hyperlipidemia COPD heart failure with patient recently did have a right carpal tunnel release and noticed to have increasing swelling redness to the right wrist incision site concerning for surgical site infection. On today's visit that is 09/12/2023,the patient remains to be afebrile, patient is on room air not requiring supplemental oxygen and denies any shortness of breath no chest pain or cough.Patient denies having any nausea or vomiting, no abdominal pain and no diarrhea pain to the right wrist area has decreased in intensity. White count is 5.9, creatinine is 1.38 culture has been negative so far Objective - Vital Signs Vital signs: Vital Signs Temp 98.4 F 09/12/23 12:00 Pulse 84 09/12/23 12:00 Resp 16 09/12/23 12:00 BP 131/76 09/12/23 12:00 Pulse Ox 92 L 09/12/23 12:00 FiO2 Intake & Output 09/11/23 09/12/23 09/12/23 18:59 06:59 18:59 Intake Total 1080 20 130 Output Total 850 850 Balance 230 -830 130 Weight 113.2 kg 113 kg Intake: IV 20 10 Invasive Line 1 20 10 Oral 1080 120 Output: Urine 850 850 Other: Voiding Method Bedside Commode Bedside Commode Bedside Commode # Voids 1 # Bowel Movements 1 - Exam GENERAL DESCRIPTION: Middle-aged female up in the chair in no distress RESPIRATORY SYSTEM: Unlabored breathing , decreased breath sounds at bases HEART: S1 S2 regular rate and rhythm , ABDOMEN: Soft , no tenderness EXTREMITIES: Right wrist open wound with no slough tissue surrounding redness decreased no foul-smelling drainage - Labs CBC & Chem 7: 09/12/23 08:29 09/12/23 08:29 Labs: Abnormal Lab Results - Last 24 Hours (Table) 09/12/23 09/12/23 Range/Units 08:29 08:29 RBC 3.64 L (3.80-5.40) m/uL Hgb 10.9 L (11.4-16.0) gm/dL MCHC 30.2 L (31.0-37.0) g/dL Lymphocytes # 0.4 L (1.0-4.8) k/uL BUN 44 H (7-17) mg/dL Creatinine 1.38 H (0.52-1.04) mg/dL Glucose 231 H (74-99) mg/dL Microbiology - Last 24 Hours (Table) 09/10/23 11:10 Gram Stain - Final Arm - Right Wound Culture - Final 09/09/23 16:03 Blood Culture - Preliminary Blood Assessment and Plan (1) Cellulitis of right wrist Current Visit: Yes Status: Acute Code(s): L03.113 - CELLULITIS OF RIGHT UPPER LIMB SNOMED Code(s): 15525822207478763 (2) Surgical site infection Current Visit: Yes Status: Acute Code(s): T81.49XA - SNOMED Code(s): 65290564 Plan: 1patient with a recent right carpal tunnel release surgery and now with evidence of increasing swelling redness at the incision site concerning for surgical site infection likely from gram-positive skin devin 2patient with the renal insufficiency high risk of nephrotoxicity 3patient has been evaluated by orthopedics and did have expression of some fluid has been sent for the cultures cultures, so far negative 4-patient to finish therapy with the Keflex x 10 days keeping in mind her kidney function Bactrim not a good choice and the patient allergic to doxycycline local care also show to try consistent with dressing change every 48 hours and close outpatient follow-up discussed with admitting team Dictation was produced using [employer] dictation software. please excuse any g rammatical, word or spelling errors. Time with Patient: Less than 30
--- NOTE | 2023-09-12 14:11 | P.DS ---
Providers Date of admission: 09/06/23 21:35 Expected date of discharge: 09/12/23 Attending physician: Brian Choe MD Consults: 09/09/23 09:41 Consult Physician Routine Consulting Provider: Kvng Sullivan Consult Reason/Comments: grade III diastolic dysunction Do you want consulting provider notified?: Yes 09/09/23 12:06 Consult Physician Routine Consulting Provider: Erin Durand Consult Reason/Comments: infected surgical site of carpal tunnel Do you want consulting provider notified?: Yes Consult Physician Urgent Consulting Provider: Lincoln Gonzalez Consult Reason/Comments: worsening respiratory failure Do you want consulting provider notified?: Yes 09/10/23 09:48 Consult Physician Stat Consulting Provider: Berna Agustin Consult Reason/Comments: infected carpal tunnel surgical site Do you want consulting provider notified?: Yes Primary care physician: Stated None Hospital Course: Discharge Diagnosis: Acute on chronic hypoxic respiratory failure, likely multifactorial Acute on chronic diastolic CHF exacerbation Acute COPD exacerbation Pulmonary hypertension, severe Recent carpal tunnel release surgery complicated by cellulitis Acute kidney injury on CKD stage III Hypertension AMADEO, not on CPAP Morbid obesity Chronic atrial fibrillation Depression GERD Hospital Course: 58-year-old female with history of diastolic heart failure, pulmonary hypertension, paroxysmal atrial fibrillation, COPD, hypoxic respiratory failure on 3 L, A[place]EDO, former nicotine dependence presenting with worsening shortness of breath. She claims that she gained over 15 pounds in the last 2 weeks. She did have increased sodium intake over the last couple of weeks. On initial presentation, she was hypoxic at 88% on 5 L. Chest x-ray showed interstitial opacities. EKG shows atrial fibrillation, rate controlled, incomplete right bundle branch block. Laboratory workup showed elevated creatinine 1.58, troponin negative, proBNP elevated at 8000. Respiratory viral panel negative. She also had recent carpal tunnel surgery 1 week ago, and noted to have increased swelling and redness. Cardiology, pulmonology, orthopedic surgery and infectious disease were consulted. Echocardiogram showed LVEF 55%, moderate to severe mitral annular calcification, mild to moderate tricuspid regurgitation, severe biatrial enlargement. She was started on IV Lasix, bronchodilators, IV steroids, IV vancomycin, underwent opening the incision without I&D. Respiratory function overall improving. Switch to oral Lasix. Discussed management with PCP, patient to be discharged on oral Lasix, close follow-up with pulmonology and cardiology and orthopedic surgery. Patient also be discharged on oral Keflex. Patient seen and examined at bedside. Vital signs reviewed and stable. General: Nontoxic, no distress, appears at stated age, obese Derm: Warm, dry Head: Atraumatic, normocephalic, symmetric Eyes: EOMI, no lid lag, anicteric sclera Mouth: No lip lesion, mucus membranes moist Cardiovascular: S1S2 reg, no murmur Lungs: Scattered wheezing, fine Rales, no accessory muscle use, supplemental oxygen Abdominal: Soft, nontender to palpation, no guarding, no appreciable organomegaly Ext: No gross muscle atrophy, right lower extremity edema, no contractures Neuro: CN II-XI grossly intact, no focal neuro deficits Psych: Alert, oriented, appropriate affect A total of 33 minutes of time were spent preparing this complex discharge summary. Patient was discharged on 09/12/23 at 1358. Patient Condition at Discharge: Stable Plan - Discharge Summary New Discharge Prescriptions: New Furosemide [Lasix] 60 mg PO BID@0900,1600 tab Metoprolol Tartrate [Lopressor] 50 mg PO BID tab Cephalexin [Keflex] 500 mg PO Q6HR 10 Days #40 cap Continue Montelukast [Singulair] 10 mg PO DAILY Super B-Complex 1 tab PO DAILY Famotidine [Pepcid] 40 mg PO DAILY Apixaban [Eliquis] 5 mg PO BID allopurinoL [Zyloprim] 100 mg PO DAILY dilTIAZem HCL [Cardizem CD] 120 mg PO DAILY diphenhydrAMINE [Benadryl] 50 mg PO HS Fluticasone Nasal [place] [Flonase Nasal [place]] 1 spray EA NOSTRIL DAILY PRN PRN Reason: Allergy Symptoms Naproxen [EC-Naprosyn] 500 mg PO BID PRN PRN Reason: Pain Nystatin 100,000 Unit/gm Powd [Mycostatin Powder] 1 applic TOPICAL BID PRN PRN Reason: Rash Potassium Chloride ER [K-Dur 10] 20 meq PO DAILY Tiotropium Br/Olodaterol HCl [Stiolto Respimat Inhal [place]] 2 puff INHALATION RT-DAILY Spironolactone [Aldactone] 25 mg PO DAILY Pantoprazole [Protonix] 40 mg PO DAILY Ferrous Sulfate [Iron (65 MG Elemental)] 325 mg PO DAILY Citalopram Hydrobromide [CeleXA] 40 mg PO DAILY [place]-3/Dha/Epa/Fish Oil [Fish Oil 1,000 mg Softgel] 1 cap PO DAILY@0800 Atorvastatin [Lipitor] 40 mg PO HS Calcium Carbonate [Calcium] 1,200 mg PO DAILY Ipratropium-Albuterol Nebulize [Duoneb 0.5 mg-3 mg/3 ml Soln] 3 ml INHALATION RT-QID Multivitamins, Thera [Multivitamin (formulary)] 1 tab PO DAILY Biotene Dry Mouth Rinse 15 ml PO 5XD Discontinued Bumetanide [BUMEX] 2 mg PO BID Metoprolol Tartrate [Lopressor] 25 mg PO HS Metoprolol Tartrate [Lopressor] 50 mg PO DAILY Discharge Medication List Citalopram Hydrobromide [CeleXA] 40 mg PO DAILY 08/14/22 [History] Ferrous Sulfate [Iron (65 MG Elemental)] 325 mg PO DAILY 08/14/22 [History] Montelukast [Singulair] 10 mg PO DAILY 08/14/22 [History] [place]-3/Dha/Epa/Fish Oil [Fish Oil 1,000 mg Softgel] 1 cap PO DAILY@0800 08/14/22 [History] Pantoprazole [Protonix] 40 mg PO DAILY 08/14/22 [History] Spironolactone [Aldactone] 25 mg PO DAILY 08/14/22 [History] Tiotropium Br/Olodaterol HCl [Stiolto Respimat Inhal [place]] 2 puff INHALATION RT-DAILY 08/14/22 [History] Atorvastatin [Lipitor] 40 mg PO HS 10/20/22 [History] Calcium Carbonate [Calcium] 1,200 mg PO DAILY 10/20/22 [History] Famotidine [Pepcid] 40 mg PO DAILY 10/20/22 [History] Super B-Complex 1 tab PO DAILY 10/20/22 [History] Apixaban [Eliquis] 5 mg PO BID 12/21/22 [History] Ipratropium-Albuterol Nebulize [Duoneb 0.5 mg-3 mg/3 ml Soln] 3 ml INHALATION RT-QID 12/21/22 [History] Multivitamins, Thera [Multivitamin (formulary)] 1 tab PO DAILY 12/21/22 [History] allopurinoL [Zyloprim] 100 mg PO DAILY 02/12/23 [History] dilTIAZem HCL [Cardizem CD] 120 mg PO DAILY 02/12/23 [History] Biotene Dry Mouth Rinse 15 ml PO 5XD 09/06/23 [History] Fluticasone Nasal [place] [Flonase Nasal [place]] 1 spray EA NOSTRIL DAILY PRN 09/06/23 [History] Naproxen [EC-Naprosyn] 500 mg PO BID PRN 09/06/23 [History] Nystatin 100,000 Unit/gm Powd [Mycostatin Powder] 1 applic TOPICAL BID PRN 09/06/23 [History] Potassium Chloride ER [K-Dur 10] 20 meq PO DAILY 09/06/23 [History] diphenhydrAMINE [Benadryl] 50 mg PO HS 09/06/23 [History] Cephalexin [Keflex] 500 mg PO Q6HR 10 Days #40 cap 09/12/23 [Rx] Furosemide [Lasix] 60 mg PO BID@0900,1600 tab 09/12/23 [Rx] Metoprolol Tartrate [Lopressor] 50 mg PO BID tab 09/12/23 [Rx] Follow up Appointment(s)/Referral(s): Lizzette Hitchcock MD [STAFF PHYSICIAN] - As Needed Reta Cao MD [STAFF PHYSICIAN] - 1 Week Berna Agustin DO [Doctor of Osteopathic Medicine] - 09/17/23 (Call office to make appointment for Sunday09/17/2023.) None,Stated [Primary Care Provider] - 1-2 days Sparkle Whitmore MD [STAFF PHYSICIAN] - 10/08/23 8:30 am Patient Instructions/Handouts: Heart Failure (DC) Activity/Diet/Wound Care/Special Instructions: May wash your hand with soap and water, no soaking. May shower over the hand as well. Dressing should be changed daily and as needed for drainage. May use Medihoney or vasoline to incision until closed. Keep incision dry otherwise. Encourage finger motion.
[2023-09-12 16:00] VITALS: PULSE 90
[2023-09-12] MEDS ORDERED: METOPROLOL TARTRATE 50 MG TAB PO SCH (21:00)
[2023-09-13] MEDS ORDERED: VANCOMYCIN TROUGH DUE 1 EACH MISC MISCELLANE ONE (04:00)
== END 2023-09-12 15:22 | disposition home health service (06) | DRG 291 ==
LOC: EC 17:07 → 3SCARD 21:35
PROVIDERS: ADMIT Internal Medicine; ATTEND Internal Medicine
DX: I13.0 Hypertensive heart and chronic kidney disease with heart failure and stage 1 through stage 4 chronic kidney disease, or unspecified chronic kidney disease (principal); I50.33 Acute on chronic diastolic (congestive) heart failure; J96.21 Acute and chronic respiratory failure with hypoxia; T81.41XA Infection following a procedure, superficial incisional surgical site, initial encounter; N17.9 Acute kidney failure, unspecified; J44.1 Chronic obstructive pulmonary disease with (acute) exacerbation; I48.19 Other persistent atrial fibrillation; Z68.41 Body mass index [BMI] 40.0-44.9, adult; L03.113 Cellulitis of right upper limb; I27.20 Pulmonary hypertension, unspecified; Z99.81 Dependence on supplemental oxygen; Z79.01 Long term (current) use of anticoagulants; N18.30 Chronic kidney disease, stage 3 unspecified; E66.01 Morbid (severe) obesity due to excess calories; F32.A Depression, unspecified; I08.1 Rheumatic disorders of both mitral and tricuspid valves; K21.9 Gastro-esophageal reflux disease without esophagitis; G47.33 Obstructive sleep apnea (adult) (pediatric); I45.19 Other right bundle-branch block; R68.2 Dry mouth, unspecified; F41.9 Anxiety disorder, unspecified; G89.29 Other chronic pain; M54.9 Dorsalgia, unspecified; E78.5 Hyperlipidemia, unspecified; Z79.899 Other long term (current) drug therapy; Z98.84 Bariatric surgery status; Z11.52 Encounter for screening for COVID-19; Z87.891 Personal history of nicotine dependence; Z79.51 Long term (current) use of inhaled steroids; Z88.1 Allergy status to other antibiotic agents; Z88.8 Allergy status to other drugs, medicaments and biological substances
CPT/HCPCS: 36415; 71045; 71046; 80048; 80053; 82565; 83605; 83735; 83880; 84484; 85025; 85610; 85730; 86140; 87040; 87070; 87075; 87102; 87205; 87636; 93005; 93306; 94640; 94760; 96374; 96375; 99291

== ENCOUNTER 2023-10-15 08:32 | Inpatient (IN) | payer OTHER ==
--- NOTE | 2023-10-15 08:49 | ED ---
General Adult HPI - General Chief complaint: Shortness of Breath Stated complaint: SOB Time Seen by Provider: 10/15/23 08:34 Source: EMS, RN notes reviewed Mode of arrival: EMS Limitations: no limitations - History of Present Illness Initial comments: Patient is a 58-year-old female present to the emergency department with concerns with difficulty breathing. Onset was just a couple days ago. No significant cough. No fever. Patient has maybe some minimal chest congestion. Symptoms are similar to previous COPD. Patient had nebulizer and route with mild improvement of symptoms. No calf pain or leg swelling. - Related Data Home Medications Medication Instructions Recorded Confirmed Ferrous Sulfate [Iron (65 MG 325 mg PO QAM 08/14/22 10/15/23 Elemental)] Montelukast [Singulair] 10 mg PO QAM 08/14/22 10/15/23 [place]-3/Dha/Epa/Fish Oil [Fish Oil 1 cap PO DAILY@0800 08/14/22 10/15/23 1,000 mg Softgel] Pantoprazole [Protonix] 40 mg PO QAM 08/14/22 10/15/23 Spironolactone [Aldactone] 25 mg PO QAM 08/14/22 10/15/23 Tiotropium Br/Olodaterol HCl 2 puff INHALATION RT-DAILY 08/14/22 10/15/23 [Stiolto Respimat Inhal [place]] Atorvastatin [Lipitor] 40 mg PO HS 10/20/22 10/15/23 Calcium Carbonate [Calcium] 1,200 mg PO QAM 10/20/22 10/15/23 Famotidine [Pepcid] 40 mg PO QAM 10/20/22 10/15/23 Super B-Complex 1 tab PO QAM 10/20/22 10/15/23 Apixaban [Eliquis] 5 mg PO BID 12/21/22 10/15/23 Ipratropium-Albuterol Nebulize 3 ml INHALATION RT-QID 12/21/22 10/15/23 [Duoneb 0.5 mg-3 mg/3 ml Soln] Multivitamins, Thera [Multivitamin 1 tab PO QAM 12/21/22 10/15/23 (formulary)] allopurinoL [Zyloprim] 100 mg PO QAM 02/12/23 10/15/23 dilTIAZem HCL [Cardizem CD] 120 mg PO QAM 02/12/23 10/15/23 Biotene Dry Mouth Rinse 15 ml PO 5XD 09/06/23 10/15/23 Fluticasone Nasal [place] [Flonase 1 spray EA NOSTRIL DAILY PRN 09/06/23 10/15/23 Nasal [place]] Nystatin 100,000 Unit/gm Powd 1 applic TOPICAL BID PRN 09/06/23 10/15/23 [Mycostatin Powder] diphenhydrAMINE [Benadryl] 50 mg PO HS 09/06/23 10/15/23 Citalopram Hydrobromide [CeleXA] 40 mg PO QAM 09/28/23 10/15/23 Metoprolol Tartrate [Lopressor] 25 mg PO HS 09/28/23 10/15/23 Metoprolol Tartrate [Lopressor] 50 mg PO QAM 09/28/23 10/15/23 Furosemide [Lasix] 80 mg PO DAILY 10/15/23 10/15/23 Loratadine [Claritin] 10 mg PO DAILY 10/15/23 10/15/23 Allergies Allergy/AdvReac Type Severity Reaction Status Date / Time doxycycline Allergy NAUSEA, Verified 10/15/23 11:14 VOMITING, UPSET STOMACH Diahrrea latex Allergy Rash/Hives/ Verified 10/15/23 11:14 redness lorazepam [From Ativan] AdvReac Hallucinati Verified 10/15/23 11:14 ons venlafaxine [From Effexor] AdvReac Hallucinati Verified 10/15/23 11:14 ons Review of Systems ROS Statement: Those systems with pertinent positive or pertinent negative responses have been documented in the HPI. ROS Other: All systems not noted in ROS Statement are negative. Constitutional: Denies: fever Eyes: Denies: eye pain ENT: Denies: ear pain Respiratory: Reports: as per HPI, dyspnea Cardiovascular: Denies: chest pain Endocrine: Denies: fatigue Gastrointestinal: Denies: abdominal pain Musculoskeletal: Denies: back pain Past Medical History Past Medical History: Atrial Fibrillation, Heart Failure, COPD, GERD/Reflux, Hyperlipidemia, Hypertension, Mitral Valve Prolapse (MVP), Renal Disease, Seizure Disorder, Sleep Apnea/CPAP/BIPAP Additional Past Medical History / Comment(s): pulmonary HTN, "Stage III Kidney failure." MVP at 18 years old." "10 years ago I had a seizure.' "Haev't had any since." Uses C-PAP machine. hX of Vertigo. History of Any Multi-Drug Resistant Organisms: None Reported Past Surgical History: Bariatric Surgery, Bowel Resection, Hysterectomy Additional Past Surgical History / Comment(s): gastric sleeve. 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 Hx of blood transfusion. No reaction to it. Past Psychological History: Depression Smoking Status: Former smoker Past Alcohol Use History: Occasional - Past Family History Mother Family Medical History: COPD, Coronary Artery Disease (CAD), CVA/TIA, Hypertension Father Family Medical History: COPD, CVA/TIA, Hypertension, Prostate Disorder General Exam Limitations: no limitations General appearance: alert, in no apparent distress Head exam: Present: normocephalic Eye exam: Present: normal appearance Neck exam: Present: normal inspection Respiratory exam: Present: decreased breath sounds Cardiovascular Exam: Present: regular rate, irregular rhythm GI/Abdominal exam: Present: soft. Absent: tenderness, guarding Extremities exam: Present: normal inspection. Absent: pedal edema, calf tenderness Neurological exam: Present: alert Psychiatric exam: Present: normal affect, normal mood Skin exam: Present: normal color Course Vital Signs 10/15/23 10/15/23 10/15/23 08:39 09:05 09:15 Temperature 97.8 F Pulse Rate 73 84 88 Respiratory 22 22 22 Rate Blood Pressure 113/81 O2 Sat by Pulse 79 L Oximetry 10/15/23 10/15/23 10/15/23 09:19 09:46 09:50 Temperature Pulse Rate 81 Respiratory 20 Rate Blood Pressure O2 Sat by Pulse 93 L 77 L 82 L Oximetry 10/15/23 10:02 Temperature Pulse Rate 80 Respiratory 20 Rate Blood Pressure O2 Sat by Pulse 88 L Oximetry EKG Findings - EKG Results: EKG: interpreted by ERMD (Right axis. Septal Q waves.), normal ST/T EKG shows: atrial fibrillation Procedures - ABG Interpretation Ph: 7.39 PCO2: 55.8 PO2: 54.7 Medical Decision Making - Medical Decision Making Was pt. sent in by a medical professional or institution ([facility], [facility], urgent care, hospital, or senior living...) When possible be specific @ -No Did you speak to anyone other than the patient for history (EMS, parent, family, police, friend...)? What history was obtained from this source @ -No Did you review nursing and triage notes (agree or disagree)? Why? @ -I reviewed and agree with nursing and triage notes Were old charts reviewed (outside hosp., previous admission, EMS record, old EKG , old radiological studies, urgent care reports/EKG's, senior living records)? Report findings @ -Previous chest x-ray reviewed showing similar findings Differential Diagnosis (chest pain, altered mental status, abdominal pain women, abdominal pain men, vaginal bleeding, weakness, fever, dyspnea, syncope, headache, dizziness, GI bleed, back pain, seizure, CVA, palpatations, mental health, musculoskeletal)? @ -Differential Dyspnea: Coronary syndrome, arrhythmia, tamponade, asthma, COPD, pulmonary embolism, pneumonia, pneumothorax, pulmonary effusion, anaphylaxis, diabetic ketoacidosis, flailed chest, pulmonary contusion, diaphragmatic rupture, anemia, neuromuscular, this is not meant to be an all-inclusive list. EKG interpreted by me (3pts min.). @ -As above X-rays interpreted by me (1pt min.). @ -Chest x-ray shows cardiomegaly. Some increased lung markings bilateral mid to lower CT interpreted by me (1pt min.). @ -None done U/S interpreted by me (1pt. min.). @ -None done What testing was considered but not performed or refused? (CT, X-rays, U/S, labs)? Why? @ -None What meds were considered but not given or refused? Why? @ -None Did you discuss the management of the patient with other professionals (professionals i.e. [facility], [facility], lab, RT, psych nurse, social services technician, rn camp, teacher, protocol officer, onsite case manager)? Give summary @ -Case was discussed with Dr. Ross who is familiar with the patient and will admit. Was smoking cessation discussed for >3mins.? @ -No Was critical care preformed (if so, how long)? @ -No Were there social determinants of health that impacted care today? How? (Homelessness, low income, unemployed, alcoholism, drug addiction, trans portation, low edu. Level, literacy, decrease access to med. care, longterm, rehab)? @ -No Was there de-escalation of care discussed even if they declined (Discuss DNR or withdrawal of care, Hospice)? DNR status @ -No What co-morbidities impacted this encounter? (DM, HTN, Smoking, COPD, CAD, Cancer, CVA, ARF, Chemo, Hep., AIDS, mental health diagnosis, sleep apnea, morbid obesity)? @ -None Was patient admitted / discharged? Hospital course, mention meds given and route, prescriptions, significant lab abnormalities, going to OR and other pertinent info. @ -Patient reevaluated with mild improvement. Patient is hypoxic. Oxygen increased. Nebulizer treatment provided. Patient will be admitted. Undiagnosed new problem with uncertain prognosis? @ -No Drug Therapy requiring intensive monitoring for toxicity (Heparin, Nitro, Insulin, Cardizem)? @ -No Were any procedures done? @ -No Diagnosis/symptom? @ -COPD Acute, or Chronic, or Acute on Chronic? @ -Acute Uncomplicated (without systemic symptoms) or Complicated (systemic symptoms)? @ -Default Side effects of treatment? @ -No Exacerbation, Progression, or Severe Exacerbation? @ -No Poses a threat to life or bodily function? How? (Chest pain, [place], [place], pneumonia, PE, COPD, DKA, ARF, appy, cholecystitis, CVA, Diverticulitis, Homicidal, Suicidal, threat to staff... and all critical care pts) @ -No - Lab Data Result diagrams: 10/15/23 08:54 10/15/23 08:54 Lab Results 10/15/23 10/15/23 10/15/23 Range/Units 08:54 08:54 08:54 WBC 7.1 (3.8-10.6) k/uL RBC 3.76 L (3.80-5.40) m/uL Hgb 11.5 (11.4-16.0) gm/dL Hct 35.7 (34.0-46.0) % MCV 94.7 (80.0-100.0) fL MCH 30.5 (25.0-35.0) pg MCHC 32.3 (31.0-37.0) g/dL RDW 16.0 H (11.5-15.5) % Plt Count 142 L (150-450) k/uL MPV 9.2 Neutrophils % 80 % Lymphocytes % 10 % Monocytes % 5 % Eosinophils % 2 % Basophils % 0 % Neutrophils # 5.7 (1.3-7.7) k/uL Lymphocytes # 0.7 L (1.0-4.8) k/uL Monocytes # 0.4 (0-1.0) k/uL Eosinophils # 0.2 (0-0.7) k/uL Basophils # 0.0 (0-0.2) k/uL Hypochromasia Slight PT 13.2 H (10.0-12.5) sec INR 1.3 H (<1.2) APTT 29.5 (22.0-30.0) sec Sample Site ABG pH (7.35-7.45) ABG pCO2 (35-45) mmHg ABG pO2 (83-108) mmHg ABG HCO3 (21-25) mmol/L ABG O2 Saturation (94-97) % ABG Base Excess mmol/L FiO2 % Sodium 139 (137-145) mmol/L Potassium 3.8 (3.5-5.1) mmol/L Chloride 102 (98-107) mmol/L Carbon Dioxide 33 H (22-30) mmol/L Anion Gap 4 mmol/L BUN 27 H (7-17) mg/dL Creatinine 1.28 H (0.52-1.04) mg/dL Est GFR (CKD-EPI)AfAm 53 (>60 ml/min/1.73 sqM) Est GFR (CKD-EPI)NonAf 46 (>60 ml/min/1.73 sqM) Glucose 109 H (74-99) mg/dL Plasma Lactic Acid Leoncio (0.7-2.0) mmol/L Calcium 9.0 (8.4-10.2) mg/dL Magnesium 1.8 (1.6-2.3) mg/dL Total Bilirubin 0.9 (0.2-1.3) mg/dL AST 27 (14-36) U/L ALT 12 (4-34) U/L Alkaline Phosphatase 107 (38-126) U/L Total Protein 6.7 (6.3-8.2) g/dL Albumin 3.8 (3.5-5.0) g/dL 10/15/23 10/15/23 Range/Units 08:54 10:33 WBC (3.8-10.6) k/uL RBC (3.80-5.40) m/uL Hgb (11.4-16.0) gm/dL Hct (34.0-46.0) % MCV (80.0-100.0) fL MCH (25.0-35.0) pg MCHC (31.0-37.0) g/dL RDW (11.5-15.5) % Plt Count (150-450) k/uL MPV Neutrophils % % Lymphocytes % % Monocytes % % Eosinophils % % Basophils % % Neutrophils # (1.3-7.7) k/uL Lymphocytes # (1.0-4.8) k/uL Monocytes # (0-1.0) k/uL Eosinophils # (0-0.7) k/uL Basophils # (0-0.2) k/uL Hypochromasia PT (10.0-12.5) sec INR (<1.2) APTT (22.0-30.0) sec Sample Site r rad ABG pH 7.39 (7.35-7.45) ABG pCO2 56 H (35-45) mmHg ABG pO2 55 L* (83-108) mmHg ABG HCO3 34 H (21-25) mmol/L ABG O2 Saturation 88.1 L (94-97) % ABG Base Excess 7.7 mmol/L FiO2 44 % Sodium (137-145) mmol/L Potassium (3.5-5.1) mmol/L Chloride (98-107) mmol/L Carbon Dioxide (22-30) mmol/L Anion Gap mmol/L BUN (7-17) mg/dL Creatinine (0.52-1.04) mg/dL Est GFR (CKD-EPI)AfAm (>60 ml/min/1.73 sqM) Est GFR (CKD-EPI)NonAf (>60 ml/min/1.73 sqM) Glucose (74-99) mg/dL Plasma Lactic Acid Leoncio 0.9 (0.7-2.0) mmol/L Calcium (8.4-10.2) mg/dL Magnesium (1.6-2.3) mg/dL Total Bilirubin (0.2-1.3) mg/dL AST (14-36) U/L ALT (4-34) U/L Alkaline Phosphatase (38-126) U/L Total Protein (6.3-8.2) g/dL Albumin (3.5-5.0) g/dL Disposition Clinical Impression: Acute exacerbation of chronic obstructive pulmonary disease Disposition: ADMITTED IP TO THIS HOSP Is patient prescribed a controlled substance at d/c from ED?: No Referrals: None,Stated [Primary Care Provider] - 1-2 days Time of Disposition: 11:21
[2023-10-15] MEDS: IPRATROPIUM-ALBUTEROL 3 ML NEB INHALATION STA (09:04)
[2023-10-15 09:22] LABS: INR 1.3 (<1.2); Partial Thromboplastin Time 29.5 sec (22.0-30.0); Prothrombin Time 13.2 sec (10.0-12.5)
[2023-10-15 09:25] LABS: Basophils % (A) 0 %; Eosinophils # (A) 0.2 k/uL (0-0.7); Eosinophils % (A) 2 %; HCT 35.7 % (34.0-46.0); HGB 11.5 gm/dL (11.4-16.0); Hypochromasia Slight; Lymphocytes # (A) 0.7 k/uL (1.0-4.8); Lymphocytes % (A) 10 %; MCH 30.5 pg (25.0-35.0); MCHC 32.3 g/dL (31.0-37.0); MCV 94.7 fL (80.0-100.0); Mean Platelet Volume 9.2; Monocytes # (A) 0.4 k/uL (0-1.0); Monocytes % (A) 5 %; Neutrophils # (A) 5.7 k/uL (1.3-7.7); Neutrophils % (A) 80 %; Platelet Count 142 k/uL (150-450); RBC 3.76 m/uL (3.80-5.40); WBC 7.1 k/uL (3.8-10.6)
[2023-10-15 09:29] LABS: ALT 12 U/L (4-34); AST 27 U/L (14-36); African American GFR (CKD) 53 (>60 ml/min/1.73 sqM); Albumin 3.8 g/dL (3.5-5.0); Alkaline Phosphatase 107 U/L (38-126); Anion Gap 4 mmol/L; Blood Urea Nitrogen 27 mg/dL (7-17); Carbon Dioxide 33 mmol/L (22-30); Chloride 102 mmol/L (98-107); Glucose 109 mg/dL (74-99); Magnesium 1.8 mg/dL (1.6-2.3); Non-African American GFR(CKD) 46 (>60 ml/min/1.73 sqM); Potassium 3.8 mmol/L (3.5-5.1); Sodium 139 mmol/L (137-145); Total Bilirubin 0.9 mg/dL (0.2-1.3); Total Protein 6.7 g/dL (6.3-8.2)
--- NOTE | 2023-10-15 09:41 | XR ---
EXAMINATION TYPE: XR chest 2V DATE OF EXAM: 10/15/2023 9:29 AM CLINICAL INDICATION:Female, 58 years old with history of difficulty breathing; COMPARISON: Chest radiographs from 09/09/2023. TECHNIQUE: XR chest 2V Frontal and lateral views of the chest. FINDINGS: Lungs/Pleura: There is no evidence of pleural effusion, focal consolidation, or pneumothorax. Pulmonary vascularity: Unremarkable. Heart/mediastinum: Cardiomediastinal silhouette is unremarkable. Musculoskeletal: No acute osseous pathology. IMPRESSION: Right mid and lower lung airspace opacities, is not significantly changed from one month ago correlat e for new or persistent airspace disease.
[2023-10-15] MEDS: methylPREDNISolone SOD SUCCI 125 MG/2 ML VIAL IV STA (09:43)
[2023-10-15 10:41] LABS: ABG Base Excess 7.7 mmol/L; ABG HCO3 34 mmol/L (21-25); ABG Oxygen Saturation 88.1 % (94-97); ABG PCO2 56 mmHg (35-45); ABG PH 7.39 (7.35-7.45); Allen Test Performed? Yes
[2023-10-15 10:45] LABS: ABG PO2 55 mmHg (83-108)
[2023-10-15] MEDS ORDERED: NALOXONE 0.4 MG/ML 1 ML VIAL IVP PRN (11:22)
[2023-10-15] MEDS ORDERED: FLUTICASONE 50MCG/SPRAY NASAL 16GM EA NOSTRIL PRN (11:24)
[2023-10-15] MEDS: AZITHROMYCIN 500 MG in SODIUM CHLORIDE 0.9% 250 ML IVPB ONE (11:44)
[2023-10-15] MEDS: methylPREDNISolone SOD SUCCI 125 MG/2 ML VIAL IV SCH (11:56)
[2023-10-15] MEDS: IPRATROPIUM-ALBUTEROL 3 ML NEB INHALATION SCH (12:52)
--- NOTE | 2023-10-15 16:03 | P.HPIM ---
History of Present Illness H&P Date: 10/15/23 Patient is a 58-year-old female with history of diastolic heart failure, group 2 pulmonary hypertension severe, paroxysmal atrial fibrillation, COPD, chronic hypoxic respiratory failure on 3 L, AMADEO, former nicotine dependence presenting with worsening shortness of breath. She claims that she was doing pretty well up until 2 weeks ago. She was seen by cardiology, was planning on getting left heart cath. Diuretics were held during that time. She started to gain more weight and started having increased shortness of breath with some lower extremity edema as well as orthopnea. She went back to cardiology, restarted on her oral Lasix, but continued to feel short of breath. She noted that she was hypoxic into the 60s on 3 L, and had to go up to 5 L oxygen at home. This prompted her to come to the hospital. She denies any cough, or sputum production, fevers, chills, abdominal pain, nausea, vomiting, urinary or bowel complaints. In the ED, temperature was 97.8, pulse 73, respiratory 22, blood pressure 113/81, saturating at 79% on 3 L. Laboratory workup showed WBC 7.1, hemoglobin 11.5, platelet 142, INR 1.3, pH 7.39, pCO2 56, pO2 55, bicarb 33, potassium 3.8, creatinine 1.28 around baseline, proBNP 7000, respiratory viral panel negative. Chest x-ray independently interpreted, shows similar opacities compared to prior, EKG independently interpreted, shows atrial fibrillation. Patient being admitted for CHF exacerbation. Pertinent positives and negatives as discussed in HPI, a complete review of systems was performed and all other systems are negative. Patient seen and examined at bedside. Vital signs reviewed General: nontoxic, no distress, appears at stated age, chronically ill- appearing, obese Derm: warm, dry Head: atraumatic, normocephalic, symmetric Eyes: EOMI, no lid lag, anicteric sclera, pupils equal round reactive to light ENT: Nose and ears atraumatic Neck: No thyromegaly, supple Mouth: no lip lesion, mucus membranes moist Cardiovascular: S1S2 irregular, no murmur, 2+ pitting edema Lungs: Bilateral rales, no wheeze, no accessory muscle use, supplemental oxygen Abdominal: soft, nontender to palpation, no guarding, no appreciable organomeg katelynn Ext: no gross muscle atrophy, muscle strength muscle strength 5 out of 5 in all 4 extremities, no contractures Neuro: CN II-XII grossly intact Psych: Alert, oriented, appropriate affect Assessment/Plan: Active: Acute on chronic hypoxic respiratory failure Acute on chronic diastolic CHF exacerbation History of COPD, not in exacerbation Severe group 2 pulmonary hypertension Chronic kidney disease stage III, stable -The story is consistent more with a CHF exacerbation especially as patient did not get her diuretics for few days. -Started on IV Lasix 40 every 12 hours, monitor renal function as well as electrolytes -Strict I's and O's, daily weights -Continue to wean oxygen, if unable, will get cardiology involved -Discontinued IV steroids as well as antibiotics Chronic: Hypertension AMADEO not on CPAP Morbid obesity Chronic atrial fibrillation on Eliquis Depression GERD The patient is admitted with an anticipated less than 2 midnight stay as observation status for evaluation of CHF exacerbation. Surrogate decision-maker: Spouse CODE STATUS: Code DVT prophylaxis: Eliquis Anticipated discharge date: Pending clinical course Anticipated discharge place: Pending clinical course A total of 55 minutes was spent on the care of this complex patient more than 50% of the time was spent in counseling and care coordination. Past Medical History Past Medical History: Atrial Fibrillation, Heart Failure, COPD, GERD/Reflux, Hyperlipidemia, Hypertension, Mitral Valve Prolapse (MVP), Renal Disease, Seizure Disorder, Sleep Apnea/CPAP/BIPAP Additional Past Medical History / Comment(s): pulmonary HTN, "Stage III Kidney failure." MVP at 18 years old." "10 years ago I had a seizure.' "Haev't had any since." Uses C-PAP machine. hX of Vertigo. History of Any Multi-Drug Resistant Organisms: None Reported Past Surgical History: Bariatric Surgery, Bowel Resection, Hysterectomy Additional Past Surgical History / Comment(s): gastric sleeve. 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 Hx of blood transfusion. No reaction to it. Past Psychological History: Depression Smoking Status: Former smoker Past Alcohol Use History: Occasional - Past Family History Mother Family Medical History: COPD, Coronary Artery Disease (CAD), CVA/TIA, Hypertension Father Family Medical History: COPD, CVA/TIA, Hypertension, Prostate Disorder Medications and Allergies Home Medications Medication Instructions Recorded Confirmed Type Ferrous Sulfate [Iron (65 MG 325 mg PO QAM 08/14/22 10/15/23 History Elemental)] Montelukast [Singulair] 10 mg PO QAM 08/14/22 10/15/23 History [place]-3/Dha/Epa/Fish Oil [Fish Oil 1 cap PO DAILY@0800 08/14/22 10/15/23 History 1,000 mg Softgel] Pantoprazole [Protonix] 40 mg PO QAM 08/14/22 10/15/23 History Spironolactone [Aldactone] 25 mg PO QAM 08/14/22 10/15/23 History Tiotropium Br/Olodaterol HCl 2 puff INHALATION RT-DAILY 08/14/22 10/15/23 History [Stiolto Respimat Inhal [place]] Atorvastatin [Lipitor] 40 mg PO HS 10/20/22 10/15/23 History Calcium Carbonate [Calcium] 1,200 mg PO QAM 10/20/22 10/15/23 History Famotidine [Pepcid] 40 mg PO QAM 10/20/22 10/15/23 History Super B-Complex 1 tab PO QAM 10/20/22 10/15/23 History Apixaban [Eliquis] 5 mg PO BID 12/21/22 10/15/23 History Ipratropium-Albuterol Nebulize 3 ml INHALATION RT-QID 12/21/22 10/15/23 History [Duoneb 0.5 mg-3 mg/3 ml Soln] Multivitamins, Thera [Multivitamin 1 tab PO QAM 12/21/22 10/15/23 History (formulary)] allopurinoL [Zyloprim] 100 mg PO QAM 02/12/23 10/15/23 History dilTIAZem HCL [Cardizem CD] 120 mg PO QAM 02/12/23 10/15/23 History Biotene Dry Mouth Rinse 15 ml PO 5XD 09/06/23 10/15/23 History Fluticasone Nasal [place] [Flonase 1 spray EA NOSTRIL DAILY PRN 09/06/23 10/15/23 History Nasal [place]] Nystatin 100,000 Unit/gm Powd 1 applic TOPICAL BID PRN 09/06/23 10/15/23 History [Mycostatin Powder] diphenhydrAMINE [Benadryl] 50 mg PO HS 09/06/23 10/15/23 History Citalopram Hydrobromide [CeleXA] 40 mg PO QAM 09/28/23 10/15/23 History Metoprolol Tartrate [Lopressor] 25 mg PO HS 09/28/23 10/15/23 History Metoprolol Tartrate [Lopressor] 50 mg PO QAM 09/28/23 10/15/23 History Furosemide [Lasix] 80 mg PO DAILY 10/15/23 10/15/23 History Loratadine [Claritin] 10 mg PO DAILY 10/15/23 10/15/23 History Allergies Allergy/AdvReac Type Severity Reaction Status Date / Time doxycycline Allergy NAUSEA, Verified 10/15/23 11:14 VOMITING, UPSET STOMACH Diahrrea latex Allergy Rash/Hives/ Verified 10/15/23 11:14 redness lorazepam [From Ativan] AdvReac Hallucinati Verified 10/15/23 11:14 ons venlafaxine [From Effexor] AdvReac Hallucinati Verified 10/15/23 11:14 ons Physical Exam Vitals: Vital Signs Temp Pulse Resp BP Pulse Ox 10/15/23 13:02 90 18 10/15/23 12:52 68 18 10/15/23 12:06 73 20 97/68 92 L 10/15/23 10:02 80 20 88 L 10/15/23 09:50 81 20 82 L 10/15/23 09:46 77 L 10/15/23 09:19 93 L 10/15/23 09:15 88 22 10/15/23 09:05 84 22 10/15/23 08:39 97.8 F 73 22 113/81 79 L Intake and Output 10/15/23 10/15/23 10/15/23 06:59 14:59 22:59 Other: Weight 108.862 kg Results CBC & Chem 7: 10/15/23 08:54 10/15/23 08:54 Labs: Abnormal Lab Results - Last 24 Hours (Table) 10/15/23 10/15/23 10/15/23 Range/Units 08:54 08:54 08:54 RBC 3.76 L (3.80-5.40) m/uL RDW 16.0 H (11.5-15.5) % Plt Count 142 L (150-450) k/uL Lymphocytes # 0.7 L (1.0-4.8) k/uL PT 13.2 H (10.0-12.5) sec INR 1.3 H (<1.2) ABG pCO2 (35-45) mmHg ABG pO2 (83-108) mmHg ABG HCO3 (21-25) mmol/L ABG O2 Saturation (94-97) % Carbon Dioxide 33 H (22-30) mmol/L BUN 27 H (7-17) mg/dL Creatinine 1.28 H (0.52-1.04) mg/dL Glucose 109 H (74-99) mg/dL 10/15/23 Range/Units 10:33 RBC (3.80-5.40) m/uL RDW (11.5-15.5) % Plt Count (150-450) k/uL Lymphocytes # (1.0-4.8) k/uL PT (10.0-12.5) sec INR (<1.2) ABG pCO2 56 H (35-45) mmHg ABG pO2 55 L* (83-108) mmHg ABG HCO3 34 H (21-25) mmol/L ABG O2 Saturation 88.1 L (94-97) % Carbon Dioxide (22-30) mmol/L BUN (7-17) mg/dL Creatinine (0.52-1.04) mg/dL Glucose (74-99) mg/dL
[2023-10-15] MEDS: FUROSEMIDE 10 MG/ML 4 ML VIAL IV STA (16:22)
[2023-10-15] MEDS: DRY MOUTH SPRAY 44.3 SPRAY/44.3 ML SPRAY MUCOUS MEM SCH (16:25)
[2023-10-15] MEDS: diphenhydrAMINE 25 MG CAP PO SCH (21:12)
[2023-10-15] MEDS: APIXABAN 5 MG TAB PO SCH (21:12)
[2023-10-15] MEDS: ATORVASTATIN 40 MG TAB PO SCH (21:13)
[2023-10-15] MEDS: METOPROLOL TARTRATE 25 MG TAB PO SCH (21:13)
[2023-10-15] MEDS: FUROSEMIDE 10 MG/ML 4 ML VIAL IV SCH (21:17)
[2023-10-16] MEDS: FORMOTEROL FUMARATE 20 MCG/2 ML NEBU INHALATION SCH (07:53)
[2023-10-16] MEDS ORDERED: NON FORMULARY DRUG (Omega-3/Dha/Epa/Fish Oil [Fish Oil 1,000 Mg Softgel] 1 EACH Capsule) PO SCH (08:00)
[2023-10-16 08:56] LABS: BUN/Creat Ratio 20.15 Ratio (12.00-20.00); Blood Urea Nitrogen 26.2 mg/dL (9.0-27.0); Calcium 8.9 mg/dL (8.7-10.3); Carbon Dioxide 29.4 mmol/L (21.6-31.8); Chloride 100 mmol/L (96-109); Glucose 153 mg/dL (70-110); Potassium 4.2 mmol/L (3.5-5.5); Sodium 142 mmol/L (135-145)
[2023-10-16] MEDS ORDERED: SUPER B COMPLEX PO SCH (09:00)
[2023-10-16] MEDS ORDERED: FUROSEMIDE 80 MG TAB PO SCH (09:00)
[2023-10-16] MEDS ORDERED: AZITHROMYCIN 500 MG in SODIUM CHLORIDE 0.9% 250 ML IVPB SCH (09:00)
[2023-10-16] MEDS: FAMOTIDINE 20 MG TAB PO SCH (09:23)
[2023-10-16] MEDS: CALCIUM CARBONATE 500 MG CHEWABLE PO SCH (09:23)
[2023-10-16] MEDS: SPIRONOLACTONE 25 MG TAB PO SCH (09:24)
[2023-10-16] MEDS: CITALOPRAM HYDROBROMIDE 20 MG TAB PO SCH (09:24)
[2023-10-16] MEDS: MONTELUKAST 10 MG TAB PO SCH (09:24)
[2023-10-16] MEDS: MULTIVITAMINS, THERA 1 EACH TAB PO SCH (09:24)
[2023-10-16] MEDS: FERROUS SULFATE 325 MG TAB PO SCH (09:24)
[2023-10-16] MEDS: METOPROLOL TARTRATE 50 MG TAB PO SCH (09:25)
[2023-10-16] MEDS: allopurinoL 100 MG TAB PO SCH (09:25)
[2023-10-16] MEDS: PANTOPRAZOLE 40 MG TABLET PO SCH (09:25)
[2023-10-16] MEDS: DILTIAZEM CD 120 MG CAP.ER.24H PO SCH (09:28)
[2023-10-16 09:33] LABS: Basophils # (A) 0.01 X 10*3/uL (0.00-0.10); Basophils % (A) 0.2 %; Eosinophils # (A) 0 X 10*3/uL (0.04-0.35); Eosinophils % (A) 0 %; HCT 34.5 % (37.2-46.3); HGB 10.6 g/dL (12.0-15.0); Lymphocytes # (A) 0.45 X 10*3/uL (0.90-5.00); MCH 29.5 pg (27.0-32.0); MCHC 30.7 g/dL (32.0-37.0); MCV 96.1 FL (80.0-97.0); Mean Platelet Volume 10.9 FL (9.5-12.2); Monocytes # (A) 0.23 X 10*3/uL (0.20-1.00); Monocytes % (A) 4.6 %; NRBC Per 100 WBC 0 X 10*3/uL (0.00-0.01); Neutrophils # (A) 4.28 X 10*3/uL (1.80-7.70); Neutrophils % (A) 85.6 %; Platelet Count 141 X 10*3/uL (140-440); RBC 3.59 X 10*6/uL (4.10-5.20); RDW 15.4 % (11.5-14.5)
--- NOTE | 2023-10-16 12:07 | P.CNPUL ---
History of Present Illness Consult date: 10/16/23 Requesting physician: Don Hobbs Reason for consult: dyspnea, COPD, hypoxemia, pulmonary hypertension, abnormal CXR/CT Chief complaint: Shortness of breath. History of present illness: Pulmonary consult dated October 16, 2023. 58-year-old female who presents to the emergency department on October 14, complaining of shortness of breath. She was brought in by EMS. The patient states that she has had shortness of breath for couple days prior to admission. She denies any cough or fever. She did admit to some chest congestion. The patient received a nebulizer treatment and route, and apparently was feeling better when she got to the emergency department. She is seen by us, done in the emergency department, room #3. She has a significant history of a recent admission for combination of both CHF, and COPD, back on September 09, and was seen by my partner at that time, severe pulmonary hypertension, being followed at [facility]. It apparently is WHO class II pulmonary hypertension. She also has a history of severe COPD with an FEV1 of 32% of predicted. Additional medical problems include chronic atrial fibrillation, obesity, with a previous gastric sleeve, sleep apnea syndrome, intolerant of CPAP, stage III chronic kidney disease, and prior history of tobacco use. When we saw her in the emergency department, the patient as well as on 6 L of oxygen by nasal cannula, with saturations of 90 to 91%. Her N-terminal proBNP was elevated at 7260. We would place an order for a procalcitonin level. She had blood gases on 44% oxygen, showing a pO2 of 55, pCO2 of 56, and pH of 7.39. White count was 5, hemoglobin 10.6, hematocrit 34.5, and platelet count 141,000. Sodium 142, potassium 4.2, chlorides 100, CO2 29, anion gap 13, BUN 26, and creatinine 1.3. Glucose was 153. Calcium 8.9, and magnesium 2.0. She tested negative for influenza, RSV, and coronavirus. The patient had a chest x-ray, which was compared to an x-ray done on September 08, still showing right mid and lower lung airspace opacities. Review of Systems REVIEW OF SYSTEMS: CONSTITUTIONAL: [Negative.] NEUROLOGIC: [ Negative.] HEENT: [ Negative.] CARDIAC: [Negative.] PULMONARY: Shortness of breath, and chest congestion. GI: [Negative.] : [Negative.] RHEUMATOLOGIC: [ Negative.] IMMUNOLOGIC: [ Negative.] ENDOCRINE: [Negative. ] DERMATOLOGIC: [Negative.] Past Medical History Past Medical History: Atrial Fibrillation, Heart Failure, COPD, GERD/Reflux, Hyperlipidemia, Hypertension, Mitral Valve Prolapse (MVP), Renal Disease, Seizure Disorder, Sleep Apnea/CPAP/BIPAP Additional Past Medical History / Comment(s): pulmonary HTN, "Stage III Kidney failure." MVP at 18 years old." "10 years ago I had a seizure.' "Haev't had any since." Uses C-PAP machine. hX of Vertigo. History of Any Multi-Drug Resistant Organisms: None Reported Past Surgical History: Bariatric Surgery, Bowel Resection, Hysterectomy Additional Past Surgical History / Comment(s): gastric sleeve. 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 Hx of blood transfusion. No reaction to it. Past Psychological History: Depression Smoking Status: Former smoker Past Alcohol Use History: Occasional - Past Family History Mother Family Medical History: COPD, Coronary Artery Disease (CAD), CVA/TIA, Hyper tension Father Family Medical History: COPD, CVA/TIA, Hypertension, Prostate Disorder Medications and Allergies Home Medications Medication Instructions Recorded Confirmed Type Ferrous Sulfate [Iron (65 MG 325 mg PO QAM 08/14/22 10/15/23 History Elemental)] Montelukast [Singulair] 10 mg PO QAM 08/14/22 10/15/23 History [place]-3/Dha/Epa/Fish Oil [Fish Oil 1 cap PO DAILY@0800 08/14/22 10/15/23 History 1,000 mg Softgel] Pantoprazole [Protonix] 40 mg PO QAM 08/14/22 10/15/23 History Spironolactone [Aldactone] 25 mg PO QAM 08/14/22 10/15/23 History Tiotropium Br/Olodaterol HCl 2 puff INHALATION RT-DAILY 08/14/22 10/15/23 History [Stiolto Respimat Inhal [place]] Atorvastatin [Lipitor] 40 mg PO HS 10/20/22 10/15/23 History Calcium Carbonate [Calcium] 1,200 mg PO QAM 10/20/22 10/15/23 History Famotidine [Pepcid] 40 mg PO QAM 10/20/22 10/15/23 History Super B-Complex 1 tab PO QAM 10/20/22 10/15/23 History Apixaban [Eliquis] 5 mg PO BID 12/21/22 10/15/23 History Ipratropium-Albuterol Nebulize 3 ml INHALATION RT-QID 12/21/22 10/15/23 History [Duoneb 0.5 mg-3 mg/3 ml Soln] Multivitamins, Thera [Multivitamin 1 tab PO QAM 12/21/22 10/15/23 History (formulary)] allopurinoL [Zyloprim] 100 mg PO QAM 02/12/23 10/15/23 History dilTIAZem HCL [Cardizem CD] 120 mg PO QAM 02/12/23 10/15/23 History Biotene Dry Mouth Rinse 15 ml PO 5XD 09/06/23 10/15/23 History Fluticasone Nasal [place] [Flonase 1 spray EA NOSTRIL DAILY PRN 09/06/23 10/15/23 History Nasal [place]] Nystatin 100,000 Unit/gm Powd 1 applic TOPICAL BID PRN 09/06/23 10/15/23 History [Mycostatin Powder] diphenhydrAMINE [Benadryl] 50 mg PO HS 09/06/23 10/15/23 History Citalopram Hydrobromide [CeleXA] 40 mg PO QA 09/28/23 10/15/23 History Metoprolol Tartrate [Lopressor] 25 mg PO 09/28/23 10/15/23 History Metoprolol Tartrate [Lopressor] 50 mg PO QAM 09/28/23 10/15/23 History Furosemide [Lasix] 80 mg PO DAILY 10/15/23 10/15/23 History Loratadine [Claritin] 10 mg PO DAILY 10/15/23 10/15/23 History Allergies Allergy/AdvReac Type Severity Reaction Status Date / Time doxycycline Allergy NAUSEA, Verified 10/15/23 11:14 VOMITING, UPSET STOMACH Diahrrea latex Allergy Rash/Hives/ Verified 10/15/23 11:14 redness lorazepam [From Ativan] AdvReac Hallucinati Verified 10/15/23 11:14 ons venlafaxine [From Effexor] AdvReac Hallucinati Verified 10/15/23 11:14 ons Physical Exam Osteopathic Statement: *. No significant issues noted on an osteopathic struc tural exam other than those noted in the History and Physical/Consult. Vitals: Vital Signs Temp Pulse Resp BP Pulse Ox 10/16/23 11:43 94 18 10/16/23 11:30 94 20 10/16/23 09:32 90 L 10/16/23 09:15 94 20 108/59 87 L 10/16/23 08:21 98.0 F 92 20 111/73 93 L 10/16/23 08:08 88 18 10/16/23 07:56 84 18 93 L 10/16/23 03:32 81 18 112/76 93 L 10/15/23 20:43 83 18 102/64 93 L 10/15/23 19:55 80 10/15/23 19:39 78 10/15/23 16:26 85 20 112/62 92 L 10/15/23 16:19 90 18 10/15/23 16:11 92 18 10/15/23 13:02 90 18 10/15/23 12:52 68 18 10/15/23 12:06 73 20 97/68 92 L Patient was laying prone, on 6 L of oxygen. No obvious respiratory distress. HEENT examination is grossly unremarkable. Neck supple. Full range of motion. No adenopathy thyromegaly or neck vein distention. Cardiovascular examination reveals regular rhythm rate. S1-S2 normal. No S3 or S4. No discernible murmur noted. Heart rate 94 bpm. Lungs reveal scattered bilateral crackles. Few scattered rhonchi. No wheezes. Breath sounds are equal bilaterally. Saturations were anywhere from 87 up to 93%, on 6 L of oxygen by nasal cannula. Abdomen soft but obese. Bowel sounds are noted. No masses. Extremities are intact. No cyanosis clubbing or edema. Skin is without rash or lesion. Neurologic examination is brief but nonfocal. Results - Laboratory Findings CBC and BMP: 10/16/23 03:26 10/16/23 03:26 ABG ABG pH 7.39 (7.35-7.45) 10/15/23 10:33 ABG pCO2 56 mmHg (35-45) H 10/15/23 10:33 ABG pO2 55 mmHg (83-108) L* 10/15/23 10:33 ABG O2 Saturation 88.1 % (94-97) L 10/15/23 10:33 PT/INR, D-dimer PT 13.2 sec (10.0-12.5) H 10/15/23 08:54 INR 1.3 (<1.2) H 10/15/23 08:54 Abnormal lab findings: Abnormal Labs 10/15/23 10/15/23 10/15/23 08:54 08:54 08:54 RBC 3.76 L Hgb Hct MCHC RDW 16.0 H Plt Count 142 L Lymphocytes # 0.7 L Eosinophils # PT 13.2 H INR 1.3 H ABG pCO2 ABG pO2 ABG HCO3 ABG O2 Saturation Carbon Dioxide 33 H Anion Gap BUN 27 H Creatinine 1.28 H Est GFR (CKD-EPI) BUN/Creatinine Ratio Glucose 109 H 10/15/23 10/16/23 10/16/23 10:33 03:26 03:26 RBC 3.59 L Hgb 10.6 L Hct 34.5 L MCHC 30.7 L RDW 15.4 H Plt Count Lymphocytes # 0.45 L Eosinophils # 0 L PT INR ABG pCO2 56 H ABG pO2 55 L* ABG HCO3 34 H ABG O2 Saturation 88.1 L Carbon Dioxide Anion Gap 12.60 H BUN Creatinine Est GFR (CKD-EPI) 47 L BUN/Creatinine Ratio 20.15 H Glucose 153 H - Diagnostic Findings Chest x-ray: image reviewed Assessment and Plan Assessment: Acute hypoxemic respiratory failure, likely multifactorial, in part related to CHF, but also COPD exacerbation, and possible pneumonia. Chronic hypoxemic and hypercapnic respiratory failure. Recent admission for a similar scenario, September,. Severe pulmonary hypertension, WHO class II, managed at the [facility]. Severe COPD, with an FEV1 that is 32% of predicted. History of chronic atrial fibrillation. Obesity, status post gastric sleeve procedure. Obstructive sleep apnea syndrome, intolerant of CPAP. Stage III chronic kidney disease. Previous tobacco use. Plan: Plan dated October 16, 2023. The patient is currently on azithromycin, and also receiving updrafts, with albuterol sulfate and ipratropium bromide. The patient is currently on Singulair, and she was given a dose of corticosteroids in the emergency department by Dr. White. She is also on Lasix, 40 mg IV push every 12 hours. We will check a procalcitonin level. The N-terminal proBNP level was quite high. Additional recommendations and suggestions are forthcoming. We will continue to follow make recommendations along the way. Prognosis is guarded. I will also add some budesonide, 1 mg. Time with Patient: Greater than 30
[2023-10-16] MEDS: DAPAGLIFLOZIN PROPANEDIOL 10 MG TABLET PO SCH (12:08)
--- NOTE | 2023-10-16 14:16 | P.PN ---
Subjective Progress Note Date: 10/16/23 Hospital Course: 58-year-old female with history of diastolic heart failure, group 2 pulmonary hypertension severe, paroxysmal atrial fibrillation, COPD, chronic hypoxic respiratory failure on 3 L, AMADEO, former nicotine dependence presenting with worsening shortness of breath. In the ED, temperature was 97.8, pulse 73, respiratory 22, blood pressure 113/81, saturating at 79% on 3 L. Laboratory workup showed WBC 7.1, hemoglobin 11.5, platelet 142, INR 1.3, pH 7.39, pCO2 56, pO2 55, bicarb 33, potassium 3.8, creatinine 1.28 around baseline, proBNP 7000, respiratory viral panel negative. Chest x-ray independently interpreted, shows similar opacities compared to prior, EKG independently interpreted, shows atrial fibrillation. Patient being admitted for CHF exacerbation. Subjective: Patient seen and examined at bedside. Respiratory function is about the same. Pertinent positives and negatives as discussed above, a complete review of systems was performed and all other systems are negative. Vitals Signs Reviewed. General: nontoxic, no distress, appears at stated age, chronically ill- appearing, obese Derm: warm, dry Head: atraumatic, normocephalic, symmetric Eyes: EOMI, no lid lag, anicteric sclera, pupils equal round reactive to light ENT: Nose and ears atraumatic Neck: No thyromegaly, supple Mouth: no lip lesion, mucus membranes moist Cardiovascular: S1S2 irregular, no murmur, 2+ pitting edema Lungs: Bilateral rales, no wheeze, no accessory muscle use, supplemental oxygen Abdominal: soft, nontender to palpation, no guarding, no appreciable organomegaly Ext: no gross muscle atrophy, muscle strength muscle strength 5 out of 5 in all 4 extremities, no contractures Neuro: CN II-XII grossly intact Psych: Alert, oriented, appropriate affect Data Reviewed Today: Pertinent Labs: Hemoglobin 10.6, creatinine 1.3, magnesium 2, potassium 4.2 Imaging: No new imaging Assessment and Plan: Acute on chronic hypoxic respiratory failure, multifactorial Acute on chronic diastolic CHF exacerbation Mild COPD exacerbation Severe group 2 pulmonary hypertension Chronic kidney disease stage III, stable -Pulmonology note reviewed, added Pulmicort twice daily, continue ProAir Perforomist twice daily, DuoNebs as needed, and 4 times daily -Continue on IV Lasix 40 every 12 hours, monitor renal function as well as electrolytes -Strict I's and O's, daily weights -Cardiology has been consulted, pending further recommendations Chronic: Hypertension AMADEO not on CPAP Morbid obesity Chronic atrial fibrillation on Eliquis Depression GERD DVT ppx: Eliquis Code status: Full code Anticipated discharge place: Pending clinical course Anticipated discharge time: Pending clinical course Objective - Vital Signs Vital signs: Vital Signs Temp 98.0 F 10/16/23 08:21 Pulse 79 10/16/23 12:00 Resp 20 10/16/23 12:00 BP 117/78 10/16/23 12:00 Pulse Ox 91 L 10/16/23 12:00 FiO2 Intake & Output 10/15/23 10/16/23 10/16/23 18:59 06:59 18:59 Weight 108.862 kg - Labs CBC & Chem 7: 10/16/23 03:26 10/16/23 03:26 Labs: Abnormal Lab Results - Last 24 Hours (Table) 10/16/23 10/16/23 Range/Units 03:26 03:26 RBC 3.59 L (4.10-5.20) X 10*6/uL Hgb 10.6 L (12.0-15.0) g/dL Hct 34.5 L (37.2-46.3) % MCHC 30.7 L (32.0-37.0) g/dL RDW 15.4 H (11.5-14.5) % Lymphocytes # 0.45 L (0.90-5.00) X 10*3/uL Eosinophils # 0 L (0.04-0.35) X 10*3/uL Anion Gap 12.60 H (4.00-12.00) mmol/L Est GFR (CKD-EPI) 47 L (>=60) BUN/Creatinine Ratio 20.15 H (12.00-20.00) Ratio Glucose 153 H (70-110) mg/dL
--- NOTE | 2023-10-16 15:12 | P.CRDCN ---
History of Present Illness Consult date: 10/16/23 Consult reason: congestive heart failure History of present illness: This is a 58-year-old patient of Dr. LUIS Cao with past medical history of p ersistent atrial fibrillation on Eliquis, COPD, chronic hypoxic respiratory failure on home oxygen, pulmonary hypertension, hypertension, hyperlipidemia, former tobacco use and dependence, morbid obesity. We have been asked to evaluate the patient for CHF. Patient gives history of having shortness of breath for the last week. She denies having any cough or sputum production. No fevers but has had sweats. No nausea or vomiting. She has not noticed any blood in her stool or urine. No history of stroke or seizure activity. No chest pain or chest pressure. No palpitations. She has noted increased lower extremity edema. No PND. She states she is extremely short of breath with minimal activity like getting to the bathroom. Patient underwent a right heart catheterization at [facility] on May 03, 2023, results were most consistent with group 2 pulmonary venous hypertension. EKG atrial fibrillation with nonspecific ST changes Chest x-ray: Right mid and lower lung airspace opacities is not significantly changed from 1 month ago. Correlate for new or persistent airspace disease. WBC 5, hemoglobin 10.6, platelet count 141. Sodium 142, potassium 4.2, creatinine 1.3. Influenza A, influenza B, RSV, COVID-19 not detected. Echocardiogram performed on 09/07/2023 reveals EF 55%. Severe biatrial enlargement. Moderate to severe mitral annular calcification. Mild to moderate tricuspid regurgitation. No pericardial effusion. Home cardiac medications: Eliquis 5 mg twice daily, atorvastatin 40 mg at bedtime, Cardizem CD 120 mg daily, Lasix 80 mg daily, Lopressor 50 mg in the morning 25 mg in the evening, Aldactone 25 mg daily. Review Of Systems: At the time of my exam: CONSTITUTIONAL: Denies fever or chills. HEENT: Denies blurred vision, vision changes, or eye pain. Denies hemoptysis CARDIOVASCULAR: Denies chest pain. Denies orthopnea. Denies PND. Denies palpitations RESPIRATORY: Reports dyspnea on exertion, reports shortness of breath. GASTROINTESTINAL: Denies abdominal pain. Denies nausea or vomiting. HEMATOLOGIC: Denies bleeding disorders. GENITOURINARY: Denies any blood in urine. SKIN: Denies pruitis. Denies rash. Physical examination: Gen: This is a 58-year-old morbidly obese female in no acute distress] VS: reviewed blood pressure 117/78, heart rate 79, pulse ox 94% on 6 L nasal cannula. HEENT: Head is atraumatic, normocephalic. Pupils equal, round. Sclerae is anicteric. NECK: Supple. No JVD. LUNGS: Diminished breath sounds bilaterally. No intercostal retractions. HEART: Regular rate and rhythm. No murmur. ABDOMEN: Soft No tenderness. EXTREMITIES: Bilateral lower extremity edema. No calf tenderness. NEUROLOGICAL: Patient is awake, alert and oriented x3. Assessment: Acute on chronic hypoxic respiratory failure secondary to acute diastolic heart failure, preserved EF Severe pulmonary hypertension Persistent atrial fibrillation COPD Pulmonary hypertension Hypertension Hyperlipidemia Morbid obesity with BMI of 41 Recent carpal tunnel surgery Plan: Resume patient's home cardiac medications Continue IV Lasix 60 mg every 12 hours Monitor JUAN MANUEL, daily weights, electrolytes and renal function Start patient on Farxiga 10 mg daily Recommend pulmonary consultation Further recommendations to follow based upon clinical course Thank you kindly for this consultation. Nurse practitioner note has been reviewed, I agree with documented findings and plan of care. Patient was seen and examined. Past Medical History Past Medical History: Atrial Fibrillation, Heart Failure, COPD, GERD/Reflux, Hyperlipidemia, Hypertension, Mitral Valve Prolapse (MVP), Renal Disease, Seizure Disorder, Sleep Apnea/CPAP/BIPAP Additional Past Medical History / Comment(s): pulmonary HTN, "Stage III Kidney failure." MVP at 18 years old." "10 years ago I had a seizure.' "Haev't had any since." Uses C-PAP machine. hX of Vertigo. History of Any Multi-Drug Resistant Organisms: None Reported Past Surgical History: Bariatric Surgery, Bowel Resection, Hysterectomy Additional Past Surgical History / Comment(s): gastric sleeve. 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 Hx of blood transfusion. No reaction to it. Past Psychological History: Depression Smoking Status: Former smoker Past Alcohol Use History: Occasional - Past Family History Mother Family Medical History: COPD, Coronary Artery Disease (CAD), CVA/TIA, Hypertension Father Family Medical History: COPD, CVA/TIA, Hypertension, Prostate Disorder Medications and Allergies Home Medications Medication Instructions Recorded Confirmed Type Ferrous Sulfate [Iron (65 MG 325 mg PO QAM 08/14/22 10/15/23 History Elemental)] Montelukast [Singulair] 10 mg PO QAM 08/14/22 10/15/23 History [place]-3/Dha/Epa/Fish Oil [Fish Oil 1 cap PO DAILY@0800 08/14/22 10/15/23 History 1,000 mg Softgel] Pantoprazole [Protonix] 40 mg PO QAM 08/14/22 10/15/23 History Spironolactone [Aldactone] 25 mg PO QAM 08/14/22 10/15/23 History Tiotropium Br/Olodaterol HCl 2 puff INHALATION RT-DAILY 08/14/22 10/15/23 History [Stiolto Respimat Inhal [place]] Atorvastatin [Lipitor] 40 mg PO HS 10/20/22 10/15/23 History Calcium Carbonate [Calcium] 1,200 mg PO QAM 10/20/22 10/15/23 History Famotidine [Pepcid] 40 mg PO QAM 10/20/22 10/15/23 History Super B-Complex 1 tab PO QAM 10/20/22 10/15/23 History Apixaban [Eliquis] 5 mg PO BID 12/21/22 10/15/23 History Ipratropium-Albuterol Nebulize 3 ml INHALATION RT-QID 12/21/22 10/15/23 History [Duoneb 0.5 mg-3 mg/3 ml Soln] Multivitamins, Thera [Multivitamin 1 tab PO QAM 12/21/22 10/15/23 History (formulary)] allopurinoL [Zyloprim] 100 mg PO QAM 02/12/23 10/15/23 History dilTIAZem HCL [Cardizem CD] 120 mg PO QAM 02/12/23 10/15/23 History Biotene Dry Mouth Rinse 15 ml PO 5XD 09/06/23 10/15/23 History Fluticasone Nasal [place] [Flonase 1 spray EA NOSTRIL DAILY PRN 09/06/23 10/15/23 History Nasal [place]] Nystatin 100,000 Unit/gm Powd 1 applic TOPICAL BID PRN 09/06/23 10/15/23 History [Mycostatin Powder] diphenhydrAMINE [Benadryl] 50 mg PO HS 09/06/23 10/15/23 History Citalopram Hydrobromide [CeleXA] 40 mg PO QAM 09/28/23 10/15/23 History Metoprolol Tartrate [Lopressor] 25 mg PO HS 09/28/23 10/15/23 History Metoprolol Tartrate [Lopressor] 50 mg PO QAM 09/28/23 10/15/23 History Furosemide [Lasix] 80 mg PO DAILY 10/15/23 10/15/23 History Loratadine [Claritin] 10 mg PO DAILY 10/15/23 10/15/23 History Buprenorphine [Butrans 7.5 MCG/HR] See Rx Instructions .ROUTE .COMPLEX 10/16/23 10/16/23 History Allergies Allergy/AdvReac Type Severity Reaction Status Date / Time doxycycline Allergy NAUSEA, Verified 10/15/23 11:14 VOMITING, UPSET STOMACH Diahrrea latex Allergy Rash/Hives/ Verified 10/15/23 11:14 redness lorazepam [From Ativan] AdvReac Hallucinati Verified 10/15/23 11:14 ons venlafaxine [From Effexor] AdvReac Hallucinati Verified 10/15/23 11:14 ons Physical Exam Vitals: Vital Signs Temp Pulse Resp BP Pulse Ox 10/16/23 08:21 98.0 F 92 20 111/73 93 L 10/16/23 08:08 88 18 10/16/23 07:56 84 18 93 L 10/16/23 03:32 81 18 112/76 93 L 10/15/23 20:43 83 18 102/64 93 L 10/15/23 19:55 80 10/15/23 19:39 78 10/15/23 16:26 85 20 112/62 92 L 10/15/23 16:19 90 18 10/15/23 16:11 92 18 10/15/23 13:02 90 18 10/15/23 12:52 68 18 10/15/23 12:06 73 20 97/68 92 L 10/15/23 10:02 80 20 88 L 10/15/23 09:50 81 20 82 L 10/15/23 09:46 77 L 10/15/23 09:19 93 L 10/15/23 09:15 88 22 10/15/23 09:05 84 22 Results 10/17/23 04:36 10/17/23 04:36 Cardiac Enzymes 10/15/23 Range/Units 08:54 AST 27 (14-36) U/L Coagulation 10/15/23 Range/Units 08:54 PT 13.2 H (10.0-12.5) sec APTT 29.5 (22.0-30.0) sec CBC 10/15/23 Range/Units 08:54 WBC 7.1 (3.8-10.6) k/uL RBC 3.76 L (3.80-5.40) m/uL Hgb 11.5 (11.4-16.0) gm/dL Hct 35.7 (34.0-46.0) % Plt Count 142 L (150-450) k/uL Comprehensive Metabolic Panel 10/15/23 Range/Units 08:54 Sodium 139 (137-145) mmol/L Potassium 3.8 (3.5-5.1) mmol/L Chloride 102 (98-107) mmol/L Carbon Dioxide 33 H (22-30) mmol/L BUN 27 H (7-17) mg/dL Creatinine 1.28 H (0.52-1.04) mg/dL Glucose 109 H (74-99) mg/dL Calcium 9.0 (8.4-10.2) mg/dL AST 27 (14-36) U/L ALT 12 (4-34) U/L Alkaline Phosphatase 107 (38-126) U/L Total Protein 6.7 (6.3-8.2) g/dL Albumin 3.8 (3.5-5.0) g/dL Current Medications Generic Name Dose Route Start Last Admin Trade Name Freq PRN Reason Stop Dose Admin Albuterol/Ipratropium 3 ml 10/15/23 12:00 10/16/23 07:56 Ipratropium-Albuterol 3 Ml Neb INHALATION 3 ml RT-QID EHSAN Administration Albuterol/Ipratropium 3 ml 10/15/23 11:22 Ipratropium-Albuterol 3 Ml Neb INHALATION RT-Q2H PRN Shortness Of Breath Or Wheezing Allopurinol 100 mg 10/16/23 09:00 Allopurinol 100 Mg Tab PO QAM [facility] Apixaban 5 mg 10/15/23 21:00 10/15/23 21:12 Apixaban 5 Mg Tab PO 5 mg BID EHSAN Administration Protocol Atorvastatin Calcium 40 mg 10/15/23 21:00 10/15/23 21:13 Atorvastatin 40 Mg Tab PO 40 mg HS [facility] Administration Calcium Carbonate/Glycine 1,000 mg 10/16/23 09:00 Calcium Carbonate 500 Mg Chewable PO QAM [facility] Citalopram Hydrobromide 40 mg 10/16/23 09:00 [facility] D[facility] HCl 120 mg 10/16/23 09:00 Diltiazem Cd 120 Mg Cap.Er.[facility]h [facility] Diphenhydramine HCl 50 mg 10/15/23 21:00 10/15/23 21:12 Diphenhydramine 25 Mg Cap PO 50 mg HS [facility] Administration Famotidine 40 mg 10/16/23 09:00 Famotidine 20 Mg Tab PO QAM [facility] Ferrous Sulfate 325 mg 10/16/23 09:00 Ferrous Sulfate 325 Mg [facility] Fluticasone Propionate 1 spray 10/15/23 11:24 Fluticasone 50mcg/[place] Nasal 16gm EA NOSTRIL DAILY PRN Allergy Symptoms Formoterol Fumarate 20 mcg 10/16/23 08:00 10/16/23 07:53 Formoterol Fumarate 20 Mcg/2 Ml Nebu INHALATION Not Given RT-BID [facility] Furosemide 40 mg 10/15/23 21:00 10/15/23 21:17 Furosemide 10 Mg/Ml 4 Ml Vial IV 40 mg Q12HR [facility] Administration Metoprolol Tartrate 50 mg 10/16/23 09:00 Metoprolol Tartrate 50 Mg Tab PO QAM [facility] Metoprolol Tartrate 25 mg 10/15/23 21:00 10/15/23 21:15 Metoprolol Tartrate 25 Mg Tab PO Not Given HS [facility] Montelukast Sodium 10 mg 10/16/23 09:00 [facility]elukast 10 Mg [facility] Multivitamins 1 each 10/16/23 09:00 Multivitamins, Thera 1 Each Tab PO QAM [facility] Naloxone HCl 0.2 mg 10/15/23 11:22 Naloxone 0.4 Mg/Ml 1 Ml Vial IVP Q2M PRN Opioid Reversal Pantoprazole Sodium 40 mg 10/16/23 09:00 Pantoprazole 40 Mg Tablet [facility] Saliva Substitute 2 spray 10/15/23 16:00 10/15/23 23:26 Dry Mouth [place] 44.3 [place]/44.3 Ml [place] MUCOUS MEM Not Given 5XD EHSAN Spironolactone 25 mg 10/16/23 09:00 Spironolactone 25 Mg Tab PO QAM EHSAN 10/15/23 08:54 10/15/23 08:54
[2023-10-16] MEDS: BUDESONIDE 1 MG/2 ML NEBU INHALATION SCH (20:01)
[2023-10-17] MEDS: IPRATROPIUM-ALBUTEROL 3 ML NEB INHALATION PRN (04:56)
[2023-10-17 05:32] LABS: African American GFR (CKD) 49 (>60 ml/min/1.73 sqM); Anion Gap 2 mmol/L; Blood Urea Nitrogen 31 mg/dL (7-17); Calcium 9.1 mg/dL (8.4-10.2); Carbon Dioxide 39 mmol/L (22-30); Chloride 101 mmol/L (98-107); Glucose 81 mg/dL (74-99); Non-African American GFR(CKD) 43 (>60 ml/min/1.73 sqM); Sodium 142 mmol/L (137-145)
[2023-10-17 05:37] LABS: NT-Pro-B-Type Natriuretic Pept 6950 pg/mL
[2023-10-17 08:49] LABS: HCT 38.1 % (37.2-46.3); HGB 11.3 g/dL (12.0-15.0); MCH 29.7 pg (27.0-32.0); MCHC 29.7 g/dL (32.0-37.0); Mean Platelet Volume 10.8 FL (9.5-12.2); NRBC Per 100 WBC 0 X 10*3/uL (0.00-0.01); Platelet Count 177 X 10*3/uL (140-440); RBC 3.81 X 10*6/uL (4.10-5.20); RDW 15.8 % (11.5-14.5); WBC 7.93 X 10*3/uL (4.50-10.00)
--- NOTE | 2023-10-17 11:47 | P.PN ---
Subjective Progress Note Date: 10/17/23 58-year-old female who presents to the emergency department on October 14, complaining of shortness of breath. She was brought in by EMS. The patient states that she has had shortness of breath for couple days prior to admission. She denies any cough or fever. She did admit to some chest congestion. The patient received a nebulizer treatment and route, and apparently was feeling better when she got to the emergency department. She is seen by us, done in the emergency department, room #3. She has a significant history of a recent admission for combination of both CHF, and COPD, back on September 09, and was seen by my partner at that time, severe pulmonary hypertension, being followed at [facility]. It apparently is WHO class II pulmonary hypertension. She also has a history of severe COPD with an FEV1 of 32% of predicted. Additional medical problems include chronic atrial fibrillation, obesity, with a previous gastric sleeve, sleep apnea syndrome, intolerant of CPAP, stage III c hronic kidney disease, and prior history of tobacco use. When we saw her in the emergency department, the patient as well as on 6 L of oxygen by nasal cannula, with saturations of 90 to 91%. Her N-terminal proBNP was elevated at 7260. We would place an order for a procalcitonin level. She had blood gases on 44% oxygen, showing a pO2 of 55, pCO2 of 56, and pH of 7.39. White count was 5, hemoglobin 10.6, hematocrit 34.5, and platelet count 141,000. Sodium 142, potassium 4.2, chlorides 100, CO2 29, anion gap 13, BUN 26, and creatinine 1.3. Glucose was 153. Calcium 8.9, and magnesium 2.0. She tested negative for influenza, RSV, and coronavirus. The patient had a chest x-ray, which was c ompared to an x-ray done on September 08, still showing right mid and lower lung airspace opacities. The patient is seen today October 17, 2023 in follow-up on the regular medical floor. She is currently sitting up in a chair at the bedside. Awake and alert in no acute distress. Breathing easier today compared to yesterday. She is currently requiring 5 L high flow nasal cannula to maintain O2 saturation in the 90s. She is normally on 3 L at home. Her procalcitonin was negative at 0.06. proBNP 6950. White count 7.9. Hemoglobin 11.3. Platelets 177. Sodium 142. Potassium 4.0. Bicarb 39. BUN 31. Creatinine 1.36. Glucose 81. She remains on DuoNeb ventilations, Pulmicort and Perforomist inhalations. She remains on IV diuretics. Anticoagulated with Eliquis. Objective - Vital Signs Vital signs: Vital Signs Temp 97.7 F 10/17/23 07:13 Pulse 84 10/17/23 08:39 Resp 19 10/17/23 07:13 BP 108/74 10/17/23 07:13 Pulse Ox 88 L 10/17/23 07:13 FiO2 Intake & Output 10/16/23 10/17/23 10/17/23 18:59 06:59 18:59 Output Total 650 500 Balance -650 -500 Weight 107.5 kg Output: Urine 650 500 Other: Voiding Method Toilet - Exam GENERAL EXAM: Alert, pleasant 58-year-old female, up in a chair, on 5 L nasal cannula, comfortable in no apparent distress. HEAD: Normocephalic. EYES: Normal reaction of pupils, equal size. NOSE: Clear with pink turbinates. THROAT: No erythema or exudates. NECK: No masses, no JVD. CHEST: No chest wall deformity. LUNGS: Equal air entry with bibasilar crackles. CVS: S1 and S2 normal with no audible murmur, regular rhythm. ABDOMEN: No hepatosplenomegaly, normal bowel sounds, no guarding or rigidity. SPINE: No scoliosis or deformity SKIN: No rashes CENTRAL NERVOUS SYSTEM: No focal deficits, tone is normal in all 4 extremities. EXTREMITIES: There is no peripheral edema. No clubbing, no cyanosis. Peripheral pulses are intact. - Labs CBC & Chem 7: 10/17/23 04:36 10/17/23 04:36 Labs: Abnormal Lab Results - Last 24 Hours (Table) 10/17/23 10/17/23 Range/Units 04:36 04:36 RBC 3.81 L (4.10-5.20) X 10*6/uL Hgb 11.3 L (12.0-15.0) g/dL MCV 100.0 H (80.0-97.0) FL MCHC 29.7 L (32.0-37.0) g/dL RDW 15.8 H (11.5-14.5) % Carbon Dioxide 39 H (22-30) mmol/L BUN 31 H (7-17) mg/dL Creatinine 1.36 H (0.52-1.04) mg/dL Microbiology - Last 24 Hours (Table) 10/15/23 09:23 Blood Culture - Preliminary Blood 10/15/23 09:23 Blood Culture - Preliminary Blood Assessment and Plan Assessment: Acute hypoxemic respiratory failure, likely multifactorial, in part related to acute exacerbation of diastolic CHF, but also COPD exacerbation. Procalcitonin was negative at 0.06 Chronic hypoxemic and hypercapnic respiratory failure Recent admission for a similar scenario, September, Severe pulmonary hypertension, WHO class II, managed at the [facility] Severe COPD, with an FEV1 that is 32% of predicted History of chronic atrial fibrillation Obesity, status post gastric sleeve procedure Obstructive sleep apnea syndrome, intolerant of CPAP Stage III chronic kidney disease Previous tobacco use Plan: The patient was seen and evaluated Labs and medications reviewed Titrate down the FiO2 as tolerated Remains on IV diuretics Continue bronchodilators We will continue to follow I have personally seen and examined the patient, performed the documentation and the assessment and plan as written. Number of minutes spent on the visit: 10.
--- NOTE | 2023-10-17 12:19 | P.PN ---
Subjective Progress Note Date: 10/17/23 Consult reason: congestive heart failure History of present illness: This is a 58-year-old patient of Dr. LUIS Cao with past medical history of persistent atrial fibrillation on Eliquis, COPD, chronic hypoxic respiratory failure on home oxygen, pulmonary hypertension, hypertension, hyperlipidemia, former tobacco use and dependence, morbid obesity. We have been asked to evaluate the patient for CHF. Patient gives history of having shortness of breath for the last week. She denies having any cough or sputum production. No fevers but has had sweats. No nausea or vomiting. She has not noticed any blood in her stool or urine. No history of stroke or seizure activity. No chest pain or chest pressure. No palpitations. She has noted increased lower extremity edema. No PND. She states she is extremely short of breath with minimal activity like getting to the bathroom. Patient underwent a right heart catheterization at [facility] on May 03, 2023, results were most consistent with group 2 pulmonary venous hypertension. EKG atrial fibrillation with nonspecific ST changes Chest x-ray: Right mid and lower lung airspace opacities is not significantly changed from 1 month ago. Correlate for new or persistent airspace disease. WBC 5, hemoglobin 10.6, platelet count 141. Sodium 142, potassium 4.2, creatinine 1.3. Influenza A, influenza B, RSV, COVID-19 not detected. Echocardiogram performed on 09/07/2023 reveals EF 55%. Severe biatrial enlargement. Moderate to severe mitral annular calcification. Mild to moderate tricuspid regurgitation. No pericardial effusion. Home cardiac medications: Eliquis 5 mg twice daily, atorvastatin 40 mg at bedtime, Cardizem CD 120 mg daily, Lasix 80 mg daily, Lopressor 50 mg in the morning 25 mg in the evening, Aldactone 25 mg daily. 10/16 Patient is seen today in follow-up on the [facility] floor. She continues to have some wheezing, no chest pain. She states her shortness of breath is a little bit better from yesterday. She has been maintained on IV Lasix 60 mg every 12 hours and also started on Farxiga yesterday. Consult with pulmonary medicine was added. Blood pressure 108/74, heart rate 86, pulse ox 88% on 4 L nasal cannula. Repeat blood work reveals hemoglobin 11.3. BUN 31 creatinine 1.36. Physical examination: Gen: This is a 58-year-old morbidly obese female in no acute distress] VS: reviewed HEENT: Head is atraumatic, normocephalic. Pupils equal, round. Sclerae is anicteric. LUNGS: Diminished breath sounds bilaterally. No wheezing. No intercostal retractions. HEART: Regular rate and rhythm. No murmur. ABDOMEN: Soft No tenderness. EXTREMITIES: Minimal lower extremity edema. No calf tenderness. NEUROLOGICAL: Patient is awake, alert and oriented x3. Assessment: Acute on chronic hypoxic respiratory failure secondary to acute diastolic heart failure, preserved EF and COPD exacerbation Severe pulmonary hypertension Persistent atrial fibrillation COPD exacerbation Pulmonary hypertension Obstructive sleep apnea, intolerant of CPAP Hypertension Hyperlipidemia Morbid obesity with BMI of 41 Plan: Resume patient's home cardiac medications Transition IV Lasix to oral 40 mg twice daily Monitor JUAN MANUEL, daily weights, electrolytes and renal function Continue patient on Farxiga 10 mg daily Pulmonary consultation appreciated. Further recommendations to follow based upon clinical course Nurse practitioner note has been reviewed, I agree with documented findings and plan of care. Patient was seen and examined. Objective - Vital Signs Vital signs: Vital Signs Temp 97.7 F 10/17/23 07:13 Pulse 84 10/17/23 08:39 Resp 19 10/17/23 07:13 BP 108/74 10/17/23 07:13 Pulse Ox 88 L 10/17/23 07:13 FiO2 Intake & Output 10/16/23 10/17/23 10/17/23 18:59 06:59 18:59 Output Total 650 100 Balance -650 -100 Weight 107.5 kg Output: Urine 650 100 Other: Voiding Method Toilet - Labs CBC & Chem 7: 10/17/23 04:36 10/17/23 04:36 Labs: Abnormal Lab Results - Last 24 Hours (Table) 10/16/23 10/16/23 10/17/23 Range/Units 03:26 03:26 04:36 RBC 3.59 L (4.10-5.20) X 10*6/uL Hgb 10.6 L (12.0-15.0) g/dL Hct 34.5 L (37.2-46.3) % MCHC 30.7 L (32.0-37.0) g/dL RDW 15.4 H (11.5-14.5) % Lymphocytes # 0.45 L (0.90-5.00) X 10*3/uL Eosinophils # 0 L (0.04-0.35) X 10*3/uL Carbon Dioxide 39 H (22-30) mmol/L Anion Gap 12.60 H (4.00-12.00) mmol/L BUN 31 H (7-17) mg/dL Creatinine 1.36 H (0.52-1.04) mg/dL Est GFR (CKD-EPI) 47 L (>=60) BUN/Creatinine Ratio 20.15 H (12.00-20.00) Ratio Glucose 153 H (70-110) mg/dL Microbiology - Last 24 Hours (Table) 10/15/23 09:23 Blood Culture - Preliminary Blood 10/15/23 09:23 Blood Culture - Preliminary Blood
--- NOTE | 2023-10-17 12:31 | P.PN ---
Subjective Progress Note Date: 10/17/23 Hospital Course: 58-year-old female with history of diastolic heart failure, group 2 pulmonary hypertension severe, paroxysmal atrial fibrillation, COPD, chronic hypoxic respiratory failure on 3 L, AMADEO, former nicotine dependence presenting with worsening shortness of breath. In the ED, temperature was 97.8, pulse 73, respiratory 22, blood pressure 113/81, saturating at 79% on 3 L. Laboratory workup showed WBC 7.1, hemoglobin 11.5, platelet 142, INR 1.3, pH 7.39, pCO2 56, pO2 55, bicarb 33, potassium 3.8, creatinine 1.28 around baseline, proBNP 7000, respiratory viral panel negative. Chest x-ray independently interpreted, shows similar opacities compared to prior, EKG independently interpreted, shows atrial fibrillation. Patient being admitted for CHF exacerbation. On IV diuretics. Cardiology and pulmonology consulted. Subjective: Patient seen and examined at bedside. Respiratory function is improving. Making adequate urine. Pertinent positives and negatives as discussed above, a complete review of systems was performed and all other systems are negative. Vitals Signs Reviewed. General: nontoxic, no distress, appears at stated age, chronically ill- appearing, obese Derm: warm, dry Head: atraumatic, normocephalic, symmetric Eyes: EOMI, no lid lag, anicteric sclera, pupils equal round reactive to light ENT: Nose and ears atraumatic Neck: No thyromegaly, supple Mouth: no lip lesion, mucus membranes moist Cardiovascular: S1S2 irregular, no murmur, trace pitting edema Lungs: Bilateral rales, no wheeze, no accessory muscle use, supplemental oxygen Abdominal: soft, nontender to palpation, no guarding, no appreciable organomegaly Ext: no gross muscle atrophy, muscle strength muscle strength 5 out of 5 in all 4 extremities, no contractures Neuro: CN II-XII grossly intact Psych: Alert, oriented, appropriate affect Data Reviewed Today: Pertinent Labs: Hemoglobin 11.3, creatinine 1.36, potassium 4, magnesium 2 Imaging: No new imaging Assessment and Plan: Acute on chronic hypoxic respiratory failure, multifactorial Acute on chronic diastolic CHF exacerbation Mild COPD exacerbation Severe group 2 pulmonary hypertension Chronic kidney disease stage III, stable -Pulmonology note reviewed, continue Pulmicort twice daily, continue Perforomist twice daily, DuoNebs as needed, and 4 times daily -Continue on IV Lasix 40 every 12 hours, monitor renal function as well as electrolytes -Strict I's and O's, daily weights -Cardiology following Chronic: Hypertension AMADEO not on CPAP Morbid obesity Chronic atrial fibrillation on Eliquis Depression GERD DVT ppx: Eliquis Code status: Full code Anticipated discharge place: Pending clinical course Anticipated discharge time: Pending clinical course Patient failed observation status, needs continue IV diuresis. Changed to inpatient status. Objective - Vital Signs Vital signs: Vital Signs Temp 97.7 F 10/17/23 07:13 Pulse 80 10/17/23 11:54 Resp 19 10/17/23 07:13 BP 108/74 10/17/23 07:13 Pulse Ox 88 L 10/17/23 07:13 FiO2 Intake & Output 10/16/23 10/17/23 10/17/23 18:59 06:59 18:59 Output Total 650 700 Balance -650 -700 Weight 107.5 kg Output: Urine 650 700 Other: Voiding Method Toilet - Labs CBC & Chem 7: 10/17/23 04:36 10/17/23 04:36 Labs: Abnormal Lab Results - Last 24 Hours (Table) 10/17/23 10/17/23 Range/Units 04:36 04:36 RBC 3.81 L (4.10-5.20) X 10*6/uL Hgb 11.3 L (12.0-15.0) g/dL MCV 100.0 H (80.0-97.0) FL MCHC 29.7 L (32.0-37.0) g/dL RDW 15.8 H (11.5-14.5) % Carbon Dioxide 39 H (22-30) mmol/L BUN 31 H (7-17) mg/dL Creatinine 1.36 H (0.52-1.04) mg/dL Microbiology - Last 24 Hours (Table) 10/15/23 09:23 Blood Culture - Preliminary Blood 10/15/23 09:23 Blood Culture - Preliminary Blood
[2023-10-18 06:22] LABS: African American GFR (CKD) 52 (>60 ml/min/1.73 sqM); Anion Gap 3 mmol/L; Blood Urea Nitrogen 32 mg/dL (7-17); Calcium 9.2 mg/dL (8.4-10.2); Carbon Dioxide 36 mmol/L (22-30); Chloride 103 mmol/L (98-107); Glucose 73 mg/dL (74-99); Magnesium 2.1 mg/dL (1.6-2.3); Non-African American GFR(CKD) 46 (>60 ml/min/1.73 sqM); Sodium 142 mmol/L (137-145)
[2023-10-18 08:21] VITALS: BP 106/68; RESP 18; TEMP 98.6
[2023-10-18] MEDS: FUROSEMIDE 40 MG TAB PO SCH (09:06)
--- NOTE | 2023-10-18 10:48 | P.PN ---
Subjective Progress Note Date: 10/18/23 58-year-old female who presents to the emergency department on October 14, complaining of shortness of breath. She was brought in by EMS. The patient states that she has had shortness of breath for couple days prior to admission. She denies any cough or fever. She did admit to some chest congestion. The patient received a nebulizer treatment and route, and apparently was feeling better when she got to the emergency department. She is seen by us, done in the emergency department, room #3. She has a significant history of a recent admission for combination of both CHF, and COPD, back on September 09, and was seen by my partner at that time, severe pulmonary hypertension, being followed at [facility]. It apparently is WHO class II pulmonary hypertension. She also has a history of severe COPD with an FEV1 of 32% of predicted. Additional medical problems include chronic atrial fibrillation, obesity, with a previous gastric sleeve, sleep apnea syndrome, intolerant of CPAP, stage III c hronic kidney disease, and prior history of tobacco use. When we saw her in the emergency department, the patient as well as on 6 L of oxygen by nasal cannula, with saturations of 90 to 91%. Her N-terminal proBNP was elevated at 7260. We would place an order for a procalcitonin level. She had blood gases on 44% oxygen, showing a pO2 of 55, pCO2 of 56, and pH of 7.39. White count was 5, hemoglobin 10.6, hematocrit 34.5, and platelet count 141,000. Sodium 142, potassium 4.2, chlorides 100, CO2 29, anion gap 13, BUN 26, and creatinine 1.3. Glucose was 153. Calcium 8.9, and magnesium 2.0. She tested negative for influenza, RSV, and coronavirus. The patient had a chest x-ray, which was c ompared to an x-ray done on September 08, still showing right mid and lower lung airspace opacities. The patient is seen today October 17, 2023 in follow-up on the regular medical floor. She is currently sitting up in a chair at the bedside. Awake and alert in no acute distress. Breathing easier today compared to yesterday. She is currently requiring 5 L high flow nasal cannula to maintain O2 saturation in the 90s. She is normally on 3 L at home. Her procalcitonin was negative at 0.06. proBNP 6950. White count 7.9. Hemoglobin 11.3. Platelets 177. Sodium 142. Potassium 4.0. Bicarb 39. BUN 31. Creatinine 1.36. Glucose 81. She remains on DuoNeb ventilations, Pulmicort and Perforomist inhalations. She remains on IV diuretics. Anticoagulated with Eliquis. The patient is seen today October 18, 2023 in follow-up on the regular medical floor. She is currently sitting up in a chair at the bedside. Awake and alert in no acute distress. Denies any worsening shortness of breath, cough or congestion. She is maintaining O2 saturations in the 90s on 4 L/min per nasal cannula. She is continued on DuoNeb inhalations, Pulmicort and Perforomist inhalations. Remains on oral diuretics. Remains anticoagulated with Eliquis. Blood cultures revealed no growth. Sodium 142. Potassium 4.0. Bicarb 36. BUN 32. Creatinine 1.29. Glucose 73. Objective - Vital Signs Vital signs: Vital Signs Temp 98.6 F 10/18/23 07:34 Pulse 87 10/18/23 09:35 Resp 18 10/18/23 07:34 BP 106/68 10/18/23 07:34 Pulse Ox 90 L 10/18/23 09:14 FiO2 Intake & Output 10/17/23 10/18/23 10/18/23 18:59 06:59 18:59 Output Total 700 Balance -700 Weight 111.5 kg Output: Urine 700 Other: Voiding Method Toilet - Exam GENERAL EXAM: Alert, pleasant 58-year-old female, on 4 L nasal cannula, in no apparent distress. HEAD: Normocephalic. EYES: Normal reaction of pupils, equal size. NOSE: Clear with pink turbinates. THROAT: No erythema or exudates. NECK: No masses, no JVD. CHEST: No chest wall deformity. LUNGS: Equal air entry with bibasilar crackles. CVS: S1 and S2 normal with no audible murmur, regular rhythm. ABDOMEN: No hepatosplenomegaly, normal bowel sounds, no guarding or rigidity. SPINE: No scoliosis or deformity SKIN: No rashes CENTRAL NERVOUS SYSTEM: No focal deficits, tone is normal in all 4 extremities. EXTREMITIES: There is no peripheral edema. No clubbing, no cyanosis. Peripheral pulses are intact. - Labs CBC & Chem 7: 10/17/23 04:36 10/18/23 05:21 Labs: Abnormal Lab Results - Last 24 Hours (Table) 10/18/23 Range/Units 05:21 Carbon Dioxide 36 H (22-30) mmol/L BUN 32 H (7-17) mg/dL Creatinine 1.29 H (0.52-1.04) mg/dL Glucose 73 L (74-99) mg/dL Microbiology - Last 24 Hours (Table) 10/15/23 09:23 Blood Culture - Preliminary Blood 10/15/23 09:23 Blood Culture - Preliminary Blood Assessment and Plan Assessment: Acute hypoxemic respiratory failure, likely multifactorial, in part related to acute exacerbation of diastolic CHF, but also COPD exacerbation. Procalcitonin was negative at 0.06 Chronic hypoxemic and hypercapnic respiratory failure Recent admission for a similar scenario, September, Severe pulmonary hypertension, WHO class II, managed at the [facility] Severe COPD, with an FEV1 that is 32% of predicted History of chronic atrial fibrillation Obesity, status post gastric sleeve procedure Obstructive sleep apnea syndrome, intolerant of CPAP Stage III chronic kidney disease Previous tobacco use Plan: The patient was seen and evaluated Labs and medications reviewed Titrate down the FiO2 as tolerated Continue bronchodilators We will continue to follow I have personally seen and examined the patient, performed the documentation and the assessment and plan as written. Number of minutes spent on the visit: 10.
[2023-10-18 13:08] VITALS: PULSE 79
--- NOTE | 2023-10-18 13:11 | P.PN ---
Subjective Progress Note Date: 10/18/23 Consult reason: congestive heart failure History of present illness: This is a 58-year-old patient of Dr. LUIS Cao with past medical history of persistent atrial fibrillation on Eliquis, COPD, chronic hypoxic respiratory failure on home oxygen, pulmonary hypertension, hypertension, hyperlipidemia, former tobacco use and dependence, morbid obesity. We have been asked to evaluate the patient for CHF. Patient gives history of having shortness of breath for the last week. She denies having any cough or sputum production. No fevers but has had sweats. No nausea or vomiting. She has not noticed any blood in her stool or urine. No history of stroke or seizure activity. No chest pain or chest pressure. No palpitations. She has noted increased lower extremity edema. No PND. She states she is extremely short of breath with minimal activity like getting to the bathroom. Patient underwent a right heart catheterization at [facility] on May 03, 2023, results were most consistent with group 2 pulmonary venous hypertension. EKG atrial fibrillation with nonspecific ST changes Chest x-ray: Right mid and lower lung airspace opacities is not significantly changed from 1 month ago. Correlate for new or persistent airspace disease. WBC 5, hemoglobin 10.6, platelet count 141. Sodium 142, potassium 4.2, creatinine 1.3. Influenza A, influenza B, RSV, COVID-19 not detected. Echocardiogram performed on 09/07/2023 reveals EF 55%. Severe biatrial enlargement. Moderate to severe mitral annular calcification. Mild to moderate tricuspid regurgitation. No pericardial effusion. Home cardiac medications: Eliquis 5 mg twice daily, atorvastatin 40 mg at bedtime, Cardizem CD 120 mg daily, Lasix 80 mg daily, Lopressor 50 mg in the morning 25 mg in the evening, Aldactone 25 mg daily. 10/16 Patient is seen today in follow-up on the [facility] floor. She continues to have some wheezing, no chest pain. She states her shortness of breath is a little bit better from yesterday. She has been maintained on IV Lasix 60 mg every 12 hours and also started on Farxiga yesterday. Consult with pulmonary medicine was added. Blood pressure 108/74, heart rate 86, pulse ox 88% on 4 L nasal cannula. Repeat blood work reveals hemoglobin 11.3. BUN 31 creatinine 1.36. 10/17 Patient states that her breathing is better today. No chest pain. She has been ambulating in her room to the bathroom and back. She has been maintained on IV Lasix 40 mg twice daily transition to oral yesterday. Patient is also been started on Farxiga. Repeat blood work reveals sodium 142, potassium 4, BUN 32 creatinine 1.29. Blood pressure 106/68, heart rate 77, pulse ox 90% on 4 L nasal cannula. Physical examination: Gen: This is a 58-year-old morbidly obese female in no acute distress VS: reviewed HEENT: Head is atraumatic, normocephalic. Pupils equal, round. Sclerae is anicteric. LUNGS: Diminished breath sounds bilaterally. No wheezing. No intercostal retractions. HEART: Regular rate and rhythm. No murmur. ABDOMEN: Soft No tenderness. EXTREMITIES: No lower extremity edema. No calf tenderness. NEUROLOGICAL: Patient is awake, alert and oriented x3. Assessment: Acute on chronic hypoxic respiratory failure secondary to acute diastolic heart failure, preserved EF and COPD exacerbation Severe pulmonary hypertension Persistent atrial fibrillation COPD exacerbation Pulmonary hypertension Obstructive sleep apnea, intolerant of CPAP Hypertension Hyperlipidemia Morbid obesity with BMI of 41 Plan: Continue patient's home cardiac medications Continue Lasix oral 40 mg twice daily Monitor JUAN MANUEL, daily weights, electrolytes and renal function Continue patient on Farxiga 10 mg daily Patient is cleared from cardiology for discharge and may follow-up in the office with Dr. LUIS Cao in 1 to 2 weeks. Nurse practitioner note has been reviewed, I agree with documented findings and plan of care. Patient was seen and examined. Objective - Vital Signs Vital signs: Vital Signs Temp 98.6 F 10/18/23 07:34 Pulse 77 10/18/23 07:34 Resp 18 10/18/23 07:34 BP 106/68 10/18/23 07:34 Pulse Ox 106 H 10/18/23 07:34 FiO2 Intake & Output 10/17/23 10/18/23 10/18/23 18:59 06:59 18:59 Output Total 700 Balance -700 Weight 111.5 kg Output: Urine 700 Other: Voiding Method Toilet - Labs CBC & Chem 7: 10/17/23 04:36 10/18/23 05:21 Labs: Abnormal Lab Results - Last 24 Hours (Table) 10/18/23 Range/Units 05:21 Carbon Dioxide 36 H (22-30) mmol/L BUN 32 H (7-17) mg/dL Creatinine 1.29 H (0.52-1.04) mg/dL Glucose 73 L (74-99) mg/dL Microbiology - Last 24 Hours (Table) 10/15/23 09:23 Blood Culture - Preliminary Blood 10/15/23 09:23 Blood Culture - Preliminary Blood
--- NOTE | 2023-10-18 14:29 | P.DS ---
Providers Date of admission: 10/15/23 11:24 Expected date of discharge: 10/18/23 Attending physician: Don Hobbs MD Consults: 10/16/23 08:15 Consult Physician Routine Consulting Provider: Reta Cao Consult Reason/Comments: CHF, known to you Do you want consulting provider notified?: Yes 10/16/23 08:55 Consult Physician Routine Consulting Provider: Lincoln Gonzalez Consult Reason/Comments: copd, severe pulm htn Do you want consulting provider notified?: Yes Primary care physician: Sushant Parks MD Hospital Course: Discharge Diagnosis: Acute exacerbation of cor pulmonale, due to pulmonary hypertension group 2 Acute on chronic hypoxic respiratory failure secondary to above Hypertension Chronic atrial fibrillation anticoagulated with Eliquis Mild COPD exacerbation AMADEO without CPAP use Chronic kidney disease stage III Class 3 obesity with BMI 38.3 Hospital Course: Patient is a 58-year-old female with diastolic congestive heart failure, severe group 2 pulmonary hypertension, paroxysmal A-fib, severe COPD, chronic hypoxic respiratory failure on 3 L, and obstructive sleep apnea who presented to the emergency department due to worsening shortness of breath. In the ER she underwent extensive evaluation. She was hypoxic at 79% on her home 3 L. Laboratory analysis was remarkable for hemoglobin 11.5, platelets 142, INR 1.3, creatinine 1.28 (baseline 1.1-1.3), and glucose of 109. BNP was elevated at 7260. Influenza A/B/RSV/COVID-19 testing was negative. Initial chest x-ray demonstrated right mid and lower lung airspace opacities not significantly changed. Patient was subsequently diagnosed with acute exacerbation of diastolic congestive heart failure and arrangements were made for admission. Of note patient recently had her Lasix discontinued as she had been doing well. Cardiology and pulmonary were consulted. Patient's most recent echocardiogram was 09/26 which demonstrated severe biatrial enlargement, moderate to severe mitral annular calcifications, ejection fraction 55%, and mild right ventricular dilatation. No RVSP was estimated on this. Cardiology recommended continuing IV Lasix and starting the patient on Farxiga. Pulmonary recommended Zithromax and updrafts. They also recommended a procalcitonin level came back at 0.06. She was transitioned to oral Lasix. She continued to do well. She was determined stable for discharge home. Follow-up: New medications include Lasix increased to 40 mg twice daily and Farxiga 10 mg daily. Patient will follow with Dr. Parks and Dr. Cao. She will have repeat renal function done in [facility] in about 5 days. Patient seen and examined at bedside. Doing well. No complaints currently. States her breathing is back to baseline. She feels comfortable going home. She is aware that she has to stay on Lasix and watch her weight. Vital signs reviewed and stable. General: Nontoxic, no distress, appears at stated age Cardiovascular: S1S2 reg, no murmur, positive posterior tibial pulse bilateral, Lungs: CTA bilateral, no rhonchi, no rales, no accessory muscle use Abdominal: Soft, nontender to palpation, no guarding, no appreciable organomegaly Ext: No gross muscle atrophy, no edema b/l lower extremities, no contractures Neuro: CN II-XI grossly intact, no focal neuro deficits Psych: Alert, oriented, appropriate affect A total of 35 minutes of time were spent preparing this complex discharge summary. Patient was discharged on 10/18/2023. This dictation was prepared using [employer] voice recognition software. Though every attempt is made to correct errors during dictation some may still exist. Patient Condition at Discharge: Stable Plan - Discharge Summary Discharge Rx Participant: No New Discharge Prescriptions: New Dapagliflozin Propanediol [Farxiga] 10 mg PO DAILY tab Furosemide [Lasix] 40 mg PO BID@0900,1600 tab Continue Montelukast [Singulair] 10 mg PO QAM Super B-Complex 1 tab PO QAM Famotidine [Pepcid] 40 mg PO QAM Apixaban [Eliquis] 5 mg PO BID allopurinoL [Zyloprim] 100 mg PO QAM dilTIAZem HCL [Cardizem CD] 120 mg PO QAM diphenhydrAMINE [Benadryl] 50 mg PO HS Fluticasone Nasal [place] [Flonase Nasal [place]] 1 spray EA NOSTRIL DAILY PRN PRN Reason: Allergy Symptoms Nystatin 100,000 Unit/gm Powd [Mycostatin Powder] 1 applic TOPICAL BID PRN PRN Reason: Rash Metoprolol Tartrate [Lopressor] 25 mg PO HS Metoprolol Tartrate [Lopressor] 50 mg PO QAM Citalopram Hydrobromide [CeleXA] 40 mg PO QAM Loratadine [Claritin] 10 mg PO DAILY Buprenorphine [Butrans 7.5 MCG/HR] See Rx Instructions .ROUTE .COMPLEX Tiotropium Br/Olodaterol HCl [Stiolto Respimat Inhal [place]] 2 puff INHALATION RT-DAILY Spironolactone [Aldactone] 25 mg PO QAM Pantoprazole [Protonix] 40 mg PO QAM Ferrous Sulfate [Iron (65 MG Elemental)] 325 mg PO QAM [place]-3/Dha/Epa/Fish Oil [Fish Oil 1,000 mg Softgel] 1 cap PO DAILY@0800 Atorvastatin [Lipitor] 40 mg PO HS Calcium Carbonate [Calcium] 1,200 mg PO QAM Ipratropium-Albuterol Nebulize [Duoneb 0.5 mg-3 mg/3 ml Soln] 3 ml INHALATION RT-QID Multivitamins, Thera [Multivitamin (formulary)] 1 tab PO QAM Biotene Dry Mouth Rinse 15 ml PO 5XD Discontinued Furosemide [Lasix] 80 mg PO DAILY Discharge Medication List Ferrous Sulfate [Iron (65 MG Elemental)] 325 mg PO QAM 08/14/22 [History] Montelukast [Singulair] 10 mg PO QAM 08/14/22 [History] [place]-3/Dha/Epa/Fish Oil [Fish Oil 1,000 mg Softgel] 1 cap PO DAILY@0800 08/14/22 [History] Pantoprazole [Protonix] 40 mg PO QAM 08/14/22 [History] Spironolactone [Aldactone] 25 mg PO QAM 08/14/22 [History] Tiotropium Br/Olodaterol HCl [Stiolto Respimat Inhal [place]] 2 puff INHALATION RT-DAILY 08/14/22 [History] Atorvastatin [Lipitor] 40 mg PO HS 10/20/22 [History] Calcium Carbonate [Calcium] 1,200 mg PO QAM 10/20/22 [History] Famotidine [Pepcid] 40 mg PO QAM 10/20/22 [History] Super B-Complex 1 tab PO QAM 10/20/22 [History] Apixaban [Eliquis] 5 mg PO BID 12/21/22 [History] Ipratropium-Albuterol Nebulize [Duoneb 0.5 mg-3 mg/3 ml Soln] 3 ml INHALATION RT-QID 12/21/22 [History] Multivitamins, Thera [Multivitamin (formulary)] 1 tab PO QAM 12/21/22 [History] allopurinoL [Zyloprim] 100 mg PO QAM 02/12/23 [History] dilTIAZem HCL [Cardizem CD] 120 mg PO QAM 02/12/23 [History] Biotene Dry Mouth Rinse 15 ml PO 5XD 09/06/23 [History] Fluticasone Nasal [place] [Flonase Nasal [place]] 1 spray EA NOSTRIL DAILY PRN 09/06/23 [History] Nystatin 100,000 Unit/gm Powd [Mycostatin Powder] 1 applic TOPICAL BID PRN 09/06/23 [History] diphenhydrAMINE [Benadryl] 50 mg PO HS 09/06/23 [History] Citalopram Hydrobromide [CeleXA] 40 mg PO QAM 09/28/23 [History] Metoprolol Tartrate [Lopressor] 25 mg PO HS 09/28/23 [History] Metoprolol Tartrate [Lopressor] 50 mg PO QAM 09/28/23 [History] Loratadine [Claritin] 10 mg PO DAILY 10/15/23 [History] Buprenorphine [Butrans 7.5 MCG/HR] See Rx Instructions .ROUTE .COMPLEX 10/16/23 [History] Dapagliflozin Propanediol [Farxiga] 10 mg PO DAILY tab 10/18/23 [Rx] Furosemide [Lasix] 40 mg PO BID@0900,1600 tab 10/18/23 [Rx] Follow up Appointment(s)/Referral(s): Sushant Parks MD [Primary Care Provider] - 10/23/23 Reta Cao MD [STAFF PHYSICIAN] - 10/22/23 9:30 am Patient Instructions/Handouts: Heart Failure (DC), COPD (Chronic Obstructive Pulmonary Disease) (DC) Activity/Diet/Wound Care/Special Instructions: Activity: As tolerated Diet: Heart Healthy Special Instructions: Recommend repeat kidney function labs with [facility] in about 5 days Discharge Disposition: HOME SELF-CARE
[2023-10-19] MEDS ORDERED: FAMOTIDINE 20 MG TAB PO SCH (09:00)
== END 2023-10-18 14:45 | disposition home or self-care (01) | DRG 291 ==
LOC: EC 08:32 → 4SSUR 11:23 → OBSVTOIN 11:24 → 4SSUR 17:48
PROVIDERS: ADMIT Student in an Organized Health Care Education/Training Program; ATTEND Student in an Organized Health Care Education/Training Program
DX: I13.0 Hypertensive heart and chronic kidney disease with heart failure and stage 1 through stage 4 chronic kidney disease, or unspecified chronic kidney disease (principal); I50.33 Acute on chronic diastolic (congestive) heart failure; J96.21 Acute and chronic respiratory failure with hypoxia; J96.22 Acute and chronic respiratory failure with hypercapnia; J44.1 Chronic obstructive pulmonary disease with (acute) exacerbation; I48.19 Other persistent atrial fibrillation; Z68.41 Body mass index [BMI] 40.0-44.9, adult; I27.22 Pulmonary hypertension due to left heart disease; I27.81 Cor pulmonale (chronic); E11.22 Type 2 diabetes mellitus with diabetic chronic kidney disease; Z99.81 Dependence on supplemental oxygen; Z79.01 Long term (current) use of anticoagulants; N18.30 Chronic kidney disease, stage 3 unspecified; E66.01 Morbid (severe) obesity due to excess calories; F32.A Depression, unspecified; I08.1 Rheumatic disorders of both mitral and tricuspid valves; K21.9 Gastro-esophageal reflux disease without esophagitis; E78.5 Hyperlipidemia, unspecified; G47.33 Obstructive sleep apnea (adult) (pediatric); Z11.52 Encounter for screening for COVID-19; Z79.899 Other long term (current) drug therapy; Z79.51 Long term (current) use of inhaled steroids; Z88.1 Allergy status to other antibiotic agents; Z91.040 Latex allergy status; Z88.8 Allergy status to other drugs, medicaments and biological substances; Z98.84 Bariatric surgery status; Z87.891 Personal history of nicotine dependence; Z86.69 Personal history of other diseases of the nervous system and sense organs
CPT/HCPCS: 36415; 36600; 71046; 80048; 80053; 82805; 83605; 83735; 83880; 84145; 85025; 85027; 85610; 85730; 87040; 87636; 93005; 94640; 94760; 96365; 96366; 96375; 96376; 99285

== ENCOUNTER → 2023-12-25 | Outpatient (CLI) | payer OTHER ==
[2023-12-25 10:08] LABS: African American GFR (CKD) 38 (>60 ml/min/1.73 sqM); Blood Urea Nitrogen 25 mg/dL (7-17); Non-African American GFR(CKD) 33 (>60 ml/min/1.73 sqM)
--- NOTE | 2023-12-25 10:58 | CT ---
EXAMINATION TYPE: CT chest wo con CT DLP: 537.1 mGycm, Automated exposure control for dose reduction was used. DATE OF EXAM: 12/25/2023 10:46 AM COMPARISON: CT chest 02/23/2023, 11/17/2022 CLINICAL INDICATION:Female, 58 years old with history of I27.20 pulmonary hypertension; PHH, pulmonar y hypertension TECHNIQUE: Multiple axial images were obtained through the chest without IV contrast. Lack of IV or o ral contrast limits evaluation of solid and hollow organ viscera. . Coronal and sagittal reformats re viewed. FINDINGS: LUNGS/ PLEURA: Stable scattered subsegmental atelectasis/scarring. No pleural effusion or pneumothora x. Stable right lower lobe 6 mm pulmonary nodule (series 4, image 34). There is thickening of interlo bular septa. AIRWAY: Patent and unremarkable. HEART: The heart is enlarged for size. There is mitral valve annular calcifications. Three-vessel mod erate severe coronary artery calcifications. No pericardial effusion. MEDIASTINUM: No evidence of adenopathy. VASCULATURE: No aortic aneurysm. The pulmonary trunk measures up to 4.0 and is similar prior exam MUSCULOSKELETAL: Remote healed right anterolateral fourth rib fracture. Healing right posterior later al seventh through ninth rib fractures with callus formation. Multilevel degeneration changes of the spine are unchanged with multilevel osteophyte formation disc space narrowing and facet joint arthrop athy. T5 and T8 vertebral body compression deformities are similar to prior. SOFT TISSUES/LYMPH NODES: Unremarkable. LOWER NECK: No significant findings. UPPER ABDOMEN: Stable nodular thickening to the left adrenal gland (likely relating to adenomatous hy pertrophy changes. Additionally a superimposed myelolipoma is redemonstrated measuring up to 3.0 cm. Post surgical changes gastric lumen. Cholelithiasis. IMPRESSION: 1. Stable regions of scarring/atelectasis throughout the lungs. Stable right lower lobe 6 mm pulmona ry nodule. In a low-risk patient, no follow-up is recommended. In a high-risk patient consider option al CT chest in 12 months. 2. Stable cardiomegaly with dilated main pulmonary artery which can be seen in the setting of pulmon herlinda arterial hypertension. 3. Similar moderate to severe coronary artery atherosclerosis. 4. Stable T5 and T8 compression deformities. Healing right seventh through ninth rib fractures. 5. Cholelithiasis.
--- NOTE | 2023-12-25 17:39 | CA ---
Transthoracic Echo Report Name: Amy Castellano Age: 58 Gender: F : 1965 Exam Date: 12/25/2023 10:53 Exam Location: [facility] Ht (in): 66 Wt (lb): 224 Ordering Physician: Sparkle Whitmore MD Attending/Referring Phys: Kristin Golden PAC [employer] Technical Director Sherice Sanchez RDCS Procedure CPT: Indications: I27.20 pilmonary hypertension Cardiac Hx: Technical Quality: Very technically difficult study Contrast 1: Definity Total Dose (mL): 2 Contrast 2: Total Dose (mL): MEASUREMENTS (Male / Female) Normal Values 2D ECHO LV Diastolic Volume MOD BP 140.6 cm??? 67 - 155 / 56 - 104 cm??? LV Systolic Volume MOD BP 40.3 cm??? 22 - 58 / 19 - 49 cm??? LV Ejection Fraction MOD BP 71.4 % >= 55 % LV Cardiac Index MOD BP 3394.0 cm???/min???m??? LV Diastolic Volume MOD 4C 128.8 cm??? LV Systolic Volume MOD 4C 43.1 cm??? LV Ejection Fraction MOD 4C 66.5 % LV Cardiac Index MOD 4C 2895.8 cm???/min???m??? LV Diastolic Length 4C 8.8 cm LV Systolic Length 4C 7.0 cm LV Diastolic Volume MOD 2C 147.0 cm??? LV Systolic Volume MOD 2C 36.6 cm??? LV Ejection Fraction MOD 2C 75.1 % LV Cardiac Index MOD 2C 3730.6 cm???/min???m??? LV Diastolic Length 2C 9.2 cm LV Systolic Length 2C 6.7 cm Ascending Aorta Diameter 3.6 cm DOPPLER MV Peak Velocity 150.7 cm/s MV Peak Gradient 9.1 mmHg MV Mean Velocity 93.8 cm/s MV Mean Gradient 4.2 mmHg MV Velocity Time Integral 31.8 cm TR Peak Velocity 339.4 cm/s TR Peak Gradient 46.1 mmHg Right Atrial Pressure 5.0 mmHg Pulmonary Artery Systolic Pressu 51.1 mmHg Right Ventricular Systolic Press 51.1 mmHg PV Peak Velocity 53.9 cm/s PV Peak Gradient 1.2 mmHg FINDINGS Left Ventricle Left ventricular ejection fraction is estimated at 55-60 %. Left ventricular cavity size normal. No obvious regional wall motion abnormalities. Right Ventricle Right ventricular dilatation by visual. Moderate pulmonary hypertension. Right Atrium Right atrium not well visualized. Left Atrium Left atrial dilatation by visual. Mitral Valve Mitral valve thickened. Mitral annular calcification. No evidence for mitral valve prolapse. Tjaa-xo-qrwhctay mitral stenosis. Bujf-bu-hthvihcl mitral regurgitation. Aortic Valve Aortic valve not well visualized. No aortic valve stenosis or regurgitation. Tricuspid Valve Tricuspid valve not well visualized. No tricuspid stenosis. Mild tricuspid regurgitation. Pulmonic Valve Pulmonic valve not well visualized. Pericardium No pericardial effusion. Aorta Ascending aorta normal. CONCLUSIONS Normal LV function Mild to moderate mitral regurgitation Mild to moderate mitral stenosis Previewed by: Dr. Kvng Sullivan MD (Electronically Signed) Final Date: 25 December 2023 17:38
== END | disposition home or self-care (01) ==
LOC: RADCTMAIN 09:27
PROVIDERS: ATTEND Internal Medicine Critical Care Medicine
DX: S22.41XD Multiple fractures of ribs, right side, subsequent encounter for fracture with routine healing (principal); I10 Essential (primary) hypertension; I27.21 Secondary pulmonary arterial hypertension; I25.10 Atherosclerotic heart disease of native coronary artery without angina pectoris; K80.20 Calculus of gallbladder without cholecystitis without obstruction; I27.20 Pulmonary hypertension, unspecified; R91.1 Solitary pulmonary nodule; I34.2 Nonrheumatic mitral (valve) stenosis
CPT/HCPCS: 36415; 71250; 82565; 84520; 93308

== ENCOUNTER 2024-03-14 09:33 | Day surgery (SDC) | payer OTHER ==
[~2024-03-14 09:33] MED LIST: LACTATED RINGERS 1,000 ML IV SCH
[2024-03-14] MEDS: IV FLUID CONTINUATION 1,000 ML IV ONE (10:20)
[2024-03-14 10:40] VITALS: TEMP 97.2
[2024-03-14 10:45] LABS: Glucose,Whole Blood 90 mg/dL (70-110)
[2024-03-14] MEDS ORDERED: LIDOCAINE 1% INJ 10MG/ML (20 ML MDV) ONE (11:21)
[2024-03-14] MEDS ORDERED: PROPOFOL 10 MG/ML 20 ML VIAL IV ONE (11:21)
--- NOTE | 2024-03-14 11:32 | P.PCN ---
Date of Procedure: 03/14/24 Procedure(s) Performed: BRIEF HISTORY: Patient is a 58-year-old, pleasant, white female skilled for an upper endoscopy as a part evaluation of lungs and history of GERD and intermittent dysphagia to solids. PROCEDURE PERFORMED: Esophagogastroduodenoscopy with biopsy PREOPERATIVE DIAGNOSIS: GERD/intermittent dysphagia to solids. IV sedation per anesthesia. PROCEDURE: After informed consent was obtained, the patient was brought into the endoscopy unit. IV sedation was administered by Anesthesia under continuous monitoring. Initially the Olympus GIF-140 video endoscope was inserted into the mouth. Esophagus intubated without any difficulty. It was gradually advanced into the stomach and duodenum and carefully examined. The bulb and the second part of the duodenum appeared normal. The scope at this time was withdrawn to the stomach, adequately insufflated with air, and upon careful examination, mucosa of the antrum had gastritis and biopsies were done from this area. There was evidence of gastric sleeve surgery. Mucosa in the gastric sleeve appeared normal.. The scope was then withdrawn into the esophagus. The GE junction was located at 39 cm from the incisors. The esophagus appeared normal. There were no erosions or ulcerations seen, biopsies were done from the distal esophagus and the patient tolerated the procedure well. IMPRESSION: 1. Mild antral gastritis. 2. Evidence of gastric sleeve surgery 3. Normal-appearing esophagus with no evidence of esophagitis or esophageal stricture. RECOMMENDATIONS: The findings of this examination were discussed with the patient as well as her family. She was advised to follow-up with the biopsy results. Continue with Protonix 40 mg daily and follow antireflux measures..
[2024-03-14 12:08] VITALS: BP 116/65; PULSE 73; RESP 20
== END 2024-03-14 12:36 | disposition home or self-care (01) ==
LOC: ORWHC2ENDO 09:33
PROVIDERS: ATTEND Internal Medicine Gastroenterology
CPT/HCPCS: 43239; 88305

== ENCOUNTER → 2024-06-02 | Outpatient (CLI) | payer OTHER ==
--- NOTE | 2024-06-03 07:53 | CA ---
Transthoracic Echo Report Name: Amy Castellano Age: 58 Gender: F : 1965 Exam Date: 06/02/2024 11:45 Exam Location: [facility] Ht (in): 64 Wt (lb): 211 Ordering Physician: Sushant Parks MD Attending/Referring Phys: [employer] Tia Montgomery RDCS Procedure CPT: Indications: I27.22 PULMONARY HYPERTENSION DUE TO LEFT HEART DI Cardiac Hx: Technical Quality: Fair Contrast 1: Total Dose (mL): Contrast 2: Total Dose (mL): MEASUREMENTS (Male / Female) Normal Values 2D ECHO LV Diastolic Diameter PLAX 4.6 cm 4.2 - 5.9 / 3.9 - 5.3 cm LV Systolic Diameter PLAX 3.8 cm IVS Diastolic Thickness 1.0 cm 0.6 - 1.0 / 0.6 - 0.9 cm LVPW Diastolic Thickness 1.4 cm 0.6 - 1.0 / 0.6 - 0.9 cm LV Relative Wall Thickness 0.5 RV Internal Dim ED PLAX 4.7 cm LA Systolic Diameter LX 5.9 cm 3.0 - 4.0 / 2.7 - 3.8 cm LV Diastolic Volume MOD BP 41.1 cm??? 67 - 155 / 56 - 104 cm??? LV Systolic Volume MOD BP 22.4 cm??? 22 - 58 / 19 - 49 cm??? LV Ejection Fraction MOD BP 45.4 % >= 55 % LV Cardiac Index MOD BP 641.8 cm???/min???m??? LV Diastolic Volume MOD 4C 35.0 cm??? LV Systolic Volume MOD 4C 18.9 cm??? LV Ejection Fraction MOD 4C 46.1 % LV Cardiac Index MOD 4C 554.4 cm???/min???m??? LV Diastolic Length 4C 5.8 cm LV Systolic Length 4C 4.8 cm LV Diastolic Volume MOD 2C 44.7 cm??? LV Systolic Volume MOD 2C 24.5 cm??? LV Ejection Fraction MOD 2C 45.3 % LV Cardiac Index MOD 2C 695.5 cm???/min???m??? LV Diastolic Length 2C 6.6 cm LV Systolic Length 2C 5.8 cm M-MODE Aortic Root Diameter MM 2.6 cm LA Systolic Diameter MM 6.1 cm LA Ao Ratio MM 2.3 DOPPLER MV Peak Velocity 170.6 cm/s MV Peak Gradient 11.6 mmHg MV Mean Velocity 87.2 cm/s MV Mean Gradient 4.3 mmHg MV Velocity Time Integral 39.4 cm Mitral E Point Velocity 147.3 cm/s Mitral A Point Velocity 0.4 cm/s Mitral E to A Ratio 336.8 MV Deceleration Time 322.0 ms MV E' Velocity 7.6 cm/s Mitral E to MV E' Ratio 19.4 TR Peak Velocity 396.5 cm/s TR Peak Gradient 62.9 mmHg Right Atrial Pressure 15.0 mmHg Pulmonary Artery Systolic Pressu 77.9 mmHg Right Ventricular Systolic Press 77.9 mmHg FINDINGS Left Ventricle Left ventricular ejection fraction is estimated at 50-55%. Mildly increased septal wall thickness. Moderately increased posterior wall thickness. Mildly decreased left ventricular ejection fraction. Left ventricular cavity size normal. Right Ventricle Severe right ventricular dilatation. Severe pulmonary hypertension. Right ventricular systolic pressure estimated at 78 mmHg. Right Atrium Severe right atrial dilatation. Left Atrium Severely increased left atrial diameter. Patent foramen ovale. Mitral Valve Mild mitral stenosis, Mean PG 4.3 mmHg. Mild mitral regurgitation. Mitral valve thickened. Moderate mitral annular calcification. Aortic Valve Trileaflet aortic valve. No aortic valve stenosis or regurgitation. Tricuspid Valve Annular dilatation of the tricuspid valve. Severe tricuspid regurgitation. No tricuspid stenosis. Pulmonic Valve Structurally normal pulmonic valve. Trace pulmonic regurgitation. No pulmonic stenosis. Pericardium No pericardial or pleural effusion. Aorta Normal size aortic root and proximal ascending aorta. CONCLUSIONS Normal LV systolic function Extremely thickened mitral valve apparatus with mild mitral stenosis and mild mitral insufficiency Trileaflet aortic valve with no stenosis or regurgitation Severe pulmonary hypertension Severe RV enlargement Severe tricuspid regurgitation Severe biatrial enlargement Previewed by: Dr. Vel Saez MD (Electronically Signed) Final Date: 03 June 2024 07:52
== END | disposition home or self-care (01) ==
LOC: RADECHMAIN 11:38
PROVIDERS: ATTEND Internal Medicine Hospice and Palliative Medicine
DX: I27.22 Pulmonary hypertension due to left heart disease (principal); I08.1 Rheumatic disorders of both mitral and tricuspid valves
CPT/HCPCS: 93306